=== PATIENT | male | born 1935 | race Caucasian/White ===

== ENCOUNTER 2017-04-09 11:57 | Inpatient (IN) | payer MEDICARE, OTHER, SELFPAY ==
[2017-04-09] VITALS (13 sets, daily range): BP systolic 101–140; BP diastolic 57–111; PULSE 76–90; RESP 18–36; TEMP 36.7–37.3; O2SAT 88–95; BMI 31.9; BMI 31.0; BMI 30.9
--- NOTE | 2017-04-09 12:27 | RAD_ITS ---
STUDY: X-RAY CHEST REASON FOR EXAM: Male, 81 years old. Cough. Chest congestion and shortness of breath. TECHNIQUE: Single AP portable view of the chest. COMPARISON: Comparison is made with prior study dated July 04, 2016. FINDINGS: EKG electrodes are seen. Mild degree of increased markings at the lung bases suggestive of mild bibasilar atelectasis. There is no demonstrated pleural abnormality. Normal size heart. Normal mediastinum and milla. Normal visualized pulmonary arteries. There is atherosclerotic tortuosity of the aortic arch and descending thoracic aorta. There are diffuse degenerative changes of the visualized thoracic spine. Normal visualized ribs, clavicles, and shoulders. There is no demonstrated abnormality of the visualized soft tissue structures of the upper abdomen. RAD/Chest 1 View (Portable) IMPRESSION: Mild increased markings at the lung bases suggest some mild bibasilar atelectasis. Electronically Signed: Jamar Howard MD at 13:26 EST Tel [phone], Service support ,
--- NOTE | 2017-04-09 12:27 | EKG12_ITS ---
Test Reason : SOB Blood Pressure : / mmHG Vent. Rate : 078 BPM Atrial Rate : 078 BPM P-R Int : 160 ms QRS Dur : 086 ms QT Int : 392 ms P-R-T Axes : 007 -02 020 degrees QTc Int : 446 ms Normal sinus rhythm Inferior infarct , age undetermined Abnormal ECG Confirmed by LISBETH AUGUSTE, LETY ([id number]), book or script editor JOHNNY GOOD ([id number] on 04/12/2017 1:38:18 PM Referred By: FORREST Confirmed By:LETY BOB MD
[2017-04-09] MEDS: Albuterol 2.5 MG/3 ML VIAL.NEB. INHALATION ×2 (12:51)
[2017-04-09] MEDS: Ipratropium/Albuterol Sulfate 3 ML AMPUL.NEB INHALATION ×3 (12:51→22:45)
[2017-04-09 12:53] LABS: Absolute Lymphocyte Count 0.69 X10^3/ul (0.83-4.51); Absolute Neutrophil Count 9.1 X10^3/uL (2.0-7.7); Basophil# 0.01 X10^3/uL; Basophil% 0.1 % (0-1); Hematocrit 41.5 % (40-54); Hemoglobin 13.8 g/dl (13.0-16.5); Lymphocyte # 0.69 X10^3/ul (4.0); Lymphocyte % 6.6 % (19-41); Mean Corp Hgb Conc 33.3 g/gl (32-36); Mean Corpuscular Volume 93.3 fL (80-94); Mean Platelet Vol. 10.5 fl (6.2-12.0); Monocyte% 6.7 % (0-10); Neutrophil # 9.09 X10^3/uL (2.7-7.7); Neutrophil % 86.3 % (47-70); Platelet Count 189 K/mm3 (150-450); RBC Distribution Width CV 13.9 % (11.6-14.6); RBC Distribution Width SD 47.1 fl (35.1-43.9); Red Blood Count 4.45 M/mm3 (4.6-6.2); White Blood Count 10.5 K/mm3 (4.4-11.0)
[2017-04-09 12:55] LABS: POSITIVE COUNT NO; POSITIVE DIFFERENTIAL NO; POSITIVE MORPHOLOGY NO
[2017-04-09 13:00] LABS: BUN 34 mg/dL (7-18); Creatinine, Serum 1.83 mg/dL (0.70-1.30); Estimated Creatinine Clearance 30.11 ml/min; Glucose 164 mg/dL (70-110)
[2017-04-09 13:01] LABS: Anion Gap 10 (5-15); BUN/Creat Ratio 18.6 RATIO (10-20); Chloride 103 mmol/L (98-107); EST Glomerular Filtration Rate 38 mL/min (>60); Est Glom Filt Rate - Afr Amer 46 mL/min (>60); Potassium 3.9 mmol/L (3.5-5.1); Sodium Level 138 mmol/L (136-145)
[2017-04-09 13:26] LABS: BNP,B-Type NATRIURETIC PEPTIDE 53.7 pg/mL (0-100)
[2017-04-09] MEDS: MethylPREDNISolone 125 MG/2 ML Vial 80 MG IV (13:34)
--- NOTE | 2017-04-09 14:22 | ED.DCSUM_ITS ---
- ER Visit Summary Date of Service: 04/09/17 Chief Complaint: Shortness of breath/COPD History of Present Illness: The patient is a 81 M with a history of COPD, not on home oxygen. Patient became ill with respiratory symptoms approximately 5 days ago. On the he started taking amoxicillin and prednisone. He was seen by his PCP on the and was switched to Levaquin. Chest x-ray was negative at that time. Patient has not had fever. He uses a nebulizer at home as needed. This morning his breathing seems significantly worse and he requested to come to the hospital. He denies chest pain. Physical Examination: Blood pressure is 135/78, temperature 98.4, heart rate 80 , respiratory rate 36, pulse ox 95% on room air. Head and neck examination is unremarkable. Heart is regular rate and rhythm. Lungs sounds are with rhonchi throughout and mild expiratory wheezes. Abdomen is soft nontender. Lower extremity examination does not reveal significant calf tenderness or edema. Test Results: EKG is sinus at 78 with no sign of acute ischemia. Portable chest x-ray shows mild increased markings of the lung bases suggesting bibasilar atelectasis. CBC is normal. Chemistry studies reveal glucose of 164 , BUN 34, creatinine 1.83. BNP is normal at 53. Blood cultures were obtained and sent. Emergency Department Course and Treatment: Patient was treated with Solu-Medrol and aerosols. Per nursing documentation, his oxygen saturation dropped to 88% on room air. He is placed on 2 L nasal cannula and was satting 92% on my repeat evaluation. Patient has failed outpatient therapy with appropriate antibiotics and steroids. He did take a dose of antibiotics this morning and is not due for his next dose, therefore is not given antibiotics in the emergency room. Hospitalist has been contacted for admission. Treatment Plan: [] Disposition: Admit Impression: 1. COPD exacerbation 2. Bronchitis This note was generated with [employer] dictation software. It may contain incorrect words, spelling, and punctuation that were not noted in review of the chart prior to signing ED Disposition - Plan for ED Patient: Disposition: Acute Care Hospital [facility] Chief Complaint: Shortness of Breath
--- NOTE | 2017-04-09 16:37 | PCM.HP.STD ---
Problem List (1) Asthma exacerbation with COPD (chronic obstructive pulmonary disease) Status: Acute (2) CAD (coronary artery disease) Status: Chronic Qualifiers: Coronary Disease-Associated Artery/Lesion type: [place] artery [place] vs. transplanted heart: [place] heart Associated angina: without angina Qualified Code(s): I25.10 - Atherosclerotic heart disease of [place] coronary artery without angina pectoris (3) HLD (hyperlipidemia) Status: Chronic Qualifiers: Hyperlipidemia type: mixed hyperlipidemia Qualified Code(s): E78.2 - Mixed hyperlipidemia (4) HTN (hypertension) Status: Chronic Qualifiers: Hypertension type: essential hypertension Qualified Code(s): I10 - Essential (primary) hypertension History of Present Illness Date of Admission: 04/09/17 Chief Complaint: Cough, shortness of breath Patient is an 81 years old male with history of COPD/asthma, presents with worsening of cough and dyspnea. He started to have symptoms of cough 5 days ago. He has standing order of oral antibiotics and prednisone, started on 04/05/17. The symptoms did not improve, sought care at his PCP, where he was given Levaquin on 04/07/17. He is doing much worse today, bought to ED. His Oxygen saturation was 88%, improved to 92% with aerosol treatment and oxygen. He has nebulizer at home, but did not require home oxygen yet. He is having difficulty of using MDI, using budesonide aerosol and DuoNeb, along with oral Singulair. Past Medical History Past Medical History (Chronic Problems): Chronic Problems CAD (coronary artery disease) (Chronic) HLD (hyperlipidemia) (Chronic) Obesity (BMI 30.0-34.9) (Chronic) COPD (chronic obstructive pulmonary disease) (Chronic) HTN (hypertension) (Chronic) Allergies No Known Allergies Allergy (Verified 02/14/17 10:19) Home Medications: Ambulatory Orders Medication Instructions Recorded Aspirin [Adult Low Dose Aspirin EC] 81 mg PO DAILY 09/25/15 Atorvastatin Calcium [Lipitor] 40 mg PO QHS 09/25/15 Bumetanide 1 mg PO DAILY 09/25/15 Clopidogrel Bisulfate [Plavix] 75 mg PO DAILY 09/25/15 Famotidine [Pepcid] 20 mg PO DAILY 09/25/15 Losartan Potassium [Cozaar] 12.5 mg PO DAILY 09/25/15 Metoprolol Tartrate [Lopressor 25 mg PO BID 09/25/15 (beta alycia)] Nitroglycerin [Nitrostat] 0.4 mg SUBLINGUAL Q5M PRN 09/25/15 Pantoprazole Sodium [Protonix] 40 mg PO DAILY PRN 09/25/15 Sertraline HCl [Zoloft] 50 mg PO DAILY 09/25/15 TraMADol [Ultram] 50 mg PO BID PRN PRN 09/25/15 Guaifenesin [Mucinex] 1,200 mg PO BID PRN 01/20/16 Albuterol Aerosols [Ventolin 2.5 mg INHALATION TID 02/14/17 Aerosols] Budesonide Aerosol [Pulmicort 0.5 mg INHALATION BID 02/14/17 Aerosol] Montelukast Sodium [Singulair] 10 mg PO QHS 02/14/17 Fluticasone Propionate [Flonase 1 spray NS DAILY 04/09/17 Allergy Relief] Ipratropium/Albuterol Sulfate 3 ml INHALATION Q4H.RT 04/09/17 [Duoneb] Levofloxacin [Levaquin] 500 mg PO BID 04/09/17 Surgical History: - - PCI x 1. Psychiatric History: No pertinent psych hx Smoking Status: Former smoker - *Family History Maternal History Items: No pertinent history Paternal History Items: No pertinent history Review of Systems Comment: ROS: In general: Patient has been in good health, denied of any constitutional symptoms, such as weight loss, or gain, fever, chills, or night sweats. Patient denied of any profound fatigue. HEENT: Unremarkable. Patient denied of any dizziness, chronic headache, blurred vision, double vision, dry mouth, or nasal congestion. CV/respiratory: He has minimal sputum with white color phlegm. +frequent edema. No chest pain. GI: Patient denied any abdominal pain, nausea, vomiting, diarrhea, constipation, melena, or hematochezia. : Patient denied any significant urinary symptoms. Neurology: Unremarkable. There is no history of seizure as an adult. Psychological: Unremarkable. ?. Endocrine: Unremarkable. Musculoskeletal: Unremarkable. VTE Information - Inpt Only VTE Present on Admission: No VTE Mechan Device Prophylaxis: Knee High PAYAL Hose VTE Pharm Prophylaxis ordered?: Yes Patient Problems: Active and Suspected Problems Asthma exacerbation with COPD (chronic obstructive pulmonary disease) (Acute) Objective: In general, patient is a well-nourished and developed adult. Mildly in respiratory distress. HEENT: Head is atraumatic, and normocephalic. Pupils are equal, round, and reactive to light and accommodations. Neck is supple. There is no lymphadenopathy, or thyromegaly. Oral mucosa is pink, and moist. There are no lesions. Heart: Auscultation is normal with regular rhythm and rate. There is no extra heart sounds, or murmurs. S1 and S2 are present. Point of maximal impulse is not displaced. Lungs: upper airway rhonchi, diminished breath sounds at bases. Diffuse wheezing mid to upper lung bailey. Abdomen: Abdominal wall is non-tender, and non-distended. There is no palpable mass or organomegaly. Normoactive bowel sounds are present. Extremities: There is no cyanosis or clubbing. Peripheral pulses are palpable. There is no edema. Skin: There are no any skin discoloration or lesions. Neurological: CN II - XII are intact. Sensory and motor functions are grossly normal with no obvious deficit. Cerebellar functions are within normal range. Gait was not tested. - Physical Exam Vital Signs Temp Pulse Resp BP Pulse Ox 98.4 F 87 19 H 125/111 H 91 04/09/17 11:59 04/09/17 15:20 04/09/17 15:20 04/09/17 15:20 04/09/17 15:20 Diagnostic Data Chest X-Ray 04/09/17 12:27 IMPRESSION: Mild increased markings at the lung bases suggest some mild bibasilar atelectasis. Electronically Signed: Jamar Howard MD at 13:26 EST Tel [phone], Service support , Assessment/Plan Active and Suspected Problems Asthma exacerbation with COPD (chronic obstructive pulmonary disease) (Acute) Patient is an 81 years old male with history of COPD/asthma, presents with worsening of cough and dyspnea. He started to have symptoms of cough 5 days ago. He has standing order of oral antibiotics and prednisone, started on 04/05/17. The symptoms did not improve, sought care at his PCP, where he was given Levaquin on 04/07/17. He is doing much worse today, bought to ED. His Oxygen saturation was 88%, improved to 92% with aerosol treatment and oxygen. He has nebulizer at home, but did not require home oxygen yet. He is having difficulty of using MDI, using budesonide aerosol and DuoNeb, along with oral Singulair. #1 asthma/COPD exacerbation. Solu-Medrol 40 mg IV Q8, DuoNeb Q4H + prn. Oxygen supplement. Azithromycin 500 mg IV daily. #2 Coronary artery disease. Continue current medications. #3 Essential hypertension. Blood pressure is adequate. #4 Hyperlipidemia. Continue atorvastatin. VTE prophylaxis: Heparin SQ. GI prophylaxis: PPI po. Patient is full code. Disposition: home in 2 to 3 days. Code Visit Inpatient E&M: 45870 Init Hosp L3
[2017-04-09] MEDS: 0.9% Normal Saline 1,000 ML 75 ML IV (16:46)
--- NOTE | 2017-04-09 16:47 | HP.PCM_ITS ---
Problem List (1) Asthma exacerbation with COPD (chronic obstructive pulmonary disease) Status: Acute (2) CAD (coronary artery disease) Status: Chronic Qualifiers: Coronary Disease-Associated Artery/Lesion type: [place] artery [place] vs. transplanted heart: [place] heart Associated angina: without angina Qualified Code(s): I25.10 - Atherosclerotic heart disease of [place] coronary artery without angina pectoris (3) HLD (hyperlipidemia) Status: Chronic Qualifiers: Hyperlipidemia type: mixed hyperlipidemia Qualified Code(s): E78.2 - Mixed hyperlipidemia (4) HTN (hypertension) Status: Chronic Qualifiers: Hypertension type: essential hypertension Qualified Code(s): I10 - Essential (primary) hypertension History of Present Illness Date of Admission: 04/09/17 Chief Complaint: Cough, shortness of breath Patient is an 81 years old male with history of COPD/asthma, presents with worsening of cough and dyspnea. He started to have symptoms of cough 5 days ago. He has standing order of oral antibiotics and prednisone, started on 04/05/17. The symptoms did not improve, sought care at his PCP, where he was given Levaquin on 04/07/17. He is doing much worse today, bought to ED. His Oxygen saturation was 88%, improved to 92% with aerosol treatment and oxygen. He has nebulizer at home, but did not require home oxygen yet. He is having difficulty of using MDI, using budesonide aerosol and DuoNeb, along with oral Singulair. Past Medical History Past Medical History (Chronic Problems): Chronic Problems CAD (coronary artery disease) (Chronic) HLD (hyperlipidemia) (Chronic) Obesity (BMI 30.0-34.9) (Chronic) COPD (chronic obstructive pulmonary disease) (Chronic) HTN (hypertension) (Chronic) Allergies No Known Allergies Allergy (Verified 02/14/17 10:19) Home Medications: Ambulatory Orders Medication Instructions Recorded Aspirin [Adult Low Dose Aspirin EC] 81 mg PO DAILY 09/25/15 Atorvastatin Calcium [Lipitor] 40 mg PO QHS 09/25/15 Bumetanide 1 mg PO DAILY 09/25/15 Clopidogrel Bisulfate [Plavix] 75 mg PO DAILY 09/25/15 Famotidine [Pepcid] 20 mg PO DAILY 09/25/15 Losartan Potassium [Cozaar] 12.5 mg PO DAILY 09/25/15 Metoprolol Tartrate [Lopressor 25 mg PO BID 09/25/15 (beta alycia)] Nitroglycerin [Nitrostat] 0.4 mg SUBLINGUAL Q5M PRN 09/25/15 Pantoprazole Sodium [Protonix] 40 mg PO DAILY PRN 09/25/15 Sertraline HCl [Zoloft] 50 mg PO DAILY 09/25/15 TraMADol [Ultram] 50 mg PO BID PRN PRN 09/25/15 Guaifenesin [Mucinex] 1,200 mg PO BID PRN 01/20/16 Albuterol Aerosols [Ventolin 2.5 mg INHALATION TID 02/14/17 Aerosols] Budesonide Aerosol [Pulmicort 0.5 mg INHALATION BID 02/14/17 Aerosol] Montelukast Sodium [Singulair] 10 mg PO QHS 02/14/17 Fluticasone Propionate [Flonase 1 spray NS DAILY 04/09/17 Allergy Relief] Ipratropium/Albuterol Sulfate 3 ml INHALATION Q4H.RT 04/09/17 [Duoneb] Levofloxacin [Levaquin] 500 mg PO BID 04/09/17 Surgical History: - - PCI x 1. Psychiatric History: No pertinent psych hx Smoking Status: Former smoker - *Family History Maternal History Items: No pertinent history Paternal History Items: No pertinent history Review of Systems Comment: ROS: In general: Patient has been in good health, denied of any constitutional symptoms, such as weight loss, or gain, fever, chills, or night sweats. Patient denied of any profound fatigue. HEENT: Unremarkable. Patient denied of any dizziness, chronic headache, blurred vision, double vision, dry mouth, or nasal congestion. CV/respiratory: He has minimal sputum with white color phlegm. +frequent edema. No chest pain. GI: Patient denied any abdominal pain, nausea, vomiting, diarrhea, constipation, melena, or hematochezia. : Patient denied any significant urinary symptoms. Neurology: Unremarkable. There is no history of seizure as an adult. Psychological: Unremarkable. ?. Endocrine: Unremarkable. Musculoskeletal: Unremarkable. VTE Information - Inpt Only VTE Present on Admission: No VTE Mechan Device Prophylaxis: Knee High PAYAL Hose VTE Pharm Prophylaxis ordered?: Yes Patient Problems: Active and Suspected Problems Asthma exacerbation with COPD (chronic obstructive pulmonary disease) (Acute) Objective: In general, patient is a well-nourished and developed adult. Mildly in respiratory distress. HEENT: Head is atraumatic, and normocephalic. Pupils are equal, round, and reactive to light and accommodations. Neck is supple. There is no lymphadenopathy, or thyromegaly. Oral mucosa is pink, and moist. There are no lesions. Heart: Auscultation is normal with regular rhythm and rate. There is no extra heart sounds, or murmurs. S1 and S2 are present. Point of maximal impulse is not displaced. Lungs: upper airway rhonchi, diminished breath sounds at bases. Diffuse wheezing mid to upper lung bailey. Abdomen: Abdominal wall is non-tender, and non-distended. There is no palpable mass or organomegaly. Normoactive bowel sounds are present. Extremities: There is no cyanosis or clubbing. Peripheral pulses are palpable. There is no edema. Skin: There are no any skin discoloration or lesions. Neurological: CN II - XII are intact. Sensory and motor functions are grossly normal with no obvious deficit. Cerebellar functions are within normal range. Gait was not tested. - Physical Exam Vital Signs Temp Pulse Resp BP Pulse Ox 98.4 F 87 19 H 125/111 H 91 04/09/17 11:59 04/09/17 15:20 04/09/17 15:20 04/09/17 15:20 04/09/17 15:20 Diagnostic Data Chest X-Ray 04/09/17 12:27 IMPRESSION: Mild increased markings at the lung bases suggest some mild bibasilar atelectasis. Electronically Signed: Jamar Howard MD at 13:26 EST Tel [phone], Service support , Assessment/Plan Active and Suspected Problems Asthma exacerbation with COPD (chronic obstructive pulmonary disease) (Acute) Patient is an 81 years old male with history of COPD/asthma, presents with worsening of cough and dyspnea. He started to have symptoms of cough 5 days ago. He has standing order of oral antibiotics and prednisone, started on 04/05/17. The symptoms did not improve, sought care at his PCP, where he was given Levaquin on 04/07/17. He is doing much worse today, bought to ED. His Oxygen saturation was 88%, improved to 92% with aerosol treatment and oxygen. He has nebulizer at home, but did not require home oxygen yet. He is having difficulty of using MDI, using budesonide aerosol and DuoNeb, along with oral Singulair. #1 asthma/COPD exacerbation. Solu-Medrol 40 mg IV Q8, DuoNeb Q4H + prn. Oxygen supplement. Azithromycin 500 mg IV daily. #2 Coronary artery disease. Continue current medications. #3 Essential hypertension. Blood pressure is adequate. #4 Hyperlipidemia. Continue atorvastatin. VTE prophylaxis: Heparin SQ. GI prophylaxis: PPI po. Patient is full code. Disposition: home in 2 to 3 days. Code Visit Inpatient E&M: 39211 Init Hosp L3
[2017-04-09] MEDS: 0.9% NaCl Peripheral Flush Adult/Peds IV (17:31)
[2017-04-09] MEDS: Heparin Injection 5,000 UNITS/ML Syringe 5000 UNITS SC (21:39)
[2017-04-09] MEDS: Metoprolol Tartrate 25 MG Tablet PO (21:39)
[2017-04-09] MEDS: Atorvastatin Calcium 40 MG Tablet PO (21:39)
[2017-04-09] MEDS: Montelukast 10 MG Tablet PO (21:39)
[2017-04-10] VITALS (25 sets, daily range): BP systolic 128–145; BP diastolic 66–83; PULSE 65–88; RESP 10–28; TEMP 36.3–37; O2SAT 92–97
[2017-04-10] MEDS: guaiFENesin 1,200 MG Tablet 1200 MG PO ×3 (01:39→22:20)
[2017-04-10] MEDS: Ipratropium/Albuterol Sulfate 3 ML AMPUL.NEB INHALATION ×6 (02:59→22:15)
[2017-04-10] MEDS: Heparin Injection 5,000 UNITS/ML Syringe 5000 UNITS SC ×3 (05:37→22:20)
--- NOTE | 2017-04-10 06:22 | PCM.PROGNOTE ---
Patient Problems: Active and Suspected Problems Asthma exacerbation with COPD (chronic obstructive pulmonary disease) (Acute) Subjective: Patient is an 81-year-old male with a past medical history of COPD, CAD, HLD and hypertension who presented to the emergency room at [facility] on 04/09/2017 complaining of cough and shortness of breath. The cough started 5 days prior to admission. He has antibiotics and prednisone at home and started them on 04/05/2017. He had no improvement and saw his PCP and was given Levaquin on 04/07/2017. On 119 he stated he was much worse and his pulse ox was 88% on room air. He uses no oxygen at home. Vital signs in the emergency room were temp 98.4, pulse rate 80, blood pressure 135/78, respiratory rate 36 and he was 88% on room air. White blood cell count was 10.5 with 86% neutrophils. Platelet count and hemoglobin were within normal limits. The electrolytes were normal but the BUN was elevated at 34 with a creatinine of 1.83. Creatinine in March 2016 was 1.36. Chest x-ray shows poor inspiratory effort with possible infiltrate in the right base and the lingula Blood cultures were sent from the emergency room and he was treated with supplemental oxygen, aerosolized bronchodilators and Solu-Medrol. He was admitted to the hospital and started on azithromycin, aerosolized bronchodilators and azithromycin. Respiratory panel is + for human Metapheumo virus and negative for influenza. Blood cultures are pending. Patient is chewing tobacco and spitting in a pop can. He has conversational dyspnea and accessory muscle use with tachypnea. Dtr is defensive and angry. I answered all her questions and every time I explain something she refutes it. He has sundowning and gets confused at night and she refuses Seroquel. He has had PFT's in the past but she does not know the results. He follows with Dr. Chacon at the [facility]. She denies that he has dementia even though she readily told me he gets confused in the hospital. He is unable to use a MDI effectively per the dtr....even with a spacer. She has an aerosol machine at home and uses Albuterol and Budesonide as needed. He has already had Amoxicillin and Levaquin and had no improvement. She wants to know when he will be discharged and I told her I am unable to predict that....it is a day by day thing. I brought up advance directives and she again got defensive. I told her that this is standard to discuss in an 81 YO pt with underlying chronic lung disease in the hospital with exacerbation COPD and viral pneumonia. She wants to know why I am asking her this. Nursing states his breathing now is worse than this AM and He would not tolerate BIPAP. She wants him to be a full code, but doesn't see why this would be necessary. - Physical Exam General: Well developed, Well nourished, Confused, - - He is awake and not really participating in the conversation other than to ask when he can go home. HEENT: Atraumatic, Normocephalic Oral: Dry Mucosa Neck: Supple, - - He has a lot of coarse wheezing over the neck and he is not coughing to bring up the sputum. Lungs: No wheeze, Diminished, Rales - coarse posteriorly on both sides. He is tachypneic, has conversational dyspnea and is using accessory muscles. Cardiovascular: Regular rate, Regular Rhythm, - - Heart sounds are very distant and difficult to hear over the coarse rales and the wheezing. Abdomen: Bowel Sounds Present, Soft, Non Tender, Non-Distended, Obese Extremities: No clubbing, No cyanosis, No edema Skin: No rashes Psych/Mental Status: - - more interested in chewing tobacco and spitting than discussing the diagnosis and the plan for treatment. Angry when I discussed code status and the possibility that he may get worse before he gets better and that with the virus and the chronic lung disease if he gets worse he may need intubated....dtr angry also. Vital Signs Temp Pulse Resp BP Pulse Ox 98.3 F 66 22 H 145/72 H 95 04/10/17 05:33 04/10/17 05:33 04/10/17 05:33 04/10/17 05:33 04/10/17 05:33 Oxygen Flow Rate 2 Oxygen Delivery Method Nasal Cannula Weight: 203 lb 4.8 oz Body Mass Index (BMI) 30.9 Intake and Output for Last 24 Hours 04/08/17 04/09/17 04/10/17 23:59 23:59 23:59 Intake Total 475 / 475 1471 / 1471 Balance 475 / 475 1471 / 1471 Assessment/Plan Active and Suspected Problems Asthma exacerbation with COPD (chronic obstructive pulmonary disease) (Acute) Impressions 1. acute exacerbation COPD secondary to Human Metaphpneumo Virus 2. Viral pneumonia secondary to Human Metaphpneumo Virus 3. 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 Chronic renal failure stage III 5. Hyperglycemia with no history of diabetes mellitus type 2 6. Tobacco abuse with chewing tobacco 7. CAD/hyperlipidemia/hypertension/suspected dementia with sundowning complicates management, care, prognosis and recovery Respiratory panel sputum culture IS and PEP ST eval Dtr not agreeable to taking away the chewing tobacco even though it is against hospital policy. She is confrontational and has attitude with all medical personnel who enter the room. Refuses Seroquel for sundowning. States someone will be here continuously while he is in the hospital. Will order PRN IM haldol PEP with percussion vest. 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 No ECHO on file at this hospital......he follows with the [facility] Continue the solu-medrol Check a HGBA1C DC the Azithromycin......antibiotics have not worked because he has a virus. Attitude of the pt and the dtr is going to make managing this pt difficult and certainly complicates care. I spent 30 minutes in the room just explaining findings and plan of care with the dtr and explaining code status......an additional 20 minutes was spent reviewing Xrays, labs and examining the pt Code Visit Inpatient E&M: 01182 Subs Hosp L3
--- NOTE | 2017-04-10 06:33 | RAD_ITS ---
STUDY: X-RAY CHEST REASON FOR EXAM: Male, 81 years old. Cough shortness of breath TECHNIQUE: PA and lateral views of the chest. There are duplicated. COMPARISON: April 09, 2017 chest x-ray, July 04, 2016 chest x-ray the lateral view is limited there is clothing artifact overlying the chest. FINDINGS: Similar to the prior study. There is elevation of the bilateral hemidiaphragms. There are increased lung markings in the medial aspect of the left lung There is no demonstrated pleural abnormality. Normal size heart. There are calcified mediastinal lymph nodes. Normal visualized pulmonary arteries. There is atherosclerotic tortuosity of the aortic arch and descending thoracic aorta. Normal visualized thoracic spine. Normal visualized ribs, clavicles, and shoulders. There is no demonstrated abnormality of the visualized soft tissue structures of the upper abdomen. RAD/Chest PA and Lateral IMPRESSION: Limited study lingular atelectasis. Could consider further evaluation with noncontrast chest CT to confirm. Degenerative change kyphosis Evidence of old granulomatous disease. Electronically Signed: Maranda Laboy MD at 10:45 EST Tel , Service support ,
[2017-04-10 08:27] LABS: Absolute Lymphocyte Count 0.87 X10^3/ul (0.83-4.51); Absolute Neutrophil Count 7.8 X10^3/uL (2.0-7.7); Basophil# 0.01 X10^3/uL; Basophil% 0.1 % (0-1); Hematocrit 39.5 % (40-54); Hemoglobin 13.2 g/dl (13.0-16.5); Lymphocyte # 0.87 X10^3/ul (4.0); Lymphocyte % 9.3 % (19-41); Mean Corp Hgb Conc 33.4 g/gl (32-36); Mean Corpuscular Hgb 30.8 pg (27.0-32.0); Mean Corpuscular Volume 92.3 fL (80-94); Mean Platelet Vol. 10.5 fl (6.2-12.0); Monocyte# 0.57 X10^3/uL; Monocyte% 6.1 % (0-10); Neutrophil # 7.84 X10^3/uL (2.7-7.7); Neutrophil % 84.3 % (47-70); POSITIVE COUNT NO; POSITIVE DIFFERENTIAL NO; POSITIVE MORPHOLOGY NO; Platelet Count 172 K/mm3 (150-450); RBC Distribution Width CV 13.7 % (11.6-14.6); RBC Distribution Width SD 46.1 fl (35.1-43.9); Red Blood Count 4.28 M/mm3 (4.6-6.2); White Blood Count 9.3 K/mm3 (4.4-11.0)
[2017-04-10] MEDS: 0.9% Normal Saline 1,000 ML 75 ML IV ×2 (08:31→22:20)
[2017-04-10] MEDS: Losartan Potassium 25 MG Tablet 12.5 MG PO (08:35)
[2017-04-10] MEDS: Fluticasone 0.05% 1 SPRAY NASAL.SRY NASAL (08:36)
[2017-04-10] MEDS: Aspirin E.C. 81 MG Tablet PO (08:36)
[2017-04-10] MEDS: Metoprolol Tartrate 25 MG Tablet PO ×2 (08:37→22:19)
[2017-04-10] MEDS: Sertraline 50 MG Tablet PO (08:38)
[2017-04-10] MEDS: Clopidogrel Bisulfate 75 MG Tablet PO (08:38)
[2017-04-10 09:00] LABS: ALB/GLOB Ratio 0.9 RATIO (0.9-2.4); AST(SGOT) 48 U/L (15-37); Alanine Aminotransfer ALT/SGPT 49 U/L (12-78); Albumin, Serum 3.1 g/dL (3.4-5.0); Alkaline Phosphatase 107 U/L (45-117); Anion Gap 10 (5-15); BUN 33 mg/dL (7-18); BUN/Creat Ratio 22.3 RATIO (10-20); Calcium,Total 8.6 mg/dL (8.5-10.1); Chloride 105 mmol/L (98-107); Creatinine, Serum 1.48 mg/dL (0.70-1.30); EST Glomerular Filtration Rate 48 mL/min (>60); Est Glom Filt Rate - Afr Amer 58 mL/min (>60); Estimated Creatinine Clearance 37.23 ml/min; Globulin 3.6 g/dL (2.2-4.2); Glucose 156 mg/dL (70-110); Magnesium 2.3 mg/dL (1.6-2.6); Phosphorus 3.2 mg/dL (2.5-4.9); Potassium 3.7 mmol/L (3.5-5.1); Protein, Total 6.7 g/dL (6.4-8.2); Sodium Level 140 mmol/L (136-145)
--- NOTE | 2017-04-10 11:30 | CASEMGMT ---
Face to Face with patient for initial transition planning/care coordination assessment. RN CM introduced self and role at [facility], pt voices understanding and consents to assessment at this time. Care providers, pharmacy, and demographics verified. See attached link. Advised pt to ask for CM if questions/concerns/needs arise, voices understanding. PLAN: Patient states he would like to return home, with family, upon discharge from hospital. Patient states he does not use home oxygen, but does have a nebulizer. Patient states he has used [facility] in the past but is not currently receiving any home health services. He states he no longer drives.
[2017-04-10 15:30] LABS: Hemoglobin A1c 6.3 % (4.2-6.3)
--- NOTE | 2017-04-10 15:56 | NURSING ---
pt placed on bi-pap, pt appears less sob and is resting with HOB UP 30 DEGREES, POX IS 93% RESPIRATIONS HAVE GONE FROM 32 T0 22\
[2017-04-10] MEDS: Lidocaine Jelly 2% 20 ML Syringe (URO-JET) 20 APPLIC TOPICAL (19:08)
[2017-04-10 19:14] LABS: Bacteria 0 SEEN /hpf (None Seen); Mucous, Urine 0 SEEN /hpf (<or=2+); Squamous Epithelial Cells - UA 0 SEEN /hpf (0-5); White Blood Cells 0 SEEN /hpf (0-5)
[2017-04-10 19:26] LABS: Color, Urine Yellow (Yellow); Glucose, Dipstick 250 mg/dl (Normal); Ketone-Dipstick Negative (Negative); Leukocyte Esterase-Dipstick Negative /ul (Negative); Nitrite-Dipstick Negative (Negative); Occult Blood-Urine 10 /ul (Negative); Protein-Dipstick Negative (Negative); Specific Gravity, Urine 1.015 (1.002-1.030); Urine Bilirubin Dipstick Negative (Negative); Urine Clarity Clear (Clear); Urine Urobilinogen Normal (Normal)
[2017-04-10 19:33] LABS: Red Blood Cells-Urine 0-5 SEEN /hpf (0-5)
[2017-04-10] MEDS: Atorvastatin Calcium 40 MG Tablet PO (22:19)
[2017-04-10] MEDS: Montelukast 10 MG Tablet PO (22:19)
--- NOTE | 2017-04-10 23:33 | NURSING ---
While this RN was in patients room at [facility] meds, patient son and daughter were in patients room. Daughter was asking alot of questions, this RN attempted to answer her questions to the best of her ability yet many times daughter started to become frustrated and continued asking questions. This RN tried to explain that patient was made NPO earlier in the shift and a cookie swallow was ordered. Daughter stated that patient has had cookie swallows in the past and they were fine. Patient is on BIPAP at this time. Will continue to monitor.
[2017-04-11] VITALS (22 sets, daily range): BP systolic 135–144; BP diastolic 72–86; PULSE 58–87; RESP 14–28; TEMP 36.4–37.1; O2SAT 94–98
[2017-04-11] MEDS: Ipratropium/Albuterol Sulfate 3 ML AMPUL.NEB INHALATION ×6 (02:30→22:39)
[2017-04-11] MEDS: Heparin Injection 5,000 UNITS/ML Syringe 5000 UNITS SC ×2 (05:28→14:21)
[2017-04-11 05:41] LABS: ALB/GLOB Ratio 0.8 RATIO (0.9-2.4); AST(SGOT) 141 U/L (15-37); Alanine Aminotransfer ALT/SGPT 115 U/L (12-78); Albumin, Serum 2.5 g/dL (3.4-5.0); Alkaline Phosphatase 107 U/L (45-117); Anion Gap 9 (5-15); BUN 29 mg/dL (7-18); Calcium,Total 7.9 mg/dL (8.5-10.1); Chloride 105 mmol/L (98-107); Creatinine, Serum 1.16 mg/dL (0.70-1.30); EST Glomerular Filtration Rate 64 mL/min (>60); Est Glom Filt Rate - Afr Amer 77 mL/min (>60); Globulin 3.1 g/dL (2.2-4.2); Glucose 177 mg/dL (70-110); Protein, Total 5.6 g/dL (6.4-8.2); Sodium Level 139 mmol/L (136-145)
[2017-04-11 05:42] LABS: Absolute Neutrophil Count 8.2 X10^3/uL (2.0-7.7); Basophil# 0.03 X10^3/uL; Basophil% 0.3 % (0-1); Hematocrit 37.6 % (40-54); Hemoglobin 12.4 g/dl (13.0-16.5); Mean Corpuscular Hgb 31.4 pg (27.0-32.0); Mean Corpuscular Volume 95.2 fL (80-94); Mean Platelet Vol. 10.3 fl (6.2-12.0); Monocyte# 0.58 X10^3/uL; Monocyte% 5.8 % (0-10); Neutrophil # 8.22 X10^3/uL (2.7-7.7); Neutrophil % 82.4 % (47-70); POSITIVE COUNT NO; POSITIVE DIFFERENTIAL NO; POSITIVE MORPHOLOGY NO; Platelet Count 163 K/mm3 (150-450); RBC Distribution Width CV 13.7 % (11.6-14.6); RBC Distribution Width SD 47.7 fl (35.1-43.9); Red Blood Count 3.95 M/mm3 (4.6-6.2)
--- NOTE | 2017-04-11 06:55 | PN_ITS ---
Patient Problems: Active and Suspected Problems Asthma exacerbation with COPD (chronic obstructive pulmonary disease) (Acute) Subjective: 81-year-old male with history of tobacco abuse/chewing, COPD, CRF III, CAD, HLD , HTN and suspected dementia admitted to the hospital with acute exacerbation of COPD and acute respiratory failure with hypoxemia secondary to Human Metaphpneumo Virus. Placed on BiPAP 04/10/2017. Blood cultures had no growth after 48 hours. All events of the past 24 hours of been reviewed. He is afebrile. Vital signs are stable. He is tolerating BiPAP without difficulty. He was able to tolerate 2 hours off BiPAP to eat a meal before needing to go back on. He is more interactive today and conversing pleasantly with me. Fluid balance is +[id number] since admission. White blood cell count today is 10. There are 82% neutrophils but he is on steroids. Creatinine is down to 1.16 from 1.83 to admission. LFTs are elevated with AST of 141 and ALT of 115. They Were unremarkable at admission. Denies CP, nausea, abdominal pain - Physical Exam General: Alert, Cooperative, No apparent distress - he is on BIPAP when I am talking with him HEENT: Atraumatic Oral: Moist Mucosa Lungs: Diminished, Rales, Rhonchi, - - No tachypnea or accessory muscle use when on BIPAP. He gets tachypneic off the BIPAP Cardiovascular: Regular rate, Regular Rhythm, Normal S1, Normal S2, - - distant heart sounds Abdomen: Bowel Sounds Present, Soft, Non Tender, Non-Distended Extremities: No clubbing, No cyanosis Skin: No rashes Psych/Mental Status: Appropriate Vital Signs Temp Pulse Resp BP Pulse Ox 97.7 F L 72 21 H 135/74 H 96 04/11/17 05:26 04/11/17 05:50 04/11/17 05:50 04/11/17 05:26 04/11/17 05:50 Oxygen Flow Rate 4 Oxygen Delivery Method Bi-pap Weight: 211 lb 3.245 oz Body Mass Index (BMI) 30.9 Intake and Output for Last 24 Hours 04/09/17 04/10/17 04/11/17 23:59 23:59 23:59 Intake Total 475 / 475 4701 / 4701 477 / 477 Output Total 1250 / 1250 400 / 400 Balance 475 / 475 3451 / 3451 77 / 77 Microbiology Past 72 Hours 04/10/17 07:30 Respiratory Panel (PCR) - Final Mucosa - Nasopharyngeal Human [place] Laboratory Tests Past 24 Hrs 04/10/17 04/10/17 04/10/17 08:12 08:12 08:12 WBC 9.3 RBC 4.28 L Hgb 13.2 Hct 39.5 L MCV 92.3 MCH 30.8 MCHC 33.4 RDW 13.7 RDW Differential 46.1 H Plt Count 172 MPV 10.5 Immature Gran % (Auto) 0.200 Neut % (Auto) 84.3 H Lymph % (Auto) 9.3 L [place] % (Auto) 6.1 Eos % (Auto) 0.0 Baso % (Auto) 0.1 Absolute Neuts (auto) 7.8 H Absolute Lymphs (auto) 0.87 Total Counted Not Reportable Sodium 140 Potassium 3.7 Chloride 105 Carbon Dioxide 25.0 Anion Gap 10 BUN 33 H Creatinine 1.48 H Estim Creat Clear Calc 37.23 Est GFR (MDRD) Af Amer 58 L Est GFR (MDRD) Non-Af 48 L BUN/Creatinine Ratio 22.3 H Glucose 156 H Hemoglobin A1c Calcium 8.6 Phosphorus 3.2 Cancelled Magnesium 2.3 Cancelled Total Bilirubin 0.80 AST 48 H ALT 49 Alkaline Phosphatase 107 Total Protein 6.7 Albumin 3.1 L Globulin 3.6 Albumin/Globulin Ratio 0.9 Urine Color Urine Clarity Urine pH Ur Specific [place] Urine Protein Urine Glucose (UA) Urine Ketones Urine Occult Blood Urine Nitrite Urine Bilirubin Urine Urobilinogen Ur Leukocyte Esterase Urine RBC Urine WBC Ur Squamous Epith Cells Urine Bacteria Urine Mucus 04/10/17 04/10/17 04/11/17 08:12 19:00 05:14 WBC 10.0 RBC 3.95 L Hgb 12.4 L Hct 37.6 L MCV 95.2 H MCH 31.4 MCHC 33.0 RDW 13.7 RDW Differential 47.7 H Plt Count 163 MPV 10.3 Immature Gran % (Auto) 0.500 Neut % (Auto) 82.4 H Lymph % (Auto) 11.0 L [place] % (Auto) 5.8 Eos % (Auto) 0.0 Baso % (Auto) 0.3 Absolute Neuts (auto) 8.2 H Absolute Lymphs (auto) 1.10 Total Counted Not Reportable Sodium Potassium Chloride Carbon Dioxide Anion Gap BUN Creatinine Estim Creat Clear Calc Est GFR (MDRD) Af Amer Est GFR (MDRD) Non-Af BUN/Creatinine Ratio Glucose Hemoglobin A1c 6.3 Calcium Phosphorus Magnesium Total Bilirubin AST ALT Alkaline Phosphatase Total Protein Albumin Globulin Albumin/Globulin Ratio Urine Color Yellow Urine Clarity Clear Urine pH 5.0 Ur Specific [place] 1.015 Urine Protein Negative Urine Glucose (UA) 250 H Urine Ketones Negative Urine Occult Blood 10 H Urine Nitrite Negative Urine Bilirubin Negative Urine Urobilinogen Normal Ur Leukocyte Esterase Negative Urine RBC 0-5 SEEN Urine WBC 0 SEEN Ur Squamous Epith Cells 0 SEEN Urine Bacteria 0 SEEN Urine Mucus 0 SEEN 04/11/17 05:14 WBC RBC Hgb Hct MCV MCH MCHC RDW RDW Differential Plt Count MPV Immature Gran % (Auto) Neut % (Auto) Lymph % (Auto) [place] % (Auto) Eos % (Auto) Baso % (Auto) Absolute Neuts (auto) Absolute Lymphs (auto) Total Counted Sodium 139 Potassium 4.0 Chloride 105 Carbon Dioxide 25.0 Anion Gap 9 BUN 29 H Creatinine 1.16 Estim Creat Clear Calc 47.50 Est GFR (MDRD) Af Amer 77 Est GFR (MDRD) Non-Af 64 BUN/Creatinine Ratio 25.0 H Glucose 177 H Hemoglobin A1c Calcium 7.9 L Phosphorus Magnesium Total Bilirubin 0.60 AST 141 H ALT 115 H Alkaline Phosphatase 107 Total Protein 5.6 L Albumin 2.5 L Globulin 3.1 Albumin/Globulin Ratio 0.8 L Urine Color Urine Clarity Urine pH Ur Specific [place] Urine Protein Urine Glucose (UA) Urine Ketones Urine Occult Blood Urine Nitrite Urine Bilirubin Urine Urobilinogen Ur Leukocyte Esterase Urine RBC Urine WBC Ur Squamous Epith Cells Urine Bacteria Urine Mucus Assessment/Plan Active and Suspected Problems Asthma exacerbation with COPD (chronic obstructive pulmonary disease) (Acute) Impressions 1. acute exacerbation COPD secondary to Human Metaphpneumo Virus 2. Viral pneumonia secondary to Human Metaphpneumo Virus 3. Suspected dementia with sundowning vs metabolic encephalopathy due to infection and resp failure 4. Chronic renal failure stage III 5. Hyperglycemia with no history of diabetes mellitus type 2 - HGBA is 6.3 consistent with glucose intolerance/pre-diabetes 6. Tobacco abuse with chewing tobacco 7. CAD/hyperlipidemia/hypertension/suspected dementia with sundowning complicates management, care, prognosis and recovery 8. abnormal LFT's - suspect due to the virus change the diet to 2000 calorie cardiac and get accuchecks since he is on high dose steroids Continue BIPAP and wean off as tolerated He follows with Dr. Chacon Tobacco cessation counselling given Recheck a PA and lateral CXR in the AM Taper the solumedrol as he improves Ambulatory pulse ox on RA prior to DC - suspect he may need O2 Code Visit Inpatient E&M: 19330 Subs Hosp L2
--- NOTE | 2017-04-11 08:06 | CPS ---
vent therapy not done @this time, pt sleeping w/BiPAP on.
--- NOTE | 2017-04-11 08:26 | NURSING ---
pt on bipap, appears to be sleeping-since pt awake until 4 am and is npo at this time, will allow pt to rest at this time
[2017-04-11] MEDS: Losartan Potassium 25 MG Tablet 12.5 MG PO (08:54)
[2017-04-11] MEDS: Aspirin E.C. 81 MG Tablet PO (08:55)
[2017-04-11] MEDS: Fluticasone 0.05% 1 SPRAY NASAL.SRY NASAL (08:55)
[2017-04-11] MEDS: Clopidogrel Bisulfate 75 MG Tablet PO (08:56)
[2017-04-11] MEDS: Metoprolol Tartrate 25 MG Tablet PO ×2 (08:56→21:10)
[2017-04-11] MEDS: guaiFENesin 1,200 MG Tablet 1200 MG PO ×2 (08:56→21:10)
[2017-04-11] MEDS: Sertraline 50 MG Tablet PO (08:57)
--- NOTE | 2017-04-11 11:10 | NURSING ---
lung sounds prior to eating were + scattered rhonchi and exp wheezing in all lobes lungs sounds after eating were same
[2017-04-11] MEDS: 0.9% Normal Saline 1,000 ML 75 ML IV (12:55)
[2017-04-11] MEDS: Albuterol 2.5 MG/3 ML VIAL.NEB. INHALATION (13:41)
--- NOTE | 2017-04-11 15:51 | CPS ---
vest therapy not done, pt on BiPaP most of the time which doesn't leave him a way to expectorate effectively and is too SOB for PEP therapy @this time.
[2017-04-11] MEDS: Atorvastatin Calcium 40 MG Tablet PO (21:10)
[2017-04-11] MEDS: Montelukast 10 MG Tablet PO (21:23)
[2017-04-11 21:31] LABS: Bedside Glucose 201 mg/dL (70-110)
[2017-04-12] VITALS (20 sets, daily range): BP systolic 131–153; BP diastolic 72–88; PULSE 55–101; RESP 14–23; TEMP 36.4–36.9; O2SAT 92–97
[2017-04-12] MEDS: Ipratropium/Albuterol Sulfate 3 ML AMPUL.NEB INHALATION ×6 (02:02→23:09)
[2017-04-12] MEDS: Enoxaparin 40 MG/0.4 ML Syringe SC (05:49)
[2017-04-12 05:52] LABS: Absolute Lymphocyte Count 1.23 X10^3/ul (0.83-4.51); Absolute Neutrophil Count 6.9 X10^3/uL (2.0-7.7); Basophil# 0.01 X10^3/uL; Basophil% 0.1 % (0-1); Hematocrit 34.4 % (40-54); Hemoglobin 11.5 g/dl (13.0-16.5); Lymphocyte # 1.23 X10^3/ul (4.0); Lymphocyte % 14.5 % (19-41); Mean Corp Hgb Conc 33.4 g/gl (32-36); Mean Corpuscular Hgb 30.7 pg (27.0-32.0); Mean Platelet Vol. 10.8 fl (6.2-12.0); Monocyte# 0.38 X10^3/uL; Monocyte% 4.5 % (0-10); Neutrophil # 6.86 X10^3/uL (2.7-7.7); Neutrophil % 80.5 % (47-70); POSITIVE COUNT NO; POSITIVE DIFFERENTIAL NO; POSITIVE MORPHOLOGY NO; Platelet Count 163 K/mm3 (150-450); RBC Distribution Width CV 13.6 % (11.6-14.6); RBC Distribution Width SD 45.5 fl (35.1-43.9); Red Blood Count 3.74 M/mm3 (4.6-6.2); White Blood Count 8.5 K/mm3 (4.4-11.0)
--- NOTE | 2017-04-12 05:55 | RAD_ITS ---
STUDY: X-RAY CHEST REASON FOR EXAM: Male, 81 years old. Status post swallow study TECHNIQUE: PA and lateral views of the chest. COMPARISON: April 12, 2017 FINDINGS: Lungs are underexpanded with perihilar and lower lobe reticular densities likely representing atelectasis. There is no demonstrated pleural abnormality. Normal size heart. Normal mediastinum and milla. Normal visualized pulmonary arteries. There is atherosclerotic calcification of the aortic arch with tortuosity. There are diffuse degenerative changes of the visualized thoracic spine. Normal visualized ribs, clavicles, and shoulders. Ingested barium identified in the upper abdomen. RAD/Chest PA and Lateral IMPRESSION: 1. No aspirated barium identified. 2. Bilateral lower lobe atelectasis. Electronically Signed: Kentrell Luther MD at 17:45 EST , Service support ,
[2017-04-12 06:15] LABS: ALB/GLOB Ratio 0.8 RATIO (0.9-2.4); AST(SGOT) 179 U/L (15-37); Alanine Aminotransfer ALT/SGPT 176 U/L (12-78); Albumin, Serum 2.4 g/dL (3.4-5.0); Alkaline Phosphatase 118 U/L (45-117); Anion Gap 8 (5-15); BUN 30 mg/dL (7-18); Calcium,Total 7.9 mg/dL (8.5-10.1); Chloride 107 mmol/L (98-107); EST Glomerular Filtration Rate 62 mL/min (>60); Est Glom Filt Rate - Afr Amer 74 mL/min (>60); Estimated Creatinine Clearance 45.92 ml/min; Glucose 191 mg/dL (70-110); Potassium 4.2 mmol/L (3.5-5.1); Protein, Total 5.4 g/dL (6.4-8.2); Sodium Level 138 mmol/L (136-145)
[2017-04-12 06:56] LABS: Bedside Glucose 178 mg/dL (70-110)
--- NOTE | 2017-04-12 08:28 | CPS ---
PT ON BIPAP. PEP THERAPY HELD AT THIS TIME. WILL WORK WITH PT WHEN OFF BIPAP
[2017-04-12] MEDS: Metoprolol Tartrate 25 MG Tablet PO ×2 (08:53→23:08)
[2017-04-12] MEDS: Losartan Potassium 25 MG Tablet 12.5 MG PO (08:53)
[2017-04-12] MEDS: guaiFENesin 1,200 MG Tablet 1200 MG PO ×2 (08:53→23:09)
[2017-04-12] MEDS: Clopidogrel Bisulfate 75 MG Tablet PO (08:53)
[2017-04-12] MEDS: Sertraline 50 MG Tablet PO (08:53)
[2017-04-12] MEDS: Aspirin E.C. 81 MG Tablet PO (08:53)
--- NOTE | 2017-04-12 11:22 | RAD_ITS ---
STUDY: X-RAY CHEST REASON FOR EXAM: Male, 81 years old. Shortness of breath. TECHNIQUE: Single AP portable erect view of the chest. COMPARISON: AP and lateral upright chest x-ray April 10, 2017. FINDINGS: The lungs again are under expanded and there is persistent bibasilar subsegmental atelectasis. There is no demonstrated pleural abnormality. The cardiac silhouette is moderately obscured, but grossly unchanged. Normal mediastinum and milla. Normal visualized pulmonary arteries. There is stable atherosclerotic calcification of the aortic arch. Poorly visualized thoracic spine. 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 There is no demonstrated abnormality of the visualized soft tissue structures of the upper abdomen. RAD/Chest 1 View (Portable) IMPRESSION: Poor inspiratory effort with persistent bibasilar subsegmental atelectasis. Electronically Signed: Jb Garrett MD at 12:32 EST , Service support ,
--- NOTE | 2017-04-12 11:53 | CPS ---
pt placed back on 3lpm per Dr Rachel request
[2017-04-12 12:25] LABS: Bedside Glucose 242 mg/dL (70-110)
--- NOTE | 2017-04-12 13:37 | PCM.CONS.GEN ---
Problem List (1) COPD (chronic obstructive pulmonary disease) Status: Acute Qualifiers: COPD type: COPD with acute exacerbation Qualified Code(s): J44.1 - Chronic obstructive pulmonary disease with (acute) exacerbation (2) Acute respiratory failure with hypoxia Status: Acute (3) CAD (coronary artery disease) Status: Chronic Qualifiers: Coronary Disease-Associated Artery/Lesion type: [place] artery [place] vs. transplanted heart: samish heart Associated angina: without angina Qualified Code(s): I25.10 - Atherosclerotic heart disease of samish coronary artery without angina pectoris (4) HLD (hyperlipidemia) Status: Chronic Qualifiers: Hyperlipidemia type: mixed hyperlipidemia Qualified Code(s): E78.2 - Mixed hyperlipidemia (5) Obesity (BMI 30.0-34.9) Status: Chronic (6) HTN (hypertension) Status: Chronic Qualifiers: Hypertension type: essential hypertension Qualified Code(s): I10 - Essential (primary) hypertension Reason for Consult Date of Consultation: 04/12/17 Reason for Consultation: COPD exacerbation History of Present Illness: The patient is a 81 year old M with past medical history as below who presented to the ER with complaints of a 5 day history of increased shortness of breath, wheezing, and dyspnea on exertion. Patient reports a history of COPD and asthma and follows routinely with Dr. Chacon at [facility] pulmonology. 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 He started this 5 days prior to presentation and was not improving, so saw his PCP 2 days later. His antibiotic was changed to Levaquin. The patient again failed outpatient patient therapy and presented to the ER. Initial lab work showed no leukocytosis but elevated neutrophil count. BUN was 34 and creatinine 1.83 which was an increase from his baseline. Is given IV fluids and this has resolved. Patient did have LFTs which were mildly elevated on the , this has slowly increased since admission. Initial vital signs showed he was 95% on room air and afebrile. He was tachypneic in the 30s. Initial chest x-ray showed mild increased markings at the lung bases suggestive of mild bibasilar atelectasis. He was given Solu-Medrol, aerosols, and placed on oxygen for a room air pulse ox of 88%. Shortness of breath to progress and the patient required BiPAP rescue with settings of 12/6 and FiO2 30%. He has been weaned to as needed use of noninvasive positive pressure therapy. He is requiring 3 L of oxygen supplementation. He does have significant shortness of breath with minimal exertion, including conversation and eating. He denies any prior home oxygen requirements. His daughter reports he has Pulmicort and albuterol nebulizers at home, but has not use them consistently. The patient does note an extensive history of exposure to various chemicals and pesticides. He lives at home with his daughter. He is a former smoker and quit in his 20s, is unable to estimate how long or how much he smoked. He did estimate he was a pipe smoker for approximately 15 years, at least one pouch/day. Chest x-ray was repeated today and demonstrated poor respiratory effort with persistent bibasilar sub-segmental atelectasis. The patient reports no significant improvement in his breathing since admission. He does note his coughing has improved. He is not having any sputum production. Respiratory panel was positive for human metapneumovirus. He is currently receiving IV Solu-Medrol, Mucinex, scheduled DuoNeb aerosols, and as needed albuterol. He denies any recent fever or chills. He denies any abdominal pain, nausea, vomiting, or diarrhea. He denies any hemoptysis. He did have a Bennett catheter placed secondary to inability to exert himself to urinate. There is hematuria noted. Past Medical History Past Medical History (Chronic Problems): Chronic Problems CAD (coronary artery disease) (Chronic) HLD (hyperlipidemia) (Chronic) Obesity (BMI 30.0-34.9) (Chronic) HTN (hypertension) (Chronic) Allergies No Known Allergies Allergy (Verified 02/14/17 10:19) Home Medications: Ambulatory Orders Medication Instructions Recorded Aspirin [Adult Low Dose Aspirin EC] 81 mg PO DAILY 09/25/15 Atorvastatin Calcium [Lipitor] 40 mg PO QHS 09/25/15 Bumetanide 1 mg PO DAILY 09/25/15 Clopidogrel Bisulfate [Plavix] 75 mg PO DAILY 09/25/15 Famotidine [Pepcid] 20 mg PO DAILY 09/25/15 Losartan Potassium [Cozaar] 12.5 mg PO DAILY 09/25/15 Metoprolol Tartrate [Lopressor 25 mg PO BID 09/25/15 (beta alycia)] Nitroglycerin [Nitrostat] 0.4 mg SUBLINGUAL Q5M PRN 09/25/15 Pantoprazole Sodium [Protonix] 40 mg PO DAILY PRN 09/25/15 Sertraline HCl [Zoloft] 50 mg PO DAILY 09/25/15 TraMADol [Ultram] 50 mg PO BID PRN PRN 09/25/15 Guaifenesin [Mucinex] 1,200 mg PO BID PRN 01/20/16 Albuterol Aerosols [Ventolin 2.5 mg INHALATION TID 02/14/17 Aerosols] Budesonide Aerosol [Pulmicort 0.5 mg INHALATION BID 02/14/17 Aerosol] Montelukast Sodium [Singulair] 10 mg PO QHS 02/14/17 Fluticasone Propionate [Flonase 1 spray NS DAILY 04/09/17 Allergy Relief] Ipratropium/Albuterol Sulfate 3 ml INHALATION Q4H.RT 04/09/17 [Duoneb] Levofloxacin [Levaquin] 500 mg PO BID 04/09/17 Surgical History: - - PCI x 1. Psychiatric History: No pertinent psych hx Smoking Status: Former smoker - *Family History Maternal History Items: No pertinent history Paternal History Items: No pertinent history Review of Systems Constitutional: Reports: Weakness, Fatigue. Denies: Anorexia, Chills, Fever, Night Sweats, Malaise Eyes: Denies: Vision Change HEENT: Reports: Difficulty Swallowing, Hard of Hearing. Denies: Dysphasia, Nasal Congestion, Post Nasal Drip, Sinus Congestion, Sore Throat Cardiovascular: Reports: Chest Tightness. Denies: Chest Pain, Light Headedness, Orthopnea, Palpitations, Paroxysmal Noc. Dyspnea, Syncope Respiratory: Reports: Cough - Nonproductive, Shortness of breath upon exertion, Wheezing. Denies: Hemoptysis, Pleuritic Pain, Sputum production Gastrointestinal: Denies: Abdominal Pain, Constipation, Diarrhea, Dyspepsia, Hematemesis, Hematochezia, Nausea, Melena, Vomiting Genitourinary: Denies: Dysuria, Hematuria, Retention Musculoskeletal: Denies: Back Pain, Muscle pain, Neck Pain Skin: Reports: Dryness. Denies: Pruritis, Wounds Neurological: Reports: Balance problems - Using a walker. Denies: Change in Speech, Focal weakness, Tremor, Seizures Psychiatric: Reports: Depression. Denies: Anxiety Endocrine: Denies: Change in Body Habitus, Polydipsia, Polyuria Hematologic/ Lymphatic: Reports: Easy Bruising. Denies: Adenopathy, Anemia, Easy Bleeding, Hx of blood clot Patient Problems: Active and Suspected Problems Asthma exacerbation with COPD (chronic obstructive pulmonary disease) (Acute) Acute respiratory failure with hypoxia (Acute) Subjective: Patient was seen and examined, daughter at bedside. Denies any current complaints except for shortness of breath with exertion. Makes minimal eye contact and does not wish to answer most of my questions, daughter is answering for him. Objective: Clinical Impression(s) from Imaging Studies Chest X-Ray 04/09/17 12:27 IMPRESSION: Mild increased markings at the lung bases suggest some mild bibasilar atelectasis. Electronically Signed: Jamar Howard MD at 13:26 EST Tel [phone], Service support , Chest X-Ray 04/10/17 06:33 IMPRESSION: Limited study lingular atelectasis. Could consider further evaluation with noncontrast chest CT to confirm. Degenerative change kyphosis Evidence of old granulomatous disease. Electronically Signed: Maranda Laboy MD at 10:45 EST Tel , Service support , Chest X-Ray 04/12/17 11:22 IMPRESSION: Poor inspiratory effort with persistent bibasilar subsegmental atelectasis. Electronically Signed: Jb Garrett MD at 12:32 EST , Service support , Videofluoroscopic Swallow 04/12/17 14:00 IMPRESSION: Normal tailored barium swallow study. No evidence of increased risk for aspiration. The swallow study findings were discussed with the patient by the speech pathologist at the conclusion of the examination. Please see speech pathology report for more information and recommendations. Electronically Signed: Jamar Howard MD at 14:05 EST Tel [phone], Service support , - Physical Exam General: Alert, Oriented x3, Cooperative, - - Mild dyspnea with conversation HEENT: Atraumatic, Normocephalic Oral: Moist Mucosa, No Gingival or Mucosal Lesions/ Ulcerations Neck: Supple, No Nodes, Trachea Midline Lungs: - - Diminished throughout with global wheezing and rhonchi, no rales Cardiovascular: Regular rate, Regular Rhythm, Normal S1, Normal S2, No murmurs, No rub noted, No Gallop, - - Distant heart sounds Abdomen: Bowel Sounds Present, Soft, Non Tender, Non-Distended, Obese Extremities: No clubbing, No cyanosis, No edema, Capillary Refill Less than 3 Seconds Skin: No rashes, No breakdown Musculoskeletal: No Tenderness to Palpation of Joints or Extremities Lymphatic: No Cervical, Supraclavicular, or Inguinal Adenopathy Neurological: Cranial nerves II-XII grossly intact, Neuro grossly intact, Motor Exam 5/5 strength throughout Psych/Mental Status: Flat Affect, - - Poor interaction/eye contact Vital Signs Temp Pulse Resp BP Pulse Ox 97.7 F L 70 20 H 138/88 H 94 04/12/17 08:40 04/12/17 10:57 04/12/17 10:57 04/12/17 08:40 04/12/17 10:59 Oxygen Flow Rate 3 Oxygen Delivery Method Nasal Cannula Weight: 208 lb 8.917 oz Body Mass Index (BMI) 30.9 Intake and Output for Last 24 Hours 04/10/17 04/11/17 04/12/17 23:59 23:59 23:59 Intake Total 4701 / 4701 2716 / 2716 619 / 619 Output Total 1250 / 1250 1700 / 1700 1050 / 1050 Balance 3451 / 3451 1016 / 1016 -431 / -431 Microbiology Past 72 Hours 04/10/17 19:00 Urine Culture - Preliminary Urine Catheter - Bennett Culture exhibits no growth. 04/10/17 07:30 Respiratory Panel (PCR) - Final Mucosa - Nasopharyngeal Human [place] Laboratory Tests Past 24 Hrs 04/12/17 04/12/17 05:04 05:04 WBC 8.5 RBC 3.74 L Hgb 11.5 L Hct 34.4 L MCV 92.0 MCH 30.7 MCHC 33.4 RDW 13.6 RDW Differential 45.5 H Plt Count 163 MPV 10.8 Immature Gran % (Auto) 0.400 Neut % (Auto) 80.5 H Lymph % (Auto) 14.5 L [place] % (Auto) 4.5 Eos % (Auto) 0.0 Baso % (Auto) 0.1 Absolute Neuts (auto) 6.9 Absolute Lymphs (auto) 1.23 Total Counted Not Reportable Sodium 138 Potassium 4.2 Chloride 107 Carbon Dioxide 23.0 Anion Gap 8 BUN 30 H Creatinine 1.20 Estim Creat Clear Calc 45.92 Est GFR (MDRD) Af Amer 74 Est GFR (MDRD) Non-Af 62 BUN/Creatinine Ratio 25.0 H Glucose 191 H Calcium 7.9 L Total Bilirubin 0.50 AST 179 H ALT 176 H Alkaline Phosphatase 118 H Total Protein 5.4 L Albumin 2.4 L Globulin 3.0 Albumin/Globulin Ratio 0.8 L POC Glucose 04/12/17 04/12/17 04/11/17 12:17 06:45 21:17 POC Glucose 242 H 178 H 201 H Assessment/Plan Active and Suspected Problems Asthma exacerbation with COPD (chronic obstructive pulmonary disease) (Acute) Acute respiratory failure with hypoxia (Acute) RECOMMENDATIONS 1. Wean oxygen supplementation to keep saturations 88-92%. 2. Encourage incentive spirometer 3. Increase activity as tolerated 4. Continue aerosols as ordered 5. Continue steroids, likely okay to transition to oral tomorrow 6. Walking oximetry prior to discharge 7. Close follow-up with primary mixing machine operator at [facility] when discharged IMPRESSIONS 1. Presumed COPD exacerbation secondary to human metapneumovirus Patient with failed antibiotic therapy as outpatient, respiratory panel on admit showed human metapneumovirus. Chest x-ray not impressive for infectious process, does have bibasilar atelectasis likely secondary to poor respiratory effort and immobility. Patient has remained afebrile and infectious workup has been negative. No need for antibiotic at this time. Continue aerosols as ordered. Encourage incentive spirometer. Wean oxygen supplementation to keep saturations 88-92%. Continue BiPAP rescue as needed. IV steroids can be continued through today, would transition to oral tomorrow as patient notes liver function studies are rising, which may be secondary to IV steroid use. The patient does take as needed albuterol nebulizers at home and Pulmicort, however daughter notes he is inconsistent with use. 2. Acute hypoxic respiratory failure secondary to viral infection See #1. Patient does not not have an oxygen requirement prior to admission. He is currently maintaining saturations on 3 L of oxygen and using BiPAP rescue. Continue to attempt to wean oxygen requirements. The patient will require a walking oximetry prior to discharge. He will also require close follow-up with his primary mixing machine operator at [facility]. 3. History of CAD status post stent ?1/HLD/obesity/hypertension/CHF Locates care, management, recovery, and prognosis. Continue home medications per hospitalist recommendations. Will hold off on his Pulmicort since he is on systemic steroids. This note was generated with [employer] dictation software. It may contain incorrect words, spelling, and punctuation that were not noted in checking the note before signing.
--- NOTE | 2017-04-12 13:48 | CON.PCM_ITS ---
Problem List (1) COPD (chronic obstructive pulmonary disease) Status: Acute Qualifiers: COPD type: COPD with acute exacerbation Qualified Code(s): J44.1 - Chronic obstructive pulmonary disease with (acute) exacerbation (2) Acute respiratory failure with hypoxia Status: Acute (3) CAD (coronary artery disease) Status: Chronic Qualifiers: Coronary Disease-Associated Artery/Lesion type: [place] artery [place] vs. transplanted heart: [place] heart Associated angina: without angina Qualified Code(s): I25.10 - Atherosclerotic heart disease of [place] coronary artery without angina pectoris (4) HLD (hyperlipidemia) Status: Chronic Qualifiers: Hyperlipidemia type: mixed hyperlipidemia Qualified Code(s): E78.2 - Mixed hyperlipidemia (5) Obesity (BMI 30.0-34.9) Status: Chronic (6) HTN (hypertension) Status: Chronic Qualifiers: Hypertension type: essential hypertension Qualified Code(s): I10 - Essential (primary) hypertension Reason for Consult Date of Consultation: 04/12/17 Reason for Consultation: COPD exacerbation History of Present Illness: The patient is a 81 year old M with past medical history as below who presented to the ER with complaints of a 5 day history of increased shortness of breath, wheezing, and dyspnea on exertion. Patient reports a history of COPD and asthma and follows routinely with Dr. Chacon at [facility] pulmonology. 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 He started this 5 days prior to presentation and was not improving, so saw his PCP 2 days later. His antibiotic was changed to Levaquin. The patient again failed outpatient patient therapy and presented to the ER. Initial lab work showed no leukocytosis but elevated neutrophil count. BUN was 34 and creatinine 1.83 which was an increase from his baseline. Is given IV fluids and this has resolved. Patient did have LFTs which were mildly elevated on the , this has slowly increased since admission. Initial vital signs showed he was 95% on room air and afebrile. He was tachypneic in the 30s. Initial chest x-ray showed mild increased markings at the lung bases suggestive of mild bibasilar atelectasis. He was given Solu-Medrol, aerosols, and placed on oxygen for a room air pulse ox of 88%. Shortness of breath to progress and the patient required BiPAP rescue with settings of 12/6 and FiO2 30%. He has been weaned to as needed use of noninvasive positive pressure therapy. He is requiring 3 L of oxygen supplementation. He does have significant shortness of breath with minimal exertion, including conversation and eating. He denies any prior home oxygen requirements. His daughter reports he has Pulmicort and albuterol nebulizers at home, but has not use them consistently. The patient does note an extensive history of exposure to various chemicals and pesticides. He lives at home with his daughter. He is a former smoker and quit in his 20s, is unable to estimate how long or how much he smoked. He did estimate he was a pipe smoker for approximately 15 years, at least one pouch/day. Chest x-ray was repeated today and demonstrated poor respiratory effort with persistent bibasilar sub-segmental atelectasis. The patient reports no significant improvement in his breathing since admission. He does note his coughing has improved. He is not having any sputum production. Respiratory panel was positive for human metapneumovirus. He is currently receiving IV Solu -Medrol, Mucinex, scheduled DuoNeb aerosols, and as needed albuterol. He denies any recent fever or chills. He denies any abdominal pain, nausea, vomiting, or diarrhea. He denies any hemoptysis. He did have a Bennett catheter placed secondary to inability to exert himself to urinate. There is hematuria noted. Past Medical History Past Medical History (Chronic Problems): Chronic Problems CAD (coronary artery disease) (Chronic) HLD (hyperlipidemia) (Chronic) Obesity (BMI 30.0-34.9) (Chronic) HTN (hypertension) (Chronic) Allergies No Known Allergies Allergy (Verified 02/14/17 10:19) Home Medications: Ambulatory Orders Medication Instructions Recorded Aspirin [Adult Low Dose Aspirin EC] 81 mg PO DAILY 09/25/15 Atorvastatin Calcium [Lipitor] 40 mg PO QHS 09/25/15 Bumetanide 1 mg PO DAILY 09/25/15 Clopidogrel Bisulfate [Plavix] 75 mg PO DAILY 09/25/15 Famotidine [Pepcid] 20 mg PO DAILY 09/25/15 Losartan Potassium [Cozaar] 12.5 mg PO DAILY 09/25/15 Metoprolol Tartrate [Lopressor 25 mg PO BID 09/25/15 (beta alycia)] Nitroglycerin [Nitrostat] 0.4 mg SUBLINGUAL Q5M PRN 09/25/15 Pantoprazole Sodium [Protonix] 40 mg PO DAILY PRN 09/25/15 Sertraline HCl [Zoloft] 50 mg PO DAILY 09/25/15 TraMADol [Ultram] 50 mg PO BID PRN PRN 09/25/15 Guaifenesin [Mucinex] 1,200 mg PO BID PRN 01/20/16 Albuterol Aerosols [Ventolin 2.5 mg INHALATION TID 02/14/17 Aerosols] Budesonide Aerosol [Pulmicort 0.5 mg INHALATION BID 02/14/17 Aerosol] Montelukast Sodium [Singulair] 10 mg PO QHS 02/14/17 Fluticasone Propionate [Flonase 1 spray NS DAILY 04/09/17 Allergy Relief] Ipratropium/Albuterol Sulfate 3 ml INHALATION Q4H.RT 04/09/17 [Duoneb] Levofloxacin [Levaquin] 500 mg PO BID 04/09/17 Surgical History: - - PCI x 1. Psychiatric History: No pertinent psych hx Smoking Status: Former smoker - *Family History Maternal History Items: No pertinent history Paternal History Items: No pertinent history Review of Systems Constitutional: Reports: Weakness, Fatigue. Denies: Anorexia, Chills, Fever, Night Sweats, Malaise Eyes: Denies: Vision Change HEENT: Reports: Difficulty Swallowing, Hard of Hearing. Denies: Dysphasia, Nasal Congestion, Post Nasal Drip, Sinus Congestion, Sore Throat Cardiovascular: Reports: Chest Tightness. Denies: Chest Pain, Light Headedness , Orthopnea, Palpitations, Paroxysmal Noc. Dyspnea, Syncope Respiratory: Reports: Cough - Nonproductive, Shortness of breath upon exertion, Wheezing. Denies: Hemoptysis, Pleuritic Pain, Sputum production Gastrointestinal: Denies: Abdominal Pain, Constipation, Diarrhea, Dyspepsia, Hematemesis, Hematochezia, Nausea, Melena, Vomiting Genitourinary: Denies: Dysuria, Hematuria, Retention Musculoskeletal: Denies: Back Pain, Muscle pain, Neck Pain Skin: Reports: Dryness. Denies: Pruritis, Wounds Neurological: Reports: Balance problems - Using a walker. Denies: Change in Speech, Focal weakness, Tremor, Seizures Psychiatric: Reports: Depression. Denies: Anxiety Endocrine: Denies: Change in Body Habitus, Polydipsia, Polyuria Hematologic/ Lymphatic: Reports: Easy Bruising. Denies: Adenopathy, Anemia, Easy Bleeding, Hx of blood clot Patient Problems: Active and Suspected Problems Asthma exacerbation with COPD (chronic obstructive pulmonary disease) (Acute) Acute respiratory failure with hypoxia (Acute) Subjective: Patient was seen and examined, daughter at bedside. Denies any current complaints except for shortness of breath with exertion. Makes minimal eye contact and does not wish to answer most of my questions, daughter is answering for him. Objective: Clinical Impression(s) from Imaging Studies Chest X-Ray 04/09/17 12:27 IMPRESSION: Mild increased markings at the lung bases suggest some mild bibasilar atelectasis. Electronically Signed: Jamar Howard MD at 13:26 EST Tel [phone], Service support , Chest X-Ray 04/10/17 06:33 IMPRESSION: Limited study lingular atelectasis. Could consider further evaluation with noncontrast chest CT to confirm. Degenerative change kyphosis Evidence of old granulomatous disease. Electronically Signed: Maranda Laboy MD at 10:45 EST Tel , Service support , Chest X-Ray 04/12/17 11:22 IMPRESSION: Poor inspiratory effort with persistent bibasilar subsegmental atelectasis. Electronically Signed: Jb Garrett MD at 12:32 EST , Service support , Videofluoroscopic Swallow 04/12/17 14:00 IMPRESSION: Normal tailored barium swallow study. No evidence of increased risk for aspiration. The swallow study findings were discussed with the patient by the speech pathologist at the conclusion of the examination. Please see speech pathology report for more information and recommendations. Electronically Signed: Jamar Howard MD at 14:05 EST Tel [phone], Service support , - Physical Exam General: Alert, Oriented x3, Cooperative, - - Mild dyspnea with conversation HEENT: Atraumatic, Normocephalic Oral: Moist Mucosa, No Gingival or Mucosal Lesions/ Ulcerations Neck: Supple, No Nodes, Trachea Midline Lungs: - - Diminished throughout with global wheezing and rhonchi, no rales Cardiovascular: Regular rate, Regular Rhythm, Normal S1, Normal S2, No murmurs, No rub noted, No Gallop, - - Distant heart sounds Abdomen: Bowel Sounds Present, Soft, Non Tender, Non-Distended, Obese Extremities: No clubbing, No cyanosis, No edema, Capillary Refill Less than 3 Seconds Skin: No rashes, No breakdown Musculoskeletal: No Tenderness to Palpation of Joints or Extremities Lymphatic: No Cervical, Supraclavicular, or Inguinal Adenopathy Neurological: Cranial nerves II-XII grossly intact, Neuro grossly intact, Motor Exam 5/5 strength throughout Psych/Mental Status: Flat Affect, - - Poor interaction/eye contact Vital Signs Temp Pulse Resp BP Pulse Ox 97.7 F L 70 20 H 138/88 H 94 04/12/17 08:40 04/12/17 10:57 04/12/17 10:57 04/12/17 08:40 04/12/17 10:59 Oxygen Flow Rate 3 Oxygen Delivery Method Nasal Cannula Weight: 208 lb 8.917 oz Body Mass Index (BMI) 30.9 Intake and Output for Last 24 Hours 04/10/17 04/11/17 04/12/17 23:59 23:59 23:59 Intake Total 4701 / 4701 2716 / 2716 619 / 619 Output Total 1250 / 1250 1700 / 1700 1050 / 1050 Balance 3451 / 3451 1016 / 1016 -431 / -431 Microbiology Past 72 Hours 04/10/17 19:00 Urine Culture - Preliminary Urine Catheter - Bennett Culture exhibits no growth. 04/10/17 07:30 Respiratory Panel (PCR) - Final Mucosa - Nasopharyngeal Human [place] [facility] Tests Past 24 Hrs 04/12/17 04/12/17 05:04 05:04 WBC 8.5 RBC 3.74 L Hgb 11.5 L Hct 34.4 L MCV 92.0 MCH 30.7 MCHC 33.4 RDW 13.6 RDW Differential 45.5 H Plt Count 163 MPV 10.8 Immature Gran % (Auto) 0.400 Neut % (Auto) 80.5 H Lymph % (Auto) 14.5 L [place] % (Auto) 4.5 Eos % (Auto) 0.0 Baso % (Auto) 0.1 Absolute Neuts (auto) 6.9 Absolute Lymphs (auto) 1.23 Total Counted Not Reportable Sodium 138 Potassium 4.2 Chloride 107 Carbon Dioxide 23.0 Anion Gap 8 BUN 30 H Creatinine 1.20 Estim Creat Clear Calc 45.92 Est GFR (MDRD) Af Amer 74 Est GFR (MDRD) Non-Af 62 BUN/Creatinine Ratio 25.0 H Glucose 191 H Calcium 7.9 L Total Bilirubin 0.50 AST 179 H ALT 176 H Alkaline Phosphatase 118 H Total Protein 5.4 L Albumin 2.4 L Globulin 3.0 Albumin/Globulin Ratio 0.8 L POC Glucose 04/12/17 04/12/17 04/11/17 12:17 06:45 21:17 POC Glucose 242 H 178 H 201 H Assessment/Plan Active and Suspected Problems Asthma exacerbation with COPD (chronic obstructive pulmonary disease) (Acute) Acute respiratory failure with hypoxia (Acute) RECOMMENDATIONS 1. Wean oxygen supplementation to keep saturations 88-92%. 2. Encourage incentive spirometer 3. Increase activity as tolerated 4. Continue aerosols as ordered 5. Continue steroids, likely okay to transition to oral tomorrow 6. Walking oximetry prior to discharge 7. Close follow-up with primary cytotechnologist supervisor at [facility] when discharged IMPRESSIONS 1. Presumed COPD exacerbation secondary to human metapneumovirus Patient with failed antibiotic therapy as outpatient, respiratory panel on admit showed human metapneumovirus. Chest x-ray not impressive for infectious process, does have bibasilar atelectasis likely secondary to poor respiratory effort and immobility. Patient has remained afebrile and infectious workup has been negative. No need for antibiotic at this time. Continue aerosols as ordered. Encourage incentive spirometer. Wean oxygen supplementation to keep saturations 88-92%. Continue BiPAP rescue as needed. IV steroids can be continued through today, would transition to oral tomorrow as patient notes liver function studies are rising, which may be secondary to IV steroid use. The patient does take as needed albuterol nebulizers at home and Pulmicort, however daughter notes he is inconsistent with use. 2. Acute hypoxic respiratory failure secondary to viral infection See #1. Patient does not not have an oxygen requirement prior to admission. He is currently maintaining saturations on 3 L of oxygen and using BiPAP rescue. Continue to attempt to wean oxygen requirements. The patient will require a walking oximetry prior to discharge. He will also require close follow-up with his primary cytotechnologist supervisor at [facility]. 3. History of CAD status post stent ?1/HLD/obesity/hypertension/CHF Locates care, management, recovery, and prognosis. Continue home medications per hospitalist recommendations. Will hold off on his Pulmicort since he is on systemic steroids. This note was generated with [employer] dictation software. It may contain incorrect words, spelling, and punctuation that were not noted in checking the note before signing.
--- NOTE | 2017-04-12 13:55 | PCM.PN.HOSP ---
Patient Problems: Active and Suspected Problems Asthma exacerbation with COPD (chronic obstructive pulmonary disease) (Acute) Acute respiratory failure with hypoxia (Acute) Subjective: Patient was seen and examined. Daughter was in the room. Denies any chest pain or worsening shortness of breath. Patient remained off BiPAP for the good part of the morning, started back on BiPAP on the insistence of her daughter on insistence patient was having increased work of breathing. Denies fever or chills Vitals/I&O's: Vital Signs Temp Pulse Resp BP Pulse Ox 97.7 F L 70 20 H 138/88 H 94 04/12/17 08:40 04/12/17 10:57 04/12/17 10:57 04/12/17 08:40 04/12/17 10:59 Oxygen Flow Rate 3 Oxygen Delivery Method Nasal Cannula Weight: 94.6 kg Body Mass Index (BMI) 30.9 Intake and Output for Last 24 Hours 04/10/17 04/11/17 04/12/17 23:59 23:59 23:59 Intake Total 4701 / 4701 2716 / 2716 619 / 619 Output Total 1250 / 1250 1700 / 1700 1050 / 1050 Balance 3451 / 3451 1016 / 1016 -431 / -431 General: Alert, Oriented x3, Cooperative, - - on BIpap HEENT: Atraumatic, PERRLA, EOMI, Normocephalic, - - hard of hearing Neck: Supple Lungs: Normal air movement, Diminished, Wheezes - few scattered Cardiovascular: Regular rate, Regular Rhythm, Normal S1, Normal S2, No murmurs Abdomen: Bowel Sounds Present, Soft, Non Tender, Non-Distended, No Hepato-splenomegaly Extremities: No edema Skin: No rashes, No breakdown Musculoskeletal: No Tenderness to Palpation of Joints or Extremities Lymphatic: No Cervical, Supraclavicular, or Inguinal Adenopathy Neurological: Cranial nerves II-XII grossly intact, Neuro grossly intact Psych/Mental Status: Normal Affect, Appropriate Microbiology Past 72 Hours 04/10/17 19:00 Urine Catheter - Bennett Urine Culture - Preliminary Culture exhibits no growth. 04/10/17 07:30 Mucosa - Nasopharyngeal Respiratory Panel (PCR) - Final Human [place] [facility] Results 04/11/17 21:17: POC Glucose 201 H 04/12/17 05:04: WBC 8.5, RBC 3.74 L, Hgb 11.5 L, Hct 34.4 L, MCV 92.0, MCH 30.7, MCHC 33.4, RDW 13.6, RDW Differential 45.5 H, Plt Count 163, MPV 10.8, Immature Gran % (Auto) 0.400, Neut % (Auto) 80.5 H, Lymph % (Auto) 14.5 L, [place] % (Auto) 4.5, Eos % (Auto) 0.0, Baso % (Auto) 0.1, Absolute Neuts (auto) 6.9, Absolute Lymphs (auto) 1.23, Total Counted Not Reportable 04/12/17 05:04: Sodium 138, Potassium 4.2, Chloride 107, Carbon Dioxide 23.0, Anion Gap 8, BUN 30 H, Creatinine 1.20, Estim Creat Clear Calc 45.92, Est GFR (MDRD) Af Amer 74, Est GFR (MDRD) Non-Af 62, BUN/Creatinine Ratio 25.0 H, Glucose 191 H, Calcium 7.9 L, Total Bilirubin 0.50, AST 179 H, ALT 176 H, Alkaline Phosphatase 118 H, Total Protein 5.4 L, Albumin 2.4 L, Globulin 3.0, Albumin/Globulin Ratio 0.8 L 04/12/17 06:45: POC Glucose 178 H 04/12/17 12:17: POC Glucose 242 H Current Medications Acetaminophen (Tylenol) 650 mg PO Q6H PRN PRN PRN Reason: Mild Pain (scale 0-3)/T>100.7 Al Hydroxide/Mg Hydroxide (Mylanta Ii) 30 ml PO Q6H PRN PRN PRN Reason: Gastric Burning Albuterol Sulfate (Ventolin Aerosols) 2.5 mg INHALATION Q2H PRN PRN PRN Reason: SHORTNESS OF BREATH Last Admin: 04/11/17 13:41 Dose: 2.5 mg Albuterol/Ipratropium (Duoneb) 3 ml INHALATION Q4H.RT [facility] Last Admin: 04/12/17 10:57 Dose: 3 ml Aspirin (Ecotrin) 81 mg PO DAILY [facility] Last Admin: 04/12/17 08:53 Dose: 81 mg Atorvastatin Calcium (Lipitor) 40 mg PO QHS [facility] Last Admin: 04/11/17 21:10 Dose: 40 mg Clopidogrel Bisulfate (Plavix) 75 mg PO DAILY [facility] Last Admin: 04/12/17 08:53 Dose: 75 mg Docusate Sodium (Colace) 200 mg PO BID PRN PRN PRN Reason: Constipation Enoxaparin Sodium (Lovenox) 40 mg SC DAILY@0600 [facility] Last Admin: 04/12/17 05:49 Dose: 40 mg Fluticasone Propionate (Flonase Nasal [place]) 1 spray NASAL DAILY [facility] Last Admin: 04/12/17 08:54 Dose: Not Given Guaifenesin (Mucinex) 1,200 mg PO BID [facility] Last Admin: 04/12/17 08:53 Dose: 1,200 mg Haloperidol Lactate (Haldol) 4 mg IM Q6H PRN PRN PRN Reason: SEVERE AGITATION Insulin Aspart (Novolog Flexpen (Bkc)) 0 units SC ACHS [facility] PRN Reason: Protocol Last Admin: 04/12/17 12:39 Dose: 2 u Losartan Potassium (Cozaar) 12.5 mg PO DAILY [facility] Last Admin: 04/12/17 08:53 Dose: 12.5 mg Magnesium Hydroxide (Milk Of Magnesia) 30 ml PO DAILY PRN PRN PRN Reason: Constipation Methylprednisolone (Solu-Medrol) 40 mg IV Q8 [facility] Last Admin: 04/12/17 05:49 Dose: 40 mg Metoprolol Tartrate (Lopressor (Beta Jamal)) 25 mg PO BID [facility] Last Admin: 04/12/17 08:53 Dose: 25 mg Montelukast Sodium (Singulair) 10 mg PO HS [facility] Last Admin: 04/11/17 21:23 Dose: 10 mg Nicotine (Nicoderm Cq (Pbkc)) 14 mg TRANSDERM. 2200 [facility] Last Admin: 04/11/17 21:14 Dose: 14 mg Nitroglycerin (Nitrostat) 0.4 mg SUBLINGUAL Q5M PRN PRN Reason: Chest Pain Pantoprazole Sodium (Protonix) 40 mg PO DAILY PRN [facility] Sertraline HCl (Zoloft) 50 mg PO DAILY [facility] Last Admin: 04/12/17 08:53 Dose: 50 mg Sodium Chloride () 5 - 30 ml IV UD PRN PRN Reason: SALINE FLUSH Last Admin: 04/09/17 17:31 Dose: 10 ml Tramadol HCl (Ultram (G)) 50 mg PO BID PRN PRN PRN Reason: PAIN Assessment/Plan Active and Suspected Problems Asthma exacerbation with COPD (chronic obstructive pulmonary disease) (Acute) Acute respiratory failure with hypoxia (Acute) 1. Acute exacerbation COPD secondary to Human Metaphpneumo Virus, patient has been maintained mainly on BiPAP, medically appears improved, will switch of BiPAP for nasal cannula oxygen and titrate to maintain SPO2 more than 94%, will consult pulmonary for input 2. Viral pneumonia secondary to Human Metaphpneumo Virus, improving, will repeat chest x-ray on account of patient's periodic increased work of breathing. Chest x-ray done this morning shows persistent bibasilar atelectasis, will add incentive spirometer 3. Abnormal LFT's, suspect due to the virus, slight elevation in LFTs, will continue to monitor 4. Suspected cognitive impairment, will need to be followed up in the outpatient 5. Chronic renal failure stage III 6. Hyperglycemia due to glucose intolerance/prediabetes, HbA1c 6.3, will continue to monitor, no history of diabetes mellitus type 2. 7. Tobacco abuse with chewing tobacco 8. CAD/hyperlipidemia/hypertension, stable 9. DVT PPx - Lovenox SC Code Visit Inpatient E&M: 35914 Subs Hosp L2
--- NOTE | 2017-04-12 14:00 | RAD_ITS ---
STUDY: SWALLOWING STUDY REASON FOR EXAM: Male, 81 years old. Dysphagia. TECHNIQUE: The examination was performed with Speech Pathology in attendance. Under fluoroscopic observation, the patient ingested thin barium, thick barium, barium pudding, and barium coated cracker. FLUOROSCOPY TIME: 2:00 minutes/seconds. 1874 spot images were obtained. RADIOLOGIST INVOLVEMENT: Radiologist was present and providing direct supervision. COMPARISON: None. FINDINGS: The following was observed during swallowing of the various mixtures of barium: Thin Barium: There was no evidence of aspiration or laryngeal penetration. Barium Pudding: There was no evidence of aspiration or laryngeal penetration. Barium Coated Cracker: There was no evidence of aspiration or laryngeal penetration. RAD/Swallowing Function w/Video IMPRESSION: Normal tailored barium swallow study. No evidence of increased risk for aspiration. The swallow study findings were discussed with the patient by the speech pathologist at the conclusion of the examination. Please see speech pathology report for more information and recommendations. Electronically Signed: Jamar Howard MD at 14:05 EST Tel [phone], Service support ,
--- NOTE | 2017-04-12 14:02 | PN_ITS ---
Patient Problems: Active and Suspected Problems Asthma exacerbation with COPD (chronic obstructive pulmonary disease) (Acute) Acute respiratory failure with hypoxia (Acute) Subjective: Patient was seen and examined. Daughter was in the room. Denies any chest pain or worsening shortness of breath. Patient remained off BiPAP for the good part of the morning, started back on BiPAP on the insistence of her daughter on insistence patient was having increased work of breathing. Denies fever or chills Vitals/I&O's: Vital Signs Temp Pulse Resp BP Pulse Ox 97.7 F L 70 20 H 138/88 H 94 04/12/17 08:40 04/12/17 10:57 04/12/17 10:57 04/12/17 08:40 04/12/17 10:59 Oxygen Flow Rate 3 Oxygen Delivery Method Nasal Cannula Weight: 94.6 kg Body Mass Index (BMI) 30.9 Intake and Output for Last 24 Hours 04/10/17 04/11/17 04/12/17 23:59 23:59 23:59 Intake Total 4701 / 4701 2716 / 2716 619 / 619 Output Total 1250 / 1250 1700 / 1700 1050 / 1050 Balance 3451 / 3451 1016 / 1016 -431 / -431 General: Alert, Oriented x3, Cooperative, - - on BIpap HEENT: Atraumatic, PERRLA, EOMI, Normocephalic, - - hard of hearing Neck: Supple Lungs: Normal air movement, Diminished, Wheezes - few scattered Cardiovascular: Regular rate, Regular Rhythm, Normal S1, Normal S2, No murmurs Abdomen: Bowel Sounds Present, Soft, Non Tender, Non-Distended, No Hepato- splenomegaly Extremities: No edema Skin: No rashes, No breakdown Musculoskeletal: No Tenderness to Palpation of Joints or Extremities Lymphatic: No Cervical, Supraclavicular, or Inguinal Adenopathy Neurological: Cranial nerves II-XII grossly intact, Neuro grossly intact Psych/Mental Status: Normal Affect, Appropriate Microbiology Past 72 Hours 04/10/17 19:00 Urine Catheter - Bennett Urine Culture - Preliminary Culture exhibits no growth. 04/10/17 07:30 Mucosa - Nasopharyngeal Respiratory Panel (PCR) - Final Human [place] Laboratory Results 04/11/17 21:17: POC Glucose 201 H 04/12/17 05:04: WBC 8.5, RBC 3.74 L, Hgb 11.5 L, Hct 34.4 L, MCV 92.0, MCH 30.7 , MCHC 33.4, RDW 13.6, RDW Differential 45.5 H, Plt Count 163, MPV 10.8, Immature Gran % (Auto) 0.400, Neut % (Auto) 80.5 H, Lymph % (Auto) 14.5 L, [place] % (Auto) 4.5, Eos % (Auto) 0.0, Baso % (Auto) 0.1, Absolute Neuts (auto) 6.9, Absolute Lymphs (auto) 1.23, Total Counted Not Reportable 04/12/17 05:04: Sodium 138, Potassium 4.2, Chloride 107, Carbon Dioxide 23.0, Anion Gap 8, BUN 30 H, Creatinine 1.20, Estim Creat Clear Calc 45.92, Est GFR ( MDRD) Af Amer 74, Est GFR (MDRD) Non-Af 62, BUN/Creatinine Ratio 25.0 H, Glucose 191 H, Calcium 7.9 L, Total Bilirubin 0.50, AST 179 H, ALT 176 H, Alkaline Phosphatase 118 H, Total Protein 5.4 L, Albumin 2.4 L, Globulin 3.0, Albumin/Globulin Ratio 0.8 L 04/12/17 06:45: POC Glucose 178 H 04/12/17 12:17: POC Glucose 242 H Current Medications Acetaminophen (Tylenol) 650 mg PO Q6H PRN PRN PRN Reason: Mild Pain (scale 0-3)/T>100.7 Al Hydroxide/Mg Hydroxide (Mylanta Ii) 30 ml PO Q6H PRN PRN PRN Reason: Gastric Burning Albuterol Sulfate (Ventolin Aerosols) 2.5 mg INHALATION Q2H PRN PRN PRN Reason: SHORTNESS OF BREATH Last Admin: 04/11/17 13:41 Dose: 2.5 mg Albuterol/Ipratropium (Duoneb) 3 ml INHALATION Q4H.RT [facility] Last Admin: 04/12/17 10:57 Dose: 3 ml Aspirin (Ecotrin) 81 mg PO DAILY [facility] Last Admin: 04/12/17 08:53 Dose: 81 mg Atorvastatin Calcium (Lipitor) 40 mg PO QHS [facility] Last Admin: 04/11/17 21:10 Dose: 40 mg Clopidogrel Bisulfate (Plavix) 75 mg PO DAILY [facility] Last Admin: 04/12/17 08:53 Dose: 75 mg Docusate Sodium (Colace) 200 mg PO BID PRN PRN PRN Reason: Constipation Enoxaparin Sodium (Lovenox) 40 mg SC DAILY@0600 [facility] Last Admin: 04/12/17 05:49 Dose: 40 mg Fluticasone Propionate (Flonase Nasal [place]) 1 spray NASAL DAILY [facility] Last Admin: 04/12/17 08:54 Dose: Not Given Guaifenesin (Mucinex) 1,200 mg PO BID [facility] Last Admin: 04/12/17 08:53 Dose: 1,200 mg Haloperidol Lactate (Haldol) 4 mg IM Q6H PRN PRN PRN Reason: SEVERE AGITATION Insulin Aspart (Novolog Flexpen (Bkc)) 0 units SC ACHS [facility] PRN Reason: Protocol Last Admin: 04/12/17 12:39 Dose: 2 u Losartan Potassium (Cozaar) 12.5 mg PO DAILY [facility] Last Admin: 04/12/17 08:53 Dose: 12.5 mg Magnesium Hydroxide (Milk Of Magnesia) 30 ml PO DAILY PRN PRN PRN Reason: Constipation Methylprednisolone (Solu-Medrol) 40 mg IV Q8 [facility] Last Admin: 04/12/17 05:49 Dose: 40 mg Metoprolol Tartrate (Lopressor (Beta Jamal)) 25 mg PO BID [facility] Last Admin: 04/12/17 08:53 Dose: 25 mg Montelukast Sodium (Singulair) 10 mg PO HS [facility] Last Admin: 04/11/17 21:23 Dose: 10 mg Nicotine (Nicoderm Cq (Pbkc)) 14 mg TRANSDERM. 2200 [facility] Last Admin: 04/11/17 21:14 Dose: 14 mg Nitroglycerin (Nitrostat) 0.4 mg SUBLINGUAL Q5M PRN PRN Reason: Chest Pain Pantoprazole Sodium (Protonix) 40 mg PO DAILY PRN [facility] Sertraline HCl (Zoloft) 50 mg PO DAILY [facility] Last Admin: 04/12/17 08:53 Dose: 50 mg Sodium Chloride () 5 - 30 ml IV UD PRN PRN Reason: SALINE FLUSH Last Admin: 04/09/17 17:31 Dose: 10 ml Tramadol HCl (Ultram (G)) 50 mg PO BID PRN PRN PRN Reason: PAIN Assessment/Plan Active and Suspected Problems Asthma exacerbation with COPD (chronic obstructive pulmonary disease) (Acute) Acute respiratory failure with hypoxia (Acute) 1. Acute exacerbation COPD secondary to Human Metaphpneumo Virus, patient has been maintained mainly on BiPAP, medically appears improved, will switch of BiPAP for nasal cannula oxygen and titrate to maintain SPO2 more than 94%, will consult pulmonary for input 2. Viral pneumonia secondary to Human Metaphpneumo Virus, improving, will repeat chest x-ray on account of patient's periodic increased work of breathing. Chest x-ray done this morning shows persistent bibasilar atelectasis, will add incentive spirometer 3. Abnormal LFT's, suspect due to the virus, slight elevation in LFTs, will continue to monitor 4. Suspected cognitive impairment, will need to be followed up in the outpatient 5. Chronic renal failure stage III 6. Hyperglycemia due to glucose intolerance/prediabetes, HbA1c 6.3, will continue to monitor, no history of diabetes mellitus type 2. 7. Tobacco abuse with chewing tobacco 8. CAD/hyperlipidemia/hypertension, stable 9. DVT PPx - Lovenox SC Code Visit Inpatient E&M: [id number] Subs Hosp L2
--- NOTE | 2017-04-12 14:08 | SP.MBSS_ITS ---
PRIMARY / SECONDARY DIAGNOSIS: dysphagia (R13.10) REFERRING PHYSICIAN: Dr. Abbey Bergman MD CURRENT DIET: regular textures, thin liquids DENTITION: WFL MENTAL STATUS: confused RESPIRATORY STATUS: O2 at 4L/min via nasal cannula PREVIOUS MODIFIED BARIUM SWALLOW STUDY: 12/26/2014 MBS revealed mild oropharyngeal and pharyngoesophageal dysphagia with transient penetration of thin liquids. REASON FOR REFERRAL: Patient is an 81 year old male referred for a modified barium swallow (MBS) study to objectively assess the Patients oropharyngeal swallow function under fluoroscopy to determine the least restrictive means of safe PO intake and to objectively identify the presence / extent of aspiration. Patient admitted to [facility] on 04/09/2017 due to persistent and worsening cough, workup suggesting asthma / COPD exacerbation. 04/09/2017 CXR revealed mild increased markings at the lung bases suggest some mild bibasilar atelectasis. MEDICAL HISTORY: Chronic obstructive pulmonary disease, coronary artery disease, hyperlipidemia , obesity (BMI 30.0-34.9, hypertension. STUDY FINDINGS: Patient participated in a Modified Barium Swallow (MBS) study on 04/12/2017. Dr. Howard was the radiologist present for this evaluation. This study was recorded in the lateral view and images were sent to PACs for storage. The following consistencies were presented to this patient for analysis of oropharyngeal swallow function: thin liquids, pudding, and a regular textured, Brielle Doone cookie. Results of the MBS are as follows: PENETRATION / ASPIRATION SCALE (LUGO): 1 = does not enter airway 2 = enters airway/above vocal folds/ejected 3 = enters airway/above vocal folds/not ejected 4 = enters airway/contacts vocal folds/ejected 5 = enters airway/contacts vocal folds/not ejected 6 = enters airway/below vocal folds/ejected 7 = enters airway/below vocal folds/not ejected despite effort 8 = enters airway/below vocal folds/no effort PENETRATION / ASPIRATION SCALE (SCORE): Thin liquid - 5 mL tsp.: 1 Thin liquids via cup (large sequential swallows): 1 Thin liquids via cup (large sequential swallows): 2* Pudding via spoon: 1 Regular textured cookie: 1 Thin liquids via straw (single sip): 1 Thin liquids via straw (large sequential swallows): 1 * denotes transient shallow penetration on one occasion across multiple swallows IMPRESSION: DIAGNOSIS: mild oropharyngeal dysphagia (R13.12) ORAL PHASE CHARACTERIZED BY: LABIAL SEAL: no labial escape TONGUE CONTROL DURING BOLUS MANIPULATION: posterior escape of less than half of bolus BOLUS PREPARATION / MASTICATION: slow prolonged chewing/mashing with complete recollection BOLUS TRANSPORT / LINGUAL MOTION: brisk tongue motion ORAL RESIDUE: trace residue lining oral structures PHARYNGEAL PHASE CHARACTERIZED BY: INITIATION OF PHARYNGEAL SWALLOW: bolus head in valleculae at first hyoid excursion SOFT PALATE ELEVATION: no bolus between soft palate and pharyngeal wall LARYNGEAL ELEVATION: complete superior movement of thyroid cartilage with complete approximation of arytenoids cartilage to epiglottic petiole ANTERIOR HYOID EXCURSION: partial anterior movement EPIGLOTTIC MOVEMENT: complete epiglottic inversion LARYNGEAL VESTIBULE CLOSURE AT HEIGHT OF SWALLOW: complete laryngeal vestibule closure with no air/contrast in laryngeal vestibule PHARYNGEAL STRIPPING WAVE: pharyngeal stripping wave present / complete PHARYNGOESOPHAGEAL SEGMENT OPENING: complete distension and complete duration with no obstruction of flow TONGUE BASE RETRACTION: no contrast between tongue base and posterior pharyngeal wall PHARYNGEAL RESIDUE: trace residue within or on pharyngeal structures ESOPHAGEAL PHASE CHARACTERIZED BY: ESOPHAGEAL BOLUS CLEARANCE IN THE UPRIGHT POSITION: complete clearance; esophageal coating EFFECTS OF TREATMENT STRATEGIES ATTEMPTED: Reduced bolus size = moderately effective DIET TEXTURE RECOMMENDATIONS: Will recommend a regular textured, thin liquid diet. COMPENSATORY STRATEGIES RECOMMENDED: Reduced bolus volume, seated upright at 90 degrees during PO intake. 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 Oral phase primarily marked by mastication inefficiency (mild) with noted slow, effortful mastication albeit effective to facilitate bolus breakdown; with suboptimal lingual control (mild) resulting in consistent premature bolus loss of thin liquids. Pharyngeal phase primarily marked by delayed pharyngeal swallow onset timing (mild) resulting in suboptimal bolus location upon swallow onset. All deficits ameliorated with bolus volume adjustments. RECOMMENDATIONS: Patient able to comprehend and express recommended intake precautions detailed above with sufficient detail to suggest high likelihood of compliance. Provided brief overview of signs and symptoms of aspiration, with recommendations for the Patient to further discuss symptoms with PCP. No further skilled speech- language services warranted at this time targeting dysphagia. ADDITIONAL COMMENTS/RECOMMENDATIONS: Results and recommendations were discussed with the Patient immediately following MBS completion, with the Patient verbalizing understanding and agreement with all recommendations and education provided. IMAGE COUNT: [id number]
[2017-04-12 17:51] LABS: Bedside Glucose 221 mg/dL (70-110)
[2017-04-12] MEDS: Atorvastatin Calcium 40 MG Tablet PO (23:08)
[2017-04-12] MEDS: 0.9% NaCl Peripheral Flush Adult/Peds IV (23:09)
[2017-04-12] MEDS: Montelukast 10 MG Tablet PO (23:09)
[2017-04-12 23:26] LABS: Bedside Glucose 318 mg/dL (70-110)
[2017-04-13] VITALS (11 sets, daily range): BP systolic 134–136; BP diastolic 80–89; PULSE 61–82; RESP 14–24; TEMP 36.7–37.1; O2SAT 92–95
[2017-04-13] MEDS: Ipratropium/Albuterol Sulfate 3 ML AMPUL.NEB INHALATION ×3 (02:43→11:02)
[2017-04-13] MEDS: Enoxaparin 40 MG/0.4 ML Syringe SC (06:31)
[2017-04-13] MEDS: 0.9% NaCl Peripheral Flush Adult/Peds IV (06:32)
[2017-04-13 06:50] LABS: Bedside Glucose 196 mg/dL (70-110)
--- NOTE | 2017-04-13 08:30 | PN_ITS ---
Patient Problems: Active and Suspected Problems Asthma exacerbation with COPD (chronic obstructive pulmonary disease) (Acute) Acute respiratory failure with hypoxia (Acute) Subjective: Patient was seen and examined, his son is at the bedside. Reports his breathing is overall better, intermittently has shortness of breath and cough. Cough is nonproductive. He is forgetful, does have a history of dementia. Stressing the fact he would like to go home today. He remains on 2-3 L per nasal cannula and is saturating at 95%. Remains afebrile and hemodynamically stable. - Physical Exam General: Alert, Oriented x3, Cooperative, - - mild conversational dyspnea HEENT: Atraumatic, Normocephalic Oral: Moist Mucosa, No Gingival or Mucosal Lesions/ Ulcerations Neck: Supple, No Nodes, Trachea Midline Lungs: - - Diminished throughout, improved expiratory wheeze Cardiovascular: Regular rate, Regular Rhythm, Normal S1, Normal S2 Abdomen: Bowel Sounds Present, Soft, Non Tender, Non-Distended, Obese Extremities: No clubbing, No cyanosis, Capillary Refill Less than 3 Seconds, - - Trace upper and lower extremity edema Skin: No rashes, - - Scattered ecchymosis bilateral upper extremities, redness to LAC proximal to IV site, soft. tender. Musculoskeletal: No Tenderness to Palpation of Joints or Extremities Lymphatic: No Cervical, Supraclavicular, or Inguinal Adenopathy Neurological: Cranial nerves II-XII grossly intact, Neuro grossly intact, Motor Exam 5/5 strength throughout Psych/Mental Status: - - Alert and oriented to self and place. More interactive today and smiling. Vital Signs Temp Pulse Resp BP Pulse Ox 98.1 F 70 20 H 134/80 H 95 04/13/17 06:40 04/13/17 07:39 04/13/17 07:39 04/13/17 06:40 04/13/17 07:39 Oxygen Flow Rate 3 Oxygen Delivery Method Nasal Cannula Weight: 217 lb 13.067 oz Body Mass Index (BMI) 30.9 Intake and Output for Last 24 Hours 04/11/17 04/12/17 04/13/17 23:59 23:59 23:59 Intake Total 2716 / 2716 919 / 919 Output Total 1700 / 1700 1450 / 1450 Balance 1016 / 1016 -531 / -531 Microbiology Past 72 Hours 04/10/17 19:00 Urine Culture - Final Urine Catheter - Bennett Culture exhibits no growth. 04/10/17 07:30 Respiratory Panel (PCR) - Final Mucosa - Nasopharyngeal Human [place] POC Glucose 04/13/17 04/12/17 04/12/17 06:28 23:06 17:43 POC Glucose 196 H 318 H 221 H 04/12/17 12:17 POC Glucose 242 H Assessment/Plan Active and Suspected Problems Asthma exacerbation with COPD (chronic obstructive pulmonary disease) (Acute) Acute respiratory failure with hypoxia (Acute) RECOMMENDATIONS 1. Wean oxygen supplementation to keep saturations 88-92%. 2. Encourage incentive spirometer 3. Increase activity as tolerated 4. Continue aerosols as ordered 5. Transition to oral steroids today, taper on discharge 6. BiPAP rescue as needed 7. Walking oximetry prior to discharge 8. Close follow-up with primary dog handler or trainer at [facility] when discharged 9. Likely okay to discharge from pulmonary standpoint IMPRESSIONS 1. Presumed COPD exacerbation secondary to human metapneumovirus Patient with failed antibiotic therapy as outpatient, respiratory panel on admit showed human metapneumovirus. Chest x-ray not impressive for infectious process, does have bibasilar atelectasis likely secondary to poor respiratory effort and immobility. Patient has remained afebrile and infectious workup has been negative. No need for antibiotic at this time. Continue aerosols as ordered. Encourage incentive spirometer. Wean oxygen supplementation to keep saturations 88-92%. Continue BiPAP rescue as needed. IV steroids can be continued through today, would transition to oral tomorrow as patient notes liver function studies are rising, which may be secondary to IV steroid use. Steroid taper at discharge. The patient does take as needed albuterol nebulizers at home and Pulmicort, however daughter notes he is inconsistent with use. Would advise patient to continue home medications as prescribed and have close follow-up with his primary dog handler or trainer within 1-2 weeks from discharge. 2. Acute hypoxic respiratory failure secondary to viral infection See #1. Patient does not not have an oxygen requirement prior to admission. He is currently maintaining saturations on 3 L of oxygen and using BiPAP rescue. Continue to attempt to wean oxygen requirements. The patient will require a walking oximetry prior to discharge. He will also require close follow-up with his primary dog handler or trainer at [facility]. 3. History of CAD status post stent ?1/HLD/obesity/hypertension/CHF Locates care, management, recovery, and prognosis. Continue home medications per hospitalist recommendations. Will hold off on his Pulmicort since he is on systemic steroids. This note was generated with [employer] dictation software. It may contain incorrect words, spelling, and punctuation that were not noted in checking the note before signing.
[2017-04-13] MEDS: Metoprolol Tartrate 25 MG Tablet PO (09:13)
[2017-04-13] MEDS: Clopidogrel Bisulfate 75 MG Tablet PO (09:13)
[2017-04-13] MEDS: Fluticasone 0.05% 1 SPRAY NASAL.SRY NASAL (09:14)
[2017-04-13] MEDS: Sertraline 50 MG Tablet PO (09:14)
[2017-04-13] MEDS: Aspirin E.C. 81 MG Tablet PO (09:14)
[2017-04-13] MEDS: Losartan Potassium 25 MG Tablet 12.5 MG PO (09:14)
[2017-04-13] MEDS: guaiFENesin 1,200 MG Tablet 1200 MG PO (09:14)
--- NOTE | 2017-04-13 10:29 | PCM.DC ---
- Discharge Diagnoses Current Active Problems: Current Active and Chronic Problems Asthma exacerbation with COPD (chronic obstructive pulmonary disease) (Acute) Acute respiratory failure with hypoxia (Acute) Reason(s) for Visit for Discharge Instructions: Shortness of breath You will use the following diet at home:: Calorie/Carbohydrate Controlled (specify 1200, 1400, etc), Cardiac Your food should be the consistency of: Regular, Soft (bite-sized & easy to chew/swallow) Your liquids should be the consistency of: Regular/Thin Discharge Activity: Return to Normal Activity Additional Instructions: Continue to use your oxygen all the time. Stay away from fire, no smoking whilst using oxygen. Folow-up with the faculty head. Allergies/Adverse Reactions: Allergies No Known Allergies Allergy (Verified 02/14/17 10:19) Medications to take at Discharge Aspirin [Adult Low Dose Aspirin EC] 81 mg PO DAILY 09/25/15 Atorvastatin Calcium [Lipitor] 40 mg PO QHS 09/25/15 Clopidogrel Bisulfate [Plavix] 75 mg PO DAILY 09/25/15 Famotidine [Pepcid] 20 mg PO DAILY 09/25/15 Losartan Potassium [Cozaar] 12.5 mg PO DAILY 09/25/15 Metoprolol Tartrate [Lopressor (beta alycia)] 25 mg PO BID 09/25/15 Nitroglycerin [Nitrostat] 0.4 mg SUBLINGUAL Q5M PRN 09/25/15 Pantoprazole Sodium [Protonix] 40 mg PO DAILY PRN 09/25/15 Sertraline HCl [Zoloft] 50 mg PO DAILY 09/25/15 TraMADol [Ultram] 50 mg PO BID PRN PRN 09/25/15 Guaifenesin [Mucinex] 1,200 mg PO BID PRN 01/20/16 Albuterol Aerosols [Ventolin Aerosols] 2.5 mg INHALATION TID 02/14/17 Budesonide Aerosol [Pulmicort Respules] 0.5 mg INHALATION BID 02/14/17 Montelukast Sodium [Singulair] 10 mg PO QHS 02/14/17 Fluticasone Propionate [Flonase Allergy Relief] 1 spray NS DAILY 04/09/17 Ipratropium/Albuterol Sulfate [Duoneb] 3 ml INHALATION Q4H.RT 04/09/17 Prednisone 10 mg PO DAILY #30 tab 04/13/17 The following prescriptions were given: Prednisone 10 mg PO DAILY #30 tab Primary Care Physician: Tony Lees MD [Primary Care Provider] - Please follow up with your Primary Care Physician in: within 2 weeks of discharge Please Follow Up With: Bteo Chacon MD When: within 2 weeks of discharge Proposed Discharge Date: 04/13/17
--- NOTE | 2017-04-13 10:32 | DCINST_ITS ---
- Discharge Diagnoses Current Active Problems: Current Active and Chronic Problems Asthma exacerbation with COPD (chronic obstructive pulmonary disease) (Acute) Acute respiratory failure with hypoxia (Acute) Reason(s) for Visit for Discharge Instructions: Shortness of breath You will use the following diet at home:: Calorie/Carbohydrate Controlled ( specify 1200, 1400, etc), Cardiac Your food should be the consistency of: Regular, Soft (bite-sized & easy to chew /swallow) Your liquids should be the consistency of: Regular/Thin Discharge Activity: Return to Normal Activity Additional Instructions: Continue to use your oxygen all the time. Stay away from fire, no smoking whilst using oxygen. Folow-up with the it operations analyst. Allergies/Adverse Reactions: Allergies No Known Allergies Allergy (Verified 02/14/17 10:19) Medications to take at Discharge Aspirin [Adult Low Dose Aspirin EC] 81 mg PO DAILY 09/25/15 Atorvastatin Calcium [Lipitor] 40 mg PO QHS 09/25/15 Clopidogrel Bisulfate [Plavix] 75 mg PO DAILY 09/25/15 Famotidine [Pepcid] 20 mg PO DAILY 09/25/15 Losartan Potassium [Cozaar] 12.5 mg PO DAILY 09/25/15 Metoprolol Tartrate [Lopressor (beta alycia)] 25 mg PO BID 09/25/15 Nitroglycerin [Nitrostat] 0.4 mg SUBLINGUAL Q5M PRN 09/25/15 Pantoprazole Sodium [Protonix] 40 mg PO DAILY PRN 09/25/15 Sertraline HCl [Zoloft] 50 mg PO DAILY 09/25/15 TraMADol [Ultram] 50 mg PO BID PRN PRN 09/25/15 Guaifenesin [Mucinex] 1,200 mg PO BID PRN 01/20/16 Albuterol Aerosols [Ventolin Aerosols] 2.5 mg INHALATION TID 02/14/17 Budesonide Aerosol [Pulmicort Respules] 0.5 mg INHALATION BID 02/14/17 Montelukast Sodium [Singulair] 10 mg PO QHS 02/14/17 Fluticasone Propionate [Flonase Allergy Relief] 1 spray NS DAILY 04/09/17 Ipratropium/Albuterol Sulfate [Duoneb] 3 ml INHALATION Q4H.RT 04/09/17 Prednisone 10 mg PO DAILY #30 tab 04/13/17 The following prescriptions were given: Prednisone 10 mg PO DAILY #30 tab Primary Care Physician: Tony Lees MD [Primary Care Provider] - Please follow up with your Primary Care Physician in: within 2 weeks of discharge Please Follow Up With: Beto Chacon MD When: within 2 weeks of discharge Proposed Discharge Date: 04/13/17
--- NOTE | 2017-04-13 11:05 | PCM.DC.SUM ---
Discharge Date and Diagnosis Date of Admission: 04/09/17 Date of Discharge: 04/13/17 - Primary Discharge Diagnosis Active and Suspected Problems Asthma exacerbation with COPD (chronic obstructive pulmonary disease) (Acute) Acute respiratory failure with hypoxia (Acute) - Secondary Discharge Diagnosis Chronic Problems CAD (coronary artery disease) (Chronic) HLD (hyperlipidemia) (Chronic) Obesity (BMI 30.0-34.9) (Chronic) HTN (hypertension) (Chronic) Hospital Course and Treatment Imaging Results: Clinical Impression(s) from Imaging Studies Chest X-Ray 04/09/17 12:27 IMPRESSION: Mild increased markings at the lung bases suggest some mild bibasilar atelectasis. Electronically Signed: Jamar Howard MD at 13:26 EST Tel [phone], Service support , Chest X-Ray 04/10/17 06:33 IMPRESSION: Limited study lingular atelectasis. Could consider further evaluation with noncontrast chest CT to confirm. Degenerative change kyphosis Evidence of old granulomatous disease. Electronically Signed: Maranda Laboy MD at 10:45 EST Tel , Service support , Chest X-Ray 04/12/17 05:55 IMPRESSION: 1. No aspirated barium identified. 2. Bilateral lower lobe atelectasis. Electronically Signed: Kentrell Luther MD at 17:45 EST , Service support , Chest X-Ray 04/12/17 11:22 IMPRESSION: Poor inspiratory effort with persistent bibasilar subsegmental atelectasis. Electronically Signed: Jb Garrett MD at 12:32 EST , Service support , Videofluoroscopic Swallow 04/12/17 14:00 IMPRESSION: Normal tailored barium swallow study. No evidence of increased risk for aspiration. The swallow study findings were discussed with the patient by the speech pathologist at the conclusion of the examination. Please see speech pathology report for more information and recommendations. Electronically Signed: Jamar Howard MD at 14:05 EST Tel [phone], Service support , Pulmonology Operations: None Procedures: None Summary of Care Provided: 81-year-old male with past medical history of COPD/asthma comes in with complaints of cough and shortness of breath ongoing for 5 days. Patient had been on oral antibiotics and prednisone which did not improve his symptoms and he rather worsened and he was brought to the ED. His oxygen saturation was 88% on presentation to the ED which improved to 92% on room air. Patient was managed mainly on BiPAP during the hospital stay. 1. Acute exacerbation COPD secondary to Human Metaphpneumo Virus, over the last 24 hours prior to discharge patient had been on BiPAP and was saturating well on 2-3 L of oxygen. He was assessed for ambulatory oxygen and found to be saturating well on room air and did not qualify for home oxygen. 2. Viral pneumonia secondary to Human Metaphpneumo Virus, improving, patient is encouraged to continuously use incentive spirometer, repeat x-ray on 04/12/2017 shows poor inspiratory effort with bibasilar atelectasis 3. Abnormal LFT's, suspect due to the virus, slight elevation in LFTs, this would need to be monitored in the outpatient 4. Suspected cognitive impairment, will need to be followed up in the outpatient 5. Chronic renal failure stage III 6. Hyperglycemia due to glucose intolerance/prediabetes, HbA1c 6.3, will need a repeat HbA1c in the outpatient 7. Tobacco abuse with chewing tobacco 8. CAD/hyperlipidemia/hypertension, stable Discharge Diet: Low fat/ Low Cholesterol, 2000 mg Sodium Diet Discharge Activity: Return to Normal Activity Home Medications: Medications to take at Discharge Aspirin [Adult Low Dose Aspirin EC] 81 mg PO DAILY 09/25/15 Atorvastatin Calcium [Lipitor] 40 mg PO QHS 09/25/15 Clopidogrel Bisulfate [Plavix] 75 mg PO DAILY 09/25/15 Famotidine [Pepcid] 20 mg PO DAILY 09/25/15 Losartan Potassium [Cozaar] 12.5 mg PO DAILY 09/25/15 Metoprolol Tartrate [Lopressor (beta alycia)] 25 mg PO BID 09/25/15 Nitroglycerin [Nitrostat] 0.4 mg SUBLINGUAL Q5M PRN 09/25/15 Pantoprazole Sodium [Protonix] 40 mg PO DAILY PRN 09/25/15 Sertraline HCl [Zoloft] 50 mg PO DAILY 09/25/15 TraMADol [Ultram] 50 mg PO BID PRN PRN 09/25/15 Guaifenesin [Mucinex] 1,200 mg PO BID PRN 01/20/16 Albuterol Aerosols [Ventolin Aerosols] 2.5 mg INHALATION TID 02/14/17 Budesonide Aerosol [Pulmicort Respules] 0.5 mg INHALATION BID 02/14/17 Montelukast Sodium [Singulair] 10 mg PO QHS 02/14/17 Fluticasone Propionate [Flonase Allergy Relief] 1 spray NS DAILY 04/09/17 Ipratropium/Albuterol Sulfate [Duoneb] 3 ml INHALATION Q4H.RT 04/09/17 Prednisone 10 mg PO DAILY #30 tab 04/13/17 Following Prescrptions Were Given to Patient: Prednisone 10 mg PO DAILY #30 tab Primary Care Physician: Tony Lees MD [Primary Care Provider] - Please follow up with your Primary Care Physician in: within 2 weeks of discharge Please Follow Up With: Beto Chacon MD When: within 2 weeks of discharge Disposition: Home with Home Health Minutes spent on discharge:: 25 Patient Condition:: Stable Meaningful Use Info Meaningful Use Diagnoses (Choose all that apply): None applicable Code Visit Inpatient E&M: 28146 Disch Hosp
[2017-04-13 11:31] LABS: Bedside Glucose 295 mg/dL (70-110)
== END 2017-04-13 13:21 | disposition home or self-care (01) | DRG 193 ==
LOC: ED 15:30 → MS3 15:33
PROVIDERS: Internal Medicine; Admitting Provider Hospitalist; Emergency Provider Emergency Medicine; Family Provider Family Medicine; PCP Family Medicine; Visit Provider Internal Medicine
DX: J12.3 Human metapneumovirus pneumonia (principal); J96.01 Acute respiratory failure with hypoxia; J44.0 Chronic obstructive pulmonary disease with (acute) lower respiratory infection; J44.1 Chronic obstructive pulmonary disease with (acute) exacerbation; I13.0 Hypertensive heart and chronic kidney disease with heart failure and stage 1 through stage 4 chronic kidney disease, or unspecified chronic kidney disease; I50.9 Heart failure, unspecified; E66.9 Obesity, unspecified; I25.10 Atherosclerotic heart disease of native coronary artery without angina pectoris; Z79.899 Other long term (current) drug therapy; Z87.891 Personal history of nicotine dependence; N18.3 Chronic kidney disease, stage 3 (moderate); R73.03 Prediabetes; Z95.5 Presence of coronary angioplasty implant and graft; Z68.30 Body mass index [BMI] 30.0-30.9, adult
CPT/HCPCS: 36415; 71045; 71046; 74230; 80048; 80053; 81001; 82962; 83036; 83735; 83880; 84100; 85025; 87040; 87086; 87633; 92526; 92611; 93005; 94002; 94003; 94640; 94667; 94668; 97162; 99284; J7030; J7040; A4216

== ENCOUNTER 2018-12-31 12:35 | Inpatient (IN) | payer MEDICARE, OTHER, SELFPAY ==
[2018-12-31] VITALS (10 sets, daily range): BP systolic 109–168; BP diastolic 66–97; PULSE 80–102; RESP 16–22; TEMP 36.6–37.6; O2SAT 90–93; BMI 33.4; BMI 32.2
--- NOTE | 2018-12-31 12:51 | CT_ITS ---
STUDY: CT BRAIN WITHOUT CONTRAST REASON FOR EXAM: Male, 83 years old. Fell yesterday, on blood thinners RADIATION DOSAGE (If Supplied By Facility): CTDIvol = ( 44.99 ) mGy, DLP = ( 880.47 ) mGycm TECHNIQUE: Transaxial CT imaging of the brain was performed without administration of intravenous contrast material. Individualized dose optimization techniques were used for this CT. COMPARISON: 03/13/2016 FINDINGS: Normal soft tissue structures. Normal calvarium. There is mild cerebral atrophy with widening of the extra-axial spaces and ventricular dilatation. There are areas of decreased attenuation within the white matter tracts of the supratentorial brain, consistent with microvascular disease changes. There are small punctate calcifications of the basal ganglia which are seen in the aging brain as a normal variant. Normal brainstem. Normal cerebellum. There is no intracranial hemorrhage. There are no findings of an acute ischemic infarction. Encephalomalacia and gliosis of the left frontal lobe is stable since the prior study compatible with an old infarction. Normal visualized paranasal sinuses. There is atherosclerosis of the vertebral arteries and carotid siphons. CT/Brain/Head without Contrast IMPRESSION: 1. No acute intracranial hemorrhage or mass effect. 2. 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 3. Central parenchymal volume loss. White matter changes that are nonspecific but most commonly associated with chronic small vessel ischemic disease. Electronically Signed: Kentrell Luther MD (Brooks) at 13:42 EDT , Service support ,
--- NOTE | 2018-12-31 12:52 | CT_ITS ---
STUDY: CT CERVICAL SPINE WITHOUT CONTRAST REASON FOR EXAM: Male, 83 years old. Neck pain after a fall RADIATION DOSAGE (If Supplied By Facility): CTDIvol = ( 25.04 ) mGy, DLP = ( 615.30 ) mGycm TECHNIQUE: High resolution transaxial imaging was performed without contrast material. Sagittal and coronal images were reconstructed. Individualized dose optimization techniques were used for this CT. COMPARISON: 03/13/2016 FINDINGS: Normal craniovertebral junction. There are degenerative changes of the anterior atlantoaxial articulation. Normal odontoid process. Normal cervical lordosis. Normal vertebral bodies and posterior osseous elements. C2-3: Normal endplates. Normal disc height and morphology. Normal central canal and intervertebral neuroforamina. Bilateral facet arthropathy. C3-4: Normal endplates. Normal disc height and morphology. Normal central canal and intervertebral neuroforamina. Bilateral facet arthropathy C4-5: Degenerative anterolisthesis due to facet arthropathy similar since the prior study. C5-6: Severe disc space narrowing with posterior disc osteophyte complex, uncovertebral hypertrophy and facet arthropathy causing left more than right foraminal narrowing. C6-7: Disc space narrowing with anterior spondylosis, discogenic endplate sclerosis and bilateral uncovertebral hypertrophy. Mild bilateral foraminal narrowing. C7-T1: Normal endplates. Normal disc height and morphology. Normal central canal and intervertebral neuroforamina. Mild atherosclerosis of the bilateral carotid arteries. CT/Spine Cervical without Contras IMPRESSION: 1. No cervical spine fracture or traumatic subluxation. 2. Multilevel degenerative changes, stable. Electronically Signed: Kentrell Luther MD (Brooks) at 13:46 EDT , Service support ,
--- NOTE | 2018-12-31 12:52 | EKG12_ITS ---
Test Reason : Blood Pressure : / mmHG Vent. Rate : 095 BPM Atrial Rate : 095 BPM P-R Int : 240 ms QRS Dur : 082 ms QT Int : 356 ms P-R-T Axes : 016 -07 013 degrees QTc Int : 447 ms Sinus rhythm with 1st degree A-V block with occasional Premature ventricular complexes Inferior infarct , age undetermined Abnormal ECG Confirmed by DANE AUGUSTE, SCOTT ([id number]), metropolitan editor JOHNNY GOOD ([id number]) on 01/04/2019 9:44:26 AM Referred By: Adams Contreras Confirmed By:DARELL VELA MD
--- NOTE | 2018-12-31 12:55 | CT_ITS ---
STUDY: CT CHEST WITHOUT CONTRAST REASON FOR EXAM: Male, 83 years old. Fall RADIATION DOSAGE (If Supplied By Facility): CTDIvol = ( 19.83 ) mGy, DLP = ( 1006.40 ) mGycm TECHNIQUE: Transaxial imaging was performed without the administration of intravenous contrast material. Multiplanar coronal and sagittal images were reformatted. Individualized dose optimization techniques were used for this CT. COMPARISON: None. FINDINGS: Scattered granulomatous calcifications of the right lung. Evaluation of the lungs limited by motion artifact. Mild atelectasis in the lung bases. No pleural effusion or pneumothorax. Heart size is normal. Coronary artery atherosclerosis/stent is identified. There are calcified mediastinal and right hilar lymph nodes. No soft tissue adenopathy. Normal unenhanced pulmonary arteries. There is atherosclerotic calcification of the aortic arch with tortuosity and elongation of the aortic arch and descending thoracic aorta. There are degenerative changes of the visualized cervical and thoracic spine. There are gallstones within the gallbladder. Adrenal glands are not focally enlarged. CT/Chest without Contrast IMPRESSION: 1. No pleural effusion or pneumothorax. No rib fracture seen. 2. Atherosclerosis including coronary arteries 3. limited evaluation of the lungs due to motion artifact. Electronically Signed: Kentrell Luther MD (Brooks) at 13:43 EDT , Service support ,
--- NOTE | 2018-12-31 13:20 | RAD_ITS ---
STUDY: X-RAY - PELVIS AND LEFT HIP REASON FOR EXAM: Male, 83 years old. Left hip pain after falling yesterday TECHNIQUE: 3 views of the pelvis and hip. COMPARISON: None. FINDINGS: There is a non-specific bowel gas pattern. Normal visualized soft tissue structures. Normal bilateral iliac wings, sacroiliac joints and visualized sacrum. Normal bilateral superior and inferior pubic rami. Normal pubic symphysis. Normal bilateral ischial tuberosities. Normal visualized femoral head. There is trabecular indistinctness and increased density of the left femoral neck with cortical step-off along the medial border. Normal acetabulum. Normal hip joint. RAD/HIP, UNI W/ Pelvis 2-3 Views IMPRESSION: Left femoral neck fracture without significant displacement. Electronically Signed: Kentrell Luther MD (Brooks) at 13:48 EDT , Service support ,
[2018-12-31 13:29] LABS: Absolute Lymphocyte Count 1.12 X10^3/uL (0.83-4.51); Absolute Neutrophil Count 10.2 X10^3/uL (2.0-7.7); Basophil# 0.04 X10^3/uL; Basophil% 0.3 % (0-1); Eosinophil# 0.01 X10^3/uL; Eosinophils% 0.1 % (0-5); Hematocrit 43.3 % (40-54); Hemoglobin 14.7 g/dL (13.0-16.5); Lymphocyte # 1.12 X10^3/ul (4.0); Lymphocyte % 9.4 % (19-41); Mean Corp Hgb Conc 33.9 g/dL (32-36); Mean Corpuscular Hgb 30.9 pg (27.0-32.0); Mean Corpuscular Volume 91.2 fL (80-94); Mean Platelet Vol. 11.3 fl (6.2-12.0); Monocyte# 0.47 X10^3/uL; Monocyte% 3.9 % (0-10); NRBC Flagged by Analyzer 0 % (0-5); Neutrophil # 10.23 X10^3/uL (2.7-7.7); Neutrophil % 85.8 % (47-70); Platelet Count 163 K/mm3 (150-450); RBC Distribution Width CV 13.4 % (11.6-14.6); RBC Distribution Width SD 45.1 fl (35.1-43.9); Red Blood Count 4.75 M/mm3 (4.6-6.2); White Blood Count 11.9 K/mm3 (4.4-11.0)
[2018-12-31] MEDS: 0.9% Normal Saline 1,000 ML 150 ML IV ×3 (13:30→21:38)
[2018-12-31 13:42] LABS: Anion Gap 7 (5-15); BUN 26 mg/dL (7-18); BUN/Creat Ratio 14.6 RATIO (10-20); Calcium,Total 9.1 mg/dL (8.5-10.1); Chloride 101 mmol/L (98-107); Creatinine, Serum 1.78 mg/dL (0.70-1.30); EST Glomerular Filtration Rate 39 mL/min (>60); Est Glom Filt Rate - Afr Amer 47 mL/min (>60); Estimated Creatinine Clearance 29.89 ml/min; Glucose 167 mg/dL (74-106); Potassium 4.4 mmol/L (3.5-5.1); Sodium Level 136 mmol/L (136-145)
--- NOTE | 2018-12-31 13:57 | ED.DCSUM_ITS ---
- ER Visit Summary Date of Service: 12/31/18 Chief Complaint: [Fall and injury to left hip] History of Present Illness: The patient is a 83 M [presents to the emergency department with a fall that occurred last evening. Patient slipped while getting up to use the restroom. The daughter states that he called for her right away. No loss of consciousness. Patient did sustain some abrasions to his left arm and also bruising and contusion to his left ribs. Patient complaining of left hip pain although he did ambulate after the initial fall and even climbed steps. Today he is refusing to bear weight.] Patient has history of hypertension, coronary artery disease, high cholesterol, asthma, COPD, conf usion Physical Examination: [HEENT-PERRLA, EOMI. Cranial nerves II through XII grossly intact. TMs clear. Mucous membranes moist. No adenopathy. Patient has mild diffuse C-spine tenderness on palpation. No bony step-offs noted. Cardiovascular-regular rate and rhythm without murmur or ectopy Lungs-clear to auscultation, chest wall stable without crepitus or subcu emphy sema Abdomen-normoactive bowel sounds, soft, nontender, no rebound or rigidity, no peritoneal signs. Back exam-patient does have ecchymosis and bruising as well as soft tissue swelling over the left posterior ribs with tenderness to palpation over the area. Extremities-intact ?4, normal range of motion, normal pulses. Left hip-patient does have some diffuse tenderness palpation. Patient has some pain with logrolling and straight leg raising. There is no shortening or rotational deformity noted. Neurovascular intact distally. Test Results: [EKG obtained arrival shows sinus rhythm with a ventricular rate of 95 bpm with a first-degree AV block. CBC with additional count of 11.9, hemoglobin 14.7, hematocrit 43, platelets 163. Chemistries unremarkable. BUN 26 and creatinine 1.78. Troponin was 0.024. CT scan of the brain showed old left MCA stroke. CT chest showed no fractures or pneumothorax. CT of the C- spine showed degenerative changes. X-rays of the left hip showed femoral neck fracture nondisplaced.] Emergency Department Course and Treatment: [Patient was ordered morphine and Zofran.] Treatment Plan: [Discussed case with orthopedic surgeon on-call as well as hospitalist will admit patient for admission. I was asked to obtain a CT scan of the hip.] Disposition: [Admit] Impression: [Mechanical fall Left hip fracture Rib contusions] This note was generated with [employer] dictation software. It may contain incorrect words, spelling, and punctuation that were not noted in review of the chart prior to signing ED Disposition - Plan for ED Patient: Referrals: Tony Lees MD [Primary Care Provider] -
--- NOTE | 2018-12-31 13:57 | PCM.HP.STD ---
Problem List (1) Femoral neck fracture Status: Acute Qualifiers: Encounter type: initial encounter Fracture type: closed Laterality: left Qualified Code(s): S72.002A - Fracture of unspecified part of neck of left femur, initial encounter for closed fracture (2) COPD (chronic obstructive pulmonary disease) Status: Chronic Qualifiers: (3) CAD (coronary artery disease) Status: Chronic Qualifiers: (4) HLD (hyperlipidemia) Status: Chronic Qualifiers: (5) HTN (hypertension) Status: Chronic Qualifiers: (6) Obesity (BMI 30.0-34.9) Status: Chronic History of Present Illness Date of Admission: 12/31/18 Chief Complaint: FALL The patient is a 83 year old M with past medical history sent for coronary artery disease with previous PCI with subsequent stent placement, COPD/asthma who was brought to the emergency department by family on account of patient who did experience a fall a day prior to coming in. Patient fall happened around 9 PM the day prior to his visit to the ED. Per patient he felt lightheaded and fell. Daughter however disputes this account and thinks patient slipped prior to the fall. In the emergency department imaging studies obtained demonstrated Left femoral neck fracture without significant displacement.. orthopedic surgeon on-call Dr. Burgos was notified patient admitted to medical service for subsequent management. Past Medical History Past Medical History (Chronic Problems): Chronic Problems HTN (hypertension) (Chronic) COPD (chronic obstructive pulmonary disease) (Chronic) Obesity (BMI 30.0-34.9) (Chronic) HLD (hyperlipidemia) (Chronic) CAD (coronary artery disease) (Chronic) Allergies No Known Allergies Allergy (Verified 12/31/18 12:38) Home Medications: Ambulatory Orders Medication Instructions Recorded Aspirin [Adult Low Dose Aspirin EC] 81 mg PO DAILY 09/25/15 Atorvastatin Calcium [Lipitor] 40 mg PO QHS 09/25/15 Clopidogrel Bisulfate [Plavix] 75 mg PO DAILY 09/25/15 Famotidine [Pepcid] 20 mg PO DAILY 09/25/15 Losartan Potassium [Cozaar] 12.5 mg PO DAILY 09/25/15 Metoprolol Tartrate [Lopressor 25 mg PO BID 09/25/15 (beta alycia)] Nitroglycerin (INPATIENT USE) 0.4 mg SUBLINGUAL Q5M PRN 09/25/15 [Nitrostat] Pantoprazole Sodium [Protonix] 40 mg PO DAILY PRN 09/25/15 Sertraline HCl [Zoloft] 50 mg PO DAILY 09/25/15 Guaifenesin [Mucinex] 1,200 mg PO BID PRN 01/20/16 Albuterol Aerosols [Ventolin 2.5 mg INHALATION TID 02/14/17 Aerosols] Budesonide Aerosol [Pulmicort 0.5 mg INHALATION BID 02/14/17 Respules] Montelukast Sodium [Singulair] 10 mg PO QHS 02/14/17 Fluticasone Propionate [Flonase 1 spray NS DAILY 04/09/17 Allergy Relief] Ipratropium/Albuterol Sulfate 3 ml INHALATION Q4H.RT 04/09/17 [Duoneb] Bumetanide 1 mg PO DAILY 12/31/18 Finasteride 5 mg PO DAILY 12/31/18 Loratadine 10 mg PO DAILY 12/31/18 Prednisone 10 mg PO DAILY PRN 12/31/18 Surgical History: - - PCI x 1. Psychiatric History: No pertinent psych hx Smoking Status: Former smoker - *Family History Maternal History Items: Unknown - has no recollection Paternal History Items: Unknown - has no recollection Review of Systems Constitutional: Denies: Anorexia, Chills, Fever, Night Sweats, Weight Change HEENT: Denies: Head Aches, Sinus Congestion, Sinus Drainage Cardiovascular: Denies: Chest Pain, Orthopnea, Palpitations, Paroxysmal Noc. Dyspnea Respiratory: Denies: Cough, Shortness of breath at rest Gastrointestinal: Denies: Abdominal Pain, Hematemesis, Hematochezia, Nausea, Melena, Vomiting Genitourinary: Denies: Dysuria, Frequency, Hematuria, Urgency Musculoskeletal: Reports: Joint Pain Skin: Denies: Rash Neurological: Denies: Focal weakness, Numbness, Tingling Psychiatric: Denies: Homicidal Ideations, Suicidal Ideations Hematologic/ Lymphatic: Reports: Easy Bruising, Easy Bleeding VTE Information - Inpt Only VTE Present on Admission: No VTE Mechan Device Prophylaxis: SCD's VTE Pharm Prophylaxis ordered?: Yes Patient Problems: Active and Suspected Problems Femoral neck fracture (Acute) Objective: GENERAL: Not in respiratory distress HEENT: Atraumatic; EYES; Anicteric, Normal Conjunctiva NECK; supple, normal thyroid, RESPIRATORY: Diminished to auscultation bilaterally, CARDIOVASCULAR: Regular S1 S2, GI: soft, non-tender, normoactive bowel sounds, : No Renal angle tenderness; EXTREMITIES: No edema, no clubbing, no cyanosis. NEURO: Awake; no lateralizing signs. SKIN: Bruises on both upper extremities PSYCH; flat affect - Physical Exam Vital Signs Temp Pulse Resp BP Pulse Ox 97.9 F 102 H 18 137/82 H 93 12/31/18 12:38 12/31/18 12:38 12/31/18 12:38 12/31/18 12:38 12/31/18 12:38 Oxygen Delivery Method Room Air Weight: 99.79 kg Body Mass Index (BMI) 33.4 Laboratory Tests Past 24 Hrs 12/31/18 12/31/18 13:05 13:05 WBC 11.9 H RBC 4.75 Hgb 14.7 Hct 43.3 MCV 91.2 MCH 30.9 MCHC 33.9 RDW Std Deviation 45.1 H RDW Coeff of Lou 13.4 Plt Count 163 MPV 11.3 Immature Gran % (Auto) 0.500 Neut % (Auto) 85.8 H Lymph % (Auto) 9.4 L [place] % (Auto) 3.9 Eos % (Auto) 0.1 Baso % (Auto) 0.3 Absolute Neuts (auto) 10.2 H Absolute Lymphs (auto) 1.12 Nucleated RBC % 0 Sodium 136 Potassium 4.4 Chloride 101 Carbon Dioxide 28.0 Anion Gap 7 BUN 26 H Creatinine 1.78 H Estim Creat Clear Calc 29.89 Est GFR (MDRD) Af Amer 47 L Est GFR (MDRD) Non-Af 39 L BUN/Creatinine Ratio 14.6 Glucose 167 H Calcium 9.1 Troponin I 0.024 Assessment/Plan All Active Problems Femoral neck fracture (Acute) Acute respiratory failure with hypoxia (Resolved) Asthma exacerbation with COPD (chronic obstructive pulmonary disease) (Resolved) Patient is an 83-year-old gentleman brought to the emergency department following a fall imaging studies demonstrated left femoral neck fracture 1. Left femoral neck fracture without significant placement ?. Patient has been admitted to the regular nursing floor where he is currently being managed with immobilization, pain medication. Consult was placed to orthopedic surgery Dr. Burgos. Patient risk factors regarding perioperative mortality/morbidity was estimated to be moderate. He has prior history of CAD with previous PCI currently not having any chest pain. Did order EKG. Patient diagnostic data also reviewed. 2. Asthma/COPD ?currently not in exacerbation did continue with patient home aerosol regimen 3. CAD with previous PCI with subsequent stent placement. As stated above patient did not have any chest pain, enzymes obtained on admission negative. --?Patient is however on dual antiplatelet therapy held his Plavix to decrease his bleeding risk 4. Dyslipidemia -patient is on statin therapy, continued at home dose 5. Hypertension -blood pressure controlled, home medications continued with dose adjustment as needed 5. CKD stage III, -Kidney function at baseline 6. DVT prophylaxis SCDs for now with plans to initiate chemical prophylaxis after patient surgery Advance planning; did discuss with the patient and family regarding advanced directives as well as CODE STATUS. Did explain the various scenarios involved ( FULL CODE, DNR CCA, DNR CCA with no intubation, and DNR CC and what each meant) family elected to keep patient full code with CPR and intubation if needed.. Order was placed. Time spent on discussion 20 minutes. Code Visit Inpatient E&M: 56105 Init Hosp L3 Procedures: 20332 Advncd Care Plan 30 Min
--- NOTE | 2018-12-31 14:02 | CT_ITS ---
STUDY: CT PELVIS WITHOUT CONTRAST REASON FOR EXAM: Male, 83 years old. Left hip pain after falling RADIATION DOSAGE (If Supplied By Facility): CTDIvol = ( 35.59 ) mGy, DLP = ( 1226.41 ) mGycm TECHNIQUE: Transaxial imaging of the pelvis was performed without oral contrast, and without intravenous administration of contrast material. Individualized dose optimization techniques were used for this CT. COMPARISON: None. FINDINGS: Normal urinary bladder. Normal visualized small intestine. There are multiple colonic diverticula of the sigmoid colon consistent with chronic diverticulosis. There is no pelvic fluid. There is no pelvic mass lesion or lymphadenopathy. There is diffuse atherosclerotic calcification of the pelvic arteries. Normal abdominal wall. There are degenerative changes of the lumbar spine with acquired canal narrowing at L3-L4 and L4-L5. The bilateral hips are normally aligned with mild to moderate degenerative changes. The pelvic ring is intact. Transverse mildly impacted fracture of the left subcapital femoral neck confirmed as seen on x-ray from earlier today. CT/Pelvis without IV Contrast IMPRESSION: Mildly impacted left femoral neck fracture. Electronically Signed: Kentrell Luther MD (Brooks) at 14:30 EDT , Service support ,
[2018-12-31] MEDS: Morphine 4 MG/ML Syringe IV (14:22)
[2018-12-31] MEDS: Ondansetron 4 MG/2 ML Vial IV (14:22)
[2018-12-31] MEDS: Ipratropium/Albuterol Sulfate 3 ML AMPUL.NEB INHALATION ×3 (15:36→22:09)
[2018-12-31] MEDS: Budesonide Respules 0.5 MG/2 ML AMPUL.NEB. INHALATION (19:10)
[2018-12-31] MEDS: Atorvastatin Calcium 40 MG Tablet PO (21:30)
[2018-12-31] MEDS: Montelukast 10 MG Tablet PO (21:30)
[2018-12-31] MEDS: Metoprolol Tartrate 25 MG Tablet PO (21:32)
[2018-12-31] MEDS: Acetaminophen 325 MG Tablet 650 MG PO (22:27)
--- NOTE | 2018-12-31 23:37 | NURSING ---
Family asked to speak with me...Would like to have pt transferred to [facility] they had called hospital to check if they had a bed and they have 24[address] Dr[address] that is why they would like the pt transferred. Let Dr. Arcos know their wishes and gave the family the number on how the [facility] can talk with Dr. Arcos. [facility] would have to arrange the transfer.
[2019-01-01] VITALS (7 sets, daily range): BP systolic 116–154; BP diastolic 68–75; PULSE 87–105; RESP 18–20; TEMP 36.4–37.2; O2SAT 90–93
--- NOTE | 2019-01-01 01:11 | NURSING ---
Family does not have a Orthopedic Dr.at [facility]..I spoke with Dr. Arcos since we have an Orthopedic Dr on staff and their is no medical reason to transfer the pt. Family is voicing concerns with pt's medical Hx would like him transferred. Explained the procedure that they need to find the Dr that will accept pt then the Dr's can talk about the transfer since we have orthopedic on staff @ [facility]. Family is concerned after his stent was placed he laid around and ended up with pneumonia and took months dealing with it to get him better. Explained to family in the room that they can talk with Hospitalist and Dr. Burgos in the AM and voice their concerns since pt is stable their is no need to transfer tonight. Spoke with Dr. Arcos about the family concerns. Order IS and to keep HOB elevated.
--- NOTE | 2019-01-01 01:47 | NURSING ---
Spoke with Tank Cleaning Supervisor of the family wishing to have pt transferred. We saw the order to sign the consent so making the pt NPO. Told me pt was on the schedule for 9am. I told the family after talking with tank builder supervisor the pt was on the OR schedule for 9 AM. Daughter still planning on talking with Hospitalist and Dr. Burgos in AM still going to request have him transferred. Family does not want to sign the consent at this time since they have not spoken to Dr. Burgos yet.
[2019-01-01] MEDS: Ipratropium/Albuterol Sulfate 3 ML AMPUL.NEB INHALATION ×3 (02:43→10:11)
[2019-01-01] MEDS: 0.9% Normal Saline 1,000 ML 150 ML IV (03:57)
[2019-01-01 06:26] LABS: Absolute Lymphocyte Count 2.44 X10^3/uL (0.83-4.51); Absolute Neutrophil Count 6.1 X10^3/uL (2.0-7.7); Basophil# 0.04 X10^3/uL; Basophil% 0.4 % (0-1); Eosinophil# 0.15 X10^3/uL; Eosinophils% 1.6 % (0-5); Hematocrit 35.3 % (40-54); Hemoglobin 11.7 g/dL (13.0-16.5); Lymphocyte # 2.44 X10^3/ul (4.0); Lymphocyte % 26.2 % (19-41); Mean Corp Hgb Conc 33.1 g/dL (32-36); Mean Corpuscular Hgb 30.8 pg (27.0-32.0); Mean Corpuscular Volume 92.9 fL (80-94); Mean Platelet Vol. 11.2 fl (6.2-12.0); Monocyte# 0.62 X10^3/uL; Monocyte% 6.7 % (0-10); NRBC Flagged by Analyzer 0 % (0-5); Neutrophil # 6.05 X10^3/uL (2.7-7.7); Neutrophil % 64.9 % (47-70); Platelet Count 116 K/mm3 (150-450); RBC Distribution Width CV 14.3 % (11.6-14.6); RBC Distribution Width SD 48.6 fl (35.1-43.9); White Blood Count 9.3 K/mm3 (4.4-11.0)
[2019-01-01] MEDS: Morphine 2 MG/ML Syringe IV ×2 (06:26→10:15)
[2019-01-01 06:33] LABS: Anion Gap 7 (5-15); BUN 29 mg/dL (7-18); BUN/Creat Ratio 17.4 RATIO (10-20); Calcium,Total 7.8 mg/dL (8.5-10.1); Chloride 110 mmol/L (98-107); Creatinine, Serum 1.67 mg/dL (0.70-1.30); EST Glomerular Filtration Rate 42 mL/min (>60); Est Glom Filt Rate - Afr Amer 51 mL/min (>60); Estimated Creatinine Clearance 31.86 ml/min; Glucose 117 mg/dL (74-106); Potassium 3.9 mmol/L (3.5-5.1); Sodium Level 141 mmol/L (136-145)
[2019-01-01] MEDS: Budesonide Respules 0.5 MG/2 ML AMPUL.NEB. INHALATION (06:43)
--- NOTE | 2019-01-01 09:00 | PCA ---
made call for [facility] care for transport to [facility] for 930am
--- NOTE | 2019-01-01 09:15 | DCINST_ITS ---
- Discharge Diagnoses Current Active Problems: Current Active and Chronic Problems Femoral neck fracture (Acute) You will use the following diet at home:: No restrictions Discharge Activity: No Restrictions Allergies/Adverse Reactions: Allergies No Known Allergies Allergy (Verified 12/31/18 12:38) Medications to take at Discharge Aspirin [Adult Low Dose Aspirin EC] 81 mg PO DAILY 09/25/15 Atorvastatin Calcium [Lipitor] 40 mg PO QHS 09/25/15 Clopidogrel Bisulfate [Plavix] 75 mg PO DAILY 09/25/15 Famotidine [Pepcid] 20 mg PO DAILY 09/25/15 Losartan Potassium [Cozaar] 12.5 mg PO DAILY 09/25/15 Metoprolol Tartrate [Lopressor (beta alycia)] 25 mg PO BID 09/25/15 Nitroglycerin (INPATIENT USE) [Nitrostat] 0.4 mg SUBLINGUAL Q5M PRN 09/25/15 Sertraline HCl [Zoloft] 50 mg PO DAILY 09/25/15 Guaifenesin [Mucinex] 1,200 mg PO BID PRN 01/20/16 Albuterol Aerosols [Ventolin Aerosols] 2.5 mg INHALATION TID 02/14/17 Budesonide Aerosol [Pulmicort Respules] 0.5 mg INHALATION BID 02/14/17 Montelukast Sodium [Singulair] 10 mg PO QHS 02/14/17 Fluticasone Propionate [Flonase Allergy Relief] 1 spray NS DAILY 04/09/17 Ipratropium/Albuterol Sulfate [Duoneb] 3 ml INHALATION Q4H.RT PRN 04/09/17 Bumetanide 1 mg PO DAILY 12/31/18 Finasteride 5 mg PO QHS 12/31/18 Loratadine 10 mg PO DAILY 12/31/18 Pantoprazole Sodium [Protonix] 40 mg PO DAILY 12/31/18 Prednisone 10 mg PO DAILY PRN 12/31/18 Primary Care Physician: Tony Lees MD [Primary Care Provider] - Test Results: Test results from this visit will be discussed in further detail at your follow- up appointment, if applicable. Proposed Discharge Date: 01/01/19
[2019-01-01] MEDS: Metoprolol Tartrate 25 MG Tablet PO (09:17)
--- NOTE | 2019-01-01 10:09 | PCM.DC.SUM ---
Discharge Date and Diagnosis - Problem List Patient Problems: Active and Suspected Problems Femoral neck fracture (Acute) Date of Admission: 12/31/18 Date of Discharge: 01/01/19 - Primary Discharge Diagnosis Active and Suspected Problems Femoral neck fracture (Acute) - Secondary Discharge Diagnosis Chronic Problems HTN (hypertension) (Chronic) COPD (chronic obstructive pulmonary disease) (Chronic) Obesity (BMI 30.0-34.9) (Chronic) HLD (hyperlipidemia) (Chronic) CAD (coronary artery disease) (Chronic) Hospital Course and Treatment Operations: None Summary of Care Provided: The patient is a 83 year old M with past medical history sent for coronary artery disease with previous PCI with subsequent stent placement, COPD/asthma who was brought to the emergency department by family on account of patient who did experience a fall a day prior to coming in. In the emergency department imaging studies obtained demonstrated Left femoral neck fracture without significant displacement.. orthopedic surgeon on-call Dr. Burgos was notified patient admitted to medical service for subsequent management. Patient was admitted to regular nursing floor family however requested a day after his admission for patient to be transferred to [facility]. Call was placed arrangement were made to transfer the patient. The senior analytic consultant surgeon was notified prior to patient being transferred Patient Problems: Active and Suspected Problems Femoral neck fracture (Acute) - Physical Exam General: Alert HEENT: Atraumatic Neck: Supple Lungs: Diminished Psych/Mental Status: Flat Affect Vital Signs Temp Pulse Resp BP Pulse Ox 97.5 F L 93 20 H 154/68 H 93 01/01/19 09:25 01/01/19 09:25 01/01/19 09:25 01/01/19 09:25 01/01/19 09:25 Oxygen Flow Rate (L/min) 4 Oxygen Delivery Method Nasal Cannula Weight: 96.2 kg Body Mass Index (BMI) 32.2 Intake and Output for Last 24 Hours 12/30/18 12/31/18 01/01/19 23:59 23:59 23:59 Intake Total 1520.0 / 1640.0 1940.0 / 1940.0 Balance 1520.0 / 1640.0 1940.0 / 1940.0 Laboratory Tests Past 24 Hrs 12/31/18 12/31/18 01/01/19 13:05 13:05 05:05 WBC 11.9 H 9.3 RBC 4.75 3.80 L Hgb 14.7 11.7 L Hct 43.3 35.3 L MCV 91.2 92.9 MCH 30.9 30.8 MCHC 33.9 33.1 RDW Std Deviation 45.1 H 48.6 H RDW Coeff of Lou 13.4 14.3 Plt Count 163 116 L MPV 11.3 11.2 Immature Gran % (Auto) 0.500 0.200 Neut % (Auto) 85.8 H 64.9 Lymph % (Auto) 9.4 L 26.2 [place] % (Auto) 3.9 6.7 Eos % (Auto) 0.1 1.6 Baso % (Auto) 0.3 0.4 Absolute Neuts (auto) 10.2 H 6.1 Absolute Lymphs (auto) 1.12 2.44 Nucleated RBC % 0 0 Sodium 136 Potassium 4.4 Chloride 101 Carbon Dioxide 28.0 Anion Gap 7 BUN 26 H Creatinine 1.78 H Estim Creat Clear Calc 29.89 Est GFR (MDRD) Af Amer 47 L Est GFR (MDRD) Non-Af 39 L BUN/Creatinine Ratio 14.6 Glucose 167 H Calcium 9.1 Troponin I 0.024 Blood Type Antibody Screen 01/01/19 01/01/19 05:05 05:05 WBC RBC Hgb Hct MCV MCH MCHC RDW Std Deviation RDW Coeff of Lou Plt Count MPV Immature Gran % (Auto) Neut % (Auto) Lymph % (Auto) [place] % (Auto) Eos % (Auto) Baso % (Auto) Absolute Neuts (auto) Absolute Lymphs (auto) Nucleated RBC % Sodium 141 Potassium 3.9 Chloride 110 H Carbon Dioxide 24.0 Anion Gap 7 BUN 29 H Creatinine 1.67 H Estim Creat Clear Calc 31.86 Est GFR (MDRD) Af Amer 51 L Est GFR (MDRD) Non-Af 42 L BUN/Creatinine Ratio 17.4 Glucose 117 H Calcium 7.8 L Troponin I Blood Type A POSITIVE Antibody Screen NEGATIVE Discharge Diet: No Restrictions Discharge Activity: No Restrictions Home Medications: Medications to take at Discharge Aspirin [Adult Low Dose Aspirin EC] 81 mg PO DAILY 09/25/15 Atorvastatin Calcium [Lipitor] 40 mg PO QHS 09/25/15 Clopidogrel Bisulfate [Plavix] 75 mg PO DAILY 09/25/15 Famotidine [Pepcid] 20 mg PO DAILY 09/25/15 Losartan Potassium [Cozaar] 12.5 mg PO DAILY 09/25/15 Metoprolol Tartrate [Lopressor (beta alycia)] 25 mg PO BID 09/25/15 Nitroglycerin (INPATIENT USE) [Nitrostat] 0.4 mg SUBLINGUAL Q5M PRN 09/25/15 Sertraline HCl [Zoloft] 50 mg PO DAILY 09/25/15 Guaifenesin [Mucinex] 1,200 mg PO BID PRN 01/20/16 Albuterol Aerosols [Ventolin Aerosols] 2.5 mg INHALATION TID 02/14/17 Budesonide Aerosol [Pulmicort Respules] 0.5 mg INHALATION BID 02/14/17 Montelukast Sodium [Singulair] 10 mg PO QHS 02/14/17 Fluticasone Propionate [Flonase Allergy Relief] 1 spray NS DAILY 04/09/17 Ipratropium/Albuterol Sulfate [Duoneb] 3 ml INHALATION Q4H.RT PRN 04/09/17 Bumetanide 1 mg PO DAILY 12/31/18 Finasteride 5 mg PO QHS 12/31/18 Loratadine 10 mg PO DAILY 12/31/18 Pantoprazole Sodium [Protonix] 40 mg PO DAILY 12/31/18 Prednisone 10 mg PO DAILY PRN 12/31/18 Primary Care Physician: Tony Lees MD [Primary Care Provider] - Disposition: [facility] Minutes spent on discharge:: 45 Patient Condition:: Stable Medical Necessity - Tobacco Use Smoking Status: Former smoker Tobacco Use: Chew Meaningful Use Info Meaningful Use Diagnoses (Choose all that apply): None applicable Code Visit Inpatient E&M: 41484 Disch Hosp
[2019-01-01] MEDS: 0.9% NaCl Peripheral Flush Adult/Peds IV (10:15)
== END 2019-01-01 10:19 | disposition short-term general hospital (02) | DRG 536 ==
LOC: ED 13:48 → MS3 14:22
PROVIDERS: Admitting Provider Internal Medicine; Emergency Provider Emergency Medicine; Family Provider Family Medicine; PCP Family Medicine; Referring Provider Internal Medicine; Visit Provider Internal Medicine
DX: S72.002A Fracture of unspecified part of neck of left femur, initial encounter for closed fracture (principal); W01.0XXA Fall on same level from slipping, tripping and stumbling without subsequent striking against object, initial encounter; Y93.01 Activity, walking, marching and hiking; Y92.008 Other place in unspecified non-institutional (private) residence as the place of occurrence of the external cause; Y99.8 Other external cause status; J44.9 Chronic obstructive pulmonary disease, unspecified; I25.10 Atherosclerotic heart disease of native coronary artery without angina pectoris; N18.3 Chronic kidney disease, stage 3 (moderate); I12.9 Hypertensive chronic kidney disease with stage 1 through stage 4 chronic kidney disease, or unspecified chronic kidney disease; E78.00 Pure hypercholesterolemia, unspecified; S20.219A Contusion of unspecified front wall of thorax, initial encounter; E66.9 Obesity, unspecified; E78.5 Hyperlipidemia, unspecified; Z79.82 Long term (current) use of aspirin; Z79.02 Long term (current) use of antithrombotics/antiplatelets; Z79.899 Other long term (current) drug therapy; Z79.51 Long term (current) use of inhaled steroids; Z87.891 Personal history of nicotine dependence; Z68.33 Body mass index [BMI] 33.0-33.9, adult
CPT/HCPCS: 36415; 70450; 71250; 72125; 72192; 73502; 80048; 84484; 85025; 86850; 86900; 86901; 93005; 94640; 99285; J7030; A4216; J2405

== ENCOUNTER 2020-04-25 11:52 | Inpatient (IN) | payer MEDICARE, OTHER, SELFPAY ==
[2018-12-31 15:17] VITALS: BMI 32.2
[2020-04-25] VITALS (22 sets, daily range): BP systolic 102–128; BP diastolic 50–98; PULSE 70–96; RESP 17–36; TEMP 36.2–37.1; O2SAT 77–96; BMI 28.2; BMI 28.3; BMI 27.0
--- NOTE | 2020-04-25 12:04 | EKG12_ITS ---
Test Reason : SOB Blood Pressure : / mmHG Vent. Rate : 098 BPM Atrial Rate : 098 BPM P-R Int : 172 ms QRS Dur : 066 ms QT Int : 350 ms P-R-T Axes : 011 -14 002 degrees QTc Int : 446 ms Sinus rhythm with occasional Premature ventricular complexes and Premature atrial complexes Inferior infarct , age undetermined Abnormal ECG Confirmed by LISBETH AUGUSTE, LETY ([id number]), school photograph editor WILMA AGUIRRE ([id number]) on 04/26/2020 11:17:59 AM Referred By: ANTHONY Confirmed By:LETY BOB MD
--- NOTE | 2020-04-25 12:05 | ED.DCSUM_ITS ---
History of Present Illness Chief Complaint: Shortness of Breath Narrative: Patient presents with hypoxia. He lives in a senior living, he tested positive for Covid last week. He has progressively worsened. He arrives hypoxic. He also has a history of COPD. He cannot give me a history or review of systems when I asked him if he is confused he tells me that he is, he does admit to being short of breath but cannot tell me anything else. Past medical history: HTN (hypertension) (Chronic) COPD (chronic obstructive pulmonary disease) (Chronic) Obesity (BMI 30.0-34.9) (Chronic) HLD (hyperlipidemia) (Chronic) CAD (coronary artery disease) (Chronic) Medications: Reviewed Social history: Lives in a senior living Review of systems: Unable secondary to patient mental status Physical exam General: Patient appears in some distress, he is mostly alert although there are times where he is slightly somnolent but quite easily arousable when it happens. Answers questions by nodding his head but does not want to speak too much presumably because of the respiratory distress Head: Normocephalic, Atraumatic Eyes: Conjunctiva not pale ENT: Dry mucous membranes Neck: Supple, Nontender, No lymphadenopathy Cardiovascular: Cardiac no obvious murmur however quite difficult exam Respiratory: Diminished breath sounds bilaterally with scant end expiratory wheezing, he appears in distress. He speaks in 1-2 word sentences. Abdomen: Soft, Nontender, Nondistended Back: Nontender, Normal Inspection. Negative for: CVA tenderness Extremities: Nontender, No edema Skin: Normal color, No rash Neurological: No focal deficit Past Medical History - Allergies and Home Meds Allergies/Adverse Reactions: Allergies No Known Allergies Allergy (Verified 04/25/20 12:42) Primary Care Physician: Tony Lees MD [Primary Care Provider] - Surgical History: - - PCI x 1. Smoking Status: Former smoker - Family History Maternal Family History: Reports: Unknown - has no recollection Paternal Family History: Reports: Unknown - has no recollection Diagnostic/Tx/Re-eval Chest X-Ray - ED: 1 View, Read by ED Physician, - - Bilateral infiltrates as read by the emergency doctor - Rhythm Strip Rhythm Strip: Sinus Rhythm Rate: 98 Ectopy: None - EKG Initial EKG Interpretation: - - This rhythm with a rate of 98. Normal VT and QTc intervals. No ischemic changes. Interpreted by emergency doctor - Medical Decision Making Patient is hypoxic, he has Covid, x-ray is consistent with this. His blood gas shows an unremarkable PCO2 in fact it is somewhat low. His oxygen was increased. He is now on a high flow nasal cannula. He will be admitted to the hospital. ED Disposition - Plan for ED Patient: Disposition: Acute [facility] Diagnosis: COVID-19, Hypoxia Referrals: Tony Lees MD [Primary Care Provider] -
[2020-04-25] MEDS: Albuterol 2.5 MG/3 ML VIAL.NEB. INHALATION ×2 (12:15→12:30)
[2020-04-25] MEDS: Ipratropium/Albuterol Sulfate 3 ML AMPUL.NEB INHALATION (12:20)
[2020-04-25] MEDS: MethylPREDNISolone 125 MG/2 ML Vial IV (12:25)
[2020-04-25 12:35] LABS: Base Excess -3 mmol/L (-2 to +2); Bicarbonate 20.5 mmol/L (22-26); Blood Gas Specimen Type ART; FI02 50; O2 Delivery Device Venti Mask; PO2 54 mmHG (75-100); SITE L Brach; SO2 90 % (95-99); Total Carbon Dioxide 21 mmol/L; pCO2 29.4 mmHg (35-45); pH 7.45 (7.35-7.45)
[2020-04-25 12:36] LABS: Absolute Lymphocyte Count 1.86 X10^3/uL (0.83-4.51); Absolute Neutrophil Count 9.3 X10^3/uL (2.0-7.7); Basophil# 0.01 X10^3/uL; Basophil% 0.1 % (0-1); Hematocrit 34.2 % (40-54); Hemoglobin 11.4 g/dL (13.0-16.5); Lymphocyte # 1.86 X10^3/ul (4.0); Lymphocyte % 15.6 % (19-41); Mean Corp Hgb Conc 33.3 g/dL (32-36); Mean Corpuscular Hgb 29.3 pg (27.0-32.0); Mean Corpuscular Volume 87.9 fL (80-94); Mean Platelet Vol. 10.6 fl (6.2-12.0); Monocyte# 0.69 X10^3/uL; Monocyte% 5.8 % (0-10); NRBC Flagged by Analyzer 0 % (0-5); Neutrophil # 9.26 X10^3/uL (2.7-7.7); Neutrophil % 77.7 % (47-70); Platelet Count 230 K/mm3 (150-450); Red Blood Count 3.89 M/mm3 (4.6-6.2); White Blood Count 11.9 K/mm3 (4.4-11.0)
[2020-04-25 12:52] LABS: Anion Gap 9 (5-15); BUN 47 mg/dL (7-18); BUN/Creat Ratio 26.3 RATIO (10-20); Calcium,Total 8.8 mg/dL (8.5-10.1); Chloride 109 mmol/L (98-107); Creatinine, Serum 1.79 mg/dL (0.70-1.30); EST Glomerular Filtration Rate 39 mL/min (>60); Est Glom Filt Rate - Afr Amer 47 mL/min (>60); Estimated Creatinine Clearance 32.13 ml/min; Glucose 138 mg/dL (74-106); Sodium Level 141 mmol/L (136-145)
--- NOTE | 2020-04-25 13:10 | RAD_ITS ---
STUDY: X-RAY CHEST REASON FOR EXAM: Male, 84 years old. SOB. DIAGNOSED WITH COVID LAST WEDNESDAY. TECHNIQUE: Single AP portable view of the chest. COMPARISON: Comparison is made with prior study dated 04/12/2017. FINDINGS: Infiltrate in the medial aspect of the right upper lobe as well as in the left lower. There is no demonstrated pleural abnormality. Normal size heart. Normal mediastinum and milla. Normal visualized pulmonary arteries. There is atherosclerotic calcification of the aortic arch with tortuosity. There are diffuse degenerative changes of the visualized thoracic spine. There is degenerative osteoarthritis of the bilateral shoulders. There is no demonstrated abnormality of the visualized soft tissue structures of the upper abdomen. RAD/Chest 1 View (Portable) IMPRESSION: Patchy infiltrate in the medial aspect of the right upper lobe as well as in the left lower lobe. Electronically Signed: Jamar Howard MD at 13:46 EST , Service support ,
--- NOTE | 2020-04-25 13:44 | NURSING ---
DR NIKUNJ CRUZ
--- NOTE | 2020-04-25 13:53 | HP.PCM_ITS ---
Problem List (1) COVID-19 Status: Acute (2) CAD (coronary artery disease) Status: Chronic Qualifiers: Coronary Disease-Associated Artery/Lesion type: unspecified vessel or lesion type [place] vs. transplanted heart: [place] heart Associated angina: angina presence unspecified Qualified Code(s): I25.10 - Atherosclerotic heart disease of [place] coronary artery without angina pectoris (3) COPD (chronic obstructive pulmonary disease) Status: Chronic Qualifiers: COPD type: unspecified COPD Qualified Code(s): J44.9 - Chronic obstructive pulmonary disease, unspecified (4) HLD (hyperlipidemia) Status: Chronic Qualifiers: Hyperlipidemia type: unspecified Qualified Code(s): E78.5 - Hyperlipidemia, unspecified (5) HTN (hypertension) Status: Chronic Qualifiers: Hypertension type: essential hypertension Qualified Code(s): I10 - Essential (primary) hypertension (6) Obesity (BMI 30.0-34.9) Status: Chronic (7) Acute respiratory failure with hypoxia Status: Resolved History of Present Illness Date of Admission: 04/25/20 Chief Complaint: Shortness of breath The patient is a 84 year old M with past medical history of COPD/asthma, CAD status post PCI, resident in a skilled nursing who was brought in with complaints of hypoxia. Is a poor historian. Unable to get anything out of him. Patient reportedly tested positive for COVID-19 infection a week ago Vitals in the ED showed temperature of 97.8F, heart rate 79, blood pressure 102/63, respiratory rate was 32, SPO2 was 77% on room air, improved to 95% on 15 L Venturi mask. WBC count 11.9, hemoglobin 11.4, platelet count 230, D-dimer is pending, ABG showed pH of 7.45, CO2 was 21, PCO2 629.4, patient was saturating 90% on Ventimask. Denies 141, potassium 4.0, chloride 109, bicarbonate 23, BUN 47, creatinine 1.79, glucose 138, troponin 0.022 Admitting chest x-ray shows patchy infiltrates in the medial aspect of the right upper lobe as well as left lower lobe. Past Medical History Past Medical History (Chronic Problems): Chronic Problems HTN (hypertension) (Chronic) COPD (chronic obstructive pulmonary disease) (Chronic) Obesity (BMI 30.0-34.9) (Chronic) HLD (hyperlipidemia) (Chronic) CAD (coronary artery disease) (Chronic) Allergies No Known Allergies Allergy (Verified 04/25/20 12:42) Home Medications: Ambulatory Orders Medication Instructions Recorded Aspirin [Adult Low Dose Aspirin EC] 81 mg PO DAILY 09/25/15 Atorvastatin Calcium [Lipitor] 40 mg PO QHS 09/25/15 Clopidogrel Bisulfate [Plavix] 75 mg PO DAILY 09/25/15 Famotidine [Pepcid] 20 mg PO DAILY 09/25/15 Losartan Potassium [Cozaar] 12.5 mg PO DAILY 09/25/15 Metoprolol Tartrate [Lopressor 25 mg PO BID 09/25/15 (beta alycia)] Nitroglycerin (INPATIENT USE) 0.4 mg SUBLINGUAL Q5M PRN 09/25/15 [Nitrostat] Sertraline HCl [Zoloft] 50 mg PO DAILY 09/25/15 Guaifenesin [Mucinex] 1,200 mg PO BID PRN 01/20/16 Budesonide Aerosol [Pulmicort 0.5 mg INHALATION BID 02/14/17 Respules] Montelukast Sodium [Singulair] 10 mg PO QHS 02/14/17 Fluticasone Propionate [Flonase 1 spray NS DAILY 04/09/17 Allergy Relief] Ipratropium/Albuterol Sulfate 3 ml INHALATION Q4H.RT PRN 04/09/17 [Duoneb] Bumetanide 1 mg PO DAILY 12/31/18 Finasteride 5 mg PO QHS 12/31/18 Pantoprazole Sodium [Protonix] 40 mg PO DAILY 12/31/18 Prednisone See Taper PO DAILY PRN 12/31/18 Amoxicillin/Potassium Clav 1 tab PO BID 04/25/20 [Amox-Clav 875-125 mg Tablet] Loratadine 10 mg PO DAILY 04/25/20 Surgical History: - - PCI x 1. Psychiatric History: No pertinent psych hx Lives: - - Lives in a skilled nursing Smoking Status: Unknown if ever smoked Tobacco Use: Non-smoker Alcohol: None Drugs: None - *Family History Maternal History Items: Unknown - has no recollection Paternal History Items: Unknown - has no recollection Review of Systems Skin: Denies: Wounds Psychiatric: Denies: Homicidal Ideations, Suicidal Ideations Unable to obtain accurate/complete ROS d/t: Unable to tell on account of confusion VTE Information - Inpt Only VTE Present on Admission: No VTE Pharm Prophylaxis ordered?: Yes Patient Problems: Active and Suspected Problems COVID-19 (Acute) Hypoxia (Acute) - Physical Exam Vitals/I&O's: Vital Signs Temp Pulse Resp BP Pulse Ox 98.4 F 96 32 H 115/51 L 93 04/25/20 13:06 04/25/20 13:06 04/25/20 13:06 04/25/20 13:06 04/25/20 13:06 Oxygen Flow Rate (L/min) 15 Oxygen Delivery Method Non-Rebreather Weight: 91.9 kg Body Mass Index (BMI) 28.2 General: No apparent distress, Confused HEENT: Atraumatic, PERRLA, EOMI, Normocephalic Oral: Moist Mucosa Neck: Supple Lungs: Diminished Cardiovascular: Regular rate, Regular Rhythm, Normal S1, Normal S2, No murmurs Abdomen: Bowel Sounds Present, Soft, Non Tender, Non-Distended, No Hepato- splenomegaly Extremities: No edema Skin: No rashes Musculoskeletal: No Tenderness to Palpation of Joints or Extremities Lymphatic: No Cervical, Supraclavicular, or Inguinal Adenopathy Neurological: Cranial nerves II-XII grossly intact, Neuro grossly intact Psych/Mental Status: Normal Affect, Appropriate Laboratory Results 04/25/20 12:15: WBC 11.9 H, RBC 3.89 L, Hgb 11.4 L, Hct 34.2 L, MCV 87.9, MCH 29.3, MCHC 33.3, RDW Std Deviation 45.0 H, RDW Coeff of Lou 14.0, Plt Count 230, MPV 10.6, Immature Gran % (Auto) 0.800, Neut % (Auto) 77.7 H, Lymph % (Auto) 15.6 L, [place] % (Auto) 5.8, Eos % (Auto) 0.0, Baso % (Auto) 0.1, Absolute Neuts (auto) 9.3 H, Absolute Lymphs (auto) 1.86, Nucleated RBC % 0 04/25/20 12:15: Sodium 141, Potassium 4.0, Chloride 109 H, Carbon Dioxide 23.0, Anion Gap 9, BUN 47 H, Creatinine 1.79 H, Estim Creat Clear Calc 32.13, Est GFR (MDRD) Af Amer 47 L, Est GFR (MDRD) Non-Af 39 L, BUN/Creatinine Ratio 26.3 H, Glucose 138 H, Calcium 8.8, Troponin I 0.022 04/25/20 12:28: Specimen Type ART, Sample Site L Brach, pH 7.45, Bicarbonate Actual 20.5 L, Total CO2 21, Base Excess -3 L, O2 Saturation 90 L, O2 % 50, ABG pCO2 29.4 L, ABG pO2 54 L, O2 Delivery Device Venti Mask Assessment/Plan All Active Problems Femoral neck fracture (Acute) COVID-19 (Acute) Hypoxia (Acute) Acute respiratory failure with hypoxia (Resolved) Asthma exacerbation with COPD (chronic obstructive pulmonary disease) (Resolved) 1. Acute respiratory failure secondary to Acute COVID-19 infection/probable PE ABG showed slight hypoxia; no hypercapnia Continue with breathing treatments, IV steroids, encourage use of incentive spirometer. Wean off oxygen for SPO2 more than 94% 2. Acute COVID-19 pneumonia with hypoxia Continue on IV dexamethasone ID consult; will leave decision for remdesivir to ID 3.Elevated D-dimer, suggestive of possible acute PE, patient has CKD, currently hemodynamically unstable D-dimer is 1.71. Would start on therapeutic Lovenox, will get CTA of the chest later when patient is more stable 4. COPD/asthma, not in acute exacerbation continue budesonide, montelukast 5. CKD stage III, creatinine is about at baseline Baseline creatinine is between 1.3-1.7 Hold Bumex, losartan We will repeat blood work in a.m. 6. CAD s/p PCI, continue on aspirin, Plavix, atorvastatin, metoprolol Admitting troponin is 0.022, will trend troponin 7. Hypertension, continue metoprolol, hold losartan 8. Depression, continue Zoloft 9. Code status - Full code Inpatient E&M: 82315 Init Hosp L3
--- NOTE | 2020-04-25 13:54 | ED.RN ---
Registration states this nurse needs to get his insurance card. Patient does not have his wallet with him. Not in his pockets, etc and patient states he does not think it came with him. Will let reg know.
--- NOTE | 2020-04-25 13:55 | NURSING ---
ICU COPD, HYPOXIA, COVID PAINTSIL
--- NOTE | 2020-04-25 13:58 | ED.RN ---
This nurse called for RT to come down as third albuterol neb not given. He will check with ED doctor and is aware. He popped in the room while typing this note so is on this floor and in process of etermining whether or not to do the third dose.
--- NOTE | 2020-04-25 14:14 | NURSING ---
CV ICU 202
[2020-04-25 14:18] LABS: D-Dimer Quantitative (DVT/PE) 1.71 FEU/ug/m (0.27-0.49)
--- NOTE | 2020-04-25 14:42 | ED.RN ---
SBARQ report called to ICU nurse and no further questions
--- NOTE | 2020-04-25 15:34 | CON.PCM_ITS ---
Problem List (1) COVID-19 Status: Acute (2) Acute respiratory failure with hypoxia Status: Resolved (3) Asthma exacerbation with COPD (chronic obstructive pulmonary disease) Status: Resolved (4) HTN (hypertension) Status: Chronic Qualifiers: Hypertension type: essential hypertension Qualified Code(s): I10 - Essential (primary) hypertension (5) Obesity (BMI 30.0-34.9) Status: Chronic (6) HLD (hyperlipidemia) Status: Chronic Qualifiers: Hyperlipidemia type: unspecified Qualified Code(s): E78.5 - Hyperlipidemia, unspecified (7) CAD (coronary artery disease) Status: Chronic Qualifiers: Coronary Disease-Associated Artery/Lesion type: unspecified vessel or lesion type [place] vs. transplanted heart: [place] heart Associated angina: angina presence unspecified Qualified Code(s): I25.10 - Atherosclerotic heart disease of [place] coronary artery without angina pectoris Reason for Consult Date of Consultation: 04/25/20 Reason for Consultation: Hypoxic respiratory failure History of Present Illness: The patient is an 84 year old M, with past medical history listed below, who presented to [facility] on 04/25/2020 secondary to progressive shortness of breath and hypoxia. Patient reportedly had tested positive for Covid last week and has progressively worsened. Patient is unable to provide any history at this time. Patient does admit to being short of breath and having periumbilical pain, but does not elaborate. Patient reportedly does live in a [facility]. Patient randomly flips off staff. Patient does not respond to if he uses supplemental oxygen at baseline. Patient gives a positive review of systems in addition to all social history such as alcohol, tobacco, heroin, marijuana and methamphetamine. In the ER, patient was noted to be hypoxic and was placed on high flow nasal cannula oxygen. This reportedly did help patient's conversational dyspnea. Laboratory work-up showed a leukocytosis of 11.9, elevated D-dimer at 1.7 and chronic kidney disease with a BUN of 47 and creatinine of 1.79. ABG showed an increased AA gradient with metabolic acidosis and respiratory compensation. Chest x-ray showed patchy infiltrate in the right middle and upper lobes. Patient is unable to provide any additional history at this time. Social work has been contacted to determine next of kin and decision maker. Unable to address CODE STATUS at this time. Patient has been able to be redirected, but does attempt to pull off oxygen frequently. No review of systems secondary to mental status. Past Medical History Past Medical History (Chronic Problems): Chronic Problems HTN (hypertension) (Chronic) COPD (chronic obstructive pulmonary disease) (Chronic) Obesity (BMI 30.0-34.9) (Chronic) HLD (hyperlipidemia) (Chronic) CAD (coronary artery disease) (Chronic) Allergies No Known Allergies Allergy (Verified 04/25/20 12:42) Home Medications: Ambulatory Orders Medication Instructions Recorded Aspirin [Adult Low Dose Aspirin EC] 81 mg PO DAILY 09/25/15 Atorvastatin Calcium [Lipitor] 40 mg PO QHS 09/25/15 Clopidogrel Bisulfate [Plavix] 75 mg PO DAILY 09/25/15 Famotidine [Pepcid] 20 mg PO DAILY 09/25/15 Losartan Potassium [Cozaar] 12.5 mg PO DAILY 09/25/15 Metoprolol Tartrate [Lopressor 25 mg PO BID 09/25/15 (beta alycia)] Nitroglycerin (INPATIENT USE) 0.4 mg SUBLINGUAL Q5M PRN 09/25/15 [Nitrostat] Sertraline HCl [Zoloft] 50 mg PO DAILY 09/25/15 Guaifenesin [Mucinex] 1,200 mg PO BID PRN 01/20/16 Budesonide Aerosol [Pulmicort 0.5 mg INHALATION BID 02/14/17 Respules] Montelukast Sodium [Singulair] 10 mg PO QHS 02/14/17 Fluticasone Propionate [Flonase 1 spray NS DAILY 04/09/17 Allergy Relief] Ipratropium/Albuterol Sulfate 3 ml INHALATION Q4H.RT PRN 04/09/17 [Duoneb] Bumetanide 1 mg PO DAILY 12/31/18 Finasteride 5 mg PO QHS 12/31/18 Pantoprazole Sodium [Protonix] 40 mg PO DAILY 12/31/18 Prednisone See Taper PO DAILY PRN 12/31/18 Amoxicillin/Potassium Clav 1 tab PO BID 04/25/20 [Amox-Clav 875-125 mg Tablet] Loratadine 10 mg PO DAILY 04/25/20 Surgical History: - - PCI x 1. Psychiatric History: No pertinent psych hx Smoking Status: Never smoker - *Family History Maternal History Items: Unknown - has no recollection Paternal History Items: Unknown - has no recollection Review of Systems Unable to obtain accurate/complete ROS d/t: Mental status Patient Problems: Active and Suspected Problems COVID-19 (Acute) Hypoxia (Acute) Subjective: Spoke with social work. Patient reportedly does have a guardian that was an packaging designer. A message has been left, but unable to clarify CODE STATUS. Objective: Chest x-ray was described in the HPI. Patient did have a CT of the chest in December 2018 showing scattered granulomatous changes and mild atelectasis. There are calcified mediastinal and right hilar lymph nodes at that time. Patient does not have a pulmonary function test or echocardiogram to review. - Physical Exam Vitals/I&O's: Vital Signs Temp Pulse Resp BP Pulse Ox 36.8 C 94 24 H 126/81 H 89 04/25/20 14:00 04/25/20 14:00 04/25/20 14:00 04/25/20 14:00 04/25/20 14:00 Oxygen Flow Rate (L/min) 89 Oxygen Delivery Method Airvo Weight: 91.9 kg Body Mass Index (BMI) 28.2 General: Alert, Disoriented, Non-Cooperative, - - Patient not vocalizing. Appears to be voluntary. HEENT: Atraumatic, PERRLA, EOMI, Normocephalic, - - No scleral icterus or injection noted Oral: Moist Mucosa, No Gingival or Mucosal Lesions/ Ulcerations, - - Crowded posterior pharynx Neck: Supple, No JVD, No Nodes, Trachea Midline Lungs: No rhonchi, No wheeze, No rales, Diminished, - - Symmetric expansion. No dullness to percussion. Cardiovascular: Regular rate, Regular Rhythm, Normal S1, Normal S2, No murmurs, No rub noted, No Gallop Abdomen: Bowel Sounds Present, Soft, Non-Distended, Tender - Periumbilical without rebound or guarding Extremities: No clubbing, No cyanosis, Edema - Trace lower extremity Skin: Skin Tear - Posterior aspect of left upper extremity, - - Dermal atrophy. Musculoskeletal: No Tenderness to Palpation of Joints or Extremities Lymphatic: No Cervical, Supraclavicular, or Inguinal Adenopathy Neurological: Cranial nerves II-XII grossly intact, Neuro grossly intact, Motor Exam 5/5 strength throughout, - - Spontaneous movement of all extremities. Sensation appears to be intact. Not following commands. Not voluntarily answering questions. Psych/Mental Status: Impulsive, Restless Laboratory Results 04/25/20 12:15: WBC 11.9 H, RBC 3.89 L, Hgb 11.4 L, Hct 34.2 L, MCV 87.9, MCH 29.3, MCHC 33.3, RDW Std Deviation 45.0 H, RDW Coeff of Lou 14.0, Plt Count 230, MPV 10.6, Immature Gran % (Auto) 0.800, Neut % (Auto) 77.7 H, Lymph % (Auto) 15.6 L, [place] % (Auto) 5.8, Eos % (Auto) 0.0, Baso % (Auto) 0.1, Absolute Neuts (auto) 9.3 H, Absolute Lymphs (auto) 1.86, Nucleated RBC % 0 04/25/20 12:15: Sodium 141, Potassium 4.0, Chloride 109 H, Carbon Dioxide 23.0, Anion Gap 9, BUN 47 H, Creatinine 1.79 H, Estim Creat Clear Calc 32.13, Est GFR (MDRD) Af Amer 47 L, Est GFR (MDRD) Non-Af 39 L, BUN/Creatinine Ratio 26.3 H, Glucose 138 H, Calcium 8.8, Troponin I 0.022 04/25/20 12:15: D-Dimer Quant (PE/DVT) 1.71 H* 04/25/20 12:15: B-Natriuretic Peptide Pending 04/25/20 12:15: Procalcitonin Pending 04/25/20 12:28: Specimen Type ART, Sample Site L Brach, pH 7.45, Bicarbonate Actual 20.5 L, Total CO2 21, Base Excess -3 L, O2 Saturation 90 L, O2 % 50, ABG pCO2 29.4 L, ABG pO2 54 L, O2 Delivery Device Venti Mask Current Medications Acetaminophen (Acetaminophen 325 Mg Tablet) 650 mg PO Q6H PRN PRN PRN Reason: Pain Score 1-10/Temp > 100.7 F Al Hydroxide/Mg Hydroxide (Mag Hydrox/Al Hydrox/Simeth 30 Ml Udc) 30 ml PO Q6H PRN PRN PRN Reason: Gastric Burning Albuterol Sulfate (Albuterol Ih 8.5 Gm (Proair) Inhaler (200 Puffs)) 2 puff INHALATION Q4H PRN PRN PRN Reason: SOB &/OR WHEEZING Aspirin (Aspirin 81 Mg Tab.Chew) 81 mg PO DAILY [facility] Atorvastatin Calcium (Atorvastatin Calcium 40 Mg Tablet) 40 mg PO QHS [facility] Clopidogrel Bisulfate (Clopidogrel Bisulfate 75 Mg Tablet) 75 mg PO DAILY [facility] Dexamethasone Sodium Phosphate (Dexamethasone 10 Mg/Ml Vial) 6 mg IV DAILY [facility] Enoxaparin Sodium (Enoxaparin 30 Mg/0.3 Ml Syringe) 30 mg SC DAILY [facility] Famotidine (Famotidine 20 Mg Tablet) 20 mg PO DAILY [facility] Finasteride (Finasteride 5 Mg Tablet) 5 mg PO QHS [facility] Loratadine (Loratadine 10 Mg Tablet) 10 mg PO DAILY [facility] Metoprolol Tartrate (Metoprolol Tartrate 25 Mg Tablet) 25 mg PO BID [facility] Ondansetron HCl (Ondansetron 4 Mg/2 Ml Vial) 4 mg IV Q8H PRN PRN PRN Reason: NAUSEA/VOMITING Sertraline HCl (Sertraline 50 Mg Tablet) 50 mg PO DAILY [facility] Sodium Chloride (0.9% Saline Lock 10 Ml Syringe) 10 - 40 ml IV UD PRN PRN Reason: SALINE FLUSH Clinical Impression(s) from Imaging Studies Chest X-Ray 04/25/20 13:10 IMPRESSION: Patchy infiltrate in the medial aspect of the right upper lobe as well as in the left lower lobe. Electronically Signed: Jamar Howard MD at 13:46 EST , Service support , Assessment/Plan Active and Suspected Problems COVID-19 (Acute) Hypoxia (Acute) RECOMMENDATIONS: 1. Okay to initiate Decadron from my perspective. Defer to ID on remdesivir 2. Monitor liver function 3. Wean oxygen as tolerated to maintain sats greater than 90% 4. Haldol as needed for agitation 5. Clarify CODE STATUS with guardian when available IMPRESSIONS: 1. Acute hypoxic respiratory failure secondary to acute COVID-19 infection in the setting of reported COPD/asthma Patient with significant bilateral infiltrates on chest x-ray. Unclear if this is chronic versus acute. Patient does have reported asthma/COPD, which will complicate overall condition. Patient can be started on Decadron. Patient is a marginal candidate for remdesivir given protracted presentation and renal function. Will consult ID for their recommendations. Delay overnight will likely not change outcome. Will monitor liver functions. Patient does have a BNP and procalcitonin pending if this is elevated, Lasix or antibiotics may be initiated. Patient does have an elevated D-dimer. Reasonable to use therapeutic Lovenox in the interim. Patient does have compensated metabolic acidosis, likely secondary to protracted hypoxia. No need to get a lactate from my perspective. 2. CKD stage III Patient's creatinine appears to be at baseline. There is no indication for renal replacement therapy at this time. Do agree with holding losartan as patient is at risk for complications including acute kidney injury. Blood pressure is acceptable at this time. 3. CAD status post PCI/hypertension/depression/altered mental status Complicates care, management, recovery and prognosis. Unclear if patient is suffering from metabolic encephalopathy or has an underlying dementia as patient does have a guardian. Will attempt to use Haldol to limit risk for delirium exacerbation. Would hold losartan as patient is at risk for worsening renal failure. Okay to continue with metoprolol for now. CODE STATUS will need to be determined once guardian can be contacted. Addendum 1600: Spoke with patient's guardian on the phone. He was updated on patient's condition. Guardian is reporting that he wants the patient to be a full code until he has a chance to talk with the family about goals of therapy. Guardian agrees with holding Remdesivir pending infectious disease evaluation. Okay to continue with Decadron for now. Appropriate orders have been placed. Inpatient E&M: 85081 Init Hosp L3
--- NOTE | 2020-04-25 15:44 | CASEMGMT ---
Addendum entered by Odette Dc 04/25/20 15:58: Social Work Return call from Adams Daniel who confirms he is Guardian for pt. SW connected Mr. Sanchez with Dr. Borja to discuss pt medical care. Nursing staff updated on pt Guardian and that per son, pt lives with dgt Amber. SAIDA Field Original Note: Social Work SW attempting to locate pt decision maker. Phone call placed to pt daughter Amber Shah [phone] and left requesting return call. Phone call to patient son Martell Shah. Martell states that pt does have a Guardian over person and estate which is Adams Sanchez, estate planning attorney. Office number [phone] . Call placed to Mr. Sanchez and left requesting return call. Baldomero Moura also states pt lives with daughter Amber but he is unable to discuss care needs and refers to speak with Amber. Dr. Borja updated on Guardian status. SAIDA Field
[2020-04-25 16:02] LABS: BNP,B-Type NATRIURETIC PEPTIDE 153.3 pg/mL (0-100)
[2020-04-25 17:06] LABS: Procalcitonin 0.17 ng/mL (0.00-0.09)
[2020-04-25] MEDS: dexAMETHasone 10 MG/ML Vial 6 MG IV (18:33)
[2020-04-25] MEDS: 0.9% Saline Lock 10 ML Syringe IV ×2 (18:33→20:29)
[2020-04-25 18:44] LABS: AST(SGOT) 33 U/L (15-37); Alanine Aminotransfer ALT/SGPT 27 U/L (16-61); Albumin, Serum 2.2 g/dL (3.2-5.0); Alkaline Phosphatase 83 U/L (45-117); Bilirubin, Direct 0.18 mg/dL (0.00-0.30); Globulin 3.1 g/dL (2.2-4.2); Protein, Total 5.3 g/dL (6.4-8.2)
[2020-04-25] MEDS: Atorvastatin Calcium 40 MG Tablet PO (20:27)
[2020-04-25] MEDS: Enoxaparin 80 MG/0.8 ML Syringe SC (20:27)
[2020-04-25] MEDS: Finasteride 5 MG Tablet PO (20:28)
[2020-04-25] MEDS: Metoprolol Tartrate 25 MG Tablet PO (20:28)
[2020-04-25] MEDS: Acetaminophen 325 MG Tablet 650 MG PO (23:26)
[2020-04-25] MEDS: Haloperidol Lactate 5 MG/ML Vial IV (23:27)
[2020-04-26] VITALS (37 sets, daily range): BP systolic 83–165; BP diastolic 37–82; PULSE 25–160; RESP 12–35; TEMP 36–38.2; O2SAT 86–100
--- NOTE | 2020-04-26 00:19 | CPS ---
Pt.'s AirVo settings increased to 60L with 93% FiO2; pt.'s oxygenation needs have increased during this time
[2020-04-26 04:43] LABS: Absolute Lymphocyte Count 1.51 X10^3/uL (0.83-4.51); Absolute Neutrophil Count 6.3 X10^3/uL (2.0-7.7); Hematocrit 31.7 % (40-54); Hemoglobin 10.6 g/dL (13.0-16.5); Lymphocyte # 1.51 X10^3/ul (4.0); Lymphocyte % 18.5 % (19-41); Mean Corp Hgb Conc 33.4 g/dL (32-36); Mean Corpuscular Hgb 29.1 pg (27.0-32.0); Mean Corpuscular Volume 87.1 fL (80-94); Mean Platelet Vol. 10.4 fl (6.2-12.0); Monocyte# 0.33 X10^3/uL; NRBC Flagged by Analyzer 0 % (0-5); Neutrophil # 6.27 X10^3/uL (2.7-7.7); Neutrophil % 76.9 % (47-70); Platelet Count 176 K/mm3 (150-450); RBC Distribution Width CV 13.8 % (11.6-14.6); Red Blood Count 3.64 M/mm3 (4.6-6.2); White Blood Count 8.2 K/mm3 (4.4-11.0)
[2020-04-26 05:01] LABS: ALB/GLOB Ratio 0.7 RATIO (0.9-2.4); AST(SGOT) 36 U/L (15-37); Alanine Aminotransfer ALT/SGPT 32 U/L (16-61); Albumin, Serum 2.7 g/dL (3.2-5.0); Alkaline Phosphatase 94 U/L (45-117); Anion Gap 7 (5-15); BUN 54 mg/dL (7-18); BUN/Creat Ratio 30.5 RATIO (10-20); Calcium,Total 8.5 mg/dL (8.5-10.1); Chloride 106 mmol/L (98-107); Creatinine, Serum 1.77 mg/dL (0.70-1.30); EST Glomerular Filtration Rate 39 mL/min (>60); Est Glom Filt Rate - Afr Amer 47 mL/min (>60); Estimated Creatinine Clearance 31.51 ml/min; Globulin 3.7 g/dL (2.2-4.2); Glucose 175 mg/dL (74-106); Potassium 3.6 mmol/L (3.5-5.1); Protein, Total 6.4 g/dL (6.4-8.2); Sodium Level 140 mmol/L (136-145)
[2020-04-26] MEDS: Haloperidol Lactate 5 MG/ML Vial IV (06:55)
--- NOTE | 2020-04-26 06:58 | PN_ITS ---
Subjective: Patient did okay overnight. Patient did receive Haldol secondary to agitation with good response. However, patient continues to remove Airvo intermittently throughout the evening. This morning, patient was noted to be tachypneic into the 40s and hypoxic into the 80s despite an FiO2 of 84%. Patient has since been placed on BiPAP and states he feels subjectively better. Patient is not reporting any abdominal pain at this time. General: Alert, Cooperative - Intermittently, - - Improved distress following initiation of BiPAP. HEENT: Atraumatic, PERRLA, EOMI, Normocephalic, - - Slight scleral injection without icterus Oral: No Gingival or Mucosal Lesions/ Ulcerations, Dry Mucosa Neck: Supple, No JVD, No Nodes, Trachea Midline Lungs: No rhonchi, No wheeze, No rales, Diminished Cardiovascular: Regular rate, Regular Rhythm, Normal S1, Normal S2, No murmurs, No rub noted, No Gallop Abdomen: Bowel Sounds Present, Soft, Non Tender, Non-Distended Extremities: No clubbing, No cyanosis, No edema, Capillary Refill Less than 3 Seconds Skin: - - No change from previous Musculoskeletal: No Tenderness to Palpation of Joints or Extremities Lymphatic: No Cervical, Supraclavicular, or Inguinal Adenopathy Neurological: Cranial nerves II-XII grossly intact, Neuro grossly intact, Motor Exam 5/5 strength throughout, - - Not following commands, but spontaneous movement of all extremities. Sensation appears to be intact Psych/Mental Status: Flat Affect, Impulsive, Restless Vital Signs Temp Pulse Resp BP Pulse Ox 36.0 C L 60 30 H 133/79 H 99 04/26/20 04:00 04/26/20 06:42 04/26/20 06:42 04/26/20 05:00 04/26/20 06:42 Oxygen Flow Rate (L/min) 50 Oxygen Delivery Method Airvo Weight: 86.2 kg Body Mass Index (BMI) 27.0 Intake and Output for Last 24 Hours 04/24/20 04/25/20 04/26/20 23:59 23:59 23:59 Intake Total 180 / 180 Balance 180 / 180 Labs (Last 48 Hours) 04/25/20 04/25/20 04/25/20 12:15 12:15 12:15 WBC 11.9 H RBC 3.89 L Hgb 11.4 L Hct 34.2 L MCV 87.9 MCH 29.3 MCHC 33.3 RDW Std Deviation 45.0 H RDW Coeff of Lou 14.0 Plt Count 230 MPV 10.6 Immature Gran % (Auto) 0.800 Neut % (Auto) 77.7 H Lymph % (Auto) 15.[address] [place] % (Auto) 5.8 Eos % (Auto) 0.0 Baso % (Auto) 0.1 Absolute Neuts (auto) 9.3 H Absolute Lymphs (auto) 1.86 Nucleated RBC % 0 D-Dimer Quant (PE/DVT) 1.71 H* Specimen Type Sample Site pH Bicarbonate Actual Total CO2 Base Excess O2 Saturation O2 % ABG pCO2 ABG pO2 O2 Delivery Device Sodium 141 Potassium 4.0 Chloride 109 H Carbon Dioxide 23.0 Anion Gap 9 BUN 47 H Creatinine 1.79 H Estim Creat Clear Calc 32.13 Est GFR (MDRD) Af Amer 47 L Est GFR (MDRD) Non-Af 39 L BUN/Creatinine Ratio 26.3 H Glucose 138 H Calcium 8.8 Total Bilirubin Direct Bilirubin AST ALT Alkaline Phosphatase Troponin I 0.022 B-Natriuretic Peptide Total Protein Albumin Globulin Albumin/Globulin Ratio Procalcitonin 04/25/20 04/25/20 04/25/20 12:15 12:15 12:28 WBC RBC Hgb Hct MCV MCH MCHC RDW Std Deviation RDW Coeff of Lou Plt Count MPV Immature Gran % (Auto) Neut % (Auto) Lymph % (Auto) [place] % (Auto) Eos % (Auto) Baso % (Auto) Absolute Neuts (auto) Absolute Lymphs (auto) Nucleated RBC % D-Dimer Quant (PE/DVT) Specimen Type ART Sample Site L Brach pH 7.45 Bicarbonate Actual 20.5 L Total CO2 21 Base Excess -3 L O2 Saturation 90 L O2 % 50 ABG pCO2 29.4 L ABG pO2 54 L O2 Delivery Device Venti Mask Sodium Potassium Chloride Carbon Dioxide Anion Gap BUN Creatinine Estim Creat Clear Calc Est GFR (MDRD) Af Amer Est GFR (MDRD) Non-Af BUN/Creatinine Ratio Glucose Calcium Total Bilirubin Direct Bilirubin AST ALT Alkaline Phosphatase Troponin I B-Natriuretic Peptide 153.3 H Total Protein Albumin Globulin Albumin/Globulin Ratio Procalcitonin 0.17 H 04/25/20 04/25/20 04/25/20 17:30 21:10 23:35 WBC RBC Hgb Hct MCV MCH MCHC RDW Std Deviation RDW Coeff of Lou Plt Count MPV Immature Gran % (Auto) Neut % (Auto) Lymph % (Auto) [place] % (Auto) Eos % (Auto) Baso % (Auto) Absolute Neuts (auto) Absolute Lymphs (auto) Nucleated RBC % D-Dimer Quant (PE/DVT) Specimen Type Sample Site pH Bicarbonate Actual Total CO2 Base Excess O2 Saturation O2 % ABG pCO2 ABG pO2 O2 Delivery Device Sodium Potassium Chloride Carbon Dioxide Anion Gap BUN Creatinine Estim Creat Clear Calc Est GFR (MDRD) Af Amer Est GFR (MDRD) Non-Af BUN/Creatinine Ratio Glucose Calcium Total Bilirubin 0.40 Direct Bilirubin 0.18 AST 33 ALT 27 Alkaline Phosphatase 83 Troponin I 0.026 0.029 0.030 B-Natriuretic Peptide Total Protein 5.3 L Albumin 2.2 L Globulin 3.1 Albumin/Globulin Ratio Procalcitonin 04/26/20 04/26/20 04:30 04:30 WBC 8.2 RBC 3.64 L Hgb 10.6 L Hct 31.7 L MCV 87.1 MCH 29.1 MCHC 33.4 RDW Std Deviation 44.0 H RDW Coeff of Lou 13.8 Plt Count 176 MPV 10.4 Immature Gran % (Auto) 0.600 Neut % (Auto) 76.9 H Lymph % (Auto) 18.[address] [place] % (Auto) 4.0 Eos % (Auto) 0.0 Baso % (Auto) 0.0 Absolute Neuts (auto) 6.3 Absolute Lymphs (auto) 1.51 Nucleated RBC % 0 D-Dimer Quant (PE/DVT) Specimen Type Sample Site pH Bicarbonate Actual Total CO2 Base Excess O2 Saturation O2 % ABG pCO2 ABG pO2 O2 Delivery Device Sodium 140 Potassium 3.6 Chloride 106 Carbon Dioxide 27.0 Anion Gap 7 BUN 54 H Creatinine 1.77 H Estim Creat Clear Calc 31.51 Est GFR (MDRD) Af Amer 47 L Est GFR (MDRD) Non-Af 39 L BUN/Creatinine Ratio 30.5 H Glucose 175 H Calcium 8.5 Total Bilirubin 0.60 Direct Bilirubin AST 36 ALT 32 Alkaline Phosphatase 94 Troponin I B-Natriuretic Peptide Total Protein 6.4 Albumin 2.7 L Globulin 3.7 Albumin/Globulin Ratio 0.7 L Procalcitonin Clinical Impression(s) from Imaging Studies Chest X-Ray 04/25/20 13:10 IMPRESSION: Patchy infiltrate in the medial aspect of the right upper lobe as well as in the left lower lobe. Electronically Signed: Jamar Howard MD at 13:46 EST , Service support , Medical Necessity - Tobacco Use Smoking Status: Never smoker Tobacco Use: Non-smoker Assessment/Plan All Active Problems Femoral neck fracture (Acute) COVID-19 (Acute) Hypoxia (Acute) Acute respiratory failure with hypoxia (Resolved) Asthma exacerbation with COPD (chronic obstructive pulmonary disease) (Resolved) RECOMMENDATIONS: 1. Continue Decadron from my perspective. Defer to ID on remdesivir 2. Monitor liver function 3. Wean oxygen as tolerated to maintain sats greater than 90% 4. Haldol as needed for agitation 5. Possible intubation later today pending response to BiPAP IMPRESSIONS: 1. Acute hypoxic respiratory failure secondary to acute COVID-19 infection in the setting of reported COPD/asthma Patient with significant bilateral infiltrates on chest x-ray. Unclear if this is chronic versus acute. Patient does have reported asthma/COPD, which will complicate overall condition. Patient can be started on Decadron. Patient is a marginal candidate for remdesivir given protracted presentation and renal function. Patient with worsening hypoxia overnight. Will attempt BiPAP for recruitment. Haldol can be used to help with compliance. Cannot exclude patient will require intubation with increased sedation. Will attempt to discuss with POA as he had stated he needed to discuss with family before using a less aggressive CODE STATUS. 2. CKD stage III Patient's creatinine appears to be at baseline. There is no indication for renal replacement therapy at this time. Do agree with holding losartan as patient is at risk for complications including acute kidney injury. Blood pressure is acceptable at this time. 3. CAD status post PCI/hypertension/depression/altered mental status Complicates care, management, recovery and prognosis. Unclear if patient is suffering from metabolic encephalopathy or has an underlying dementia as patient does have a guardian. Will attempt to use Haldol to limit risk for delirium exacerbation. Would hold losartan as patient is at risk for worsening renal failure. Okay to continue with metoprolol for now. CODE STATUS will need to be determined once guardian can be contacted. Addendum 10:30 AM: After being placed on BiPAP, patient became more agitated despite Haldol therapy. Patient was pulling his mask away to the point that he was starting to break the straps. Guardian was called and updated on the situation. Instructed to move forward with intubation. At approximately 1015, patient was intubated using a glide scope with 20 of etomidate and 150 mg of succinylcholine on the first attempt. To visualize going through the vocal cords. Bilateral breath sounds and to condensation were also noted. OG was placed using direct visualization with the glide scope. There was some mild bleeding in the posterior pharynx noted on insertion of the OG. Chest x-ray has been ordered, but not reviewed at this time. Patient will be initiated on propofol and fentanyl. Patient will likely require a central line secondary to need for sedatives and to facilitate further medications. TIME: 65 minutes of critical care time spent addressing patient's acute hypoxic respiratory failure, CKD stage III, hypertension, encephalopathy, review of all data and collaboration with care team (5:30 AM to 6:30 AM, 9:30 AM to 10:30 AM) [id number]: [id number] Critical care first hour
--- NOTE | 2020-04-26 07:24 | PN_ITS ---
Patient Problems: Active and Suspected Problems COVID-19 (Acute) Hypoxia (Acute) Reason for Visit: Follow-up on acute hypoxic respiratory failure/COVID-19 pneumonia Subjective: Patient was seen and examined. He was intubated this morning. He had been on Airvo since yesterday; transition to BiPAP this morning with impending respiratory arrest. Discussed with legal guardian who agreed to intubation. Objective: Physical exam: General: No apparent distress, Confused HEENT: Atraumatic, PERRLA, EOMI, Normocephalic Oral: Moist Mucosa Neck: Supple Lungs: Diminished Cardiovascular: Regular rate, Regular Rhythm, Normal S1, Normal S2, No murmurs Abdomen: Bowel Sounds Present, Soft, Non Tender, Non-Distended, No Hepato-splenomegaly Extremities: No edema Skin: No rashes Musculoskeletal: No Tenderness to Palpation of Joints or Extremities Lymphatic: No Cervical, Supraclavicular, or Inguinal Adenopathy Neurological: Cranial nerves II-XII grossly intact, Neuro grossly intact Psych/Mental Status: Normal Affect, Appropriate Vitals/I&O's: Vital Signs Temp Pulse Resp BP Pulse Ox 96.8 F L 76 24 H 127/48 H 94 04/26/20 04:00 04/26/20 07:00 04/26/20 07:00 04/26/20 06:00 04/26/20 07:00 Oxygen Flow Rate (L/min) 50 Oxygen Delivery Method Bi-pap Weight: 86.2 kg Body Mass Index (BMI) 27.0 Intake and Output for Last 24 Hours 04/24/20 04/25/20 04/26/20 23:59 23:59 23:59 Intake Total 180 / 180 Balance 180 / 180 Laboratory Results 04/25/20 12:15: WBC 11.9 H, RBC 3.89 L, Hgb 11.4 L, Hct 34.2 L, MCV 87.9, MCH 29.3, MCHC 33.3, RDW Std Deviation 45.0 H, RDW Coeff of Lou 14.0, Plt Count 230, MPV 10.6, Immature Gran % (Auto) 0.800, Neut % (Auto) 77.7 H, Lymph % (Auto) 15.6 L, Maverick % (Auto) 5.8, Eos % (Auto) 0.0, Baso % (Auto) 0.1, Absolute Neuts (auto) 9.3 H, Absolute Lymphs (auto) 1.86, Nucleated RBC % 0 04/25/20 12:15: Sodium 141, Potassium 4.0, Chloride 109 H, Carbon Dioxide 23.0, Anion Gap 9, BUN 47 H, Creatinine 1.79 H, Estim Creat Clear Calc 32.13, Est GFR (MDRD) Af Amer 47 L, Est GFR (MDRD) Non-Af 39 L, BUN/Creatinine Ratio 26.3 H, Glucose 138 H, Calcium 8.8, Troponin I 0.022 04/25/20 12:15: D-Dimer Quant (PE/DVT) 1.71 H* 04/25/20 12:15: B-Natriuretic Peptide 153.3 H 04/25/20 12:15: Procalcitonin 0.17 H 04/25/20 12:28: Specimen Type ART, Sample Site L Brach, pH 7.45, Bicarbonate Actual 20.5 L, Total CO2 21, Base Excess -3 L, O2 Saturation 90 L, O2 % 50, ABG pCO2 29.4 L, ABG pO2 54 L, O2 Delivery Device Venti Mask 04/25/20 17:30: Total Bilirubin 0.40, Direct Bilirubin 0.18, AST 33, ALT 27, Alkaline Phosphatase 83, Troponin I 0.026, Total Protein 5.3 L, Albumin 2.2 L, Globulin 3.1 04/25/20 21:10: Troponin I 0.029 04/25/20 23:35: Troponin I 0.030 04/26/20 04:30: WBC 8.2, RBC 3.64 L, Hgb 10.6 L, Hct 31.7 L, MCV 87.1, MCH 29.1, MCHC 33.4, RDW Std Deviation 44.0 H, RDW Coeff of Lou 13.8, Plt Count 176, MPV 10.4, Immature Gran % (Auto) 0.600, Neut % (Auto) 76.9 H, Lymph % (Auto) 18.5 L, Maverick % (Auto) 4.0, Eos % (Auto) 0.0, Baso % (Auto) 0.0, Absolute Neuts (auto) 6.3, Absolute Lymphs (auto) 1.51, Nucleated RBC % 0 04/26/20 04:30: Sodium 140, Potassium 3.6, Chloride 106, Carbon Dioxide 27.0, Anion Gap 7, BUN 54 H, Creatinine 1.77 H, Estim Creat Clear Calc 31.51, Est GFR (MDRD) Af Amer 47 L, Est GFR (MDRD) Non-Af 39 L, BUN/Creatinine Ratio 30.5 H, Glucose 175 H, Calcium 8.5, Total Bilirubin 0.60, AST 36, ALT 32, Alkaline Phosphatase 94, Total Protein 6.4, Albumin 2.7 L, Globulin 3.7, Albumin/Globulin Ratio 0.7 L Current Medications Acetaminophen (Acetaminophen 325 Mg Tablet) 650 mg PO Q6H PRN PRN PRN Reason: Pain Score 1-10/Temp > 100.7 F Last Admin: 04/25/20 23:26 Dose: 650 mg Documented by: Al Hydroxide/Mg Hydroxide (Mag Hydrox/Al Hydrox/Simeth 30 Ml Udc) 30 ml PO Q6H PRN PRN PRN Reason: Gastric Burning Albuterol Sulfate (Albuterol Ih 8.5 Gm (Proair) Inhaler (200 Puffs)) 2 puff INHALATION Q4H PRN PRN PRN Reason: SOB &/OR WHEEZING Aspirin (Aspirin 81 Mg Tab.Chew) 81 mg PO DAILY COUNTS INCLUDE 234 BEDS AT THE [facility] Atorvastatin Calcium (Atorvastatin Calcium 40 Mg Tablet) 40 mg PO QHS COUNTS INCLUDE 234 BEDS AT THE [facility] Last Admin: 04/25/20 20:27 Dose: 40 mg Documented by: Clopidogrel Bisulfate (Clopidogrel Bisulfate 75 Mg Tablet) 75 mg PO DAILY COUNTS INCLUDE 234 BEDS AT THE [facility] Dexamethasone Sodium Phosphate (Dexamethasone 10 Mg/Ml Vial) 6 mg IV DAILY COUNTS INCLUDE 234 BEDS AT THE [facility] Last Admin: 04/25/20 18:33 Dose: 6 mg Documented by: Enoxaparin Sodium (Enoxaparin 80 Mg/0.8 Ml Syringe) 80 mg SC BID COUNTS INCLUDE 234 BEDS AT THE [facility] Last Admin: 04/25/20 20:27 Dose: 80 mg Documented by: Famotidine (Famotidine 20 Mg Tablet) 20 mg PO DAILY COUNTS INCLUDE 234 BEDS AT THE [facility] Finasteride (Finasteride 5 Mg Tablet) 5 mg PO QHS COUNTS INCLUDE 234 BEDS AT THE [facility] Last Admin: 04/25/20 20:28 Dose: 5 mg Documented by: Haloperidol Lactate (Haloperidol Lactate 5 Mg/Ml Vial) 5 mg IV Q4H PRN PRN PRN Reason: AGITATION Last Admin: 04/26/20 06:55 Dose: 5 mg Documented by: Loratadine (Loratadine 10 Mg Tablet) 10 mg PO DAILY COUNTS INCLUDE 234 BEDS AT THE [facility] Metoprolol Tartrate (Metoprolol Tartrate 25 Mg Tablet) 25 mg PO BID CINTIA Last Admin: 04/25/20 20:28 Dose: 25 mg Documented by: Ondansetron HCl (Ondansetron 4 Mg/2 Ml Vial) 4 mg IV Q8H PRN PRN PRN Reason: NAUSEA/VOMITING Sertraline HCl (Sertraline 50 Mg Tablet) 50 mg PO DAILY COUNTS INCLUDE 234 BEDS AT THE [facility] Sodium Chloride (0.9% Saline Lock 10 Ml Syringe) 10 - 40 ml IV UD PRN PRN Reason: SALINE FLUSH Last Admin: 04/25/20 20:29 Dose: 10 ml Documented by: STROKE Vital Signs/Narrative: Vital Signs Temp Pulse Resp BP Pulse Ox 04/26/20 07:00 76 24 H 94 04/26/20 06:42 60 30 H 99 04/26/20 06:00 61 23 H 127/48 H 96 04/26/20 05:45 66 30 H 94 04/26/20 05:00 66 33 H 133/79 H 96 04/26/20 04:32 64 32 H 93 04/26/20 04:00 96.8 F L 61 29 H 120/54 L 94 Medical Necessity - Tobacco Use Smoking Status: Never smoker Tobacco Use: Non-smoker Assessment/Plan All Active Problems Femoral neck fracture (Acute) COVID-19 (Acute) Hypoxia (Acute) Acute respiratory failure with hypoxia (Resolved) Asthma exacerbation with COPD (chronic obstructive pulmonary disease) (Resolved) 1. Acute respiratory failure secondary to Acute COVID-19 infection/probable PE, worsening Status intubation, design assembler consulted Continue with breathing treatments, IV steroids, encourage use of incentive spirometer. Wean off oxygen for SPO2 more than 94% 2. Acute COVID-19 pneumonia with hypoxia Continue on IV dexamethasone ID consult; will leave decision for remdesivir to ID 3.Elevated D-dimer, suggestive of possible acute PE, patient has CKD, currently hemodynamically unstable D-dimer is 1.71. Continue on therapeutic Lovenox, will get CTA of the chest later when patient is more stable 4. COPD/asthma, not in acute exacerbation continue budesonide, montelukast 5. CKD stage III, creatinine remains about the same as yesterday; 1.77 Baseline creatinine is between 1.3-1.7 Hold Bumex, losartan Repeat blood work in a.m. 6. CAD s/p PCI, continue on aspirin, Plavix, atorvastatin, metoprolol 7. Hypertension, continue metoprolol, hold losartan 8. Depression, continue Zoloft 9. Code status - Full code Inpatient E&M: 96018 Subs Hosp L3
--- NOTE | 2020-04-26 10:03 | CASEMGMT ---
Social Work SW participated in ICU Rounds. Pt medicated and placed on bipap this morning. Pt tolerated Bipap initially, but at this time is not leaving the bipap on. Dr. Borja requesting place call to Guardian for decision on comfort care or intubation. Phone call to Adams Sanchez Guardian and pt situation explained. Mr. Sanchez is requesting that pt be intubated at this time. Mr. Sanchez states understanding that pt may not do well with intubation, but would like to try it at this time and will withdrawal treatment if it appears pt is not improving with intubation. Dr. Borja, nursing and respiratory notified of Guardians decision. Mr. Sanchez indicates he will be in touch with the family to inform of change of pt status. Mr. Sanchez states that pt has 5 adult children who do not get along and therefore he has become the Guardian. He does speak with the children and takes their wishes into consideration when making decisions. SW informed Mr. Sanchez that Amber Shah and Martell Shah were listed as contacts when pt arrived in ED. Mr. Sanchez states hospital staff can give any pt information to these two children or ask any questions of them. He also states there is a daughter Venus that can be spoken to but no number provided. If too many family members are calling in frequently, Mr. Sanchez states hospital staff can notify him and he will restrict the children's ability to contact hospital. Nursing updated about this situation. SW will continue to follow for support and discharge planning. SAIDA Field
--- NOTE | 2020-04-26 10:11 | CASEMGMT ---
RN CM NOTE: Pt being intubated this AM, per Dr Borja. Initial RN CM assessment deferred at this time. CM/SW to complete assessment at a later time. Matthew BSN RN CM
[2020-04-26] MEDS: Etomidate 20 MG/10 ML Vial IV (10:18)
[2020-04-26] MEDS: Succinylcholine Chloride 200 MG/10 ML Vial 150 MG IV (10:18)
--- NOTE | 2020-04-26 10:18 | NURSING ---
20 etomadate iv, [id number], intubated with 8 1 st attempt, ng inserted per Dr Borja , # 16 salomon cath inserted without difficulty
--- NOTE | 2020-04-26 10:26 | RAD_ITS ---
STUDY: X-RAY CHEST REASON FOR EXAM: Male, 84 years old. ET tube, OG tube placement TECHNIQUE: Single AP portable view of the chest. COMPARISON: Comparison is made with prior study dated 04/25/2020. FINDINGS: An endotracheal tube is in situ. The tip is at 3.9 cm proximal to the shyla. An oral gastric tube has been placed with the tip in the body of the stomach. EKG electrodes are seen. Progressive infiltration in the left hemithorax. Increased infiltration in the right upper lobe. There is no demonstrated pleural abnormality. Normal size heart. Normal mediastinum and milla. Normal visualized pulmonary arteries. There is atherosclerotic calcification of the aortic arch with tortuosity. There are diffuse degenerative changes of the visualized thoracic spine. Normal visualized ribs, clavicles, and shoulders. There is no demonstrated abnormality of the visualized soft tissue structures of the upper abdomen. RAD/Chest 1 View (Portable) IMPRESSION: Progressive infiltration in both lungs worse in the left hemithorax. The tip of the endotracheal tube is at 3.9 cm proximal to the shyla. The tip of the orogastric tube is in the body of the stomach. Electronically Signed: Jamar Howard MD at 11:21 EST , Service support ,
[2020-04-26] MEDS: Propofol 10MG/Ml 1,000 MG/100 ML Bottle 10.3 MG CONT INF (10:43)
[2020-04-26] MEDS: 0.9% Saline Lock 10 ML Syringe IV (10:50)
[2020-04-26 11:03] LABS: CPK Total, Creatine Kinase 152 U/L (39-308); Triglycerides 124 mg/dL
--- NOTE | 2020-04-26 11:25 | CASEMGMT ---
Social Work JER received a phone call from pt daughter Amber Shah. Amber states that pt lives with her and requires 24/7 supervision. Amber assists pt with all ADLS. JER inquired if pt lives in a long-term and Amber became upset that hospital staff is asking about her income and livelihood. JER explained that this SW or other staff were not inquiring about her personal information but trying to determine pt living situation. Amber states she runs a long-term out of her house, pt has lived with her since 2014 but not as a client of the long-term. Amber verbalizing frustration with Guardian as she does not feel he is doing a good job and expressed many concerns with him surrounding finances and assistance with pt. Amber also upset that staff did not speak with her and get her input about intubation. JER explained to Amber that Adams Sanchez is court appointed Guardian and by law he is the decision maker for this patient weather pt family agrees with Guardian or not. Amber inquiring about how to get rid of the Guardian. JER informed her that this was a legal matter that would need to be looked into through an [place] attorney and JER could not offer any advice on this matter. Amber upset with JER lack of assistance and ended conversation. Pt son Martell Shah, Dgt Amber Shah and Public Area Supervisor Adams Sanchez all confirm that Mr. Sanchez is legal guardian. Phone message left with Mr. Sanchez requesting Guardianship papers be faxed to [facility]. SAIDA Field
[2020-04-26] MEDS: Propofol 10MG/Ml 1,000 MG/100 ML Bottle 7.8 MG CONT INF (12:15)
--- NOTE | 2020-04-26 13:04 | CASEMGMT ---
Social Work SW received copy of Guardianship papers naming Adams Sanchez via fax. Document placed on pt chart. SAIDA Field
[2020-04-26 13:41] LABS: Allen Test Positive; Base Excess 0 mmol/L (-2 to +2); Bicarbonate 24.2 mmol/L (22-26); Blood Gas Specimen Type ART; FI02 80; Mode AC; O2 Delivery Device Adult Vent; PEEP 10; PO2 77 mmHG (75-100); RR 14; SITE R Radial; SO2 96 % (95-99); Total Carbon Dioxide 25 mmol/L; Vt 450; pCO2 36.3 mmHg (35-45); pH 7.43 (7.35-7.45)
[2020-04-26] MEDS: dexAMETHasone 10 MG/ML Vial 6 MG IV (14:02)
[2020-04-26] MEDS: Enoxaparin 80 MG/0.8 ML Syringe SC ×2 (14:02→20:47)
--- NOTE | 2020-04-26 14:26 | PCM.HP.ID ---
Problem List (1) COVID-19 Status: Acute Reason for Consult: covjessica Consulted by: Dr. Rachel History of Present Illness: The patient is a 84 year old M F resident, otilio vickers one week ago, sent to ED with altered mental status, hypoxia. Now on vent, started on dex. Unable to provide history or ROS. - Medical History Past Medical History (Chronic Problems): Chronic Problems HTN (hypertension) (Chronic) COPD (chronic obstructive pulmonary disease) (Chronic) Obesity (BMI 30.0-34.9) (Chronic) HLD (hyperlipidemia) (Chronic) CAD (coronary artery disease) (Chronic) Allergies/Adverse Reactions: Allergies No Known Allergies Allergy (Verified 04/25/20 12:42) Home Medications: Ambulatory Orders Medication Instructions Recorded Aspirin [Adult Low Dose Aspirin EC] 81 mg PO DAILY 09/25/15 Atorvastatin Calcium [Lipitor] 40 mg PO QHS 09/25/15 Clopidogrel Bisulfate [Plavix] 75 mg PO DAILY 09/25/15 Famotidine [Pepcid] 20 mg PO DAILY 09/25/15 Losartan Potassium [Cozaar] 12.5 mg PO DAILY 09/25/15 Metoprolol Tartrate [Lopressor 25 mg PO BID 09/25/15 (beta alycia)] Nitroglycerin (INPATIENT USE) 0.4 mg SUBLINGUAL Q5M PRN 09/25/15 [Nitrostat] Sertraline HCl [Zoloft] 50 mg PO DAILY 09/25/15 Guaifenesin [Mucinex] 1,200 mg PO BID PRN 01/20/16 Budesonide Aerosol [Pulmicort 0.5 mg INHALATION BID 02/14/17 Respules] Montelukast Sodium [Singulair] 10 mg PO QHS 02/14/17 Fluticasone Propionate [Flonase 1 spray NS DAILY 04/09/17 Allergy Relief] Ipratropium/Albuterol Sulfate 3 ml INHALATION Q4H.RT PRN 04/09/17 [Duoneb] Bumetanide 1 mg PO DAILY 12/31/18 Finasteride 5 mg PO QHS 12/31/18 Pantoprazole Sodium [Protonix] 40 mg PO DAILY 12/31/18 Prednisone See Taper PO DAILY PRN 12/31/18 Amoxicillin/Potassium Clav 1 tab PO BID 04/25/20 [Amox-Clav 875-125 mg Tablet] Loratadine 10 mg PO DAILY 04/25/20 - Social History Tobacco Use: non-smoker Vital Signs Temp Pulse Resp BP Pulse Ox 100.8 F H 25 L 25 H 156/70 H 87 04/26/20 12:00 04/26/20 13:45 04/26/20 13:45 04/26/20 12:00 04/26/20 13:45 Oxygen Flow Rate (L/min) 92 Oxygen Delivery Method Mechanical Ventilator Weight: 86.2 kg Body Mass Index (BMI) 27.0 Laboratory Tests Past 24 Hrs 04/25/20 04/25/20 04/25/20 12:15 12:15 17:30 WBC RBC Hgb Hct MCV MCH MCHC RDW Std Deviation RDW Coeff of Lou Plt Count MPV Immature Gran % (Auto) Neut % (Auto) Lymph % (Auto) [place] % (Auto) Eos % (Auto) Baso % (Auto) Absolute Neuts (auto) Absolute Lymphs (auto) Nucleated RBC % Specimen Type Sample Site pH Bicarbonate Actual Total CO2 Base Excess O2 Saturation O2 % ABG pCO2 ABG pO2 Bakari Test Respiration Rate O2 Delivery Device Vent Mode Tidal Volume POC PEEP Sodium Potassium Chloride Carbon Dioxide Anion Gap BUN Creatinine Estim Creat Clear Calc Est GFR (MDRD) Af Amer Est GFR (MDRD) Non-Af BUN/Creatinine Ratio Glucose Calcium Total Bilirubin 0.40 Direct Bilirubin 0.18 AST 33 ALT 27 Alkaline Phosphatase 83 Total Creatine Kinase Troponin I 0.026 B-Natriuretic Peptide 153.3 H Total Protein 5.3 L Albumin 2.2 L Globulin 3.1 Albumin/Globulin Ratio Triglycerides Procalcitonin 0.17 H 04/25/20 04/25/20 04/26/20 21:10 23:35 04:30 WBC 8.2 RBC 3.64 L Hgb 10.6 L Hct 31.7 L MCV 87.1 MCH 29.1 MCHC 33.4 RDW Std Deviation 44.0 H RDW Coeff of Lou 13.8 Plt Count 176 MPV 10.4 Immature Gran % (Auto) 0.600 Neut % (Auto) 76.9 H Lymph % (Auto) 18.5 L [place] % (Auto) 4.0 Eos % (Auto) 0.0 Baso % (Auto) 0.0 Absolute Neuts (auto) 6.3 Absolute Lymphs (auto) 1.51 Nucleated RBC % 0 Specimen Type Sample Site pH Bicarbonate Actual Total CO2 Base Excess O2 Saturation O2 % ABG pCO2 ABG pO2 Bakari Test Respiration Rate O2 Delivery Device Vent Mode Tidal Volume POC PEEP Sodium Potassium Chloride Carbon Dioxide Anion Gap BUN Creatinine Estim Creat Clear Calc Est GFR (MDRD) Af Amer Est GFR (MDRD) Non-Af BUN/Creatinine Ratio Glucose Calcium Total Bilirubin Direct Bilirubin AST ALT Alkaline Phosphatase Total Creatine Kinase Troponin I 0.029 0.030 B-Natriuretic Peptide Total Protein Albumin Globulin Albumin/Globulin Ratio Triglycerides Procalcitonin 04/26/20 04/26/20 04/26/20 04:30 04:30 11:34 WBC RBC Hgb Hct MCV MCH MCHC RDW Std Deviation RDW Coeff of Lou Plt Count MPV Immature Gran % (Auto) Neut % (Auto) Lymph % (Auto) [place] % (Auto) Eos % (Auto) Baso % (Auto) Absolute Neuts (auto) Absolute Lymphs (auto) Nucleated RBC % Specimen Type ART Sample Site R Radial pH 7.43 Bicarbonate Actual 24.2 Total CO2 25 Base Excess 0 O2 Saturation 96 O2 % 80 ABG pCO2 36.3 ABG pO2 77 Bakari Test Positive Respiration Rate 14 O2 Delivery Device Adult Vent Vent Mode AC Tidal Volume 450 POC PEEP 10 Sodium 140 Potassium 3.6 Chloride 106 Carbon Dioxide 27.0 Anion Gap 7 BUN 54 H Creatinine 1.77 H Estim Creat Clear Calc 31.51 Est GFR (MDRD) Af Amer 47 L Est GFR (MDRD) Non-Af 39 L BUN/Creatinine Ratio 30.5 H Glucose 175 H Calcium 8.5 Total Bilirubin 0.60 Direct Bilirubin AST 36 ALT 32 Alkaline Phosphatase 94 Total Creatine Kinase 152 Troponin I B-Natriuretic Peptide Total Protein 6.4 Albumin 2.7 L Globulin 3.7 Albumin/Globulin Ratio 0.7 L Triglycerides 124 Procalcitonin - Other Studies Radiology: [] reviewed Other Studies: [] Route of nutrition/ use of supplements: [] Nutritional Intake: [] IV Site: [] Bennett Catheter: [] - Physical Exam General: No apparent distress, Non-Cooperative HEENT: Atraumatic, PERRLA Neck: Supple, No Nodes Lungs: Diminished Cardiovascular: Regular rate, Regular Rhythm Abdomen: Soft, Non Tender, Non-Distended Extremities: No edema Skin: No rashes IV Site: Peripheral Musculoskeletal: No Tenderness to Palpation of Joints or Extremities Neurological: Cranial nerves II-XII grossly intact - Assessment/Plan Antibiotics: [] Assessment/Plan: [] Active and Suspected Problems COVID-19 (Acute) Hypoxia (Acute) covid with hypoxia - on vent. On dex. On therapeutic lovenox. D-dimer 1.7. Will start remdesivir. Will follow, thank you
--- NOTE | 2020-04-26 15:50 | RAD_ITS ---
STUDY: X-RAY CHEST REASON FOR EXAM: Male, 84 years old. central line placement TECHNIQUE: Single AP portable view of the chest. COMPARISON: Same day 10:53 AM. FINDINGS: There is a new right central line that terminates in the lower SVC. No evidence for pneumothorax. Stable endotracheal and nasogastric tubes, since earlier today. Improved expansion of the lungs and improved aeration of both lungs especially the left since earlier today. RAD/CXR for Line Placement IMPRESSION: Grossly satisfactory positioning of right IJ line with no pneumothorax. Improved expansion and aeration of both lungs since exam of earlier today. Electronically Signed: Drew Cazares MD at 17:05 EST , Service support ,
--- NOTE | 2020-04-26 16:38 | PCM.OPRPT ---
Report of Operation Date of Procedure: 04/26/20 Surgery/Procedure Performed:: Triple-lumen catheter insertion Description of Surgical Findings:: Central line placement procedure note Indication: IV access/hemodynamic instability/vasoactive medications Procedure: A time-out was completed to verify correct patient, indication, medication allergies, procedure, coagulation studies, informed consent signed, and equipment needed. The patient was placed in the supine position for a central line placement to the rt IJ vein. The patients rt neck was prepped using chlorhexidine and a full body sterile drape was applied. 1% lidocaine was used to anesthetize the surrounding skin. A 7fr 16 cm blue guard triple lumen catheter introduced into the internal jugular vein using the modified Seldinger technique with the assistance of ultrasound. The catheter was threaded smoothly over the guidewire, the guidewire was removed easily, nonpulsatile blood returned. All ports were aspirated of air and flushed with sterile saline. The catheter was sutured in place and covered with an occlusive dressing impregnated with chlorhexidine. Post-procedure: The patient tolerated the procedure well. Vital signs remained stable. EBL 0cc. No complications. Chest X Ray ordered to confirm tip placement and the absence of pneumothorax. Procedures: [id number] Insert Non-tunnel CV Cath
--- NOTE | 2020-04-26 19:39 | EKG12_ITS ---
Test Reason : Blood Pressure : / mmHG Vent. Rate : 112 BPM Atrial Rate : 122 BPM P-R Int : 194 ms QRS Dur : 082 ms QT Int : 336 ms P-R-T Axes : 035 000 041 degrees QTc Int : 458 ms Sinus tachycardia with Premature atrial complexes Otherwise normal ECG When compared with ECG of 25-APR-2020 12:55, Premature ventricular complexes are no longer Present Confirmed by SCOTT AUGUSTE, CRISTINA ([id number]), newspaper editor managing JUAN C NATHAN ([id number]) on 04/30/2020 8:34:55 AM Referred By: Confirmed By:CRISTINA CHAVEZ MD
--- NOTE | 2020-04-26 20:01 | EKGRS_ITS ---
Test Reason : Blood Pressure : / mmHG Vent. Rate : 153 BPM Atrial Rate : 197 BPM P-R Int : 000 ms QRS Dur : 078 ms QT Int : 306 ms P-R-T Axes : 000 009 073 degrees QTc Int : 488 ms Atrial Flutter Abnormal ECG When compared with ECG of 26-APR-2020 19:39, MANUAL COMPARISON REQUIRED, DATA IS UNCONFIRMED Confirmed by SCOTT AUGUSTE, CRISTINA ([id number]), department editor JUAN C NATHAN ([id number]) on 04/30/2020 8:32:12 AM Referred By: Confirmed By:CRISTINA CHAVEZ MD
[2020-04-26] MEDS: Propofol 10MG/Ml 1,000 MG/100 ML Bottle 12.9 MG CONT INF (20:30)
[2020-04-26] MEDS: Chlorhexidine 15 ML PO (20:47)
[2020-04-26] MEDS: Atorvastatin Calcium 40 MG Tablet GT (20:48)
[2020-04-26] MEDS: Finasteride 5 MG Tablet PO (20:48)
[2020-04-27] VITALS (41 sets, daily range): BP systolic 94–164; BP diastolic 50–86; PULSE 64–130; RESP 12–26; TEMP 37.2–38.1; O2SAT 90–96; BMI 27.1
--- NOTE | 2020-04-27 00:43 | NURSING ---
Pandemic Emergency Documentation initiated on 04/25/2020 at 1522
[2020-04-27 04:56] LABS: Hematocrit 34.1 % (40-54); Hemoglobin 11.1 g/dL (13.0-16.5); Mean Corp Hgb Conc 32.6 g/dL (32-36); Mean Platelet Vol. 10.4 fl (6.2-12.0); Platelet Count 235 K/mm3 (150-450); RBC Distribution Width CV 14.2 % (11.6-14.6); Red Blood Count 3.83 M/mm3 (4.6-6.2); White Blood Count 10.7 K/mm3 (4.4-11.0)
[2020-04-27 05:18] LABS: ALB/GLOB Ratio 0.7 RATIO (0.9-2.4); AST(SGOT) 41 U/L (15-37); Alanine Aminotransfer ALT/SGPT 31 U/L (16-61); Albumin, Serum 2.6 g/dL (3.2-5.0); Alkaline Phosphatase 94 U/L (45-117); Anion Gap 8 (5-15); BUN 61 mg/dL (7-18); BUN/Creat Ratio 33.3 RATIO (10-20); Calcium,Total 8.5 mg/dL (8.5-10.1); Chloride 111 mmol/L (98-107); Creatinine, Serum 1.83 mg/dL (0.70-1.30); EST Glomerular Filtration Rate 38 mL/min (>60); Est Glom Filt Rate - Afr Amer 45 mL/min (>60); Estimated Creatinine Clearance 30.47 ml/min; Globulin 3.8 g/dL (2.2-4.2); Glucose 148 mg/dL (74-106); Magnesium 2.9 mg/dL (1.6-2.6); Potassium 4.3 mmol/L (3.5-5.1); Protein, Total 6.4 g/dL (6.4-8.2); Sodium Level 144 mmol/L (136-145)
[2020-04-27] MEDS: Propofol 10MG/Ml 1,000 MG/100 ML Bottle 5.2 MG CONT INF ×2 (06:54→20:50)
--- NOTE | 2020-04-27 07:07 | PCM.PN.INT ---
Subjective: Patient did okay overnight. Patient did have some A. fib with RVR. Patient was given additional potassium with spontaneous resolution. Amiodarone did not have to be initiated. Oxygenation has remained relatively stable. Patient did have some brief fever noted yesterday. General: - - Intubated and sedated. RASS -1. Good vent synchrony. HEENT: Atraumatic, PERRLA, EOMI, Normocephalic, - - No scleral icterus or injection noted Oral: Moist Mucosa, No Gingival or Mucosal Lesions/ Ulcerations Neck: Supple, No JVD, No Nodes, Trachea Midline, - - IJ is clean, dry and intact Lungs: No rhonchi, No wheeze, No rales, Diminished, - - Symmetric expansion. No dullness to percussion. Cardiovascular: Regular rate, Regular Rhythm, Normal S1, Normal S2, No murmurs, No rub noted, No Gallop Abdomen: Non Tender, Non-Distended, Hypoactive Bowel Sounds Extremities: No clubbing, No cyanosis, Edema - Trace Skin: - - No change compared to previous Musculoskeletal: No Tenderness to Palpation of Joints or Extremities Lymphatic: No Cervical, Supraclavicular, or Inguinal Adenopathy Neurological: Cranial nerves II-XII grossly intact, Neuro grossly intact, Motor Exam 5/5 strength throughout Psych/Mental Status: Flat Affect Vital Signs Temp Pulse Resp BP Pulse Ox 37.6 C H 93 18 141/66 H 94 04/27/20 06:00 04/27/20 06:00 04/27/20 06:00 04/27/20 06:00 04/27/20 06:00 Oxygen Flow Rate (L/min) 92 Oxygen Delivery Method Mechanical Ventilator Weight: 85.6 kg Body Mass Index (BMI) 27.0 Intake and Output for Last 24 Hours 04/25/20 04/26/20 04/27/20 23:59 23:59 23:59 Intake Total 180 / 180 747.35 / 762.55 68.58 / 68.58 Output Total 850 / 850 275 / 275 Balance 180 / 180 -102.65 / -87.45 -206.42 / -206.42 Labs (Last 48 Hours) 04/25/20 04/25/20 04/25/20 12:15 12:15 12:15 WBC 11.9 H RBC 3.89 L Hgb 11.4 L Hct 34.2 L MCV 87.9 MCH 29.3 MCHC 33.3 RDW Std Deviation 45.0 H RDW Coeff of Lou 14.0 Plt Count 230 MPV 10.6 Immature Gran % (Auto) 0.800 Neut % (Auto) 77.7 H Lymph % (Auto) 15.6 L [place] % (Auto) 5.8 Eos % (Auto) 0.0 Baso % (Auto) 0.1 Absolute Neuts (auto) 9.3 H Absolute Lymphs (auto) 1.86 Nucleated RBC % 0 D-Dimer Quant (PE/DVT) 1.71 H* Specimen Type Sample Site pH Bicarbonate Actual Total CO2 Base Excess O2 Saturation O2 % ABG pCO2 ABG pO2 Bakari Test Respiration Rate O2 Delivery Device Vent Mode Tidal Volume POC PEEP Sodium 141 Potassium 4.0 Chloride 109 H Carbon Dioxide 23.0 Anion Gap 9 BUN 47 H Creatinine 1.79 H Estim Creat Clear Calc 32.13 Est GFR (MDRD) Af Amer 47 L Est GFR (MDRD) Non-Af 39 L BUN/Creatinine Ratio 26.3 H Glucose 138 H Calcium 8.8 Phosphorus Magnesium Total Bilirubin Direct Bilirubin AST ALT Alkaline Phosphatase Total Creatine Kinase Troponin I 0.022 B-Natriuretic Peptide Total Protein Albumin Globulin Albumin/Globulin Ratio Triglycerides Procalcitonin 04/25/20 04/25/20 04/25/20 12:15 12:15 12:28 WBC RBC Hgb Hct MCV MCH MCHC RDW Std Deviation RDW Coeff of Lou Plt Count MPV Immature Gran % (Auto) Neut % (Auto) Lymph % (Auto) [place] % (Auto) Eos % (Auto) Baso % (Auto) Absolute Neuts (auto) Absolute Lymphs (auto) Nucleated RBC % D-Dimer Quant (PE/DVT) Specimen Type ART Sample Site L Brach pH 7.45 Bicarbonate Actual 20.5 L Total CO2 21 Base Excess -3 L O2 Saturation 90 L O2 % 50 ABG pCO2 29.4 L ABG pO2 54 L Bakari Test Respiration Rate O2 Delivery Device Venti Mask Vent Mode Tidal Volume POC PEEP Sodium Potassium Chloride Carbon Dioxide Anion Gap BUN Creatinine Estim Creat Clear Calc Est GFR (MDRD) Af Amer Est GFR (MDRD) Non-Af BUN/Creatinine Ratio Glucose Calcium Phosphorus Magnesium Total Bilirubin Direct Bilirubin AST ALT Alkaline Phosphatase Total Creatine Kinase Troponin I B-Natriuretic Peptide 153.3 H Total Protein Albumin Globulin Albumin/Globulin Ratio Triglycerides Procalcitonin 0.17 H 04/25/20 04/25/20 04/25/20 17:30 21:10 23:35 WBC RBC Hgb Hct MCV MCH MCHC RDW Std Deviation RDW Coeff of Lou Plt Count MPV Immature Gran % (Auto) Neut % (Auto) Lymph % (Auto) [place] % (Auto) Eos % (Auto) Baso % (Auto) Absolute Neuts (auto) Absolute Lymphs (auto) Nucleated RBC % D-Dimer Quant (PE/DVT) Specimen Type Sample Site pH Bicarbonate Actual Total CO2 Base Excess O2 Saturation O2 % ABG pCO2 ABG pO2 Bakari Test Respiration Rate O2 Delivery Device Vent Mode Tidal Volume POC PEEP Sodium Potassium Chloride Carbon Dioxide Anion Gap BUN Creatinine Estim Creat Clear Calc Est GFR (MDRD) Af Amer Est GFR (MDRD) Non-Af BUN/Creatinine Ratio Glucose Calcium Phosphorus Magnesium Total Bilirubin 0.40 Direct Bilirubin 0.18 AST 33 ALT 27 Alkaline Phosphatase 83 Total Creatine Kinase Troponin I 0.026 0.029 0.030 B-Natriuretic Peptide Total Protein 5.3 L Albumin 2.2 L Globulin 3.1 Albumin/Globulin Ratio Triglycerides Procalcitonin 04/26/20 04/26/20 04/26/20 04:30 04:30 04:30 WBC 8.2 RBC 3.64 L Hgb 10.6 L Hct 31.7 L MCV 87.1 MCH 29.1 MCHC 33.4 RDW Std Deviation 44.0 H RDW Coeff of Lou 13.8 Plt Count 176 MPV 10.4 Immature Gran % (Auto) 0.600 Neut % (Auto) 76.9 H Lymph % (Auto) 18.5 L [place] % (Auto) 4.0 Eos % (Auto) 0.0 Baso % (Auto) 0.0 Absolute Neuts (auto) 6.3 Absolute Lymphs (auto) 1.51 Nucleated RBC % 0 D-Dimer Quant (PE/DVT) Specimen Type Sample Site pH Bicarbonate Actual Total CO2 Base Excess O2 Saturation O2 % ABG pCO2 ABG pO2 Bakari Test Respiration Rate O2 Delivery Device Vent Mode Tidal Volume POC PEEP Sodium 140 Potassium 3.6 Chloride 106 Carbon Dioxide 27.0 Anion Gap 7 BUN 54 H Creatinine 1.77 H Estim Creat Clear Calc 31.51 Est GFR (MDRD) Af Amer 47 L Est GFR (MDRD) Non-Af 39 L BUN/Creatinine Ratio 30.5 H Glucose 175 H Calcium 8.5 Phosphorus Magnesium Total Bilirubin 0.60 Direct Bilirubin AST 36 ALT 32 Alkaline Phosphatase 94 Total Creatine Kinase 152 Troponin I B-Natriuretic Peptide Total Protein 6.4 Albumin 2.7 L Globulin 3.7 Albumin/Globulin Ratio 0.7 L Triglycerides 124 Procalcitonin 04/26/20 04/27/20 04/27/20 11:34 04:45 04:45 WBC 10.7 RBC 3.83 L Hgb 11.1 L Hct 34.1 L MCV 89.0 MCH 29.0 MCHC 32.6 RDW Std Deviation 46.0 H RDW Coeff of Lou 14.2 Plt Count 235 MPV 10.4 Immature Gran % (Auto) Neut % (Auto) Lymph % (Auto) [place] % (Auto) Eos % (Auto) Baso % (Auto) Absolute Neuts (auto) Absolute Lymphs (auto) Nucleated RBC % D-Dimer Quant (PE/DVT) Specimen Type ART Sample Site R Radial pH 7.43 Bicarbonate Actual 24.2 Total CO2 25 Base Excess 0 O2 Saturation 96 O2 % 80 ABG pCO2 36.3 ABG pO2 77 Bakari Test Positive Respiration Rate 14 O2 Delivery Device Adult Vent Vent Mode AC Tidal Volume 450 POC PEEP 10 Sodium 144 Potassium 4.3 Chloride 111 H Carbon Dioxide 25.0 Anion Gap 8 BUN 61 H Creatinine 1.83 H Estim Creat Clear Calc 30.47 Est GFR (MDRD) Af Amer 45 L Est GFR (MDRD) Non-Af 38 L BUN/Creatinine Ratio 33.3 H Glucose 148 H Calcium 8.5 Phosphorus Magnesium 2.9 H Total Bilirubin 0.60 Direct Bilirubin AST 41 H ALT 31 Alkaline Phosphatase 94 Total Creatine Kinase Troponin I B-Natriuretic Peptide Total Protein 6.4 Albumin 2.6 L Globulin 3.8 Albumin/Globulin Ratio 0.7 L Triglycerides Procalcitonin 04/27/20 04:45 WBC RBC Hgb Hct MCV MCH MCHC RDW Std Deviation RDW Coeff of Lou Plt Count MPV Immature Gran % (Auto) Neut % (Auto) Lymph % (Auto) [place] % (Auto) Eos % (Auto) Baso % (Auto) Absolute Neuts (auto) Absolute Lymphs (auto) Nucleated RBC % D-Dimer Quant (PE/DVT) Specimen Type Sample Site pH Bicarbonate Actual Total CO2 Base Excess O2 Saturation O2 % ABG pCO2 ABG pO2 Bakari Test Respiration Rate O2 Delivery Device Vent Mode Tidal Volume POC PEEP Sodium Potassium Chloride Carbon Dioxide Anion Gap BUN Creatinine Estim Creat Clear Calc Est GFR (MDRD) Af Amer Est GFR (MDRD) Non-Af BUN/Creatinine Ratio Glucose Calcium Phosphorus 4.0 Magnesium Total Bilirubin Direct Bilirubin AST ALT Alkaline Phosphatase Total Creatine Kinase Troponin I B-Natriuretic Peptide Total Protein Albumin Globulin Albumin/Globulin Ratio Triglycerides Procalcitonin Microbiology 04/26/20 13:26 Sputum, Induced/Lukens Gram Stain - Final Clinical Impression(s) from Imaging Studies Chest X-Ray 04/26/20 10:26 IMPRESSION: Progressive infiltration in both lungs worse in the left hemithorax. The tip of the endotracheal tube is at 3.9 cm proximal to the shyla. The tip of the orogastric tube is in the body of the stomach. Electronically Signed: Jamar Howard MD at 11:21 EST , Service support , Chest X-Ray 04/26/20 15:50 IMPRESSION: Grossly satisfactory positioning of right IJ line with no pneumothorax. Improved expansion and aeration of both lungs since exam of earlier today. Electronically Signed: Drew Cazares MD at 17:05 EST , Service support , Medical Necessity - Tobacco Use Smoking Status: Never smoker Tobacco Use: Non-smoker Assessment/Plan All Active Problems Femoral neck fracture (Acute) COVID-19 (Acute) Hypoxia (Acute) Acute respiratory failure with hypoxia (Resolved) Asthma exacerbation with COPD (chronic obstructive pulmonary disease) (Resolved) RECOMMENDATIONS: 1. Continue Decadron from my perspective. On remdesivir per infectious disease 2. Monitor liver function 3. Wean oxygen as tolerated to maintain sats greater than 90% 4. Discontinue amiodarone drip this was not initiated. Attempt to keep K at 4 or greater 5. Spontaneous breathing and awakening trials per protocol IMPRESSIONS: 1. Acute hypoxic respiratory failure secondary to acute COVID-19 infection in the setting of reported COPD/asthma Patient with significant bilateral infiltrates on chest x-ray. Unclear if this is chronic versus acute. Patient does have reported asthma/COPD, which will complicate overall condition. Patient currently on Decadron and Remdesivir. Continue to wean oxygen as tolerated. Spontaneous breathing and awakening trials per protocol. Will obtain a sputum culture given fever yesterday. This may be secondary to sedation. 2. CKD stage III Patient's creatinine appears to be at baseline. There is no indication for renal replacement therapy at this time. Do agree with holding losartan as patient is at risk for complications including acute kidney injury. Blood pressure is acceptable at this time. Renal function appears to be relatively stable. We will continue to monitor closely. 3. CAD status post PCI/hypertension/depression/altered mental status Complicates care, management, recovery and prognosis. Unclear if patient is suffering from metabolic encephalopathy or has an underlying dementia as patient does have a guardian. Clarified the patient is a full code. Patient with a guardian secondary to inability for family to come to decisions. TIME: 38 minutes of critical care time spent addressing patient's acute hypoxic respiratory failure, CKD stage III, hypertension, encephalopathy, review of all data and collaboration with care team (5:30 AM to 6:30 AM) [id number]: [id number] Critical care first hour
--- NOTE | 2020-04-27 07:53 | PCM.PN.HOSP ---
Patient Problems: Active and Suspected Problems COVID-19 (Acute) Hypoxia (Acute) Reason for Visit: Follow-up on acute hypoxic respiratory failure/COVID-19 pneumonia Subjective: Patient was seen and examined. He developed A. fib with RVR, that resolved spontaneously. He also received IV potassium. No other events overnight. He remains intubated, on mechanical ventilation. Objective: Physical exam: General: No apparent distress, intubated, on mechanical ventilation HEENT: Atraumatic, PERRLA, EOMI, Normocephalic Oral: Moist Mucosa Neck: Supple Lungs: Diminished Cardiovascular: Regular rate, Regular Rhythm, Normal S1, Normal S2, No murmurs Abdomen: Bowel Sounds Present, Soft, Non Tender, Non-Distended, No Hepato-splenomegaly Extremities: No edema Skin: No rashes Musculoskeletal: No Tenderness to Palpation of Joints or Extremities Lymphatic: No Cervical, Supraclavicular, or Inguinal Adenopathy Neurological: Cranial nerves II-XII grossly intact, Neuro grossly intact Psych/Mental Status: Normal Affect, Appropriate Vitals/I&O's: Vital Signs Temp Pulse Resp BP Pulse Ox 99.7 F H 93 18 141/66 H 94 04/27/20 06:00 04/27/20 06:00 04/27/20 06:00 04/27/20 06:00 04/27/20 06:00 Oxygen Flow Rate (L/min) 92 Oxygen Delivery Method Mechanical Ventilator Weight: 85.6 kg Body Mass Index (BMI) 27.0 Intake and Output for Last 24 Hours 04/25/20 04/26/20 04/27/20 23:59 23:59 23:59 Intake Total 180 / 180 747.35 / 762.55 68.58 / 68.58 Output Total 850 / 850 275 / 275 Balance 180 / 180 -102.65 / -87.45 -206.42 / -206.42 Microbiology Past 72 Hours 04/26/20 13:26 Sputum, Induced/Lukens Gram Stain - Final Laboratory Results 04/26/20 04:30: Total Creatine Kinase 152, Triglycerides 124 04/26/20 11:34: Specimen Type ART, Sample Site R Radial, pH 7.43, Bicarbonate Actual 24.2, Total CO2 25, Base Excess 0, O2 Saturation 96, O2 % 80, ABG pCO2 36.3, ABG pO2 77, Bakari Test Positive, Respiration Rate 14, O2 Delivery Device Adult Vent, Vent Mode AC, Tidal Volume 450, POC PEEP 10 04/27/20 04:45: WBC 10.7, RBC 3.83 L, Hgb 11.1 L, Hct 34.1 L, MCV 89.0, MCH 29.0, MCHC 32.6, RDW Std Deviation 46.0 H, RDW Coeff of Lou 14.2, Plt Count 235, MPV 10.4 04/27/20 04:45: Sodium 144, Potassium 4.3, Chloride 111 H, Carbon Dioxide 25.0, Anion Gap 8, BUN 61 H, Creatinine 1.83 H, Estim Creat Clear Calc 30.47, Est GFR (MDRD) Af Amer 45 L, Est GFR (MDRD) Non-Af 38 L, BUN/Creatinine Ratio 33.3 H, Glucose 148 H, Calcium 8.5, Magnesium 2.9 H, Total Bilirubin 0.60, AST 41 H, ALT 31, Alkaline Phosphatase 94, Total Protein 6.4, Albumin 2.6 L, Globulin 3.8, Albumin/Globulin Ratio 0.7 L 04/27/20 04:45: Phosphorus 4.0 Current Medications Acetaminophen (Acetaminophen 650 Mg/20 Ml Udc) 650 mg GT Q6H PRN PRN PRN Reason: Pain Score 1-10/Temp > 100.7 F Al Hydroxide/Mg Hydroxide (Mag Hydrox/Al Hydrox/Simeth 30 Ml Udc) 30 ml GT Q6H PRN PRN PRN Reason: Gastric Burning Albuterol Sulfate (Albuterol Ih 8.5 Gm (Proair) Inhaler (200 Puffs)) 2 puff INHALATION Q4H PRN PRN PRN Reason: SOB &/OR WHEEZING Aspirin (Aspirin 81 Mg Tab.Chew) 81 mg GT DAILY [facility] Atorvastatin Calcium (Atorvastatin Calcium 40 Mg Tablet) 40 mg GT QHS [facility] Last Admin: 04/26/20 20:48 Dose: 40 mg Documented by: Chlorhexidine Gluconate (Chlorhexidine Gluc 2% Cloth 1 Each Towelette) 1 each TOPICAL DAILY [facility] Chlorhexidine Gluconate (Chlorhexidine 15 Ml) 15 ml PO BID [facility] Last Admin: 04/26/20 20:47 Dose: 15 ml Documented by: Clopidogrel Bisulfate (Clopidogrel Bisulfate 75 Mg Tablet) 75 mg GT DAILY [facility] Dexamethasone Sodium Phosphate (Dexamethasone 10 Mg/Ml Vial) 6 mg IV DAILY [facility] Last Admin: 04/26/20 14:02 Dose: 6 mg Documented by: Enoxaparin Sodium (Enoxaparin 80 Mg/0.8 Ml Syringe) 80 mg SC BID [facility] Last Admin: 04/26/20 20:47 Dose: 80 mg Documented by: Famotidine (Famotidine 20 Mg Tablet) 20 mg GT DAILY [facility] Finasteride (Finasteride 5 Mg Tablet) 5 mg PO QHS [facility] Last Admin: 04/26/20 20:48 Dose: 5 mg Documented by: Haloperidol Lactate (Haloperidol Lactate 5 Mg/Ml Vial) 5 mg IV Q4H PRN PRN PRN Reason: AGITATION Last Admin: 04/26/20 06:55 Dose: 5 mg Documented by: Propofol (Diprivan) 1,000 mg in 100 mls @ 5.172 mls/hr CONT INF .Q12H [facility]; Protocol Last Admin: 04/27/20 06:54 Dose: 10 mcg/kg/min, 5.2 mls/hr Documented by: Fentanyl Citrate 1,000 mcg/ (Sodium Chloride) 100 mls @ 5 mls/hr CONT INF .Q20H [facility]; Protocol Last Admin: 04/27/20 06:00 Dose: 75 mcg/hr, 7.5 mls/hr Documented by: Remdesivir 100 mg/ Sodium (Chloride) 250 mls @ 125 mls/hr IV DAILY [facility]; Protocol Stop: 04/30/20 11:59 Loratadine (Loratadine 10 Mg Tablet) 10 mg GT DAILY [facility] Metoprolol Tartrate (Metoprolol Tartrate 25 Mg Tablet) 25 mg GT BID [facility] Last Admin: 04/26/20 20:48 Dose: Not Given Documented by: Ondansetron HCl (Ondansetron 4 Mg/2 Ml Vial) 4 mg IV Q8H PRN PRN PRN Reason: NAUSEA/VOMITING Senna/Docusate Sodium (Senna/Docusate Sodium 1 Tablet) 2 tablet PO BID [facility] Sertraline HCl (Sertraline 50 Mg Tablet) 50 mg GT DAILY [facility] Sodium Chloride (0.9% Saline Lock 10 Ml Syringe) 10 - 40 ml IV UD PRN PRN Reason: SALINE FLUSH Last Admin: 04/26/20 10:50 Dose: 30 ml Documented by: STROKE Vital Signs/Narrative: Vital Signs Temp Pulse Resp BP Pulse Ox 04/27/20 06:00 99.7 F H 93 18 141/66 H 94 04/27/20 05:05 93 04/27/20 05:00 99.7 F H 92 19 H 138/62 H 93 04/27/20 04:45 92 23 H 91 04/27/20 04:00 99.5 F H 92 17 138/69 H 90 Medical Necessity - Tobacco Use Smoking Status: Never smoker Tobacco Use: Non-smoker Assessment/Plan All Active Problems Femoral neck fracture (Acute) COVID-19 (Acute) Hypoxia (Acute) Acute respiratory failure with hypoxia (Resolved) Asthma exacerbation with COPD (chronic obstructive pulmonary disease) (Resolved) 1. Acute respiratory failure secondary to Acute COVID-19 infection/probable PE Status intubation, continue with breathing treatments, IV steroids, encourage use of incentive spirometer. Wean off oxygen for SPO2 more than 94% 2. Acute COVID-19 pneumonia with hypoxia Continue on IV dexamethasone ID consult; will leave decision for remdesivir to ID 3.Elevated D-dimer, D-dimer is 1.71, suggestive of possible acute PE, Continue on therapeutic Lovenox, will get CTA of the chest later when patient is more stable 4. COPD/asthma, not in acute exacerbation Continue budesonide, montelukast 5. CKD stage III, creatinine remains about the same as yesterday; 1.83 Baseline creatinine is between 1.3-1.7 Hold Bumex, losartan Repeat blood work in a.m. 6. CAD s/p PCI, continue on aspirin, Plavix, atorvastatin, metoprolol 7. Hypertension, continue metoprolol, hold losartan 8. Depression, continue Zoloft 9. Code status - Full code Inpatient E&M: 93084 Subs Hosp L3
--- NOTE | 2020-04-27 07:56 | PCM.NTREPORT ---
Nutrition Therapy Report - History Nutrition Services has been consulted to:: Manage enteral nutrition Current diet / nutrition support order:: NPO - Anthropometric Measurements Height:: 5 ft 10 in Weight:: 85.6 kg Body Mass Index (BMI):: 27.1 - Relevant Labs Relevant Labs:: WBC 11.9 K/mm3 (4.4-11.0) H 04/25/20 12:15 RBC 3.83 M/mm3 (4.6-6.2) L 04/27/20 04:45 Hgb 11.1 g/dL (13.0-16.5) L 04/27/20 04:45 Hct 34.1 % (40-54) L 04/27/20 04:45 RDW Std Deviation 46.0 fl (35.1-43.9) H 04/27/20 04:45 Neut % (Auto) 76.9 % (47-70) H 04/26/20 04:30 Lymph % (Auto) 18.5 % (19-41) L 04/26/20 04:30 Absolute Neuts (auto) 9.3 X10^3/uL (2.0-7.7) H 04/25/20 12:15 D-Dimer Quant (PE/DVT) 1.71 FEU/ug/m (0.27-0.49) H* 04/25/20 12:15 Chloride 111 mmol/L (98-107) H 04/27/20 04:45 BUN 61 mg/dL (7-18) H 04/27/20 04:45 Creatinine 1.83 mg/dL (0.70-1.30) H 04/27/20 04:45 Est GFR (MDRD) Af Amer 45 mL/min (>60) L 04/27/20 04:45 Est GFR (MDRD) Non-Af 38 mL/min (>60) L 04/27/20 04:45 BUN/Creatinine Ratio 33.3 RATIO (10-20) H 04/27/20 04:45 Glucose 148 mg/dL (74-106) H 04/27/20 04:45 Magnesium 2.9 mg/dL (1.6-2.6) H 04/27/20 04:45 AST 41 U/L (15-37) H 04/27/20 04:45 B-Natriuretic Peptide 153.3 pg/mL (0-100) H 04/25/20 12:15 Total Protein 5.3 g/dL (6.4-8.2) L 04/25/20 17:30 Albumin 2.6 g/dL (3.2-5.0) L 04/27/20 04:45 Albumin/Globulin Ratio 0.7 RATIO (0.9-2.4) L 04/27/20 04:45 Procalcitonin 0.17 ng/mL (0.00-0.09) H 04/25/20 12:15 - Assessment Food / Nutrition-Related History:: Pt intubated and on vent. Wt decrease of .6 kg since last review. [ End ] - Nutrition Diagnosis Problem / Etiology / Signs & Symptoms (PES):: Pt w/ inadequate po intake d/t increased energy needs w/acute illness, resp. failure aeb predicted suboptimal intake of protein/calories [employer] and pt NPO d/t sedated and on vent. [ End ]. [ End ] Evidence of Malnutrition Exists:: No - Nutrition Intervention Nutrition Prescription:: 5212-7606 calories (1.3xRMR). 77-87 g protein (1g/kg). 2000mL fluid/day (1mL/calorie). [ End ] - Food / Nutrient Delivery Interventions Summary of nutrition intervention:: If need for TF, rec Vital AF 1.2 w/ 100 ml free water every 6 hours at goal 60 ml/hr to provide ~ 1726 wolfgang / 108 gm pro / 1767 ml free water / day - would start tf at 20 ml/hr and increase by 20 ml/hr every 8-10 hrs as pt tolerates until goal rate achieved. [ End ] Nutrition education provided?: No - MNT Monitoring Further MNT monitoring and evaluation required?: Yes MNT Follow-up in:: 1-2 days - if questions, please call RD/LD at [phone]
[2020-04-27] MEDS: Chlorhexidine 15 ML PO (09:21)
[2020-04-27] MEDS: Enoxaparin 80 MG/0.8 ML Syringe SC ×2 (09:23→20:47)
[2020-04-27] MEDS: dexAMETHasone 10 MG/ML Vial 6 MG IV (09:24)
[2020-04-27] MEDS: Famotidine 20 MG Tablet GT (09:26)
[2020-04-27] MEDS: Metoprolol Tartrate 25 MG Tablet GT (09:26)
[2020-04-27] MEDS: Loratadine 10 MG Tablet GT (09:26)
[2020-04-27] MEDS: Aspirin 81 MG TAB.CHEW GT (09:26)
[2020-04-27] MEDS: Clopidogrel Bisulfate 75 MG Tablet GT (09:26)
[2020-04-27] MEDS: Senna/Docusate Sodium 1 Tablet 2 TABLET GT ×2 (09:27→20:47)
[2020-04-27] MEDS: Sertraline 50 MG Tablet GT (09:27)
[2020-04-27] MEDS: CHLORHEXIDINE GLUC 2% CLOTH 1 EACH TOWELETTE TOPICAL (09:27)
--- NOTE | 2020-04-27 09:57 | CM.UR ---
Participated in interdisciplinary rounds this am. Intubated yesterday. Starting tube feeding today. Has guardian for any decisions. Case management will continue to follow for discharge needs. Sudheer Bo RN, [facility].
[2020-04-27] MEDS: Vital AF 1.2 Cal Liquid 1,000 ML 60 ML GT (14:33)
[2020-04-27] MEDS: Amiodarone 360 MG in Dextrose 5% Viaflo Bag 192.8 ML 33.3 MG CONT INF (15:05)
[2020-04-27] MEDS: Atorvastatin Calcium 40 MG Tablet GT (20:47)
[2020-04-27] MEDS: Finasteride 5 MG Tablet PO (20:48)
[2020-04-27] MEDS: Amiodarone 360 MG in Dextrose 5% Viaflo Bag 192.8 ML 16.7 MG CONT INF (20:48)
[2020-04-28] VITALS (40 sets, daily range): BP systolic 91–115; BP diastolic 34–87; PULSE 53–125; RESP 14–22; TEMP 37.2–37.7; O2SAT 89–96
[2020-04-28] MEDS: Chlorhexidine 15 ML PO ×3 (00:07→21:35)
[2020-04-28 01:11] LABS: Bedside Glucose 141 mg/dL (70-110)
[2020-04-28 04:38] LABS: Hematocrit 32.8 % (40-54); Hemoglobin 10.5 g/dL (13.0-16.5); Mean Corpuscular Hgb 29.1 pg (27.0-32.0); Mean Corpuscular Volume 90.9 fL (80-94); Mean Platelet Vol. 10.3 fl (6.2-12.0); Platelet Count 230 K/mm3 (150-450); RBC Distribution Width CV 14.5 % (11.6-14.6); RBC Distribution Width SD 48.3 fl (35.1-43.9); Red Blood Count 3.61 M/mm3 (4.6-6.2); White Blood Count 12.6 K/mm3 (4.4-11.0)
[2020-04-28 04:51] LABS: ALB/GLOB Ratio 0.6 RATIO (0.9-2.4); AST(SGOT) 29 U/L (15-37); Alanine Aminotransfer ALT/SGPT 26 U/L (16-61); Albumin, Serum 2.3 g/dL (3.2-5.0); Alkaline Phosphatase 90 U/L (45-117); Anion Gap 7 (5-15); BUN 74 mg/dL (7-18); Calcium,Total 8.1 mg/dL (8.5-10.1); Chloride 112 mmol/L (98-107); Creatinine, Serum 1.85 mg/dL (0.70-1.30); EST Glomerular Filtration Rate 37 mL/min (>60); Est Glom Filt Rate - Afr Amer 45 mL/min (>60); Estimated Creatinine Clearance 30.14 ml/min; Globulin 3.7 g/dL (2.2-4.2); Glucose 153 mg/dL (74-106); Sodium Level 144 mmol/L (136-145)
[2020-04-28] MEDS: Propofol 10MG/Ml 1,000 MG/100 ML Bottle 5.2 MG CONT INF ×2 (05:10→21:20)
[2020-04-28] MEDS: TITRATION PARAMETER CHANGE 1 EACH IV (05:33)
--- NOTE | 2020-04-28 07:39 | PN_ITS ---
Patient Problems: Active and Suspected Problems COVID-19 (Acute) Hypoxia (Acute) Reason for Visit: Follow-up on acute hypoxic respiratory failure/COVID-19 pneumonia Subjective: Patient was seen and examined. He has been in A. fib intermittently. Started on IV amiodarone. Blood pressures have been relatively low. Objective: Physical exam: General: No apparent distress, intubated, on mechanical ventilation HEENT: Atraumatic, PERRLA, EOMI, Normocephalic Oral: Moist Mucosa Neck: Supple Lungs: Diminished Cardiovascular: Regular rate, Regular Rhythm, Normal S1, Normal S2, No murmurs Abdomen: Bowel Sounds Present, Soft, Non Tender, Non-Distended, No Hepato- splenomegaly Extremities: No edema Skin: No rashes Musculoskeletal: No Tenderness to Palpation of Joints or Extremities Lymphatic: No Cervical, Supraclavicular, or Inguinal Adenopathy Neurological: Cranial nerves II-XII grossly intact, Neuro grossly intact Psych/Mental Status: Normal Affect, Appropriate Vitals/I&O's: Vital Signs Temp Pulse Resp BP Pulse Ox 99.7 F H 72 20 H 107/55 L 92 04/28/20 04:00 04/28/20 07:00 04/28/20 07:00 04/28/20 07:00 04/28/20 07:00 Oxygen Flow Rate (L/min) 92 Oxygen Delivery Method Mechanical Ventilator Weight: 86 kg Body Mass Index (BMI) 27.1 Intake and Output for Last 24 Hours 04/26/20 04/27/20 04/28/20 23:59 23:59 23:59 Intake Total 747.35 / 762.55 1250.37 / 1334.07 469.60 / 469.60 Output Total 850 / 850 1725 / 1825 300 / 300 Balance -102.65 / -87.45 -474.63 / -490.93 169.60 / 169.60 Microbiology Past 72 Hours 04/25/20 12:35 Blood Culture (Wb) #2 - Anticubital Left Blood Culture - Preliminary No growth in 48 hours. 04/25/20 12:15 Blood Culture (Wb) - Anticubital Right Blood Culture - Preliminary No growth in 48 hours. 04/26/20 13:26 Sputum, Induced/Lukens Gram Stain - Final 04/26/20 13:26 Sputum, Induced/Lukens Respiratory Culture - Preliminary Culture exhibits no growth. Laboratory Results 04/28/20 00:09: POC Glucose 141 H 04/28/20 04:15: WBC 12.6 H, RBC 3.61 L, Hgb 10.5 L, Hct 32.8 L, MCV 90.9, MCH 29.1, MCHC 32.0, RDW Std Deviation 48.3 H, RDW Coeff of Lou 14.5, Plt Count 230, MPV 10.3 04/28/20 04:15: Sodium 144, Potassium 4.0, Chloride 112 H, Carbon Dioxide 25.0, Anion Gap 7, BUN 74 H, Creatinine 1.85 H, Estim Creat Clear Calc 30.14, Est GFR (MDRD) Af Amer 45 L, Est GFR (MDRD) Non-Af 37 L, BUN/Creatinine Ratio 40.0 H, Glucose 153 H, Calcium 8.1 L, Total Bilirubin 0.50, AST 29, ALT 26, Alkaline Phosphatase 90, Total Protein 6.0 L, Albumin 2.3 L, Globulin 3.7, Albumin/Globulin Ratio 0.6 L Current Medications Acetaminophen (Acetaminophen 650 Mg/20 Ml Udc) 650 mg GT Q6H PRN PRN PRN Reason: Pain Score 1-10/Temp > 100.7 F Al Hydroxide/Mg Hydroxide (Mag Hydrox/Al Hydrox/Simeth 30 Ml Udc) 30 ml GT Q6H PRN PRN PRN Reason: Gastric Burning Albuterol Sulfate (Albuterol Ih 8.5 Gm (Proair) Inhaler (200 Puffs)) 2 puff INHALATION Q4H PRN PRN PRN Reason: SOB &/OR WHEEZING Aspirin (Aspirin 81 Mg Tab.Chew) 81 mg GT DAILY [facility] Last Admin: 04/27/20 09:26 Dose: 81 mg Documented by: Atorvastatin Calcium (Atorvastatin Calcium 40 Mg Tablet) 40 mg GT QHS [facility] Last Admin: 04/27/20 20:47 Dose: 40 mg Documented by: Chlorhexidine Gluconate (Chlorhexidine Gluc 2% Cloth 1 Each Towelette) 1 each TOPICAL DAILY [facility] Last Admin: 04/27/20 09:27 Dose: 1 each Documented by: Chlorhexidine Gluconate (Chlorhexidine 15 Ml) 15 ml PO BID [facility] Last Admin: 04/28/20 00:07 Dose: 15 ml Documented by: Clopidogrel Bisulfate (Clopidogrel Bisulfate 75 Mg Tablet) 75 mg GT DAILY [facility] Last Admin: 04/27/20 09:26 Dose: 75 mg Documented by: Dexamethasone Sodium Phosphate (Dexamethasone 10 Mg/Ml Vial) 6 mg IV DAILY [facility] Last Admin: 04/27/20 09:24 Dose: 6 mg Documented by: Enoxaparin Sodium (Enoxaparin 80 Mg/0.8 Ml Syringe) 80 mg SC BID [facility] Last Admin: 04/27/20 20:47 Dose: 80 mg Documented by: Famotidine (Famotidine 20 Mg Tablet) 20 mg GT DAILY [facility] Finasteride (Finasteride 5 Mg Tablet) 5 mg PO QHS [facility] Last Admin: 04/27/20 20:48 Dose: 5 mg Documented by: Haloperidol Lactate (Haloperidol Lactate 5 Mg/Ml Vial) 5 mg IV Q4H PRN PRN PRN Reason: AGITATION Last Admin: 04/26/20 06:55 Dose: 5 mg Documented by: Propofol (Diprivan) 1,000 mg in 100 mls @ 5.16 mls/hr CONT INF .Q12H [facility]; Protocol Last Titration: 04/28/20 07:00 Dose: 10 mcg/kg/min, 5.2 mls/hr Documented by: Fentanyl Citrate 1,000 mcg/ (Sodium Chloride) 100 mls @ 5 mls/hr CONT INF .Q20H [facility]; Protocol Last Titration: 04/28/20 07:00 Dose: 50 mcg/hr, 5 mls/hr Documented by: Remdesivir 100 mg/ Sodium (Chloride) 250 mls @ 125 mls/hr IV DAILY [facility]; Protocol Stop: 04/30/20 11:59 Last Infusion: 04/27/20 13:54 Dose: Infused Documented by: Enteral Nutritional Formula (Vital Af 1.2 Wil Liquid) 1,000 mls @ 60 mls/hr GT .[id number] [facility] Last Admin: 04/28/20 01:10 Dose: Not Given Documented by: Amiodarone HCl 360 mg/ (Dextrose) 200 mls @ 16.667 mls/hr CONT INF .Q12H [facility] Stop: 04/28/20 15:04 Last Admin: 04/27/20 20:48 Dose: 0.5 mg/min, 16.7 mls/hr Documented by: Loratadine (Loratadine 10 Mg Tablet) 10 mg GT DAILY [facility] Last Admin: 04/27/20 09:26 Dose: 10 mg Documented by: Metoprolol Tartrate (Metoprolol Tartrate 25 Mg Tablet) 25 mg GT BID [facility] Last Admin: 04/27/20 20:57 Dose: Not Given Documented by: Senna/Docusate Sodium (Senna/Docusate Sodium 1 Tablet) 2 tablet GT BID [facility] Last Admin: 04/27/20 20:47 Dose: 2 tablet Documented by: Sertraline HCl (Sertraline 50 Mg Tablet) 50 mg GT DAILY [facility] Last Admin: 04/27/20 09:27 Dose: 50 mg Documented by: Sodium Chloride (0.9% Saline Lock 10 Ml Syringe) 10 - 40 ml IV UD PRN PRN Reason: SALINE FLUSH Last Admin: 04/26/20 10:50 Dose: 30 ml Documented by: STROKE Vital Signs/Narrative: Vital Signs Temp Pulse Resp BP Pulse Ox 04/28/20 07:00 72 20 H 107/55 L 92 04/28/20 06:00 73 17 108/57 L 90 04/28/20 05:00 71 15 104/48 L 93 04/28/20 04:00 99.7 F H 72 15 103/56 L 91 Medical Necessity - Tobacco Use Smoking Status: Never smoker Tobacco Use: Non-smoker Assessment/Plan All Active Problems Femoral neck fracture (Acute) COVID-19 (Acute) Hypoxia (Acute) Acute respiratory failure with hypoxia (Resolved) Asthma exacerbation with COPD (chronic obstructive pulmonary disease) (Resolved) 84-year-old with dementia who was admitted from a halfway, comes in with shortness of breath, diagnosed with COVID-19, initially on Airvo, progressed to BiPAP and subsequently intubated on 04/26/20. Patient has a legal guardian who wants him to be full code. 1. A. fib with RVR alternating with normal sinus rhythm, patient already on metoprolol 25 twice daily Started on IV amiodarone, blood pressure relatively low We will continue same 2. Acute respiratory failure secondary to Acute COVID-19 infection/probable PE Status intubation on 04/26/20, continue with breathing treatments, IV steroids Wean off oxygen for SPO2 more than 94% 3. Acute COVID-19 pneumonia with hypoxia Continue on IV dexamethasone and remdesivir ID and pulmonology following 4.Elevated D-dimer, D-dimer is 1.71, suggestive of possible acute PE, Continue on therapeutic Lovenox, consider CTA of the chest before discharge 5. COPD/asthma, not in acute exacerbation Continue budesonide, montelukast 6. CKD stage III, creatinine remains about the same as yesterday; 1.83 Baseline creatinine is between 1.3-1.7 Hold Bumex, losartan Repeat blood work in a.m. 7. CAD s/p PCI, continue on aspirin, Plavix, atorvastatin, metoprolol 8. Hypertension, BP is relatively low, continue metoprolol, hold losartan 9. Depression, continue Zoloft 10. DVT prophylaxis?on therapeutic Lovenox Inpatient E&M: 56483 Subs Hosp L3
--- NOTE | 2020-04-28 07:45 | PCM.PN.INT ---
Subjective: Patient did okay overnight. Patient has had periods of A. fib with RVR associated with agitation. Patient was initiated on amiodarone overnight. Tube feeds are at goal and patient is tolerating well. Oxygenation continues to be marginal and oxygen and PEEP had to be increased overnight to maintain appropriate saturations. No pressors have been required. Blood sugars have been relatively controlled. General: - - Intubated and sedated. RASS -2. Good vent synchrony. HEENT: Atraumatic, PERRLA, EOMI, Normocephalic, - - No scleral icterus or injection noted Oral: Moist Mucosa, No Gingival or Mucosal Lesions/ Ulcerations Neck: Supple, No JVD, No Nodes, Trachea Midline, - - Some blood noted on bandage for IJ Lungs: No rhonchi, No wheeze, No rales, Diminished, - - Symmetric expansion Cardiovascular: Regular rate, Regular Rhythm, Normal S1, Normal S2, Murmur, No rub noted, No Gallop Abdomen: Bowel Sounds Present, Soft, Non Tender, Non-Distended Extremities: No clubbing, No cyanosis, Edema - Trace to 1+ Skin: - - No change compared to previous Musculoskeletal: No Tenderness to Palpation of Joints or Extremities Lymphatic: No Cervical, Supraclavicular, or Inguinal Adenopathy Neurological: Cranial nerves II-XII grossly intact, Neuro grossly intact Psych/Mental Status: Flat Affect Vital Signs Temp Pulse Resp BP Pulse Ox 37.6 C H 72 20 H 107/55 L 92 04/28/20 04:00 04/28/20 07:00 04/28/20 07:00 04/28/20 07:00 04/28/20 07:00 Oxygen Flow Rate (L/min) 92 Oxygen Delivery Method Mechanical Ventilator Weight: 86 kg Body Mass Index (BMI) 27.1 Intake and Output for Last 24 Hours 04/26/20 04/27/20 04/28/20 23:59 23:59 23:59 Intake Total 747.35 / 762.55 1250.37 / 1334.07 469.60 / 469.60 Output Total 850 / 850 1725 / 1825 300 / 300 Balance -102.65 / -87.45 -474.63 / -490.93 169.60 / 169.60 Labs (Last 48 Hours) 04/26/20 04/26/20 04/27/20 04:30 11:34 04:45 WBC 10.7 RBC 3.83 L Hgb 11.1 L Hct 34.1 L MCV 89.0 MCH 29.0 MCHC 32.6 RDW Std Deviation 46.0 H RDW Coeff of Lou 14.2 Plt Count 235 MPV 10.4 Specimen Type ART Sample Site R Radial pH 7.43 Bicarbonate Actual 24.2 Total CO2 25 Base Excess 0 O2 Saturation 96 O2 % 80 ABG pCO2 36.3 ABG pO2 77 Bakari Test Positive Respiration Rate 14 O2 Delivery Device Adult Vent Vent Mode AC Tidal Volume 450 POC PEEP 10 Sodium Potassium Chloride Carbon Dioxide Anion Gap BUN Creatinine Estim Creat Clear Calc Est GFR (MDRD) Af Amer Est GFR (MDRD) Non-Af BUN/Creatinine Ratio Glucose Calcium Phosphorus Magnesium Total Bilirubin AST ALT Alkaline Phosphatase Total Creatine Kinase 152 Total Protein Albumin Globulin Albumin/Globulin Ratio Triglycerides 124 POC Glucose 04/27/20 04/27/20 04/28/20 04:45 04:45 00:09 WBC RBC Hgb Hct MCV MCH MCHC RDW Std Deviation RDW Coeff of Lou Plt Count MPV Specimen Type Sample Site pH Bicarbonate Actual Total CO2 Base Excess O2 Saturation O2 % ABG pCO2 ABG pO2 Bakari Test Respiration Rate O2 Delivery Device Vent Mode Tidal Volume POC PEEP Sodium 144 Potassium 4.3 Chloride 111 H Carbon Dioxide 25.0 Anion Gap 8 BUN 61 H Creatinine 1.83 H Estim Creat Clear Calc 30.47 Est GFR (MDRD) Af Amer 45 L Est GFR (MDRD) Non-Af 38 L BUN/Creatinine Ratio 33.3 H Glucose 148 H Calcium 8.5 Phosphorus 4.0 Magnesium 2.9 H Total Bilirubin 0.60 AST 41 H ALT 31 Alkaline Phosphatase 94 Total Creatine Kinase Total Protein 6.4 Albumin 2.6 L Globulin 3.8 Albumin/Globulin Ratio 0.7 L Triglycerides POC Glucose 141 H 04/28/20 04/28/20 04:15 04:15 WBC 12.6 H RBC 3.61 L Hgb 10.5 L Hct 32.8 L MCV 90.9 MCH 29.1 MCHC 32.0 RDW Std Deviation 48.3 H RDW Coeff of Lou 14.5 Plt Count 230 MPV 10.3 Specimen Type Sample Site pH Bicarbonate Actual Total CO2 Base Excess O2 Saturation O2 % ABG pCO2 ABG pO2 Bakari Test Respiration Rate O2 Delivery Device Vent Mode Tidal Volume POC PEEP Sodium 144 Potassium 4.0 Chloride 112 H Carbon Dioxide 25.0 Anion Gap 7 BUN 74 H Creatinine 1.85 H Estim Creat Clear Calc 30.14 Est GFR (MDRD) Af Amer 45 L Est GFR (MDRD) Non-Af 37 L BUN/Creatinine Ratio 40.0 H Glucose 153 H Calcium 8.1 L Phosphorus Magnesium Total Bilirubin 0.50 AST 29 ALT 26 Alkaline Phosphatase 90 Total Creatine Kinase Total Protein 6.0 L Albumin 2.3 L Globulin 3.7 Albumin/Globulin Ratio 0.6 L Triglycerides POC Glucose Microbiology 04/25/20 12:35 Blood Culture (Wb) #2 - Anticubital Left Blood Culture - Preliminary No growth in 48 hours. 04/25/20 12:15 Blood Culture (Wb) - Anticubital Right Blood Culture - Preliminary No growth in 48 hours. 04/26/20 13:26 Sputum, Induced/Lukens Gram Stain - Final 04/26/20 13:26 Sputum, Induced/Lukens Respiratory Culture - Preliminary Culture exhibits no growth. Medical Necessity - Tobacco Use Smoking Status: Never smoker Tobacco Use: Non-smoker Assessment/Plan All Active Problems Femoral neck fracture (Acute) COVID-19 (Acute) Hypoxia (Acute) Acute respiratory failure with hypoxia (Resolved) Asthma exacerbation with COPD (chronic obstructive pulmonary disease) (Resolved) RECOMMENDATIONS: 1. Continue Decadron from my perspective. On remdesivir per infectious disease 2. Monitor liver function closely given marginal renal function 3. Wean oxygen as tolerated to maintain sats greater than 90% 4. Likely transition to p.o. amiodarone tomorrow. Attempt to keep K at 4 or greater 5. Spontaneous breathing and awakening trials per protocol IMPRESSIONS: 1. Acute hypoxic respiratory failure secondary to acute COVID-19 infection in the setting of reported COPD/asthma Patient with significant bilateral infiltrates on chest x-ray. Unclear if this is chronic versus acute. Patient does have reported asthma/COPD, which will complicate overall condition. Patient currently on Decadron and Remdesivir. Continue to wean oxygen as tolerated. Spontaneous breathing and awakening trials per protocol. Continue to monitor endotracheal secretions. Patient currently on therapeutic Lovenox. 2. CKD stage III Patient's creatinine appears to be at baseline. There is no indication for renal replacement therapy at this time. Do agree with holding losartan as patient is at risk for complications including acute kidney injury. Blood pressure is acceptable at this time. Renal function appears to be relatively stable. We will continue to monitor closely. 3. CAD status post PCI/hypertension/depression/altered mental status Complicates care, management, recovery and prognosis. Unclear if patient is suffering from metabolic encephalopathy or has an underlying dementia as patient does have a guardian. Clarified the patient is a full code. Patient with a guardian secondary to inability for family to come to decisions. TIME: 34 minutes of critical care time spent addressing patient's acute hypoxic respiratory failure, CKD stage III, hypertension, encephalopathy, review of all data and collaboration with care team (6 AM to 7:30 AM) [phone]: [id number] Critical care first hour
[2020-04-28] MEDS: CHLORHEXIDINE GLUC 2% CLOTH 1 EACH TOWELETTE TOPICAL (08:22)
[2020-04-28] MEDS: Amiodarone 360 MG in Dextrose 5% Viaflo Bag 192.8 ML 16.7 MG CONT INF ×2 (09:28→22:00)
[2020-04-28] MEDS: Famotidine 20 MG Tablet GT ×2 (09:36→09:38)
[2020-04-28] MEDS: Metoprolol Tartrate 25 MG Tablet GT (09:36)
[2020-04-28] MEDS: Aspirin 81 MG TAB.CHEW GT (09:37)
[2020-04-28] MEDS: Sertraline 50 MG Tablet GT (09:37)
[2020-04-28] MEDS: Clopidogrel Bisulfate 75 MG Tablet GT (09:37)
[2020-04-28] MEDS: Senna/Docusate Sodium 1 Tablet 2 TABLET GT ×2 (09:38→21:36)
[2020-04-28] MEDS: Loratadine 10 MG Tablet GT (09:38)
[2020-04-28] MEDS: Enoxaparin 80 MG/0.8 ML Syringe SC ×2 (09:39→21:36)
[2020-04-28] MEDS: dexAMETHasone 10 MG/ML Vial 6 MG IV (09:40)
[2020-04-28] MEDS: Vital AF 1.2 Cal Liquid 1,000 ML 60 ML GT (16:31)
[2020-04-28] MEDS: Atorvastatin Calcium 40 MG Tablet GT (21:35)
[2020-04-28] MEDS: Finasteride 5 MG Tablet PO (21:36)
[2020-04-29] VITALS (39 sets, daily range): BP systolic 104–144; BP diastolic 40–71; PULSE 66–111; RESP 14–29; TEMP 37.3–37.8; O2SAT 87–97
[2020-04-29 03:54] LABS: Hematocrit 32.2 % (40-54); Hemoglobin 10.6 g/dL (13.0-16.5); Mean Corp Hgb Conc 32.9 g/dL (32-36); Mean Corpuscular Hgb 29.5 pg (27.0-32.0); Mean Corpuscular Volume 89.7 fL (80-94); Mean Platelet Vol. 10.2 fl (6.2-12.0); Platelet Count 249 K/mm3 (150-450); RBC Distribution Width CV 14.5 % (11.6-14.6); RBC Distribution Width SD 47.8 fl (35.1-43.9); Red Blood Count 3.59 M/mm3 (4.6-6.2); White Blood Count 12.9 K/mm3 (4.4-11.0)
[2020-04-29 04:12] LABS: ALB/GLOB Ratio 0.6 RATIO (0.9-2.4); AST(SGOT) 25 U/L (15-37); Alanine Aminotransfer ALT/SGPT 23 U/L (16-61); Albumin, Serum 2.2 g/dL (3.2-5.0); Alkaline Phosphatase 95 U/L (45-117); Anion Gap 7 (5-15); BUN 76 mg/dL (7-18); BUN/Creat Ratio 45.5 RATIO (10-20); Calcium,Total 8.1 mg/dL (8.5-10.1); Chloride 112 mmol/L (98-107); Creatinine, Serum 1.67 mg/dL (0.70-1.30); EST Glomerular Filtration Rate 42 mL/min (>60); Est Glom Filt Rate - Afr Amer 50 mL/min (>60); Estimated Creatinine Clearance 33.39 ml/min; Globulin 3.6 g/dL (2.2-4.2); Glucose 157 mg/dL (74-106); Protein, Total 5.8 g/dL (6.4-8.2); Sodium Level 144 mmol/L (136-145)
[2020-04-29] MEDS: TITRATION PARAMETER CHANGE 1 EACH IV (05:45)
[2020-04-29] MEDS: Propofol 10MG/Ml 1,000 MG/100 ML Bottle 5.2 MG CONT INF ×2 (05:59→17:01)
--- NOTE | 2020-04-29 06:28 | PN_ITS ---
Subjective: The patient was seen and examined at the bedside this morning. Events from the last 24 hours have been reviewed. The patient is currently afebrile, hemodynamically stable and maintaining appropriate oxygen saturations on assist control mode mechanical ventilation with an FiO2 requirement of 60% and PEEP of 12. The patient remains sedated on both propofol and fentanyl. He is currently tolerating tube feeds. Creatinine is improved from yesterday to 1.67 this morning. The patient remains on remdesivir, Decadron and therapeutic Lovenox. Objective: The patient's most recent lab work, culture data and imaging studies have all been personally reviewed. Blood cultures have shown no growth to date. General: - - Intubated, sedated and mechanically ventilated. No ventilator dyssynchrony noted. HEENT: Atraumatic, PERRLA, Normocephalic Oral: No Gingival or Mucosal Lesions/ Ulcerations Neck: Supple, No Nodes, Trachea Midline Lungs: No rhonchi, No wheeze, No rales, Diminished Cardiovascular: Regular rate, Regular Rhythm, Murmur Abdomen: Bowel Sounds Present, Soft, Non Tender Extremities: No clubbing, No cyanosis, No edema Skin: No breakdown Musculoskeletal: No Tenderness to Palpation of Joints or Extremities Lymphatic: No Cervical, Supraclavicular, or Inguinal Adenopathy Neurological: - - No focal neurological deficits. Currently sedated on the ventilator. Vital Signs Temp Pulse Resp BP Pulse Ox 99.7 F H 70 18 129/61 H 92 04/29/20 04:00 04/29/20 06:00 04/29/20 06:00 04/29/20 06:00 04/29/20 06:00 Oxygen Flow Rate (L/min) 92 Oxygen Delivery Method Mechanical Ventilator Weight: 191 lb 9.307 oz Body Mass Index (BMI) 27.1 Intake and Output for Last 24 Hours 04/27/20 04/28/20 04/29/20 23:59 23:59 23:59 Intake Total 1250.37 / 1334.07 2000.80 / 2111.00 938.33 / 938.33 Output Total 1725 / 1825 2024 / 2024 350 / 350 Balance -474.63 / -490.93 -24.20 / 86.00 588.33 / 588.33 Labs (Last 48 Hours) 04/28/20 04/28/20 04/28/20 00:09 04:15 04:15 WBC 12.6 H RBC 3.61 L Hgb 10.5 L Hct 32.8 L MCV 90.9 MCH 29.1 MCHC 32.0 RDW Std Deviation 48.3 H RDW Coeff of Lou 14.5 Plt Count 230 MPV 10.3 Sodium 144 Potassium 4.0 Chloride 112 H Carbon Dioxide 25.0 Anion Gap 7 BUN 74 H Creatinine 1.85 H Estim Creat Clear Calc 30.14 Est GFR (MDRD) Af Amer 45 L Est GFR (MDRD) Non-Af 37 L BUN/Creatinine Ratio 40.0 H Glucose 153 H Calcium 8.1 L Total Bilirubin 0.50 AST 29 ALT 26 Alkaline Phosphatase 90 Total Protein 6.0 L Albumin 2.3 L Globulin 3.7 Albumin/Globulin Ratio 0.6 L POC Glucose 141 H 04/29/20 04/29/20 03:45 03:45 WBC 12.9 H RBC 3.59 L Hgb 10.6 L Hct 32.2 L MCV 89.7 MCH 29.5 MCHC 32.9 RDW Std Deviation 47.8 H RDW Coeff of Lou 14.5 Plt Count 249 MPV 10.2 Sodium 144 Potassium 4.0 Chloride 112 H Carbon Dioxide 25.0 Anion Gap 7 BUN 76 H Creatinine 1.67 H Estim Creat Clear Calc 33.39 Est GFR (MDRD) Af Amer 50 L Est GFR (MDRD) Non-Af 42 L BUN/Creatinine Ratio 45.5 H Glucose 157 H Calcium 8.1 L Total Bilirubin 0.50 AST 25 ALT 23 Alkaline Phosphatase 95 Total Protein 5.8 L Albumin 2.2 L Globulin 3.6 Albumin/Globulin Ratio 0.6 L POC Glucose Microbiology 04/26/20 13:26 Sputum, Induced/Lukens Gram Stain - Final 04/26/20 13:26 Sputum, Induced/Lukens Respiratory Culture - Preliminary Yeast Like Organism 04/25/20 12:35 Blood Culture (Wb) #2 - Anticubital Left Blood Culture - Preliminary No growth in 48 hours. 04/25/20 12:15 Blood Culture (Wb) - Anticubital Right Blood Culture - Preliminary No growth in 48 hours. Clinical Impression(s) from Imaging Studies Chest X-Ray 04/25/20 13:10 IMPRESSION: Patchy infiltrate in the medial aspect of the right upper lobe as well as in the left lower lobe. Electronically Signed: Jamar Howard MD at 13:46 EST , Service support , Chest X-Ray 04/26/20 10:26 IMPRESSION: Progressive infiltration in both lungs worse in the left hemithorax. The tip of the endotracheal tube is at 3.9 cm proximal to the shyla. The tip of the orogastric tube is in the body of the stomach. Electronically Signed: Jamar Howard MD at 11:21 EST , Service support , Chest X-Ray 04/26/20 15:50 IMPRESSION: Grossly satisfactory positioning of right IJ line with no pneumothorax. Improved expansion and aeration of both lungs since exam of earlier today. Electronically Signed: Drew Cazares MD at 17:05 EST , Service support , Medical Necessity - Tobacco Use Smoking Status: Never smoker Tobacco Use: Non-smoker Assessment/Plan All Active Problems Femoral neck fracture (Acute) COVID-19 (Acute) Hypoxia (Acute) Acute respiratory failure with hypoxia (Resolved) Asthma exacerbation with COPD (chronic obstructive pulmonary disease) (Resolved) RECOMMENDATIONS: 1. Continue patient on assist control mode of mechanical ventilation and wean FiO2 and PEEP to maintain saturations at or above 90%. 2. Okay to transition from IV amiodarone to p.o. route. 3. Continue remdesivir to complete treatment course. Continue to monitor liver and renal function accordingly. 4. Continue Decadron to complete 10-day treatment course. 5. Continue therapeutic Lovenox. 6. Continue tube feeds as tolerated. 7. Continue appropriate GI prophylaxis. IMPRESSIONS: 1. Acute hypoxemic respiratory failure secondary to COVID-19 pneumonia in the setting of suspected COPD/asthma Plan to continue current supportive measures including invasive mechanical ventilatory support with a goal to wean FiO2 and PEEP to maintain oxygen saturations at or above 90%. The patient will be continued on remdesivir to complete his treatment course. Liver and renal function will be monitored accordingly. The patient will also be continued on Decadron to complete a 10- day treatment course. Continue bronchodilator therapy. Continue tube feeds as tolerated. 2. Acute on chronic kidney disease Likely prerenal in etiology. Creatinine appears back close to baseline. Continue to monitor urine output. No current indication for renal replacement therapy. 3. Metabolic encephalopathy Continue current sedation regimen with a goal to maintain a RASS of -1 to 1. 4. Advanced age/coronary artery disease/hypertension/depression Complicates care, management, recovery and prognosis. Continue home medications as indicated. TIME: 40 minutes of critical care time, independent of procedures, was spent addressing the patient's acute hypoxemic respiratory failure secondary to COVID- 19 pneumonia, acute on chronic kidney disease, metabolic encephalopathy, review of all data and collaboration with the care team. ([id number]) [id number]: [id number] Critical care first hour
--- NOTE | 2020-04-29 07:20 | PN_ITS ---
Patient Problems: Active and Suspected Problems COVID-19 (Acute) Hypoxia (Acute) Vitals/I&O's: Vital Signs Temp Pulse Resp BP Pulse Ox 99.7 F H 75 21 H 129/61 H 91 04/29/20 04:00 04/29/20 07:16 04/29/20 07:16 04/29/20 07:00 04/29/20 07:16 Oxygen Flow Rate (L/min) 92 Oxygen Delivery Method Mechanical Ventilator Weight: 86.9 kg Body Mass Index (BMI) 27.1 Intake and Output for Last 24 Hours 04/27/20 04/28/20 04/29/20 23:59 23:59 23:59 Intake Total 1250.37 / 1334.07 2000.80 / 2111.00 938.33 / 938.33 Output Total 1725 / 1825 2024 / 2024 350 / 350 Balance -474.63 / -490.93 -24.20 / 86.00 588.33 / 588.33 Microbiology Past 72 Hours 04/26/20 13:26 Sputum, Induced/Lukens Gram Stain - Final 04/26/20 13:26 Sputum, Induced/Lukens Respiratory Culture - Preliminary Yeast Like Organism 04/25/20 12:35 Blood Culture (Wb) #2 - Anticubital Left Blood Culture - Preliminary No growth in 48 hours. 04/25/20 12:15 Blood Culture (Wb) - Anticubital Right Blood Culture - Preliminary No growth in 48 hours. Laboratory Results 04/29/20 03:45: WBC 12.9 H, RBC 3.59 L, Hgb 10.6 L, Hct 32.2 L, MCV 89.7, MCH 29.5, MCHC 32.9, RDW Std Deviation 47.8 H, RDW Coeff of Lou 14.5, Plt Count 249, MPV 10.2 04/29/20 03:45: Sodium 144, Potassium 4.0, Chloride 112 H, Carbon Dioxide 25.0, Anion Gap 7, BUN 76 H, Creatinine 1.67 H, Estim Creat Clear Calc 33.39, Est GFR (MDRD) Af Amer 50 L, Est GFR (MDRD) Non-Af 42 L, BUN/Creatinine Ratio 45.5 H, Glucose 157 H, Calcium 8.1 L, Total Bilirubin 0.50, AST 25, ALT 23, Alkaline Phosphatase 95, Total Protein 5.8 L, Albumin 2.2 L, Globulin 3.6, Albumin/Globulin Ratio 0.6 L Current Medications Acetaminophen (Acetaminophen 650 Mg/20 Ml Udc) 650 mg GT Q6H PRN PRN PRN Reason: Pain Score 1-10/Temp > 100.7 F Al Hydroxide/Mg Hydroxide (Mag Hydrox/Al Hydrox/Simeth 30 Ml Udc) 30 ml GT Q6H PRN PRN PRN Reason: Gastric Burning Albuterol Sulfate (Albuterol Ih 8.5 Gm (Proair) Inhaler (200 Puffs)) 2 puff INHALATION Q4H PRN PRN PRN Reason: SOB &/OR WHEEZING Aspirin (Aspirin 81 Mg Tab.Chew) 81 mg GT DAILY [facility] Last Admin: 04/28/20 09:37 Dose: 81 mg Documented by: Atorvastatin Calcium (Atorvastatin Calcium 40 Mg Tablet) 40 mg GT QHS [facility] Last Admin: 04/28/20 21:35 Dose: 40 mg Documented by: Chlorhexidine Gluconate (Chlorhexidine Gluc 2% Cloth 1 Each Towelette) 1 each TOPICAL DAILY [facility] Last Admin: 04/28/20 08:22 Dose: 1 each Documented by: Chlorhexidine Gluconate (Chlorhexidine 15 Ml) 15 ml PO BID [facility] Last Admin: 04/28/20 21:35 Dose: 15 ml Documented by: Clopidogrel Bisulfate (Clopidogrel Bisulfate 75 Mg Tablet) 75 mg GT DAILY [facility] Last Admin: 04/28/20 09:37 Dose: 75 mg Documented by: Dexamethasone Sodium Phosphate (Dexamethasone 10 Mg/Ml Vial) 6 mg IV DAILY [facility] Last Admin: 04/28/20 09:40 Dose: 6 mg Documented by: Enoxaparin Sodium (Enoxaparin 80 Mg/0.8 Ml Syringe) 80 mg SC BID [facility] Last Admin: 04/28/20 21:36 Dose: 80 mg Documented by: Famotidine (Famotidine 20 Mg Tablet) 20 mg GT DAILY [facility] Last Admin: 04/28/20 09:38 Dose: 20 mg Documented by: Finasteride (Finasteride 5 Mg Tablet) 5 mg PO QHS [facility] Last Admin: 04/28/20 21:36 Dose: 5 mg Documented by: Haloperidol Lactate (Haloperidol Lactate 5 Mg/Ml Vial) 5 mg IV Q4H PRN PRN PRN Reason: AGITATION Last Admin: 04/26/20 06:55 Dose: 5 mg Documented by: Propofol (Diprivan) 1,000 mg in 100 mls @ 5.214 mls/hr CONT INF .Q12H [facility]; Protocol Last Admin: 04/29/20 05:59 Dose: 10 mcg/kg/min, 5.2 mls/hr Documented by: Fentanyl Citrate 1,000 mcg/ (Sodium Chloride) 100 mls @ 5 mls/hr CONT INF .Q20H [facility]; Protocol Last Titration: 04/29/20 06:00 Dose: 50 mcg/hr, 5 mls/hr Documented by: Remdesivir 100 mg/ Sodium (Chloride) 250 mls @ 125 mls/hr IV DAILY [facility]; Protoco l Stop: 04/30/20 11:59 Last Infusion: 04/28/20 18:55 Dose: Infused Documented by: Enteral Nutritional Formula (Vital Af 1.2 Wil Liquid) 1,000 mls @ 60 mls/hr GT .[id number] [facility] Last Admin: 04/28/20 16:31 Dose: 60 mls/hr Documented by: Amiodarone HCl 360 mg/ (Dextrose) 200 mls @ 16.667 mls/hr CONT INF .Q12H [facility] Last Admin: 04/28/20 22:00 Dose: 0.5 mg/min, 16.7 mls/hr Documented by: Loratadine (Loratadine 10 Mg Tablet) 10 mg GT DAILY [facility] Last Admin: 04/28/20 09:38 Dose: 10 mg Documented by: Metoprolol Tartrate (Metoprolol Tartrate 25 Mg Tablet) 25 mg GT BID [facility] Last Admin: 04/28/20 21:36 Dose: Not Given Documented by: Senna/Docusate Sodium (Senna/Docusate Sodium 1 Tablet) 2 tablet GT BID [facility] Last Admin: 04/28/20 21:36 Dose: 2 tablet Documented by: Sertraline HCl (Sertraline 50 Mg Tablet) 50 mg GT DAILY [facility] Last Admin: 04/28/20 09:37 Dose: 50 mg Documented by: Sodium Chloride (0.9% Saline Lock 10 Ml Syringe) 10 - 40 ml IV UD PRN PRN Reason: SALINE FLUSH Last Admin: 04/26/20 10:50 Dose: 30 ml Documented by: STROKE Vital Signs/Narrative: Vital Signs Temp Pulse Resp BP Pulse Ox 04/29/20 07:16 75 21 H 91 04/29/20 07:00 70 17 129/61 H 93 04/29/20 06:00 70 18 129/61 H 92 04/29/20 05:00 76 21 H 144/68 H 93 04/29/20 04:00 99.7 F H 70 23 H 125/56 H 93 04/29/20 03:30 66 24 H 87 Medical Necessity - Tobacco Use Smoking Status: Never smoker Tobacco Use: Non-smoker Assessment/Plan All Active Problems Femoral neck fracture (Acute) COVID-19 (Acute) Hypoxia (Acute) Acute respiratory failure with hypoxia (Resolved) Asthma exacerbation with COPD (chronic obstructive pulmonary disease) (Resolved)
--- NOTE | 2020-04-29 07:23 | PCM.PN.HOSP ---
Patient Problems: Active and Suspected Problems COVID-19 (Acute) Hypoxia (Acute) Reason for Visit: Acute respiratory failure COVID-19 pneumonia Subjective: 84-year-old gentleman from a [place] admitted with progressive shortness of breath. An assessment of acute hypoxic respiratory failure secondary to acute COVID-19 pneumonia made admitted to the intensive care unit. Patient condition deteriorated resulting in patient being intubated on 04/26/2020 Objective: GENERAL: Sedated on the vent HEENT: Atraumatic; EYES; Anicteric, Normal Conjunctiva NECK; supple, normal thyroid, RESPIRATORY: Diminished to auscultation CARDIOVASCULAR: Regular S1 S2, GI: soft, normoactive bowel sounds, : No Renal angle tenderness; EXTREMITIES: No edema, no clubbing, MUSCULOSKELETAL: no muscle waisting NEURO: Awake; no lateralizing signs. SKIN: No Rash PSYCH; Sedated on the vent Vitals/I&O's: Vital Signs Temp Pulse Resp BP Pulse Ox 99.7 F H 75 21 H 129/61 H 91 04/29/20 04:00 04/29/20 07:16 04/29/20 07:16 04/29/20 07:00 04/29/20 07:16 Oxygen Flow Rate (L/min) 92 Oxygen Delivery Method Mechanical Ventilator Weight: 86.9 kg Body Mass Index (BMI) 27.1 Intake and Output for Last 24 Hours 04/27/20 04/28/20 04/29/20 23:59 23:59 23:59 Intake Total 1250.37 / 1334.07 2000.80 / 2111.00 938.33 / 938.33 Output Total 1725 / 1825 2024 350 / 350 Balance -474.63 / -490.93 -24.20 / 86.00 588.33 / 588.33 Microbiology Past 72 Hours 04/26/20 13:26 Sputum, Induced/Lukens Gram Stain - Final 04/26/20 13:26 Sputum, Induced/Lukens Respiratory Culture - Preliminary Yeast Like Organism 04/25/20 12:35 Blood Culture (Wb) #2 - Anticubital Left Blood Culture - Preliminary No growth in 48 hours. 04/25/20 12:15 Blood Culture (Wb) - Anticubital Right Blood Culture - Preliminary No growth in 48 hours. Laboratory Results 04/29/20 03:45: WBC 12.9 H, RBC 3.59 L, Hgb 10.6 L, Hct 32.2 L, MCV 89.7, MCH 29.5, MCHC 32.9, RDW Std Deviation 47.8 H, RDW Coeff of Lou 14.5, Plt Count 249, MPV 10.2 04/29/20 03:45: Sodium 144, Potassium 4.0, Chloride 112 H, Carbon Dioxide 25.0, Anion Gap 7, BUN 76 H, Creatinine 1.67 H, Estim Creat Clear Calc 33.39, Est GFR (MDRD) Af Amer 50 L, Est GFR (MDRD) Non-Af 42 L, BUN/Creatinine Ratio 45.5 H, Glucose 157 H, Calcium 8.1 L, Total Bilirubin 0.50, AST 25, ALT 23, Alkaline Phosphatase 95, Total Protein 5.8 L, Albumin 2.2 L, Globulin 3.6, Albumin/Globulin Ratio 0.6 L Current Medications Acetaminophen (Acetaminophen 650 Mg/20 Ml Udc) 650 mg GT Q6H PRN PRN PRN Reason: Pain Score 1-10/Temp > 100.7 F Al Hydroxide/Mg Hydroxide (Mag Hydrox/Al Hydrox/Simeth 30 Ml Udc) 30 ml GT Q6H PRN PRN PRN Reason: Gastric Burning Albuterol Sulfate (Albuterol Ih 8.5 Gm (Proair) Inhaler (200 Puffs)) 2 puff INHALATION Q4H PRN PRN PRN Reason: SOB &/OR WHEEZING Aspirin (Aspirin 81 Mg Tab.Chew) 81 mg GT DAILY [facility] Last Admin: 04/28/20 09:37 Dose: 81 mg Documented by: Atorvastatin Calcium (Atorvastatin Calcium 40 Mg Tablet) 40 mg GT QHS [facility] Last Admin: 04/28/20 21:35 Dose: 40 mg Documented by: Chlorhexidine Gluconate (Chlorhexidine Gluc 2% Cloth 1 Each Towelette) 1 each TOPICAL DAILY [facility] Last Admin: 04/28/20 08:22 Dose: 1 each Documented by: Chlorhexidine Gluconate (Chlorhexidine 15 Ml) 15 ml PO BID [facility] Last Admin: 04/28/20 21:35 Dose: 15 ml Documented by: Clopidogrel Bisulfate (Clopidogrel Bisulfate 75 Mg Tablet) 75 mg GT DAILY [facility] Last Admin: 04/28/20 09:37 Dose: 75 mg Documented by: Dexamethasone Sodium Phosphate (Dexamethasone 10 Mg/Ml Vial) 6 mg IV DAILY [facility] Last Admin: 04/28/20 09:40 Dose: 6 mg Documented by: Enoxaparin Sodium (Enoxaparin 80 Mg/0.8 Ml Syringe) 80 mg SC BID [facility] Last Admin: 04/28/20 21:36 Dose: 80 mg Documented by: Famotidine (Famotidine 20 Mg Tablet) 20 mg GT DAILY [facility] Last Admin: 04/28/20 09:38 Dose: 20 mg Documented by: Finasteride (Finasteride 5 Mg Tablet) 5 mg PO QHS [facility] Last Admin: 04/28/20 21:36 Dose: 5 mg Documented by: Haloperidol Lactate (Haloperidol Lactate 5 Mg/Ml Vial) 5 mg IV Q4H PRN PRN PRN Reason: AGITATION Last Admin: 04/26/20 06:55 Dose: 5 mg Documented by: Propofol (Diprivan) 1,000 mg in 100 mls @ 5.214 mls/hr CONT INF .Q12H [facility]; Protocol Last Admin: 04/29/20 05:59 Dose: 10 mcg/kg/min, 5.2 mls/hr Documented by: Fentanyl Citrate 1,000 mcg/ (Sodium Chloride) 100 mls @ 5 mls/hr CONT INF .Q20H [facility]; Protocol Last Titration: 04/29/20 06:00 Dose: 50 mcg/hr, 5 mls/hr Documented by: Remdesivir 100 mg/ Sodium (Chloride) 250 mls @ 125 mls/hr IV DAILY [facility]; Protocol Stop: 04/30/20 11:59 Last Infusion: 04/28/20 18:55 Dose: Infused Documented by: Enteral Nutritional Formula (Vital Af 1.2 Wil Liquid) 1,000 mls @ 60 mls/hr GT .[id number] [facility] Last Admin: 04/28/20 16:31 Dose: 60 mls/hr Documented by: Amiodarone HCl 360 mg/ (Dextrose) 200 mls @ 16.667 mls/hr CONT INF .Q12H [facility] Last Admin: 04/28/20 22:00 Dose: 0.5 mg/min, 16.7 mls/hr Documented by: Loratadine (Loratadine 10 Mg Tablet) 10 mg GT DAILY [facility] Last Admin: 04/28/20 09:38 Dose: 10 mg Documented by: Metoprolol Tartrate (Metoprolol Tartrate 25 Mg Tablet) 25 mg GT BID [facility] Last Admin: 04/28/20 21:36 Dose: Not Given Documented by: Senna/Docusate Sodium (Senna/Docusate Sodium 1 Tablet) 2 tablet GT BID [facility] Last Admin: 04/28/20 21:36 Dose: 2 tablet Documented by: Sertraline HCl (Sertraline 50 Mg Tablet) 50 mg GT DAILY [facility] Last Admin: 04/28/20 09:37 Dose: 50 mg Documented by: Sodium Chloride (0.9% Saline Lock 10 Ml Syringe) 10 - 40 ml IV UD PRN PRN Reason: SALINE FLUSH Last Admin: 04/26/20 10:50 Dose: 30 ml Documented by: STROKE Vital Signs/Narrative: Vital Signs Temp Pulse Resp BP Pulse Ox 04/29/20 07:16 75 21 H 91 04/29/20 07:00 70 17 129/61 H 93 04/29/20 06:00 70 18 129/61 H 92 04/29/20 05:00 76 21 H 144/68 H 93 04/29/20 04:00 99.7 F H 70 23 H 125/56 H 93 04/29/20 03:30 66 24 H 87 Medical Necessity - Tobacco Use Smoking Status: Never smoker Tobacco Use: Non-smoker Assessment/Plan All Active Problems Femoral neck fracture (Acute) COVID-19 (Acute) Hypoxia (Acute) Acute respiratory failure with hypoxia (Resolved) Asthma exacerbation with COPD (chronic obstructive pulmonary disease) (Resolved) 84-year-old gentleman from a [place] admitted with progressive shortness of breath. An assessment of acute hypoxic respiratory failure secondary to acute COVID-19 pneumonia made admitted to the intensive care unit. Patient condition deteriorated resulting in patient being intubated on 04/26/2020 1. Acute hypoxic respiratory failure ?Secondary to acute COVID-19 pneumonia. Patient was intubated as a result of worsening respiratory symptoms. Patient condition deteriorated resulting in patient being intubated on 04/26/2020 2. Acute COVID-19 pneumonia ?Patient presented with hypoxia has been treated with dexamethasone and remdesivir with consultation placed to infectious disease and ID 3. Covid induced coagulopathy ?Patient had elevated D-dimer currently on therapeutic Lovenox plan is for CTA of the chest prior to patient being discharged 4. Chronic kidney disease stage III ?Baseline creatinine 1.3-1.7 creatinine on admission was 1.8 5. Asthma/COPD ?Aerosol treatment as needed 6. Hypertension - Blood pressure stable 7. Anemia - Secondary to chronic disorder monitoring H&H and transfuse if patient becomes symptomatic or hemoglobin falls below 7 8. DVT prophylaxis ?On therapeutic Lovenox Inpatient E&M: [id number] [facility] L3
[2020-04-29] MEDS: Polyethylene Glycol 3350 17 GM PACKET GT (11:17)
[2020-04-29] MEDS: Sertraline 50 MG Tablet GT (11:17)
[2020-04-29] MEDS: Famotidine 20 MG Tablet GT (11:18)
[2020-04-29] MEDS: Loratadine 10 MG Tablet GT (11:18)
[2020-04-29] MEDS: Clopidogrel Bisulfate 75 MG Tablet GT (11:18)
[2020-04-29] MEDS: Aspirin 81 MG TAB.CHEW GT (11:18)
[2020-04-29] MEDS: Metoprolol Tartrate 25 MG Tablet GT ×2 (11:18→21:58)
[2020-04-29] MEDS: Senna/Docusate Sodium 1 Tablet 2 TABLET GT ×2 (11:19→21:58)
[2020-04-29] MEDS: CHLORHEXIDINE GLUC 2% CLOTH 1 EACH TOWELETTE TOPICAL (11:19)
[2020-04-29] MEDS: Enoxaparin 80 MG/0.8 ML Syringe SC ×2 (11:20→21:57)
[2020-04-29] MEDS: dexAMETHasone 10 MG/ML Vial 6 MG IV (11:20)
[2020-04-29] MEDS: Amiodarone 200 MG Tablet GT ×2 (11:20→21:59)
[2020-04-29] MEDS: Chlorhexidine 15 ML PO ×2 (11:21→21:59)
--- NOTE | 2020-04-29 14:08 | PCM.PN.ID ---
Patient Problems: Active and Suspected Problems COVID-19 (Acute) Hypoxia (Acute) Subjective: On vent, no fever - Physical Exam Vitals/I&O's: Vital Signs Temp Pulse Resp BP Pulse Ox 99.9 F H 70 22 H 119/63 93 04/29/20 12:00 04/29/20 13:23 04/29/20 13:23 04/29/20 12:00 04/29/20 13:23 Oxygen Flow Rate (L/min) 92 Oxygen Delivery Method Mechanical Ventilator Weight: 86.9 kg Body Mass Index (BMI) 27.1 Intake and Output for Last 24 Hours 04/27/20 04/28/20 04/29/20 23:59 23:59 23:59 Intake Total 1250.37 / 1334.07 2000.80 / 2111.00 1281.77 / 1281.77 Output Total 1725 / 1825 2024 / 2024 750 / 750 Balance -474.63 / -490.93 -24.20 / 86.00 531.77 / 531.77 General: No apparent distress Lungs: Diminished Cardiovascular: Regular rate, Regular Rhythm Abdomen: Soft, Non Tender, Non-Distended Skin: No rashes Microbiology Past 72 Hours 04/26/20 13:26 Sputum, Induced/Lukens Gram Stain - Final 04/26/20 13:26 Sputum, Induced/Lukens Respiratory Culture - Preliminary Yeast Like Organism 04/25/20 12:35 Blood Culture (Wb) #2 - Anticubital Left Blood Culture - Preliminary No growth in 48 hours. 04/25/20 12:15 Blood Culture (Wb) - Anticubital Right Blood Culture - Preliminary No growth in 48 hours. Laboratory Results 04/29/20 03:45: WBC 12.9 H, RBC 3.59 L, Hgb 10.6 L, Hct 32.2 L, MCV 89.7, MCH 29.5, MCHC 32.9, RDW Std Deviation 47.8 H, RDW Coeff of Lou 14.5, Plt Count 249, MPV 10.2 04/29/20 03:45: Sodium 144, Potassium 4.0, Chloride 112 H, Carbon Dioxide 25.0, Anion Gap 7, BUN 76 H, Creatinine 1.67 H, Estim Creat Clear Calc 33.39, Est GFR (MDRD) Af Amer 50 L, Est GFR (MDRD) Non-Af 42 L, BUN/Creatinine Ratio 45.5 H, Glucose 157 H, Calcium 8.1 L, Total Bilirubin 0.50, AST 25, ALT 23, Alkaline Phosphatase 95, Total Protein 5.8 L, Albumin 2.2 L, Globulin 3.6, Albumin/Globulin Ratio 0.6 L Current Medications Acetaminophen (Acetaminophen 650 Mg/20 Ml Udc) 650 mg GT Q6H PRN PRN PRN Reason: Pain Score 1-10/Temp > 100.7 F Al Hydroxide/Mg Hydroxide (Mag Hydrox/Al Hydrox/Simeth 30 Ml Udc) 30 ml GT Q6H PRN PRN PRN Reason: Gastric Burning Albuterol Sulfate (Albuterol Ih 8.5 Gm (Proair) Inhaler (200 Puffs)) 2 puff INHALATION Q4H PRN PRN PRN Reason: SOB &/OR WHEEZING Amiodarone HCl (Amiodarone 200 Mg Tablet) 200 mg GT BID [facility] Last Admin: 04/29/20 11:20 Dose: 200 mg Documented by: Aspirin (Aspirin 81 Mg Tab.Chew) 81 mg GT DAILY [facility] Last Admin: 04/29/20 11:18 Dose: 81 mg Documented by: Atorvastatin Calcium (Atorvastatin Calcium 40 Mg Tablet) 40 mg GT QHS [facility] Last Admin: 04/28/20 21:35 Dose: 40 mg Documented by: Chlorhexidine Gluconate (Chlorhexidine Gluc 2% Cloth 1 Each Towelette) 1 each TOPICAL DAILY [facility] Last Admin: 04/29/20 11:19 Dose: 1 each Documented by: Chlorhexidine Gluconate (Chlorhexidine 15 Ml) 15 ml PO BID [facility] Last Admin: 04/29/20 11:21 Dose: 15 ml Documented by: Clopidogrel Bisulfate (Clopidogrel Bisulfate 75 Mg Tablet) 75 mg GT DAILY [facility] Last Admin: 04/29/20 11:18 Dose: 75 mg Documented by: Dexamethasone Sodium Phosphate (Dexamethasone 10 Mg/Ml Vial) 6 mg IV DAILY [facility] Stop: 05/04/20 23:55 Last Admin: 04/29/20 11:20 Dose: 6 mg Documented by: Enoxaparin Sodium (Enoxaparin 80 Mg/0.8 Ml Syringe) 80 mg SC BID [facility] Last Admin: 04/29/20 11:20 Dose: 80 mg Documented by: Famotidine (Famotidine 20 Mg Tablet) 20 mg GT DAILY [facility] Last Admin: 04/29/20 11:18 Dose: 20 mg Documented by: Finasteride (Finasteride 5 Mg Tablet) 5 mg PO QHS [facility] Last Admin: 04/28/20 21:36 Dose: 5 mg Documented by: Haloperidol Lactate (Haloperidol Lactate 5 Mg/Ml Vial) 5 mg IV Q4H PRN PRN PRN Reason: AGITATION Last Admin: 04/26/20 06:55 Dose: 5 mg Documented by: Propofol (Diprivan) 1,000 mg in 100 mls @ 5.214 mls/hr CONT INF .Q12H [facility]; Protocol Last Admin: 04/29/20 11:43 Dose: Not Given Documented by: Fentanyl Citrate 1,000 mcg/ (Sodium Chloride) 100 mls @ 5 mls/hr CONT INF .Q20H [facility]; Protocol Last Admin: 04/29/20 11:45 Dose: 50 mcg/hr, 5 mls/hr Documented by: Remdesivir 100 mg/ Sodium (Chloride) 250 mls @ 125 mls/hr IV DAILY [facility]; Protocol Stop: 04/30/20 11:59 Last Admin: 04/29/20 11:55 Dose: 125 mls/hr Documented by: Enteral Nutritional Formula (Vital Af 1.2 Wil Liquid) 1,000 mls @ 60 mls/hr GT .[id number] [facility] Last Admin: 04/28/20 16:31 Dose: 60 mls/hr Documented by: Loratadine (Loratadine 10 Mg Tablet) 10 mg GT DAILY [facility] Last Admin: 04/29/20 11:18 Dose: 10 mg Documented by: Metoprolol Tartrate (Metoprolol Tartrate 25 Mg Tablet) 25 mg GT BID [facility] Last Admin: 04/29/20 11:18 Dose: 25 mg Documented by: Polyethylene Glycol (Polyethylene Glycol 3350 17 Gm Packet) 17 gm GT DAILY [facility] Last Admin: 04/29/20 11:17 Dose: 17 gm Documented by: Senna/Docusate Sodium (Senna/Docusate Sodium 1 Tablet) 2 tablet GT BID [facility] Last Admin: 04/29/20 11:19 Dose: 2 tablet Documented by: Sertraline HCl (Sertraline 50 Mg Tablet) 50 mg GT DAILY [facility] Last Admin: 04/29/20 11:17 Dose: 50 mg Documented by: Sodium Chloride (0.9% Saline Lock 10 Ml Syringe) 10 - 40 ml IV UD PRN PRN Reason: SALINE FLUSH Last Admin: 04/26/20 10:50 Dose: 30 ml Documented by: Medical Necessity - Tobacco Use Smoking Status: Never smoker Tobacco Use: Non-smoker Route of nutrition/ use of supplements: [] Nutritional Intake: [] IV Site: [] Bennett Catheter: [] - Assessment/Plan Antibiotics: [] Assessment/Plan: [] Active and Suspected Problems COVID-19 (Acute) Hypoxia (Acute) covid with hypoxia - on vent. On dex. On therapeutic lovenox. D-dimer 1.7. Cont remdesivir. Will follow
[2020-04-29] MEDS: Vital AF 1.2 Cal Liquid 1,000 ML 60 ML GT (14:44)
[2020-04-29] MEDS: Finasteride 5 MG Tablet PO (21:58)
[2020-04-29] MEDS: Atorvastatin Calcium 40 MG Tablet GT (21:59)
[2020-04-30] VITALS (38 sets, daily range): BP systolic 95–137; BP diastolic 33–74; PULSE 66–139; RESP 11–34; TEMP 37.2–38.1; O2SAT 79–98
[2020-04-30] MEDS: Propofol 10MG/Ml 1,000 MG/100 ML Bottle 5.2 MG CONT INF (02:30)
[2020-04-30 03:49] LABS: Hematocrit 34.7 % (40-54); Hemoglobin 11.3 g/dL (13.0-16.5); Mean Corp Hgb Conc 32.6 g/dL (32-36); Mean Corpuscular Hgb 29.4 pg (27.0-32.0); Mean Corpuscular Volume 90.1 fL (80-94); Mean Platelet Vol. 10.6 fl (6.2-12.0); Platelet Count 296 K/mm3 (150-450); RBC Distribution Width CV 14.7 % (11.6-14.6); RBC Distribution Width SD 48.8 fl (35.1-43.9); Red Blood Count 3.85 M/mm3 (4.6-6.2); White Blood Count 17.2 K/mm3 (4.4-11.0)
[2020-04-30 04:06] LABS: ALB/GLOB Ratio 0.5 RATIO (0.9-2.4); AST(SGOT) 34 U/L (15-37); Alanine Aminotransfer ALT/SGPT 22 U/L (16-61); Albumin, Serum 2.1 g/dL (3.2-5.0); Alkaline Phosphatase 102 U/L (45-117); Anion Gap 6 (5-15); BUN 76 mg/dL (7-18); BUN/Creat Ratio 50.7 RATIO (10-20); Calcium,Total 8.2 mg/dL (8.5-10.1); Chloride 113 mmol/L (98-107); EST Glomerular Filtration Rate 47 mL/min (>60); Est Glom Filt Rate - Afr Amer 57 mL/min (>60); Estimated Creatinine Clearance 37.18 ml/min; Globulin 4.1 g/dL (2.2-4.2); Glucose 161 mg/dL (74-106); Potassium 4.2 mmol/L (3.5-5.1); Protein, Total 6.2 g/dL (6.4-8.2); Sodium Level 144 mmol/L (136-145)
--- NOTE | 2020-04-30 05:57 | PN_ITS ---
Subjective: The patient was seen and examined at the bedside this morning. Events from the last 24 hours have been reviewed. The patient currently has some low-grade fevers. The patient's hemodynamics are quite labile this morning. In addition, the patient's FiO2 and PEEP requirements increased overnight to 100% and 14, respectively. The patient did have a small bowel movement overnight. Creatinine is stable at 1.50. The patient is currently documented to be overall net +1.3 L for the hospital admission. The patient remains on remdesivir, Decadron and therapeutic Lovenox. He is currently tolerating tube feeds. Objective: The patient's most recent lab work, culture data and imaging studies have all been personally reviewed. Blood cultures have shown no growth to date. General: - - Remains intubated, sedated and mechanically ventilated. HEENT: Atraumatic, PERRLA, Normocephalic Oral: No Gingival or Mucosal Lesions/ Ulcerations, - - Endotracheal and OG tubes in place Neck: Supple, No Nodes, Trachea Midline Lungs: No rhonchi, No wheeze, No rales, Diminished, Tachypneic Cardiovascular: Regular rate, Regular Rhythm, Normal S1, Normal S2, Murmur Abdomen: Bowel Sounds Present, Soft, Non Tender Extremities: No clubbing, No cyanosis, No edema Skin: No breakdown Musculoskeletal: No Tenderness to Palpation of Joints or Extremities Lymphatic: No Cervical, Supraclavicular, or Inguinal Adenopathy Neurological: - - No focal neurological deficits. Remains sedated with a RASS of -1. Vital Signs Temp Pulse Resp BP Pulse Ox 100.3 F H 81 26 H 101/47 L 95 04/30/20 05:00 04/30/20 05:00 04/30/20 05:00 04/30/20 05:00 04/30/20 05:00 Oxygen Flow Rate (L/min) 92 Oxygen Delivery Method Mechanical Ventilator Weight: 191 lb 9.307 oz Body Mass Index (BMI) 27.1 Intake and Output for Last 24 Hours 04/28/20 04/29/20 04/30/20 23:59 23:59 23:59 Intake Total 1999.80 / 2111.00 3157.73 / 3170.43 523.7 / 523.7 Output Total 2024 / 2024 1615 / 1615 355 / 355 Balance -24.20 / 86.00 1542.73 / 1555.43 168.7 / 168.7 Labs (Last 48 Hours) 04/29/20 04/29/20 04/30/20 03:45 03:45 03:40 WBC 12.9 H 17.2 H RBC 3.59 L 3.85 L Hgb 10.6 L 11.3 L Hct 32.2 L 34.7 L MCV 89.7 90.1 MCH 29.5 29.4 MCHC 32.9 32.6 RDW Std Deviation 47.8 H 48.8 H RDW Coeff of Lou 14.5 14.7 H Plt Count 249 296 MPV 10.2 10.6 Sodium 144 Potassium 4.0 Chloride 112 H Carbon Dioxide 25.0 Anion Gap 7 BUN 76 H Creatinine 1.67 H Estim Creat Clear Calc 33.39 Est GFR (MDRD) Af Amer 50 L Est GFR (MDRD) Non-Af 42 L BUN/Creatinine Ratio 45.5 H Glucose 157 H Calcium 8.1 L Total Bilirubin 0.50 AST 25 ALT 23 Alkaline Phosphatase 95 Total Protein 5.8 L Albumin 2.2 L Globulin 3.6 Albumin/Globulin Ratio 0.6 L 04/30/20 03:40 WBC RBC Hgb Hct MCV MCH MCHC RDW Std Deviation RDW Coeff of Lou Plt Count MPV Sodium 144 Potassium 4.2 Chloride 113 H Carbon Dioxide 25.0 Anion Gap 6 BUN 76 H Creatinine 1.50 H Estim Creat Clear Calc 37.18 Est GFR (MDRD) Af Amer 57 L Est GFR (MDRD) Non-Af 47 L BUN/Creatinine Ratio 50.7 H Glucose 161 H Calcium 8.2 L Total Bilirubin 0.50 AST 34 ALT 22 Alkaline Phosphatase 102 Total Protein 6.2 L Albumin 2.1 L Globulin 4.1 Albumin/Globulin Ratio 0.5 L Microbiology 04/26/20 13:26 Sputum, Induced/Lukens Gram Stain - Final 04/26/20 13:26 Sputum, Induced/Lukens Respiratory Culture - Final Yeast, not Ritu albicans Clinical Impression(s) from Imaging Studies Chest X-Ray 04/25/20 13:10 IMPRESSION: Patchy infiltrate in the medial aspect of the right upper lobe as well as in the left lower lobe. Electronically Signed: Jamar Howard MD at 13:46 EST , Service support , Chest X-Ray 04/26/20 10:26 IMPRESSION: Progressive infiltration in both lungs worse in the left hemithorax. The tip of the endotracheal tube is at 3.9 cm proximal to the shyla. The tip of the orogastric tube is in the body of the stomach. Electronically Signed: Jamar Howard MD at 11:21 EST , Service support , Chest X-Ray 04/26/20 15:50 IMPRESSION: Grossly satisfactory positioning of right IJ line with no pneumothorax. Improved expansion and aeration of both lungs since exam of earlier today. Electronically Signed: Drew Cazares MD at 17:05 EST , Service support , Medical Necessity - Tobacco Use Smoking Status: Never smoker Tobacco Use: Non-smoker Assessment/Plan All Active Problems Femoral neck fracture (Acute) COVID-19 (Acute) Hypoxia (Acute) Acute respiratory failure with hypoxia (Resolved) Asthma exacerbation with COPD (chronic obstructive pulmonary disease) (Resolved) RECOMMENDATIONS: 1. Continue patient on assist control mode of mechanical ventilation and wean FiO2 and PEEP to maintain saturations at or above 90%. 2. Continue amiodarone as ordered. 3. Obtain repeat chest x-ray this morning and arterial blood gas. 4. Continue remdesivir to complete treatment course. Continue to monitor liver and renal function accordingly. 5. Continue Decadron to complete 10-day treatment course. 6. Continue therapeutic Lovenox. 7. Continue tube feeds as tolerated. 8. Continue appropriate GI prophylaxis. IMPRESSIONS: 1. Acute hypoxemic respiratory failure secondary to COVID-19 pneumonia in the setting of suspected COPD/asthma Plan to continue current supportive measures including invasive mechanical ventilatory support with a goal to wean FiO2 and PEEP to maintain oxygen saturations at or above 90%. The patient will be continued on remdesivir to complete his treatment course. Liver and renal function will be monitored accordingly. The patient will also be continued on Decadron to complete a 10- day treatment course. Continue bronchodilator therapy. Continue tube feeds as tolerated. Continue systemic anticoagulation with Lovenox. Restart home Bumex. 2. Acute on chronic kidney disease Likely prerenal in etiology. Creatinine appears back close to baseline. Continue to monitor urine output. No current indication for renal replacement therapy. 3. Metabolic encephalopathy Continue current sedation regimen with a goal to maintain a RASS of -1 to 1. 4. Advanced age/coronary artery disease/hypertension/depression Complicates care, management, recovery and prognosis. Continue home medications as indicated. TIME: 34 minutes of critical care time, independent of procedures, was spent addressing the patient's acute hypoxemic respiratory failure secondary to COVID- 19 pneumonia, acute on chronic kidney disease, metabolic encephalopathy, review of all data and collaboration with the care team. [id number]) [phone]: [id number] Critical care first hour
--- NOTE | 2020-04-30 05:59 | RAD_ITS ---
STUDY: X-RAY CHEST REASON FOR EXAM: Male, 84 years old. RESPIRATORY FAILURE -- COVID TECHNIQUE: Single AP portable view of the chest. COMPARISON: April 26, 2020 chest x-ray FINDINGS: There is a right-sided central line the tip in the superior vena cava. An endotracheal tube is present 3.8 cm above the shyla. An NG tube is present the tip is in the stomach. There is persistent focal density in the right midlung zone hazy opacities in the left lower lobe. There is no demonstrated pleural abnormality. There is borderline cardiomegaly. There are calcified mediastinal lymph nodes. Normal visualized pulmonary arteries. There is atherosclerotic calcification of the aortic arch with tortuosity. There are diffuse degenerative changes of the visualized thoracic spine. Normal visualized ribs, clavicles, and shoulders. There is no demonstrated abnormality of the visualized soft tissue structures of the upper abdomen. RAD/Chest 1 View (Portable) IMPRESSION: Findings suspicious for multifocal infiltrates. Lines as detailed above. Unchanged since prior study. Electronically Signed: Maranda Laboy MD at 7:07 EST Tel , Service support ,
[2020-04-30] MEDS: Vital AF 1.2 Cal Liquid 1,000 ML 60 ML GT ×2 (06:20→22:24)
--- NOTE | 2020-04-30 07:17 | PN_ITS ---
Patient Problems: Active and Suspected Problems COVID-19 (Acute) Hypoxia (Acute) Reason for Visit: Acute respiratory failure COVID-19 pneumonia Subjective: 84-year-old gentleman from a alf admitted with progressive shortness of breath. An assessment of acute hypoxic respiratory failure secondary to acute COVID-19 pneumonia made admitted to the intensive care unit. Patient condition deteriorated resulting in patient being intubated on 04/26/2020 03/30/2020; patient oxygen requirement increasing currently 100% FiO2 and PEEP of 14 Objective: GENERAL: Sedated on the vent HEENT: Atraumatic; EYES; Anicteric, Normal Conjunctiva NECK; supple, normal thyroid, RESPIRATORY: Diminished to auscultation CARDIOVASCULAR: Regular S1 S2, GI: soft, normoactive bowel sounds, : No Renal angle tenderness; EXTREMITIES: No edema, no clubbing, MUSCULOSKELETAL: no muscle waisting NEURO: Awake; no lateralizing signs. SKIN: No Rash PSYCH; Sedated on the vent Vitals/I&O's: Vital Signs Temp Pulse Resp BP Pulse Ox 100.3 F H 82 28 H 127/44 H 92 04/30/20 07:00 04/30/20 07:09 04/30/20 07:09 04/30/20 07:00 04/30/20 07:09 Oxygen Flow Rate (L/min) 92 Oxygen Delivery Method Mechanical Ventilator Weight: 89.1 kg Body Mass Index (BMI) 27.1 Intake and Output for Last 24 Hours 04/28/20 04/29/20 04/30/20 23:59 23:59 23:59 Intake Total 2000.80 / 2111.00 3157.73 / 3170.43 554.1 / 554.1 Output Total 2024 1615 / 1615 355 / 355 Balance -24.20 / 86.00 1542.73 / 1555.43 199.1 / 199.1 Microbiology Past 72 Hours 04/26/20 13:26 Sputum, Induced/Lukens Gram Stain - Final 04/26/20 13:26 Sputum, Induced/Lukens Respiratory Culture - Final Yeast, not Ritu albicans 04/25/20 12:35 Blood Culture (Wb) #2 - Anticubital Left Blood Culture - Preliminary No growth in 48 hours. 04/25/20 12:15 Blood Culture (Wb) - Anticubital Right Blood Culture - Preliminary No growth in 48 hours. Laboratory Results 04/30/20 03:40: WBC 17.2 H, RBC 3.85 L, Hgb 11.3 L, Hct 34.7 L, MCV 90.1, MCH 29.4, MCHC 32.6, RDW Std Deviation 48.8 H, RDW Coeff of Lou 14.7 H, Plt Count 296, MPV 10.6 04/30/20 03:40: Sodium 144, Potassium 4.2, Chloride 113 H, Carbon Dioxide 25.0, Anion Gap 6, BUN 76 H, Creatinine 1.50 H, Estim Creat Clear Calc 37.18, Est GFR (MDRD) Af Amer 57 L, Est GFR (MDRD) Non-Af 47 L, BUN/Creatinine Ratio 50.7 H, Glucose 161 H, Calcium 8.2 L, Total Bilirubin 0.50, AST 34, ALT 22, Alkaline Phosphatase 102, Total Protein 6.2 L, Albumin 2.1 L, Globulin 4.1, Albumin/Globulin Ratio 0.5 L Current Medications Acetaminophen (Acetaminophen 650 Mg/20 Ml Udc) 650 mg GT Q6H PRN PRN PRN Reason: Pain Score 1-10/Temp > 100.7 F Al Hydroxide/Mg Hydroxide (Mag Hydrox/Al Hydrox/Simeth 30 Ml Udc) 30 ml GT Q6H PRN PRN PRN Reason: Gastric Burning Albuterol Sulfate (Albuterol Ih 8.5 Gm (Proair) Inhaler (200 Puffs)) 2 puff INHALATION Q4H PRN PRN PRN Reason: SOB &/OR WHEEZING Amiodarone HCl (Amiodarone 200 Mg Tablet) 200 mg GT BID [facility] Last Admin: 04/29/20 21:59 Dose: 200 mg Documented by: Aspirin (Aspirin 81 Mg Tab.Chew) 81 mg GT DAILY [facility] Last Admin: 04/29/20 11:18 Dose: 81 mg Documented by: Atorvastatin Calcium (Atorvastatin Calcium 40 Mg Tablet) 40 mg GT QHS [facility] Last Admin: 04/29/20 21:59 Dose: 40 mg Documented by: Chlorhexidine Gluconate (Chlorhexidine Gluc 2% Cloth 1 Each Towelette) 1 each TOPICAL DAILY [facility] Last Admin: 04/29/20 11:19 Dose: 1 each Documented by: Chlorhexidine Gluconate (Chlorhexidine 15 Ml) 15 ml PO BID [facility] Last Admin: 04/29/20 21:59 Dose: 15 ml Documented by: Clopidogrel Bisulfate (Clopidogrel Bisulfate 75 Mg Tablet) 75 mg GT DAILY [facility] Last Admin: 04/29/20 11:18 Dose: 75 mg Documented by: Dexamethasone Sodium Phosphate (Dexamethasone 10 Mg/Ml Vial) 6 mg IV DAILY [facility] Stop: 05/04/20 23:55 Last Admin: 04/29/20 11:20 Dose: 6 mg Documented by: Enoxaparin Sodium (Enoxaparin 80 Mg/0.8 Ml Syringe) 80 mg SC BID [facility] Last Admin: 04/29/20 21:57 Dose: 80 mg Documented by: Famotidine (Famotidine 20 Mg Tablet) 20 mg GT DAILY [facility] Last Admin: 04/29/20 11:18 Dose: 20 mg Documented by: Finasteride (Finasteride 5 Mg Tablet) 5 mg PO QHS [facility] Last Admin: 04/29/20 21:58 Dose: 5 mg Documented by: Haloperidol Lactate (Haloperidol Lactate 5 Mg/Ml Vial) 5 mg IV Q4H PRN PRN PRN Reason: AGITATION Last Admin: 04/26/20 06:55 Dose: 5 mg Documented by: Propofol (Diprivan) 1,000 mg in 100 mls @ 5.214 mls/hr CONT INF .Q12H [facility]; Protocol Last Titration: 04/30/20 07:00 Dose: 10 mcg/kg/min, 5.2 mls/hr Documented by: Fentanyl Citrate 1,000 mcg/ (Sodium Chloride) 100 mls @ 5 mls/hr CONT INF .Q20H [facility]; Protocol Last Titration: 04/30/20 07:00 Dose: 100 mcg/hr, 10 mls/hr Documented by: Remdesivir 100 mg/ Sodium (Chloride) 250 mls @ 125 mls/hr IV DAILY [facility]; Protocol Stop: 04/30/20 11:59 Last Infusion: 04/29/20 14:44 Dose: Infused Documented by: Enteral Nutritional Formula (Vital Af 1.2 Wil Liquid) 1,000 mls @ 60 mls/hr GT .[id number] [facility] Last Admin: 04/30/20 06:20 Dose: 60 mls/hr Documented by: Loratadine (Loratadine 10 Mg Tablet) 10 mg GT DAILY [facility] Last Admin: 04/29/20 11:18 Dose: 10 mg Documented by: Metoprolol Tartrate (Metoprolol Tartrate 25 Mg Tablet) 25 mg GT BID [facility] Last Admin: 04/29/20 21:58 Dose: 25 mg Documented by: Polyethylene Glycol (Polyethylene Glycol 3350 17 Gm Packet) 17 gm GT DAILY [facility] Last Admin: 04/29/20 11:17 Dose: 17 gm Documented by: Senna/Docusate Sodium (Senna/Docusate Sodium 1 Tablet) 2 tablet GT BID [facility] Last Admin: 04/29/20 21:58 Dose: 2 tablet Documented by: Sertraline HCl (Sertraline 50 Mg Tablet) 50 mg GT DAILY [facility] Last Admin: 04/29/20 11:17 Dose: 50 mg Documented by: Sodium Chloride (0.9% Saline Lock 10 Ml Syringe) 10 - 40 ml IV UD PRN PRN Reason: SALINE FLUSH Last Admin: 04/26/20 10:50 Dose: 30 ml Documented by: STROKE Vital Signs/Narrative: Vital Signs Temp Pulse Resp BP Pulse Ox 04/30/20 07:09 82 28 H 92 04/30/20 07:00 100.3 F H 84 28 H 127/44 H 87 04/30/20 06:00 100.5 F H 86 31 H 119/55 L 83 04/30/20 05:00 100.3 F H 81 26 H 101/47 L 95 04/30/20 04:37 109 H 24 H 92 04/30/20 04:00 99.9 F H 139 H 21 H 121/74 H 98 Medical Necessity - Tobacco Use Smoking Status: Never smoker Tobacco Use: Non-smoker Assessment/Plan All Active Problems Femoral neck fracture (Acute) COVID-19 (Acute) Hypoxia (Acute) Acute respiratory failure with hypoxia (Resolved) Asthma exacerbation with COPD (chronic obstructive pulmonary disease) (Resolved) 84-year-old gentleman from a alf admitted with progressive shortness of breath. An assessment of acute hypoxic respiratory failure secondary to acute COVID-19 pneumonia made admitted to the intensive care unit. Patient condition deteriorated resulting in patient being intubated on 04/26/2020 1. Acute hypoxic respiratory failure ?Secondary to acute COVID-19 pneumonia. Patient was intubated as a result of worsening respiratory symptoms. Patient condition deteriorated resulting in patient being intubated on 04/26/2020 - 03/30/2020; patient oxygen requirement increasing currently 100% FiO2 and PEEP of 14 2. Acute COVID-19 pneumonia ?Patient presented with hypoxia has been treated with dexamethasone and remdesivir with consultation placed to infectious disease and ID 3. Covid induced coagulopathy ?Patient had elevated D-dimer currently on therapeutic Lovenox plan is for CTA of the chest prior to patient being discharged 4. Chronic kidney disease stage III ?Baseline creatinine 1.3-1.7 creatinine on admission was 1.8 5. Asthma/COPD ?Aerosol treatment as needed 6. Hypertension - Blood pressure stable 7. Anemia - Secondary to chronic disorder monitoring H&H and transfuse if patient becomes symptomatic or hemoglobin falls below 7 8. DVT prophylaxis ?On therapeutic Lovenox Inpatient E&M: [id number] [facility] Hosp L3
[2020-04-30 07:35] LABS: Allen Test Positive; Base Excess -4 mmol/L (-2 to +2); Bicarbonate 21.1 mmol/L (22-26); Blood Gas Specimen Type ART; FI02 100; Mode AC; O2 Delivery Device Adult Vent; PEEP 14; PO2 61 mmHG (75-100); RR 14; SITE R Radial; SO2 91 % (95-99); Total Carbon Dioxide 22 mmol/L; Vt 450; pCO2 35.4 mmHg (35-45); pH 7.38 (7.35-7.45)
[2020-04-30] MEDS: Chlorhexidine 15 ML PO ×2 (08:55→22:24)
[2020-04-30] MEDS: Enoxaparin 80 MG/0.8 ML Syringe SC (08:56)
[2020-04-30] MEDS: Polyethylene Glycol 3350 17 GM PACKET GT (08:56)
[2020-04-30] MEDS: Senna/Docusate Sodium 1 Tablet 2 TABLET GT ×2 (08:57→22:25)
[2020-04-30] MEDS: Aspirin 81 MG TAB.CHEW GT (08:57)
[2020-04-30] MEDS: Loratadine 10 MG Tablet GT (08:58)
[2020-04-30] MEDS: Metoprolol Tartrate 25 MG Tablet GT ×2 (08:59→22:26)
[2020-04-30] MEDS: Sertraline 50 MG Tablet GT (08:59)
[2020-04-30] MEDS: Famotidine 20 MG Tablet GT (09:00)
[2020-04-30] MEDS: Amiodarone 200 MG Tablet GT ×2 (09:00→22:27)
[2020-04-30] MEDS: Bumetanide 0.5 MG Tablet 1 MG PO (09:00)
[2020-04-30] MEDS: Clopidogrel Bisulfate 75 MG Tablet GT (09:00)
[2020-04-30] MEDS: dexAMETHasone 10 MG/ML Vial 6 MG IV (09:00)
--- NOTE | 2020-04-30 09:55 | PN.ID_ITS ---
Patient Problems: Active and Suspected Problems COVID-19 (Acute) Hypoxia (Acute) Subjective: O2 now at 100%, low grade fever - Physical Exam Vitals/I&O's: Vital Signs Temp Pulse Resp BP Pulse Ox 100.5 F H 84 20 H 120/50 L 90 04/30/20 07:44 04/30/20 08:59 04/30/20 07:44 04/30/20 08:59 04/30/20 07:44 Oxygen Flow Rate (L/min) 92 Oxygen Delivery Method Mechanical Ventilator Weight: 89.1 kg Body Mass Index (BMI) 27.1 Intake and Output for Last 24 Hours 04/28/20 04/29/20 04/30/20 23:59 23:59 23:59 Intake Total 2000.80 / 2111.00 3157.73 / 3170.43 554.1 / 554.1 Output Total 2024 1615 / 1615 355 / 355 Balance -24.20 / 86.00 1542.73 / 1555.43 199.1 / 199.1 General: No apparent distress Lungs: Diminished Cardiovascular: Regular rate, Regular Rhythm Abdomen: Soft, Non Tender, Non-Distended Skin: No rashes Microbiology Past 72 Hours 04/26/20 13:26 Sputum, Induced/Lukens Gram Stain - Final 04/26/20 13:26 Sputum, Induced/Lukens Respiratory Culture - Final Yeast, not Ritu albicans 04/25/20 12:35 Blood Culture (Wb) #2 - Anticubital Left Blood Culture - Preliminary No growth in 48 hours. 04/25/20 12:15 Blood Culture (Wb) - Anticubital Right Blood Culture - Preliminary No growth in 48 hours. Laboratory Results 04/30/20 03:40: WBC 17.2 H, RBC 3.85 L, Hgb 11.3 L, Hct 34.7 L, MCV 90.1, MCH 29.4, MCHC 32.6, RDW Std Deviation 48.8 H, RDW Coeff of Lou 14.7 H, Plt Count 296, MPV 10.6 04/30/20 03:40: Sodium 144, Potassium 4.2, Chloride 113 H, Carbon Dioxide 25.0, Anion Gap 6, BUN 76 H, Creatinine 1.50 H, Estim Creat Clear Calc 37.18, Est GFR (MDRD) Af Amer 57 L, Est GFR (MDRD) Non-Af 47 L, BUN/Creatinine Ratio 50.7 H, Glucose 161 H, Calcium 8.2 L, Total Bilirubin 0.50, AST 34, ALT 22, Alkaline Phosphatase 102, Total Protein 6.2 L, Albumin 2.1 L, Globulin 4.1, Albumin/Globulin Ratio 0.5 L 04/30/20 07:30: Specimen Type ART, Sample Site R Radial, pH 7.38, Bicarbonate Actual 21.1 L, Total CO2 22, Base Excess -4 L, O2 Saturation 91 L, O2 % 100, ABG pCO2 35.4, ABG pO2 61 L, Bakari Test Positive, Respiration Rate 14, O2 Delivery Device Adult Vent, Vent Mode AC, Tidal Volume 450, POC PEEP 14 Current Medications Acetaminophen (Acetaminophen 650 Mg/20 Ml Udc) 650 mg GT Q6H PRN PRN PRN Reason: Pain Score 1-10/Temp > 100.7 F Al Hydroxide/Mg Hydroxide (Mag Hydrox/Al Hydrox/Simeth 30 Ml Udc) 30 ml GT Q6H PRN PRN PRN Reason: Gastric Burning Albuterol Sulfate (Albuterol Ih 8.5 Gm (Proair) Inhaler (200 Puffs)) 2 puff INHALATION Q4H PRN PRN PRN Reason: SOB &/OR WHEEZING Amiodarone HCl (Amiodarone 200 Mg Tablet) 200 mg GT BID [facility] Last Admin: 04/30/20 09:00 Dose: 200 mg Documented by: Aspirin (Aspirin 81 Mg Tab.Chew) 81 mg GT DAILY [facility] Last Admin: 04/30/20 08:57 Dose: 81 mg Documented by: Atorvastatin Calcium (Atorvastatin Calcium 40 Mg Tablet) 40 mg GT QHS [facility] Last Admin: 04/29/20 21:59 Dose: 40 mg Documented by: Bumetanide (Bumetanide 0.5 Mg Tablet) 1 mg PO DAILY [facility] Last Admin: 04/30/20 09:00 Dose: 1 mg Documented by: Chlorhexidine Gluconate (Chlorhexidine Gluc 2% Cloth 1 Each Towelette) 1 each TOPICAL DAILY [facility] Last Admin: 04/29/20 11:19 Dose: 1 each Documented by: Chlorhexidine Gluconate (Chlorhexidine 15 Ml) 15 ml PO BID [facility] Last Admin: 04/30/20 08:55 Dose: 15 ml Documented by: Clopidogrel Bisulfate (Clopidogrel Bisulfate 75 Mg Tablet) 75 mg GT DAILY [facility] Last Admin: 04/30/20 09:00 Dose: 75 mg Documented by: Dexamethasone Sodium Phosphate (Dexamethasone 10 Mg/Ml Vial) 6 mg IV DAILY [facility] Stop: 05/04/20 23:55 Last Admin: 04/30/20 09:00 Dose: 6 mg Documented by: Enoxaparin Sodium (Enoxaparin 80 Mg/0.8 Ml Syringe) 80 mg SC BID [facility] Last Admin: 04/30/20 08:56 Dose: 80 mg Documented by: Famotidine (Famotidine 20 Mg Tablet) 20 mg GT DAILY [facility] Last Admin: 04/30/20 09:00 Dose: 20 mg Documented by: Finasteride (Finasteride 5 Mg Tablet) 5 mg PO QHS [facility] Last Admin: 04/29/20 21:58 Dose: 5 mg Documented by: Haloperidol Lactate (Haloperidol Lactate 5 Mg/Ml Vial) 5 mg IV Q4H PRN PRN PRN Reason: AGITATION Last Admin: 04/26/20 06:55 Dose: 5 mg Documented by: Propofol (Diprivan) 1,000 mg in 100 mls @ 5.214 mls/hr CONT INF .Q12H [facility]; Protocol Last Titration: 04/30/20 07:00 Dose: 10 mcg/kg/min, 5.2 mls/hr Documented by: Fentanyl Citrate 1,000 mcg/ (Sodium Chloride) 100 mls @ 5 mls/hr CONT INF .Q20H [facility]; Protocol Last Titration: 04/30/20 07:00 Dose: 100 mcg/hr, 10 mls/hr Documented by: Remdesivir 100 mg/ Sodium (Chloride) 250 mls @ 125 mls/hr IV DAILY [facility]; Protocol Stop: 04/30/20 11:59 Last Admin: 04/30/20 08:56 Dose: 125 mls/hr Documented by: Enteral Nutritional Formula (Vital Af 1.2 Wil Liquid) 1,000 mls @ 60 mls/hr GT .[id number] [facility] Last Admin: 04/30/20 06:20 Dose: 60 mls/hr Documented by: Loratadine (Loratadine 10 Mg Tablet) 10 mg GT DAILY [facility] Last Admin: 04/30/20 08:58 Dose: 10 mg Documented by: Metoprolol Tartrate (Metoprolol Tartrate 25 Mg Tablet) 25 mg GT BID [facility] Last Admin: 04/30/20 08:59 Dose: 25 mg Documented by: Polyethylene Glycol (Polyethylene Glycol 3350 17 Gm Packet) 17 gm GT DAILY [facility] Last Admin: 04/30/20 08:56 Dose: 17 gm Documented by: Senna/Docusate Sodium (Senna/Docusate Sodium 1 Tablet) 2 tablet GT BID [facility] Last Admin: 04/30/20 08:57 Dose: 2 tablet Documented by: Sertraline HCl (Sertraline 50 Mg Tablet) 50 mg GT DAILY [facility] Last Admin: 04/30/20 08:59 Dose: 50 mg Documented by: Sodium Chloride (0.9% Saline Lock 10 Ml Syringe) 10 - 40 ml IV UD PRN PRN Reason: SALINE FLUSH Last Admin: 04/26/20 10:50 Dose: 30 ml Documented by: Medical Necessity - Tobacco Use Smoking Status: Never smoker Tobacco Use: Non-smoker Route of nutrition/ use of supplements: [] Nutritional Intake: [] IV Site: [] Bennett Catheter: [] - Assessment/Plan Antibiotics: [] Assessment/Plan: [] Active and Suspected Problems COVID-19 (Acute) Hypoxia (Acute) covid with hypoxia - on vent. On dex. On therapeutic lovenox. D-dimer 1.7. Cont remdesivir. Now with worsened fiO2 to 100% and fever of 100.5. Wbc is up. Will check sputum cx, bcx x2, PCT, and BNP. Start cefepime. No secretions from ETT per nursing. Will follow, d/w nursing
[2020-04-30 11:04] LABS: BNP,B-Type NATRIURETIC PEPTIDE 105.8 pg/mL (0-100)
[2020-04-30 11:13] LABS: Procalcitonin 0.29 ng/mL (0.00-0.09)
[2020-04-30] MEDS: CHLORHEXIDINE GLUC 2% CLOTH 1 EACH TOWELETTE TOPICAL (12:02)
--- NOTE | 2020-04-30 21:40 | NURSING ---
Spoke with patients son and update on patient's status and POC
[2020-04-30] MEDS: Finasteride 5 MG Tablet PO (22:25)
[2020-04-30] MEDS: Atorvastatin Calcium 40 MG Tablet GT (22:26)
[2020-04-30] MEDS: Enoxaparin 100 MG/ML Syringe 90 MG SC (22:27)
[2020-05-01] VITALS (36 sets, daily range): BP systolic 87–155; BP diastolic 47–111; PULSE 69–141; RESP 14–35; TEMP 37.3–37.7; O2SAT 72–100
[2020-05-01] MEDS: Propofol 10MG/Ml 1,000 MG/100 ML Bottle 5.2 MG CONT INF (01:41)
--- NOTE | 2020-05-01 02:14 | NURSING ---
0200: Called POA, Adams Sanchez, to inform him of patient's decline. Per POJuliet, he would like to speak to the family in the morning to decide code status. We informed POJuliet that the patient may not make it through the night but he verified that he would notify the family in the morning and that the patient is to remain a FULL CODE.
[2020-05-01] MEDS: dilTIAZem 25 MG/5 ML Vial IV BOLUS (03:14)
[2020-05-01] MEDS: 0.9% Saline Lock 10 ML Syringe IV ×3 (03:18→11:36)
[2020-05-01 04:34] LABS: Hematocrit 31.7 % (40-54); Hemoglobin 10.2 g/dL (13.0-16.5); Mean Corp Hgb Conc 32.2 g/dL (32-36); Mean Corpuscular Volume 90.1 fL (80-94); Mean Platelet Vol. 10.9 fl (6.2-12.0); Platelet Count 239 K/mm3 (150-450); RBC Distribution Width CV 14.9 % (11.6-14.6); RBC Distribution Width SD 48.6 fl (35.1-43.9); Red Blood Count 3.52 M/mm3 (4.6-6.2)
[2020-05-01 05:00] LABS: ALB/GLOB Ratio 0.4 RATIO (0.9-2.4); AST(SGOT) 35 U/L (15-37); Alanine Aminotransfer ALT/SGPT 20 U/L (16-61); Albumin, Serum 1.8 g/dL (3.2-5.0); Alkaline Phosphatase 96 U/L (45-117); Anion Gap 8 (5-15); BUN 81 mg/dL (7-18); BUN/Creat Ratio 50.3 RATIO (10-20); Calcium,Total 8.1 mg/dL (8.5-10.1); Chloride 114 mmol/L (98-107); Creatinine, Serum 1.61 mg/dL (0.70-1.30); EST Glomerular Filtration Rate 44 mL/min (>60); Est Glom Filt Rate - Afr Amer 53 mL/min (>60); Estimated Creatinine Clearance 34.64 ml/min; Globulin 4.1 g/dL (2.2-4.2); Glucose 216 mg/dL (74-106); Potassium 4.1 mmol/L (3.5-5.1); Protein, Total 5.9 g/dL (6.4-8.2); Sodium Level 146 mmol/L (136-145)
--- NOTE | 2020-05-01 06:34 | PN_ITS ---
Subjective: The patient was seen and examined at the bedside this morning. Events from the last 24 hours have been reviewed. The patient is currently afebrile, hemodynamically stable and maintaining appropriate oxygen saturations with an FiO2 requirement of 100% and PEEP of 15. Last evening, the patient did develop atrial fibrillation with RVR with subsequent decompensation in his respiratory status. The patient was transition from conventional assist control to ACVC+ mode of mechanical ventilation. The patient is currently documented to be overall net +3.2 L for the hospital admission. Creatinine is stable at 1.6 with normal liver function. The patient has completed his treatment course of remdesivir and remains on antimicrobials, Decadron and therapeutic Lovenox. The patient will open his eyes but will not follow commands. Objective: The patient's most recent lab work, culture data and imaging studies have all been personally reviewed. Blood cultures have shown no growth to date. General: - - Remains intubated and mechanically ventilated. HEENT: Atraumatic, Normocephalic Oral: No Gingival or Mucosal Lesions/ Ulcerations, - - Endotracheal and OG tubes remain in place Neck: Supple, No Nodes, Trachea Midline Lungs: No rhonchi, No wheeze, No rales, Diminished Cardiovascular: Irregular Rate, Murmur, Tachycardic Abdomen: Bowel Sounds Present, Soft, Non Tender Extremities: No clubbing, No cyanosis, No edema Skin: - - No significant change from previous Musculoskeletal: No Tenderness to Palpation of Joints or Extremities Lymphatic: No Cervical, Supraclavicular, or Inguinal Adenopathy Neurological: - - No focal neurological deficits. Will open eyes but would not follow any commands. Vital Signs Temp Pulse Resp BP Pulse Ox 99.7 F H 141 H 20 H 117/62 98 05/01/20 05:00 05/01/20 05:06 05/01/20 05:06 05/01/20 05:00 05/01/20 05:06 Oxygen Flow Rate (L/min) 92 Oxygen Delivery Method Mechanical Ventilator Weight: 196 lb 3.382 oz Body Mass Index (BMI) 27.1 Intake and Output for Last 24 Hours 04/29/20 04/30/20 05/01/20 23:59 23:59 23:59 Intake Total 3157.73 / 3170.43 1431.63 / 3624.38 2312.71 / 2312.71 Output Total 1615 / 1615 855 / 1305 750 / 750 Balance 1542.73 / 1555.43 576.63 / 2319.38 1562.71 / 1562.71 Labs (Last 48 Hours) 04/30/20 04/30/20 04/30/20 03:40 03:40 07:30 WBC 17.2 H RBC 3.85 L Hgb 11.3 L Hct 34.7 L MCV 90.1 MCH 29.4 MCHC 32.6 RDW Std Deviation 48.8 H RDW Coeff of Lou 14.7 H Plt Count 296 MPV 10.6 Specimen Type ART Sample Site R Radial pH 7.38 Bicarbonate Actual 21.1 L Total CO2 22 Base Excess -4 L O2 Saturation 91 L O2 % 100 ABG pCO2 35.4 ABG pO2 61 L Bakari Test Positive Respiration Rate 14 O2 Delivery Device Adult Vent Vent Mode AC Tidal Volume 450 POC PEEP 14 Sodium 144 Potassium 4.2 Chloride 113 H Carbon Dioxide 25.0 Anion Gap 6 BUN 76 H Creatinine 1.50 H Estim Creat Clear Calc 37.18 Est GFR (MDRD) Af Amer 57 L Est GFR (MDRD) Non-Af 47 L BUN/Creatinine Ratio 50.7 H Glucose 161 H Calcium 8.2 L Total Bilirubin 0.50 AST 34 ALT 22 Alkaline Phosphatase 102 B-Natriuretic Peptide Total Protein 6.2 L Albumin 2.1 L Globulin 4.1 Albumin/Globulin Ratio 0.5 L Procalcitonin 04/30/20 04/30/20 05/01/20 10:00 10:00 04:20 WBC 16.0 H RBC 3.52 L Hgb 10.2 L Hct 31.7 L MCV 90.1 MCH 29.0 MCHC 32.2 RDW Std Deviation 48.6 H RDW Coeff of Lou 14.9 H Plt Count 239 MPV 10.9 Specimen Type Sample Site pH Bicarbonate Actual Total CO2 Base Excess O2 Saturation O2 % ABG pCO2 ABG pO2 Bakari Test Respiration Rate O2 Delivery Device Vent Mode Tidal Volume POC PEEP Sodium Potassium Chloride Carbon Dioxide Anion Gap BUN Creatinine Estim Creat Clear Calc Est GFR (MDRD) Af Amer Est GFR (MDRD) Non-Af BUN/Creatinine Ratio Glucose Calcium Total Bilirubin AST ALT Alkaline Phosphatase B-Natriuretic Peptide 105.8 H Total Protein Albumin Globulin Albumin/Globulin Ratio Procalcitonin 0.29 H 05/01/20 04:20 WBC RBC Hgb Hct MCV MCH MCHC RDW Std Deviation RDW Coeff of Lou Plt Count MPV Specimen Type Sample Site pH Bicarbonate Actual Total CO2 Base Excess O2 Saturation O2 % ABG pCO2 ABG pO2 Bakari Test Respiration Rate O2 Delivery Device Vent Mode Tidal Volume POC PEEP Sodium 146 H Potassium 4.1 Chloride 114 H Carbon Dioxide 24.0 Anion Gap 8 BUN 81 H Creatinine 1.61 H Estim Creat Clear Calc 34.64 Est GFR (MDRD) Af Amer 53 L Est GFR (MDRD) Non-Af 44 L BUN/Creatinine Ratio 50.3 H Glucose 216 H Calcium 8.1 L Total Bilirubin 0.60 AST 35 ALT 20 Alkaline Phosphatase 96 B-Natriuretic Peptide Total Protein 5.9 L Albumin 1.8 L Globulin 4.1 Albumin/Globulin Ratio 0.4 L Procalcitonin Microbiology 04/25/20 12:35 Blood Culture (Wb) #2 - Anticubital Left Blood Culture - Final No growth in 5 days. 04/25/20 12:15 Blood Culture (Wb) - Anticubital Right Blood Culture - Final No growth in 5 days. 04/26/20 13:26 Sputum, Induced/Lukens Gram Stain - Final 04/26/20 13:26 Sputum, Induced/Lukens Respiratory Culture - Final Yeast, not Ritu albicans Clinical Impression(s) from Imaging Studies Chest X-Ray 04/25/20 13:10 IMPRESSION: Patchy infiltrate in the medial aspect of the right upper lobe as well as in the left lower lobe. Electronically Signed: Jamar Howard MD at 13:46 EST , Service support , Chest X-Ray 04/26/20 10:26 IMPRESSION: Progressive infiltration in both lungs worse in the left hemithorax. The tip of the endotracheal tube is at 3.9 cm proximal to the shyla. The tip of the orogastric tube is in the body of the stomach. Electronically Signed: Jamar Howard MD at 11:21 EST , Service support , Chest X-Ray 04/26/20 15:50 IMPRESSION: Grossly satisfactory positioning of right IJ line with no pneumothorax. Improved expansion and aeration of both lungs since exam of earlier today. Electronically Signed: Drew Cazares MD at 17:05 EST , Service support , Chest X-Ray 04/30/20 05:59 IMPRESSION: Findings suspicious for multifocal infiltrates. Lines as detailed above. Unchanged since prior study. Electronically Signed: Maranda Laboy MD at 7:07 EST Tel , Service support , Medical Necessity - Tobacco Use Smoking Status: Never smoker Tobacco Use: Non-smoker Assessment/Plan All Active Problems Femoral neck fracture (Acute) COVID-19 (Acute) Hypoxia (Acute) Acute respiratory failure with hypoxia (Resolved) Asthma exacerbation with COPD (chronic obstructive pulmonary disease) (Resolved) RECOMMENDATIONS: 1. Continue patient on assist control mode of mechanical ventilation and wean FiO2 and PEEP to maintain saturations at or above 90%. 2. Continue amiodarone as ordered. 3. Continue Decadron to complete 10-day treatment course. 4. Continue therapeutic Lovenox. 5. Continue tube feeds as tolerated. 6. Continue appropriate GI prophylaxis. 7. Ongoing goals of care discussion with the patient's legal guardian. IMPRESSIONS: 1. Acute hypoxemic respiratory failure secondary to COVID-19 pneumonia in the setting of suspected COPD/asthma Plan to continue current supportive measures including invasive mechanical ventilatory support with a goal to wean FiO2 and PEEP to maintain oxygen saturations at or above 90%. The patient has completed a treatment course of remdesivir and will remain on Decadron to complete a 10-day course. Bronchodilators will be continued. Systemic anticoagulation with Lovenox will be continued. Continue bronchodilator therapy. The patient's home Bumex regimen will be continued as well. 2. Acute on chronic kidney disease Likely prerenal in etiology. Creatinine appears back close to baseline. Continue to monitor urine output. No current indication for renal replacement therapy. 3. Metabolic encephalopathy Continue current sedation regimen with a goal to maintain a RASS of -1 to 1. 4. Paroxysmal atrial fibrillation Continue amiodarone and beta-alycia regimen as ordered. 5. Advanced age/coronary artery disease/hypertension/depression Complicates care, management, recovery and prognosis. Continue home medications as indicated. TIME: 34 minutes of critical care time, independent of procedures, was spent addressing the patient's acute hypoxemic respiratory failure secondary to COVID- 19 pneumonia, acute on chronic kidney disease, metabolic encephalopathy, paroxysmal atrial fibrillation, review of all data and collaboration with the care team. [phone]) [phone] [id number] Critical care first hour
--- NOTE | 2020-05-01 07:17 | PCM.PN.HOSP ---
Patient Problems: Active and Suspected Problems COVID-19 (Acute) Hypoxia (Acute) Reason for Visit: Acute hypoxic respiratory failure Covid-19 pneumonia Subjective: Went to A. fib with RVR. Hypotensive. Vent settings were made by neck skewer. Objective: GENERAL: Sedated on the vent HEENT: Atraumatic; EYES; Anicteric, Normal Conjunctiva NECK; supple, normal thyroid, RESPIRATORY: Diminished to auscultation CARDIOVASCULAR: Regular S1 S2, GI: soft, normoactive bowel sounds, : No Renal angle tenderness; EXTREMITIES: No edema, no clubbing, MUSCULOSKELETAL: no muscle waisting NEURO: Awake; no lateralizing signs. SKIN: No Rash PSYCH; Sedated on the vent Vitals/I&O's: Vital Signs Temp Pulse Resp BP Pulse Ox 99.7 F H 141 H 20 H 117/62 98 05/01/20 05:00 05/01/20 05:06 05/01/20 05:06 05/01/20 05:00 05/01/20 05:06 Oxygen Flow Rate (L/min) 92 Oxygen Delivery Method Mechanical Ventilator Weight: 89 kg Body Mass Index (BMI) 27.1 Intake and Output for Last 24 Hours 04/29/20 04/30/20 05/01/20 23:59 23:59 23:59 Intake Total 3157.73 / 3170.43 1431.63 / 3624.38 2809.71 / 2809.71 Output Total 1615 / 1615 855 / 1305 750 / 750 Balance 1542.73 / 1555.43 576.63 / 2319.38 2059.71 / 2059.71 Microbiology Past 72 Hours 04/25/20 12:35 Blood Culture (Wb) #2 - Anticubital Left Blood Culture - Final No growth in 5 days. 04/25/20 12:15 Blood Culture (Wb) - Anticubital Right Blood Culture - Final No growth in 5 days. 04/26/20 13:26 Sputum, Induced/Lukens Gram Stain - Final 04/26/20 13:26 Sputum, Induced/Lukens Respiratory Culture - Final Yeast, not Ritu albicans Laboratory Results 04/30/20 07:30: Specimen Type ART, Sample Site R Radial, pH 7.38, Bicarbonate Actual 21.1 L, Total CO2 22, Base Excess -4 L, O2 Saturation 91 L, O2 % 100, ABG pCO2 35.4, ABG pO2 61 L, Bakari Test Positive, Respiration Rate 14, O2 Delivery Device Adult Vent, Vent Mode AC, Tidal Volume 450, POC PEEP 14 04/30/20 10:00: B-Natriuretic Peptide 105.8 H 04/30/20 10:00: Procalcitonin 0.29 H 05/01/20 04:20: WBC 16.0 H, RBC 3.52 L, Hgb 10.2 L, Hct 31.7 L, MCV 90.1, MCH 29.0, MCHC 32.2, RDW Std Deviation 48.6 H, RDW Coeff of Lou 14.9 H, Plt Count 239, MPV 10.9 05/01/20 04:20: Sodium 146 H, Potassium 4.1, Chloride 114 H, Carbon Dioxide 24.0, Anion Gap 8, BUN 81 H, Creatinine 1.61 H, Estim Creat Clear Calc 34.64, Est GFR (MDRD) Af Amer 53 L, Est GFR (MDRD) Non-Af 44 L, BUN/Creatinine Ratio 50.3 H, Glucose 216 H, Calcium 8.1 L, Total Bilirubin 0.60, AST 35, ALT 20, Alkaline Phosphatase 96, Total Protein 5.9 L, Albumin 1.8 L, Globulin 4.1, Albumin/Globulin Ratio 0.4 L Current Medications Acetaminophen (Acetaminophen 650 Mg/20 Ml Udc) 650 mg GT Q6H PRN PRN PRN Reason: Pain Score 1-10/Temp > 100.7 F Al Hydroxide/Mg Hydroxide (Mag Hydrox/Al Hydrox/Simeth 30 Ml Udc) 30 ml GT Q6H PRN PRN PRN Reason: Gastric Burning Albuterol Sulfate (Albuterol Ih 8.5 Gm (Proair) Inhaler (200 Puffs)) 2 puff INHALATION Q4H PRN PRN PRN Reason: SOB &/OR WHEEZING Amiodarone HCl (Amiodarone 200 Mg Tablet) 200 mg GT BID REPLACED BY [facility] Last Admin: 04/30/20 22:27 Dose: 200 mg Documented by: Aspirin (Aspirin 81 Mg Tab.Chew) 81 mg GT DAILY REPLACED BY [facility] Last Admin: 04/30/20 08:57 Dose: 81 mg Documented by: Atorvastatin Calcium (Atorvastatin Calcium 40 Mg Tablet) 40 mg GT QHS REPLACED BY [facility] Last Admin: 04/30/20 22:26 Dose: 40 mg Documented by: Bumetanide (Bumetanide 0.5 Mg Tablet) 1 mg PO DAILY REPLACED BY [facility] Last Admin: 04/30/20 09:00 Dose: 1 mg Documented by: Chlorhexidine Gluconate (Chlorhexidine Gluc 2% Cloth 1 Each Towelette) 1 each TOPICAL DAILY REPLACED BY [facility] Last Admin: 04/30/20 12:02 Dose: 1 each Documented by: Chlorhexidine Gluconate (Chlorhexidine 15 Ml) 15 ml PO BID REPLACED BY [facility] Last Admin: 04/30/20 22:24 Dose: 15 ml Documented by: Clopidogrel Bisulfate (Clopidogrel Bisulfate 75 Mg Tablet) 75 mg GT DAILY REPLACED BY [facility] Last Admin: 04/30/20 09:00 Dose: 75 mg Documented by: Dexamethasone Sodium Phosphate (Dexamethasone 10 Mg/Ml Vial) 6 mg IV DAILY REPLACED BY [facility] Stop: 05/04/20 23:55 Last Admin: 04/30/20 09:00 Dose: 6 mg Documented by: Enoxaparin Sodium (Enoxaparin 100 Mg/Ml Syringe) 90 mg SC BID REPLACED BY [facility] Last Admin: 04/30/20 22:27 Dose: 90 mg Documented by: Famotidine (Famotidine 20 Mg Tablet) 20 mg GT DAILY REPLACED BY [facility] Last Admin: 04/30/20 09:00 Dose: 20 mg Documented by: Finasteride (Finasteride 5 Mg Tablet) 5 mg PO QHS REPLACED BY [facility] Last Admin: 04/30/20 22:25 Dose: 5 mg Documented by: Haloperidol Lactate (Haloperidol Lactate 5 Mg/Ml Vial) 5 mg IV Q4H PRN PRN PRN Reason: AGITATION Last Admin: 04/26/20 06:55 Dose: 5 mg Documented by: Propofol (Diprivan) 1,000 mg in 100 mls @ 5.346 mls/hr CONT INF .Q12H REPLACED BY [facility]; Protocol Last Titration: 05/01/20 06:00 Dose: 0 mcg/kg/min, 0 mls/hr Documented by: Fentanyl Citrate 1,000 mcg/ (Sodium Chloride) 100 mls @ 5 mls/hr CONT INF .Q20H REPLACED BY [facility]; Protocol Last Titration: 05/01/20 06:00 Dose: 0 mcg/hr, 0 mls/hr Documented by: Enteral Nutritional Formula (Vital Af 1.2 Wil Liquid) 1,000 mls @ 60 mls/hr GT .[id number] REPLACED BY [facility] Last Admin: 04/30/20 22:24 Dose: 60 mls/hr Documented by: Cefepime HCl 2 gm/ Sodium (Chloride) 100 mls @ 200 mls/hr IV Q12 REPLACED BY [facility] Last Infusion: 04/30/20 22:58 Dose: Infused Documented by: Norepinephrine Bitartrate 8 mg (/ Sodium Chloride) 250 mls @ 9.375 mls/hr CONT INF .[id number] REPLACED BY [facility]; Protocol Last Admin: 05/01/20 06:59 Dose: Not Given Documented by: Loratadine (Loratadine 10 Mg Tablet) 10 mg GT DAILY REPLACED BY [facility] Last Admin: 04/30/20 08:58 Dose: 10 mg Documented by: Metoprolol Tartrate (Metoprolol Tartrate 25 Mg Tablet) 25 mg GT BID REPLACED BY [facility] Last Admin: 04/30/20 22:26 Dose: 25 mg Documented by: Polyethylene Glycol (Polyethylene Glycol 3350 17 Gm Packet) 17 gm GT DAILY REPLACED BY [facility] Last Admin: 04/30/20 08:56 Dose: 17 gm Documented by: Senna/Docusate Sodium (Senna/Docusate Sodium 1 Tablet) 2 tablet GT BID REPLACED BY [facility] Last Admin: 04/30/20 22:25 Dose: 2 tablet Documented by: Sertraline HCl (Sertraline 50 Mg Tablet) 50 mg GT DAILY REPLACED BY [facility] Last Admin: 04/30/20 08:59 Dose: 50 mg Documented by: Sodium Chloride (0.9% Saline Lock 10 Ml Syringe) 10 - 40 ml IV UD PRN PRN Reason: SALINE FLUSH Last Admin: 05/01/20 03:18 Dose: 20 ml Documented by: STROKE Vital Signs/Narrative: Vital Signs Temp Pulse Resp BP Pulse Ox 05/01/20 05:06 141 H 20 H 98 05/01/20 05:00 99.7 F H 130 H 20 H 117/62 98 05/01/20 04:00 99.7 F H 132 H 18 113/66 99 Medical Necessity - Tobacco Use Smoking Status: Never smoker Tobacco Use: Non-smoker Assessment/Plan All Active Problems Femoral neck fracture (Acute) COVID-19 (Acute) Hypoxia (Acute) Acute respiratory failure with hypoxia (Resolved) Asthma exacerbation with COPD (chronic obstructive pulmonary disease) (Resolved) 84-year-old gentleman from a [facility] admitted with progressive shortness of breath. An assessment of acute hypoxic respiratory failure secondary to acute COVID-19 pneumonia made admitted to the intensive care unit. Patient condition deteriorated resulting in patient being intubated on 04/26/2020 1. Acute hypoxic respiratory failure ?Secondary to acute COVID-19 pneumonia. Patient was intubated as a result of worsening respiratory symptoms. Patient condition deteriorated resulting in patient being intubated on 04/26/2020 - 04/30/2020; patient oxygen requirement increasing currently 100% FiO2 and PEEP of 14 -05/01/2020; patient decompensated during the night resulting in patient going into A. fib with RVR as well as hypotension. Vent settings changes were made by neck skewer 2. Acute COVID-19 pneumonia ?Patient presented with hypoxia has been treated with dexamethasone and remdesivir with consultation placed to infectious disease and ID 3. Covid induced coagulopathy ?Patient had elevated D-dimer currently on therapeutic Lovenox plan is for CTA of the chest prior to patient being discharged 4. Chronic kidney disease stage III ?Baseline creatinine 1.3-1.7 creatinine on admission was 1.8 5. Asthma/COPD ?Aerosol treatment as needed 6. Hypertension - Blood pressure stable 7. Anemia - Secondary to chronic disorder monitoring H&H and transfuse if patient becomes symptomatic or hemoglobin falls below 7 8. DVT prophylaxis ?On therapeutic Lovenox 9. Paroxysmal A. fib with RVR ?Patient back within sinus rhythm Inpatient E&M: [id number] [facility] L3
[2020-05-01] MEDS: Bumetanide 0.5 MG Tablet 1 MG PO (08:21)
[2020-05-01] MEDS: Senna/Docusate Sodium 1 Tablet 2 TABLET GT ×2 (08:21→22:13)
[2020-05-01] MEDS: Polyethylene Glycol 3350 17 GM PACKET GT (08:21)
[2020-05-01] MEDS: Famotidine 20 MG Tablet GT (08:21)
[2020-05-01] MEDS: Clopidogrel Bisulfate 75 MG Tablet GT (08:22)
[2020-05-01] MEDS: Amiodarone 200 MG Tablet GT (08:22)
[2020-05-01] MEDS: dexAMETHasone 10 MG/ML Vial 6 MG IV (08:22)
[2020-05-01] MEDS: Enoxaparin 100 MG/ML Syringe 90 MG SC ×2 (08:22→22:14)
[2020-05-01] MEDS: Aspirin 81 MG TAB.CHEW GT (08:23)
[2020-05-01] MEDS: Sertraline 50 MG Tablet GT (08:23)
[2020-05-01] MEDS: Metoprolol Tartrate 25 MG Tablet GT ×2 (08:23→22:12)
[2020-05-01] MEDS: Loratadine 10 MG Tablet GT (08:23)
[2020-05-01] MEDS: CHLORHEXIDINE GLUC 2% CLOTH 1 EACH TOWELETTE TOPICAL (08:24)
[2020-05-01] MEDS: Chlorhexidine 15 ML PO ×2 (08:24→22:14)
--- NOTE | 2020-05-01 11:03 | CASEMGMT ---
FARIDA CM Note: participated in ICU interdisciplinary rounds. Pt remains on ventilator, 60% O2. Fentanyl and propofol are off. Remdesivir is completed, continues on Decadron. Continues on Cefepime and Vital Af1.2 @ 60 ml/hr. DC planning : TBD. Holly WALTERSN RN ACM
--- NOTE | 2020-05-01 11:08 | CASEMGMT ---
FARIDA CM Note: participated in ICU interdisciplinary rounds. Pt remains on ventilator, 100% O2. Fentanyl and propofol are off. Remdesivir is completed, continues on Decadron. Continues on Cefepime and Vital Af1.2 @ 60 ml/hr. DC planning : TBD. Holly WALTERSN RN ACM
[2020-05-01] MEDS: Insulin Lispro 100 UNIT/ML INSULN.PEN SC ×2 (11:34→16:39)
[2020-05-01 12:00] LABS: Bedside Glucose 241 mg/dL (70-110)
--- NOTE | 2020-05-01 15:33 | PCM.PN.ID ---
Patient Problems: Active and Suspected Problems COVID-19 (Acute) Hypoxia (Acute) Subjective: On vent, no further fever. - Physical Exam Vitals/I&O's: Vital Signs Temp Pulse Resp BP Pulse Ox 99.7 F H 123 H 21 H 153/111 H 96 05/01/20 12:00 05/01/20 15:00 05/01/20 15:00 05/01/20 15:00 05/01/20 15:00 Oxygen Flow Rate (L/min) 92 Oxygen Delivery Method Mechanical Ventilator Weight: 89 kg Body Mass Index (BMI) 27.1 Intake and Output for Last 24 Hours 04/29/20 04/30/20 05/01/20 23:59 23:59 23:59 Intake Total 3157.73 / 3170.43 1431.63 / 3624.38 3219.71 / 3219.71 Output Total 1615 / 1615 855 / 1305 1250 / 1250 Balance 1542.73 / 1555.43 576.63 / 2319.38 1969.71 / 1969.71 General: No apparent distress Lungs: Diminished Cardiovascular: Regular rate, Regular Rhythm Abdomen: Soft, Non Tender, Non-Distended Skin: No rashes Microbiology Past 72 Hours 04/25/20 12:35 Blood Culture (Wb) #2 - Anticubital Left Blood Culture - Final No growth in 5 days. 04/25/20 12:15 Blood Culture (Wb) - Anticubital Right Blood Culture - Final No growth in 5 days. 04/26/20 13:26 Sputum, Induced/Lukens Gram Stain - Final 04/26/20 13:26 Sputum, Induced/Lukens Respiratory Culture - Final Yeast, not Ritu albicans Laboratory Results 05/01/20 04:20: WBC 16.0 H, RBC 3.52 L, Hgb 10.2 L, Hct 31.7 L, MCV 90.1, MCH 29.0, MCHC 32.2, RDW Std Deviation 48.6 H, RDW Coeff of Lou 14.9 H, Plt Count 239, MPV 10.9 05/01/20 04:20: Sodium 146 H, Potassium 4.1, Chloride 114 H, Carbon Dioxide 24.0, Anion Gap 8, BUN 81 H, Creatinine 1.61 H, Estim Creat Clear Calc 34.64, Est GFR (MDRD) Af Amer 53 L, Est GFR (MDRD) Non-Af 44 L, BUN/Creatinine Ratio 50.3 H, Glucose 216 H, Calcium 8.1 L, Total Bilirubin 0.60, AST 35, ALT 20, Alkaline Phosphatase 96, Total Protein 5.9 L, Albumin 1.8 L, Globulin 4.1, Albumin/Globulin Ratio 0.4 L 05/01/20 11:33: POC Glucose 241 H Current Medications Acetaminophen (Acetaminophen 650 Mg/20 Ml Udc) 650 mg GT Q6H PRN PRN PRN Reason: Pain Score 1-10/Temp > 100.7 F Al Hydroxide/Mg Hydroxide (Mag Hydrox/Al Hydrox/Simeth 30 Ml Udc) 30 ml GT Q6H PRN PRN PRN Reason: Gastric Burning Albuterol Sulfate (Albuterol Ih 8.5 Gm (Proair) Inhaler (200 Puffs)) 2 puff INHALATION Q4H PRN PRN PRN Reason: SOB &/OR WHEEZING Amiodarone HCl (Amiodarone 200 Mg Tablet) 200 mg GT BID [facility] Last Admin: 05/01/20 15:29 Dose: Not Given Documented by: Aspirin (Aspirin 81 Mg Tab.Chew) 81 mg GT DAILY [facility] Last Admin: 05/01/20 08:23 Dose: 81 mg Documented by: Atorvastatin Calcium (Atorvastatin Calcium 40 Mg Tablet) 40 mg GT QHS [facility] Last Admin: 04/30/20 22:26 Dose: 40 mg Documented by: Bumetanide (Bumetanide 0.5 Mg Tablet) 1 mg PO DAILY [facility] Last Admin: 05/01/20 08:21 Dose: 1 mg Documented by: Chlorhexidine Gluconate (Chlorhexidine Gluc 2% Cloth 1 Each Towelette) 1 each TOPICAL DAILY [facility] Last Admin: 05/01/20 08:24 Dose: 1 each Documented by: Chlorhexidine Gluconate (Chlorhexidine 15 Ml) 15 ml PO BID [facility] Last Admin: 05/01/20 08:24 Dose: 15 ml Documented by: Clopidogrel Bisulfate (Clopidogrel Bisulfate 75 Mg Tablet) 75 mg GT DAILY [facility] Last Admin: 05/01/20 08:22 Dose: 75 mg Documented by: Dexamethasone Sodium Phosphate (Dexamethasone 10 Mg/Ml Vial) 6 mg IV DAILY [facility] Stop: 05/04/20 23:55 Last Admin: 05/01/20 08:22 Dose: 6 mg Documented by: Dextrose (Dextrose 50%-Water 25 Gm/50 Ml Disp.Syrin) 0 gm IV X1 PRN; Protocol PRN Reason: Hypoglycemia Enoxaparin Sodium (Enoxaparin 100 Mg/Ml Syringe) 90 mg SC BID [facility] Last Admin: 05/01/20 08:22 Dose: 90 mg Documented by: Famotidine (Famotidine 20 Mg Tablet) 20 mg GT DAILY [facility] Last Admin: 05/01/20 08:21 Dose: 20 mg Documented by: Finasteride (Finasteride 5 Mg Tablet) 5 mg PO QHS [facility] Last Admin: 04/30/20 22:25 Dose: 5 mg Documented by: Glucagon (Glucagon 1 Mg/Ml Syringe) 1 mg IM .X1 PRN PRN Reason: Hypoglycemia Haloperidol Lactate (Haloperidol Lactate 5 Mg/Ml Vial) 5 mg IV Q4H PRN PRN PRN Reason: AGITATION Last Admin: 04/26/20 06:55 Dose: 5 mg Documented by: Propofol (Diprivan) 1,000 mg in 100 mls @ 5.34 mls/hr CONT INF .Q12H [facility]; Protocol Last Admin: 05/01/20 10:56 Dose: Not Given Documented by: Fentanyl Citrate 1,000 mcg/ (Sodium Chloride) 100 mls @ 5 mls/hr CONT INF .Q20H [facility]; Protocol Last Admin: 05/01/20 14:15 Dose: Not Given Documented by: Enteral Nutritional Formula (Vital Af 1.2 Wil Liquid) 1,000 mls @ 60 mls/hr GT .[id number] [facility] Last Admin: 04/30/20 22:24 Dose: 60 mls/hr Documented by: Cefepime HCl 2 gm/ Sodium (Chloride) 100 mls @ 200 mls/hr IV Q12 [facility] Last Infusion: 05/01/20 10:38 Dose: Infused Documented by: Amiodarone HCl 360 mg/ (Dextrose) 200 mls @ 33.333 mls/hr CONT INF .Q6H [facility] Stop: 05/01/20 21:59 Amiodarone HCl 150 mg/ (Dextrose) 103 mls @ 600 mls/hr IV BOLUS X1 ONE Stop: 05/01/20 15:55 Amiodarone HCl 360 mg/ (Dextrose) 200 mls @ 16.667 mls/hr CONT INF .Q12H [facility] Stop: 05/02/20 15:59 Insulin Human Lispro (Insulin Lispro 100 Unit/Ml Insuln.Pen) 0 unit SC Q6 [facility]; Protocol Last Admin: 05/01/20 11:34 Dose: 3 u Documented by: Loratadine (Loratadine 10 Mg Tablet) 10 mg GT DAILY [facility] Last Admin: 05/01/20 08:23 Dose: 10 mg Documented by: Metoprolol Tartrate (Metoprolol Tartrate 25 Mg Tablet) 25 mg GT BID [facility] Last Admin: 05/01/20 08:23 Dose: 25 mg Documented by: Polyethylene Glycol (Polyethylene Glycol 3350 17 Gm Packet) 17 gm GT DAILY [facility] Last Admin: 05/01/20 08:21 Dose: 17 gm Documented by: Senna/Docusate Sodium (Senna/Docusate Sodium 1 Tablet) 2 tablet GT BID [facility] Last Admin: 05/01/20 08:21 Dose: 2 tablet Documented by: Sertraline HCl (Sertraline 50 Mg Tablet) 50 mg GT DAILY [facility] Last Admin: 05/01/20 08:23 Dose: 50 mg Documented by: Sodium Chloride (0.9% Saline Lock 10 Ml Syringe) 10 - 40 ml IV UD PRN PRN Reason: SALINE FLUSH Last Admin: 05/01/20 11:36 Dose: 10 ml Documented by: Medical Necessity - Tobacco Use Smoking Status: Never smoker Tobacco Use: Non-smoker Route of nutrition/ use of supplements: [] Nutritional Intake: [] IV Site: [] Bennett Catheter: [] - Assessment/Plan Antibiotics: [] Assessment/Plan: [] Active and Suspected Problems COVID-19 (Acute) Hypoxia (Acute) covid with hypoxia - on vent. On dex. On therapeutic lovenox. D-dimer 1.7. Completed remdesivir. Started cefepime 04/30, no further fever, O2 slightly improved. Will follow
[2020-05-01] MEDS: Vital AF 1.2 Cal Liquid 1,000 ML 60 ML GT (16:30)
[2020-05-01 16:35] LABS: Bedside Glucose 338 mg/dL (70-110)
[2020-05-01] MEDS: Amiodarone 360 MG in Dextrose 5% Viaflo Bag 192.8 ML 33.3 MG CONT INF (16:35)
[2020-05-01] MEDS: Amiodarone 360 MG in Dextrose 5% Viaflo Bag 192.8 ML 16.7 MG CONT INF (21:21)
[2020-05-01] MEDS: Atorvastatin Calcium 40 MG Tablet GT (22:13)
[2020-05-01] MEDS: Finasteride 5 MG Tablet PO (22:14)
[2020-05-02] VITALS (37 sets, daily range): BP systolic 137–177; BP diastolic 48–92; PULSE 78–107; RESP 20–31; TEMP 36.8–37.5; O2SAT 90–95
[2020-05-02] MEDS: Insulin Lispro 100 UNIT/ML INSULN.PEN SC ×4 (00:10→17:10)
[2020-05-02 00:31] LABS: Bedside Glucose 340 mg/dL (70-110)
[2020-05-02] MEDS: 0.9% Saline Lock 10 ML Syringe IV (05:30)
[2020-05-02 05:50] LABS: Bedside Glucose 282 mg/dL (70-110)
--- NOTE | 2020-05-02 06:10 | PN_ITS ---
Subjective: The patient was seen and examined at the bedside this morning. Events from the last 24 hours have been reviewed. The patient is currently afebrile, hemodynamically stable and maintaining appropriate oxygen saturations on assist control mode of mechanical ventilation with an FiO2 requirement of 70% and PEEP of 15. The patient remains off of all forms of sedation. However, the patient is essentially nonresponsive. The patient's white blood cell count is increased to 25,000 this morning. Creatinine is also increased to 1.94. The patient is c urrently documented to be overall net +5.1 L for the hospital admission. Objective: The patient's most recent lab work, culture data and imaging studies have all been personally reviewed. Blood cultures have shown no growth to date. General: Lethargic, - - Remains intubated and mechanically ventilated. No ventilator to synchrony noted. HEENT: Atraumatic, Normocephalic Oral: No Gingival or Mucosal Lesions/ Ulcerations, - - Stable endotracheal and OG tubes Neck: Supple, No Nodes, Trachea Midline Lungs: No rhonchi, No wheeze, No rales, Diminished Cardiovascular: Regular rate, Regular Rhythm, Murmur Abdomen: Bowel Sounds Present, Soft, Non Tender Extremities: No clubbing, No cyanosis, No edema Skin: - - No significant change from previous Musculoskeletal: No Tenderness to Palpation of Joints or Extremities Lymphatic: No Cervical, Supraclavicular, or Inguinal Adenopathy Neurological: - - The patient is currently nonresponsive to verbal and tactile stimulation. Will not open eyes or follow commands. Vital Signs Temp Pulse Resp BP Pulse Ox 99.1 F 90 29 H 148/52 H 92 05/02/20 04:00 05/02/20 04:20 05/02/20 04:20 05/02/20 04:00 05/02/20 04:20 Oxygen Flow Rate (L/min) 92 Oxygen Delivery Method Mechanical Ventilator Weight: 196 lb 6.91 oz Body Mass Index (BMI) 27.1 Intake and Output for Last 24 Hours 04/30/20 05/01/20 05/02/20 23:59 23:59 23:59 Intake Total 1431.63 / 3624.38 4341.01 / 5075.71 1319.8 / 1319.8 Output Total 855 / 1305 1625 / 2025 600 / 600 Balance 576.63 / 2319.38 2716.01 / 3050.71 719.8 / 719.8 Labs (Last 48 Hours) 04/30/20 04/30/20 04/30/20 07:30 10:00 10:00 WBC RBC Hgb Hct MCV MCH MCHC RDW Std Deviation RDW Coeff of Lou Plt Count MPV Specimen Type ART Sample Site R Radial pH 7.38 Bicarbonate Actual 21.1 L Total CO2 22 Base Excess -4 L O2 Saturation 91 L O2 % 100 ABG pCO2 35.4 ABG pO2 61 L Bakari Test Positive Respiration Rate 14 O2 Delivery Device Adult Vent Vent Mode AC Tidal Volume 450 POC PEEP 14 Sodium Potassium Chloride Carbon Dioxide Anion Gap BUN Creatinine Estim Creat Clear Calc Est GFR (MDRD) Af Amer Est GFR (MDRD) Non-Af BUN/Creatinine Ratio Glucose Calcium Total Bilirubin AST ALT Alkaline Phosphatase B-Natriuretic Peptide 105.8 H Total Protein Albumin Globulin Albumin/Globulin Ratio Procalcitonin 0.29 H POC Glucose 05/01/20 05/01/20 05/01/20 04:20 04:20 11:33 WBC 16.0 H RBC 3.52 L Hgb 10.2 L Hct 31.7 L MCV 90.1 MCH 29.0 MCHC 32.2 RDW Std Deviation 48.6 H RDW Coeff of Lou 14.9 H Plt Count 239 MPV 10.9 Specimen Type Sample Site pH Bicarbonate Actual Total CO2 Base Excess O2 Saturation O2 % ABG pCO2 ABG pO2 Bakari Test Respiration Rate O2 Delivery Device Vent Mode Tidal Volume POC PEEP Sodium 146 H Potassium 4.1 Chloride 114 H Carbon Dioxide 24.0 Anion Gap 8 BUN 81 H Creatinine 1.61 H Estim Creat Clear Calc 34.64 Est GFR (MDRD) Af Amer 53 L Est GFR (MDRD) Non-Af 44 L BUN/Creatinine Ratio 50.3 H Glucose 216 H Calcium 8.1 L Total Bilirubin 0.60 AST 35 ALT 20 Alkaline Phosphatase 96 B-Natriuretic Peptide Total Protein 5.9 L Albumin 1.8 L Globulin 4.1 Albumin/Globulin Ratio 0.4 L Procalcitonin POC Glucose 241 H 05/01/20 05/02/20 05/02/20 16:29 00:06 05:24 WBC RBC Hgb Hct MCV MCH MCHC RDW Std Deviation RDW Coeff of Lou Plt Count MPV Specimen Type Sample Site pH Bicarbonate Actual Total CO2 Base Excess O2 Saturation O2 % ABG pCO2 ABG pO2 Bakari Test Respiration Rate O2 Delivery Device Vent Mode Tidal Volume POC PEEP Sodium Potassium Chloride Carbon Dioxide Anion Gap BUN Creatinine Estim Creat Clear Calc Est GFR (MDRD) Af Amer Est GFR (MDRD) Non-Af BUN/Creatinine Ratio Glucose Calcium Total Bilirubin AST ALT Alkaline Phosphatase B-Natriuretic Peptide Total Protein Albumin Globulin Albumin/Globulin Ratio Procalcitonin POC Glucose 338 H 340 H 282 H Microbiology 05/01/20 16:30 Sputum, Induced/Lukens Gram Stain - Preliminary 04/25/20 12:35 Blood Culture (Wb) #2 - Anticubital Left Blood Culture - Final No growth in 5 days. 04/25/20 12:15 Blood Culture (Wb) - Anticubital Right Blood Culture - Final No growth in 5 days. Clinical Impression(s) from Imaging Studies Chest X-Ray 04/25/20 13:10 IMPRESSION: Patchy infiltrate in the medial aspect of the right upper lobe as well as in the left lower lobe. Electronically Signed: Jamar Howard MD at 13:46 EST , Service support , Chest X-Ray 04/26/20 10:26 IMPRESSION: Progressive infiltration in both lungs worse in the left hemithorax. The tip of the endotracheal tube is at 3.9 cm proximal to the shyla. The tip of the orogastric tube is in the body of the stomach. Electronically Signed: Jamar Howard MD at 11:21 EST , Service support , Chest X-Ray 04/26/20 15:50 IMPRESSION: Grossly satisfactory positioning of right IJ line with no pneumothorax. Improved expansion and aeration of both lungs since exam of earlier today. Electronically Signed: Drew Cazares MD at 17:05 EST , Service support , Chest X-Ray 04/30/20 05:59 IMPRESSION: Findings suspicious for multifocal infiltrates. Lines as detailed above. Unchanged since prior study. Electronically Signed: Maranda Laboy MD at 7:07 EST Tel , Service support , Medical Necessity - Tobacco Use Smoking Status: Never smoker Tobacco Use: Non-smoker Assessment/Plan All Active Problems Femoral neck fracture (Acute) COVID-19 (Acute) Hypoxia (Acute) Acute respiratory failure with hypoxia (Resolved) Asthma exacerbation with COPD (chronic obstructive pulmonary disease) (Resolved) RECOMMENDATIONS: 1. Continue patient on assist control mode of mechanical ventilation and wean FiO2 and PEEP to maintain saturations at or above 90%. 2. Resume p.o. amiodarone and discontinue infusion. 3. Continue Decadron to complete 10-day treatment course. 4. Continue therapeutic Lovenox. 5. Continue tube feeds as tolerated. 6. Continue appropriate GI prophylaxis. 7. Obtain repeat arterial blood gas. 8. Ongoing goals of care discussion with the patient's legal guardian. IMPRESSIONS: 1. Acute hypoxemic respiratory failure secondary to COVID-19 pneumonia in the setting of suspected COPD/asthma Plan to continue current supportive measures including invasive mechanical ventilatory support with a goal to wean FiO2 and PEEP to maintain oxygen saturations at or above 90%. The patient has completed a treatment course of remdesivir and will remain on Decadron to complete a 10-day course. Bron chodilators will be continued. Systemic anticoagulation with Lovenox will be continued. Continue bronchodilator therapy. 2. Acute on chronic kidney disease Likely prerenal in etiology. Creatinine appears back close to baseline. Continue to monitor urine output. No current indication for renal replacement therapy. 3. Metabolic encephalopathy Continue to hold all forms of sedation. Obtain repeat arterial blood gas. 4. Paroxysmal atrial fibrillation Continue amiodarone and beta-alycia regimen as ordered. 5. Advanced age/coronary artery disease/hypertension/depression Complicates care, management, recovery and prognosis. Continue home medications as indicated. TIME: 34 minutes of critical care time, independent of procedures, was spent addressing the patient's acute hypoxemic respiratory failure secondary to COVID- 19 pneumonia, acute on chronic kidney disease, metabolic encephalopathy, paroxysmal atrial fibrillation, review of all data and collaboration with the care team. [phone]) [id number] Critical care first hour
[2020-05-02 06:15] LABS: Absolute Lymphocyte Count 5.48 X10^3/uL (0.83-4.51); Absolute Neutrophil Count 18.9 X10^3/uL (2.0-7.7); Basophil# 0.05 X10^3/uL; Basophil% 0.2 % (0-1); Eosinophil# 0.01 X10^3/uL; Hemoglobin 10.5 g/dL (13.0-16.5); Lymphocyte # 5.48 X10^3/ul (4.0); Lymphocyte % 21.7 % (19-41); Mean Corp Hgb Conc 32.8 g/dL (32-36); Mean Corpuscular Hgb 29.2 pg (27.0-32.0); Mean Corpuscular Volume 88.9 fL (80-94); Mean Platelet Vol. 11.4 fl (6.2-12.0); Monocyte# 0.45 X10^3/uL; Monocyte% 1.8 % (0-10); NRBC Flagged by Analyzer 0.1 % (0-5); Neutrophil # 18.92 X10^3/uL (2.7-7.7); POSITIVE DIFFERENTIAL YES; POSITIVE MORPHOLOGY YES; Platelet Count 285 K/mm3 (150-450); RBC Distribution Width CV 15.2 % (11.6-14.6); RBC Distribution Width SD 49.6 fl (35.1-43.9); White Blood Count 25.3 K/mm3 (4.4-11.0)
[2020-05-02 06:16] LABS: Differential Indicated SCAN CRITERIA MET
[2020-05-02 06:26] LABS: Anion Gap 8 (5-15); BUN 98 mg/dL (7-18); BUN/Creat Ratio 50.5 RATIO (10-20); Calcium,Total 8.8 mg/dL (8.5-10.1); Chloride 114 mmol/L (98-107); Creatinine, Serum 1.94 mg/dL (0.70-1.30); EST Glomerular Filtration Rate 35 mL/min (>60); Est Glom Filt Rate - Afr Amer 42 mL/min (>60); Estimated Creatinine Clearance 28.74 ml/min; Glucose 293 mg/dL (74-106); Sodium Level 144 mmol/L (136-145)
--- NOTE | 2020-05-02 07:29 | PN_ITS ---
Patient Problems: Active and Suspected Problems COVID-19 (Acute) Hypoxia (Acute) Reason for Visit: Acute hypoxic respiratory failure Covid-19 pneumonia Subjective: Patient on the vent of all sedation and unresponsive his WBC count trending up in addition to his creatinine Objective: GENERAL: Unresponsive on the vent HEENT: Atraumatic; EYES; Anicteric, Normal Conjunctiva NECK; supple, normal thyroid, RESPIRATORY: Diminished to auscultation CARDIOVASCULAR: Regular S1 S2, GI: soft, normoactive bowel sounds, : No Renal angle tenderness; EXTREMITIES: No edema, no clubbing, MUSCULOSKELETAL: no muscle waisting NEURO: Unresponsive on the vent SKIN: No Rash Vitals/I&O's: Vital Signs Temp Pulse Resp BP Pulse Ox 99.2 F H 95 31 H 158/66 H 90 05/02/20 06:00 05/02/20 06:00 05/02/20 06:00 05/02/20 06:00 05/02/20 06:00 Oxygen Flow Rate (L/min) 92 Oxygen Delivery Method Mechanical Ventilator Weight: 89.1 kg Body Mass Index (BMI) 27.1 Intake and Output for Last 24 Hours 04/30/20 05/01/20 05/02/20 23:59 23:59 23:59 Intake Total 1431.63 / 3624.38 4341.01 / 5075.71 1369.9 / 1369.9 Output Total 855 / 1305 1625 / 2025 600 / 600 Balance 576.63 / 2319.38 2716.01 / 3050.71 769.9 / 769.9 Microbiology Past 72 Hours 05/01/20 16:30 Sputum, Induced/Lukens Gram Stain - Preliminary 04/25/20 12:35 Blood Culture (Wb) #2 - Anticubital Left Blood Culture - Final No growth in 5 days. 04/25/20 12:15 Blood Culture (Wb) - Anticubital Right Blood Culture - Final No growth in 5 days. 04/26/20 13:26 Sputum, Induced/Lukens Gram Stain - Final 04/26/20 13:26 Sputum, Induced/Lukens Respiratory Culture - Final Yeast, not Ritu albicans Laboratory Results 05/01/20 11:33: POC Glucose 241 H 05/01/20 16:29: POC Glucose 338 H 05/02/20 00:06: POC Glucose 340 H 05/02/20 03:50: WBC 25.3 H, RBC 3.60 L, Hgb 10.5 L, Hct 32.0 L, MCV 88.9, MCH 29.2, MCHC 32.8, RDW Std Deviation 49.6 H, RDW Coeff of Olu 15.2 H, Plt Count 285, MPV 11.4, Immature Gran % (Auto) 1.300 H, Neut % (Auto) 75.0 H, Lymph % (Auto) 21.7, [place] % (Auto) 1.8, Eos % (Auto) 0.0, Baso % (Auto) 0.2, Absolute Neuts (auto) 18.9 H, Absolute Lymphs (auto) 5.48 H, Nucleated RBC % 0.1 05/02/20 03:50: Sodium 144, Potassium 4.0, Chloride 114 H, Carbon Dioxide 22.0, Anion Gap 8, BUN 98 H, Creatinine 1.94 H, Estim Creat Clear Calc 28.74, Est GFR (MDRD) Af Amer 42 L, Est GFR (MDRD) Non-Af 35 L, BUN/Creatinine Ratio 50.5 H, Glucose 293 H, Calcium 8.8 05/02/20 05:24: POC Glucose 282 H Current Medications Acetaminophen (Acetaminophen 650 Mg/20 Ml Udc) 650 mg GT Q6H PRN PRN PRN Reason: Pain Score 1-10/Temp > 100.7 F Al Hydroxide/Mg Hydroxide (Mag Hydrox/Al Hydrox/Simeth 30 Ml Udc) 30 ml GT Q6H PRN PRN PRN Reason: Gastric Burning Albuterol Sulfate (Albuterol Ih 8.5 Gm (Proair) Inhaler (200 Puffs)) 2 puff INHALATION Q4H PRN PRN PRN Reason: SOB &/OR WHEEZING Amiodarone HCl (Amiodarone 200 Mg Tablet) 200 mg GT BID [facility] Last Admin: 05/01/20 15:29 Dose: Not Given Documented by: Aspirin (Aspirin 81 Mg Tab.Chew) 81 mg GT DAILY [facility] Last Admin: 05/01/20 08:23 Dose: 81 mg Documented by: Atorvastatin Calcium (Atorvastatin Calcium 40 Mg Tablet) 40 mg GT QHS [facility] Last Admin: 05/01/20 22:13 Dose: 40 mg Documented by: Bumetanide (Bumetanide 0.5 Mg Tablet) 1 mg PO DAILY [facility] Last Admin: 05/01/20 08:21 Dose: 1 mg Documented by: Chlorhexidine Gluconate (Chlorhexidine Gluc 2% Cloth 1 Each Towelette) 1 each TOPICAL DAILY [facility] Last Admin: 05/01/20 08:24 Dose: 1 each Documented by: Chlorhexidine Gluconate (Chlorhexidine 15 Ml) 15 ml PO BID [facility] Last Admin: 05/01/20 22:14 Dose: 15 ml Documented by: Clopidogrel Bisulfate (Clopidogrel Bisulfate 75 Mg Tablet) 75 mg GT DAILY [facility] Last Admin: 05/01/20 08:22 Dose: 75 mg Documented by: Dexamethasone Sodium Phosphate (Dexamethasone 10 Mg/Ml Vial) 6 mg IV DAILY [facility] Stop: 05/04/20 23:55 Last Admin: 05/01/20 08:22 Dose: 6 mg Documented by: Dextrose (Dextrose 50%-Water 25 Gm/50 Ml Disp.Syrin) 0 gm IV X1 PRN; Protocol PRN Reason: Hypoglycemia Enoxaparin Sodium (Enoxaparin 100 Mg/Ml Syringe) 90 mg SC BID [facility] Last Admin: 05/01/20 22:14 Dose: 90 mg Documented by: Famotidine (Famotidine 20 Mg Tablet) 20 mg GT DAILY [facility] Last Admin: 05/01/20 08:21 Dose: 20 mg Documented by: Finasteride (Finasteride 5 Mg Tablet) 5 mg PO QHS [facility] Last Admin: 05/01/20 22:14 Dose: 5 mg Documented by: Glucagon (Glucagon 1 Mg/Ml Syringe) 1 mg IM .X1 PRN PRN Reason: Hypoglycemia Haloperidol Lactate (Haloperidol Lactate 5 Mg/Ml Vial) 5 mg IV Q4H PRN PRN PRN Reason: AGITATION Last Admin: 04/26/20 06:55 Dose: 5 mg Documented by: Propofol (Diprivan) 1,000 mg in 100 mls @ 5.34 mls/hr CONT INF .Q12H [facility]; Protocol Last Admin: 05/01/20 22:48 Dose: Not Given Documented by: Fentanyl Citrate 1,000 mcg/ (Sodium Chloride) 100 mls @ 5 mls/hr CONT INF .Q20H [facility]; Protocol Last Titration: 05/01/20 17:00 Dose: 0 mcg/hr, 0 mls/hr Documented by: Enteral Nutritional Formula (Vital Af 1.2 Wil Liquid) 1,000 mls @ 60 mls/hr GT .[id number] [facility] Last Admin: 05/02/20 06:29 Dose: Not Given Documented by: Cefepime HCl 2 gm/ Sodium (Chloride) 100 mls @ 200 mls/hr IV Q12 [facility] Last Infusion: 05/01/20 22:45 Dose: Infused Documented by: Amiodarone HCl 360 mg/ (Dextrose) 200 mls @ 16.667 mls/hr CONT INF .Q12H [facility] Stop: 05/02/20 15:59 Last Infusion: 05/02/20 06:00 Dose: 0.5 mg/min, 16.7 mls/hr Documented by: Insulin Human Lispro (Insulin Lispro 100 Unit/Ml Insuln.Pen) 0 unit SC Q6 [facility]; Protocol Last Admin: 05/02/20 05:29 Dose: 4 u Documented by: Loratadine (Loratadine 10 Mg Tablet) 10 mg GT DAILY [facility] Last Admin: 05/01/20 08:23 Dose: 10 mg Documented by: Metoprolol Tartrate (Metoprolol Tartrate 25 Mg Tablet) 25 mg GT BID [facility] Last Admin: 05/01/20 22:12 Dose: 25 mg Documented by: Polyethylene Glycol (Polyethylene Glycol 3350 17 Gm Packet) 17 gm GT DAILY [facility] Last Admin: 05/01/20 08:21 Dose: 17 gm Documented by: Senna/Docusate Sodium (Senna/Docusate Sodium 1 Tablet) 2 tablet GT BID [facility] Last Admin: 05/01/20 22:13 Dose: 2 tablet Documented by: Sertraline HCl (Sertraline 50 Mg Tablet) 50 mg GT DAILY [facility] Last Admin: 05/01/20 08:23 Dose: 50 mg Documented by: Sodium Chloride (0.9% Saline Lock 10 Ml Syringe) 10 - 40 ml IV UD PRN PRN Reason: SALINE FLUSH Last Admin: 05/02/20 05:30 Dose: 20 ml Documented by: STROKE Vital Signs/Narrative: Vital Signs Temp Pulse Resp BP Pulse Ox 05/02/20 06:00 99.2 F H 95 31 H 158/66 H 90 05/02/20 05:00 99.2 F H 90 24 H 137/53 H 93 05/02/20 04:20 90 29 H 92 05/02/20 04:00 99.1 F 90 27 H 148/52 H 92 Medical Necessity - Tobacco Use Smoking Status: Never smoker Tobacco Use: Non-smoker Assessment/Plan All Active Problems Femoral neck fracture (Acute) COVID-19 (Acute) Hypoxia (Acute) Acute respiratory failure with hypoxia (Resolved) Asthma exacerbation with COPD (chronic obstructive pulmonary disease) (Resolved) 84-year-old gentleman from a [facility] admitted with progressive shortness of breath. An assessment of acute hypoxic respiratory failure secondary to acute COVID-19 pneumonia made admitted to the intensive care unit. Patient condition deteriorated resulting in patient being intubated on 04/26/2020 1. Acute hypoxic respiratory failure ?Secondary to acute COVID-19 pneumonia. Patient was intubated as a result of worsening respiratory symptoms. Patient condition deteriorated resulting in patient being intubated on 04/26/2020 - 04/30/2020; patient oxygen requirement increasing currently 100% FiO2 and PEEP of 14 -05/01/2020; patient decompensated during the night resulting in patient going into A. fib with RVR as well as hypotension. 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 Acute COVID-19 pneumonia ?Patient presented with hypoxia has been treated with dexamethasone and remdesivir with consultation placed to infectious disease and ID 3. Suspected superimposed bacterial pneumonia -Patient was started on cefepime. WBC count of continues to trend up 3. Covid induced coagulopathy ?Patient had elevated D-dimer currently on therapeutic Lovenox plan is for CTA of the chest prior to patient being discharged 4. Chronic kidney disease stage III ?Baseline creatinine 1.3-1.7 creatinine on admission was 1.8 5. Asthma/COPD ?Aerosol treatment as needed 6. Hypertension - Blood pressure stable 7. Anemia - Secondary to chronic disorder monitoring H&H and transfuse if patient becomes symptomatic or hemoglobin falls below 7 8. DVT prophylaxis ?On therapeutic Lovenox 9. Paroxysmal A. fib with RVR ?Patient back within sinus rhythm Inpatient E&M: [id number] [facility] L3
[2020-05-02] MEDS: dexAMETHasone 10 MG/ML Vial 6 MG IV (08:59)
[2020-05-02] MEDS: Polyethylene Glycol 3350 17 GM PACKET GT (08:59)
[2020-05-02] MEDS: Metoprolol Tartrate 25 MG Tablet GT ×2 (08:59→21:40)
[2020-05-02] MEDS: Sertraline 50 MG Tablet GT (08:59)
[2020-05-02] MEDS: Enoxaparin 100 MG/ML Syringe 90 MG SC (09:00)
[2020-05-02] MEDS: Aspirin 81 MG TAB.CHEW GT (09:00)
[2020-05-02] MEDS: Amiodarone 200 MG Tablet GT ×2 (09:00→21:40)
[2020-05-02] MEDS: Loratadine 10 MG Tablet GT (09:00)
[2020-05-02] MEDS: Clopidogrel Bisulfate 75 MG Tablet GT (09:00)
[2020-05-02] MEDS: Senna/Docusate Sodium 1 Tablet 2 TABLET GT ×2 (09:00→21:39)
[2020-05-02] MEDS: Famotidine 20 MG Tablet GT (09:00)
[2020-05-02] MEDS: Chlorhexidine 15 ML PO ×2 (09:01→19:59)
[2020-05-02] MEDS: CHLORHEXIDINE GLUC 2% CLOTH 1 EACH TOWELETTE TOPICAL (09:01)
[2020-05-02] MEDS: Bumetanide 0.5 MG Tablet 1 MG PO (09:01)
--- NOTE | 2020-05-02 10:33 | CASEMGMT ---
Social Work SW spoke with pt Guardian Adams Sanchez. Mr. Sanchez states he has been kept updated by physician and nursing on pt medical condition, and he has kept pt children informed of pt status. All but one child has responded to him and are expressing understanding of pt poor prognosis and are in agreement with Mr. Sanchez for comfort measures. Mr. Sanchez would like to give the last child one more day to respond to him prior to making final decision. According to Guardian, pt does have a Living Will and he plans on executing pt wishes in document. Mr. Sanchez expresses wishes to readdress situation with physician tomorrow and will make decision at that time. Nursing updated. SAIDA Field
[2020-05-02 10:45] LABS: Allen Test Positive; Base Excess -5 mmol/L (-2 to +2); Bicarbonate 20.1 mmol/L (22-26); Blood Gas Specimen Type ART; FI02 70; Mode AC; O2 Delivery Device Adult Vent; PEEP 15; PO2 61 mmHG (75-100); RR 14; SITE R Radial; SO2 91 % (95-99); Total Carbon Dioxide 21 mmol/L; Vt 450; pCO2 32.7 mmHg (35-45)
[2020-05-02 11:50] LABS: Bedside Glucose 287 mg/dL (70-110)
[2020-05-02 20:35] LABS: Bedside Glucose 405 mg/dL (70-110)
[2020-05-02] MEDS: Finasteride 5 MG Tablet PO (21:39)
[2020-05-02] MEDS: Atorvastatin Calcium 40 MG Tablet GT (21:41)
[2020-05-03] VITALS (42 sets, daily range): BP systolic 39–213; BP diastolic 12–175; PULSE 0–134; RESP 14–39; TEMP 37.1–37.9; O2SAT 88–98
[2020-05-03] MEDS: Insulin Lispro 100 UNIT/ML INSULN.PEN SC ×4 (00:16→18:02)
[2020-05-03 00:36] LABS: Bedside Glucose 379 mg/dL (70-110)
[2020-05-03] MEDS: hydrALAZINE 20 MG/ML Vial 10 MG IV (01:13)
[2020-05-03] MEDS: 0.9% Saline Lock 10 ML Syringe IV ×3 (01:20→20:27)
--- NOTE | 2020-05-03 02:39 | NURSING ---
Spoke with patients son, Mike, and updated him on POC. Directly after him spoke with patient's daughter Maria Esther. She was very angry and was asking why my father is not on hospice. This RN attempted to explain role of patient's legal POA and she demanded that she talk to the patient advocate. She agreed to the patient advocate calling her in the morning.
[2020-05-03] MEDS: Vital AF 1.2 Cal Liquid 1,000 ML 60 ML GT (03:59)
--- NOTE | 2020-05-03 06:21 | PCM.PN.INT ---
Subjective: The patient was seen and examined at the bedside this morning. Events from the last 24 hours have been reviewed. Overnight, the patient went back into atrial fibrillation with a rapid ventricular rate. He was intermittently agitated and was therefore restarted on fentanyl. The patient remains on assist control mode of mechanical ventilation with an FiO2 requirement of 70% and PEEP of 15. He is currently documented to be overall net +6.6 L for the hospital admission. Objective: The patient's most recent lab work, culture data and imaging studies have all been personally reviewed. Blood cultures have shown no growth to date. General: - - Remains intubated and mechanically ventilated. HEENT: Atraumatic, PERRLA, Normocephalic Oral: No Gingival or Mucosal Lesions/ Ulcerations, - - Endotracheal and OG tubes remain in place Neck: Supple, No Nodes, Trachea Midline Lungs: No rhonchi, No wheeze, No rales, Diminished, Tachypneic Cardiovascular: Normal S1, Normal S2, Irregular Rate, Murmur, Tachycardic Abdomen: Bowel Sounds Present, Soft, Non Tender Extremities: No clubbing, No cyanosis, No edema Skin: - - No significant change from previous Musculoskeletal: No Tenderness to Palpation of Joints or Extremities Lymphatic: No Cervical, Supraclavicular, or Inguinal Adenopathy Neurological: - - No focal neurological deficits. The patient is nonresponsive and will not follow any commands. Vital Signs Temp Pulse Resp BP Pulse Ox 98.9 F 97 29 H 143/52 H 90 05/03/20 05:00 05/03/20 05:28 05/03/20 05:28 05/03/20 05:00 05/03/20 05:28 Oxygen Flow Rate (L/min) 92 Oxygen Delivery Method Mechanical Ventilator Weight: 199 lb 11.821 oz Body Mass Index (BMI) 27.1 Intake and Output for Last 24 Hours 05/01/20 05/02/20 05/03/20 23:59 23:59 23:59 Intake Total 4341.01 / 5075.71 3070.44 / 3829.44 1221.25 / 1221.25 Output Total 1625 / 5 1850 / 1850 200 / 200 Balance 2716.01 / 3050.71 1220.44 / 1979.44 1021.25 / 1021.25 Labs (Last 48 Hours) 05/01/20 05/01/20 05/02/20 11:33 16:29 00:06 WBC RBC Hgb Hct MCV MCH MCHC RDW Std Deviation RDW Coeff of Lou Plt Count MPV Immature Gran % (Auto) Neut % (Auto) Lymph % (Auto) [place] % (Auto) Eos % (Auto) Baso % (Auto) Absolute Neuts (auto) Absolute Lymphs (auto) Nucleated RBC % Specimen Type Sample Site pH Bicarbonate Actual Total CO2 Base Excess O2 Saturation O2 % ABG pCO2 ABG pO2 Bakari Test Respiration Rate O2 Delivery Device Vent Mode Tidal Volume POC PEEP Sodium Potassium Chloride Carbon Dioxide Anion Gap BUN Creatinine Estim Creat Clear Calc Est GFR (MDRD) Af Amer Est GFR (MDRD) Non-Af BUN/Creatinine Ratio Glucose Calcium POC Glucose 241 H 338 H 340 H 05/02/20 05/02/20 05/02/20 03:50 03:50 05:24 WBC 25.3 H RBC 3.60 L Hgb 10.5 L Hct 32.0 L MCV 88.9 MCH 29.2 MCHC 32.8 RDW Std Deviation 49.6 H RDW Coeff of Lou 15.2 H Plt Count 285 MPV 11.4 Immature Gran % (Auto) 1.300 H Neut % (Auto) 75.0 H Lymph % (Auto) 21.7 [place] % (Auto) 1.8 Eos % (Auto) 0.0 Baso % (Auto) 0.2 Absolute Neuts (auto) 18.9 H Absolute Lymphs (auto) 5.48 H Nucleated RBC % 0.1 Specimen Type Sample Site pH Bicarbonate Actual Total CO2 Base Excess O2 Saturation O2 % ABG pCO2 ABG pO2 Bakari Test Respiration Rate O2 Delivery Device Vent Mode Tidal Volume POC PEEP Sodium 144 Potassium 4.0 Chloride 114 H Carbon Dioxide 22.0 Anion Gap 8 BUN 98 H Creatinine 1.94 H Estim Creat Clear Calc 28.74 Est GFR (MDRD) Af Amer 42 L Est GFR (MDRD) Non-Af 35 L BUN/Creatinine Ratio 50.5 H Glucose 293 H Calcium 8.8 POC Glucose 282 H 05/02/20 05/02/20 05/02/20 10:33 11:33 17:09 WBC RBC Hgb Hct MCV MCH MCHC RDW Std Deviation RDW Coeff of Lou Plt Count MPV Immature Gran % (Auto) Neut % (Auto) Lymph % (Auto) [place] % (Auto) Eos % (Auto) Baso % (Auto) Absolute Neuts (auto) Absolute Lymphs (auto) Nucleated RBC % Specimen Type ART Sample Site R Radial pH 7.40 Bicarbonate Actual 20.1 L Total CO2 21 Base Excess -5 L O2 Saturation 91 L O2 % 70 ABG pCO2 32.7 L ABG pO2 61 L Bakari Test Positive Respiration Rate 14 O2 Delivery Device Adult Vent Vent Mode AC Tidal Volume 450 POC PEEP 15 Sodium Potassium Chloride Carbon Dioxide Anion Gap BUN Creatinine Estim Creat Clear Calc Est GFR (MDRD) Af Amer Est GFR (MDRD) Non-Af BUN/Creatinine Ratio Glucose Calcium POC Glucose 287 H 405 H 05/03/20 00:14 WBC RBC Hgb Hct MCV MCH MCHC RDW Std Deviation RDW Coeff of Lou Plt Count MPV Immature Gran % (Auto) Neut % (Auto) Lymph % (Auto) [place] % (Auto) Eos % (Auto) Baso % (Auto) Absolute Neuts (auto) Absolute Lymphs (auto) Nucleated RBC % Specimen Type Sample Site pH Bicarbonate Actual Total CO2 Base Excess O2 Saturation O2 % ABG pCO2 ABG pO2 Bakari Test Respiration Rate O2 Delivery Device Vent Mode Tidal Volume POC PEEP Sodium Potassium Chloride Carbon Dioxide Anion Gap BUN Creatinine Estim Creat Clear Calc Est GFR (MDRD) Af Amer Est GFR (MDRD) Non-Af BUN/Creatinine Ratio Glucose Calcium POC Glucose 379 H Microbiology 05/01/20 16:30 Sputum, Induced/Lukens Gram Stain - Final 05/01/20 16:30 Sputum, Induced/Lukens Respiratory Culture - Preliminary Yeast Like Organism 04/30/20 10:00 Blood Culture (Wb) - [facility] Blood Culture - Preliminary No growth in 48 hours. Clinical Impression(s) from Imaging Studies Chest X-Ray 04/25/20 13:10 IMPRESSION: Patchy infiltrate in the medial aspect of the right upper lobe as well as in the left lower lobe. Electronically Signed: Jamar Howard MD at 13:46 EST , Service support , Chest X-Ray 04/26/20 10:26 IMPRESSION: Progressive infiltration in both lungs worse in the left hemithorax. The tip of the endotracheal tube is at 3.9 cm proximal to the shyla. The tip of the orogastric tube is in the body of the stomach. Electronically Signed: Jamar Howard MD at 11:21 EST , Service support , Chest X-Ray 04/26/20 15:50 IMPRESSION: Grossly satisfactory positioning of right IJ line with no pneumothorax. Improved expansion and aeration of both lungs since exam of earlier today. Electronically Signed: Drew Cazares MD at 17:05 EST , Service support , Chest X-Ray 04/30/20 05:59 IMPRESSION: Findings suspicious for multifocal infiltrates. Lines as detailed above. Unchanged since prior study. Electronically Signed: Maranda Laboy MD at 7:07 EST Tel , Service support , Medical Necessity - Tobacco Use Smoking Status: Never smoker Tobacco Use: Non-smoker Assessment/Plan All Active Problems Femoral neck fracture (Acute) COVID-19 (Acute) Hypoxia (Acute) Acute respiratory failure with hypoxia (Resolved) Asthma exacerbation with COPD (chronic obstructive pulmonary disease) (Resolved) RECOMMENDATIONS: 1. Continue patient on assist control mode of mechanical ventilation and wean FiO2 and PEEP to maintain saturations at or above 90%. 2. Continue Decadron to complete 10-day treatment course. 3. Continue amiodarone and beta-alycia as ordered. 4. Continue antimicrobials per ID recommendations. 5. Continue therapeutic Lovenox. 6. Continue tube feeds as tolerated. 7. Continue appropriate GI prophylaxis. 8. Ongoing goals of care discussion with the patient's legal guardian. IMPRESSIONS: 1. Acute hypoxemic respiratory failure secondary to COVID-19 pneumonia in the setting of suspected COPD/asthma Plan to continue current supportive measures including invasive mechanical ventilatory support with a goal to wean FiO2 and PEEP to maintain oxygen saturations at or above 90%. The patient has completed a treatment course of remdesivir and will remain on Decadron to complete a 10-day course. Bronchodilators will be continued. Systemic anticoagulation with Lovenox will be continued. Continue bronchodilator therapy. 2. Acute on chronic kidney disease Likely prerenal in etiology. Creatinine appears back close to baseline. Continue to monitor urine output. No current indication for renal replacement therapy. 3. Metabolic encephalopathy Continue to hold all forms of sedation. 4. Paroxysmal atrial fibrillation Continue amiodarone and beta-alycia regimen as ordered. 5. Advanced age/coronary artery disease/hypertension/depression Complicates care, management, recovery and prognosis. Continue home medications as indicated. TIME: 35 minutes of critical care time, independent of procedures, was spent addressing the patient's acute hypoxemic respiratory failure secondary to COVID-19 pneumonia, acute on chronic kidney disease, metabolic encephalopathy, paroxysmal atrial fibrillation, review of all data and collaboration with the care team. [id number]) [phone] [id number] Critical care first hour
--- NOTE | 2020-05-03 07:17 | PN_ITS ---
Patient Problems: Active and Suspected Problems COVID-19 (Acute) Hypoxia (Acute) Reason for Visit: Hypoxic respiratory failure COVID-19 pneumonia Subjective: Patient seen remains on the vent with no significant change in his overall condition CODE STATUS has been changed from full code to DNR CCA no intubation the day prior after discussions with family Objective: GENERAL: Unresponsive on the vent HEENT: Atraumatic; EYES; Anicteric, Normal Conjunctiva NECK; supple, normal thyroid, RESPIRATORY: Diminished to auscultation CARDIOVASCULAR: Regular S1 S2, GI: soft, normoactive bowel sounds, : No Renal angle tenderness; EXTREMITIES: No edema, no clubbing, MUSCULOSKELETAL: no muscle waisting NEURO: Unresponsive on the vent SKIN: No Rash Vitals/I&O's: Vital Signs Temp Pulse Resp BP Pulse Ox 98.9 F 134 H 31 H 142/69 H 89 05/03/20 06:00 05/03/20 06:00 05/03/20 06:00 05/03/20 06:00 05/03/20 06:00 Oxygen Flow Rate (L/min) 92 Oxygen Delivery Method Mechanical Ventilator Weight: 90.6 kg Body Mass Index (BMI) 27.1 Intake and Output for Last 24 Hours 05/01/20 05/02/20 05/03/20 23:59 23:59 23:59 Intake Total 4341.01 / 5075.71 3070.44 / 3829.44 1228.75 / 1228.75 Output Total 1625 / 2025 1850 / 1850 200 / 200 Balance 2716.01 / 3050.71 1220.44 / 1979.44 1028.75 / 1028.75 Microbiology Past 72 Hours 05/01/20 16:30 Sputum, Induced/Lukens Gram Stain - Final 05/01/20 16:30 Sputum, Induced/Lukens Respiratory Culture - Preliminary Yeast Like Organism 04/30/20 10:00 Blood Culture (Wb) - Pic Blood Culture - Preliminary No growth in 48 hours. 04/25/20 12:35 Blood Culture (Wb) #2 - Anticubital Left Blood Culture - Final No growth in 5 days. 04/25/20 12:15 Blood Culture (Wb) - Anticubital Right Blood Culture - Final No growth in 5 days. Laboratory Results 05/02/20 10:33: Specimen Type ART, Sample Site R Radial, pH 7.40, Bicarbonate Actual 20.1 L, Total CO2 21, Base Excess -5 L, O2 Saturation 91 L, O2 % 70, ABG pCO2 32.7 L, ABG pO2 61 L, Bakari Test Positive, Respiration Rate 14, O2 Delivery Device Adult Vent, Vent Mode AC, Tidal Volume 450, POC PEEP 15 05/02/20 11:33: POC Glucose 287 H 05/02/20 17:09: POC Glucose 405 H 05/03/20 00:14: POC Glucose 379 H Current Medications Acetaminophen (Acetaminophen 650 Mg/20 Ml Udc) 650 mg GT Q6H PRN PRN PRN Reason: Pain Score 1-10/Temp > 100.7 F Al Hydroxide/Mg Hydroxide (Mag Hydrox/Al Hydrox/Simeth 30 Ml Udc) 30 ml GT Q6H PRN PRN PRN Reason: Gastric Burning Albuterol Sulfate (Albuterol Ih 8.5 Gm (Proair) Inhaler (200 Puffs)) 2 puff INHALATION Q4H PRN PRN PRN Reason: SOB &/OR WHEEZING Amiodarone HCl (Amiodarone 200 Mg Tablet) 200 mg GT BID [facility] Last Admin: 05/02/20 21:40 Dose: 200 mg Documented by: Aspirin (Aspirin 81 Mg Tab.Chew) 81 mg GT DAILY [facility] Last Admin: 05/02/20 09:00 Dose: 81 mg Documented by: Atorvastatin Calcium (Atorvastatin Calcium 40 Mg Tablet) 40 mg GT QHS [facility] Last Admin: 05/02/20 21:41 Dose: 40 mg Documented by: Chlorhexidine Gluconate (Chlorhexidine Gluc 2% Cloth 1 Each Towelette) 1 each TOPICAL DAILY [facility] Last Admin: 05/02/20 09:01 Dose: 1 each Documented by: Chlorhexidine Gluconate (Chlorhexidine 15 Ml) 15 ml PO BID [facility] Last Admin: 05/02/20 19:59 Dose: 15 ml Documented by: Clopidogrel Bisulfate (Clopidogrel Bisulfate 75 Mg Tablet) 75 mg GT DAILY [facility] Last Admin: 05/02/20 09:00 Dose: 75 mg Documented by: Dexamethasone Sodium Phosphate (Dexamethasone 10 Mg/Ml Vial) 6 mg IV DAILY [facility] Stop: 05/04/20 23:55 Last Admin: 05/02/20 08:59 Dose: 6 mg Documented by: Dextrose (Dextrose 50%-Water 25 Gm/50 Ml Disp.Syrin) 0 gm IV X1 PRN; Protocol PRN Reason: Hypoglycemia Enoxaparin Sodium (Enoxaparin 100 Mg/Ml Syringe) 90 mg SC DAILY [facility] Famotidine (Famotidine 20 Mg Tablet) 20 mg GT DAILY [facility] Last Admin: 05/02/20 09:00 Dose: 20 mg Documented by: Finasteride (Finasteride 5 Mg Tablet) 5 mg PO QHS [facility] Last Admin: 05/02/20 21:39 Dose: 5 mg Documented by: Glucagon (Glucagon 1 Mg/Ml Syringe) 1 mg IM .X1 PRN PRN Reason: Hypoglycemia Haloperidol Lactate (Haloperidol Lactate 5 Mg/Ml Vial) 5 mg IV Q4H PRN PRN PRN Reason: AGITATION Last Admin: 04/26/20 06:55 Dose: 5 mg Documented by: Propofol (Diprivan) 1,000 mg in 100 mls @ 5.34 mls/hr CONT INF .Q12H [facility]; Protocol Last Admin: 05/02/20 23:28 Dose: Not Given Documented by: Fentanyl Citrate 1,000 mcg/ (Sodium Chloride) 100 mls @ 5 mls/hr CONT INF .Q20H [facility]; Protocol Last Titration: 05/03/20 07:00 Dose: 50 mcg/hr, 5 mls/hr Documented by: Enteral Nutritional Formula (Vital Af 1.2 Wil Liquid) 1,000 mls @ 60 mls/hr GT .[id number] [facility] Last Admin: 05/03/20 03:59 Dose: 60 mls/hr Documented by: Cefepime HCl 2 gm/ Sodium (Chloride) 100 mls @ 200 mls/hr IV DAILY [facility] Insulin Glargine (Insulin Glargine 100 Units/Ml Pen) 10 units SC DAILY [facility] Last Admin: 05/02/20 11:33 Dose: 10 u Documented by: Insulin Human Lispro (Insulin Lispro 100 Unit/Ml Insuln.Pen) 0 unit SC Q6 [facility]; Protocol Last Admin: 05/03/20 05:46 Dose: 5 u Documented by: Loratadine (Loratadine 10 Mg Tablet) 10 mg GT DAILY [facility] Last Admin: 05/02/20 09:00 Dose: 10 mg Documented by: Metoprolol Tartrate (Metoprolol Tartrate 25 Mg Tablet) 25 mg GT BID [facility] Last Admin: 05/02/20 21:40 Dose: 25 mg Documented by: Polyethylene Glycol (Polyethylene Glycol 3350 17 Gm Packet) 17 gm GT DAILY [facility] Last Admin: 05/02/20 08:59 Dose: 17 gm Documented by: Senna/Docusate Sodium (Senna/Docusate Sodium 1 Tablet) 2 tablet GT BID [facility] Last Admin: 05/02/20 21:39 Dose: 2 tablet Documented by: Sertraline HCl (Sertraline 50 Mg Tablet) 50 mg GT DAILY [facility] Last Admin: 05/02/20 08:59 Dose: 50 mg Documented by: Sodium Chloride (0.9% Saline Lock 10 Ml Syringe) 10 - 40 ml IV UD PRN PRN Reason: SALINE FLUSH Last Admin: 05/03/20 03:59 Dose: 20 ml Documented by: STROKE Vital Signs/Narrative: Vital Signs Temp Pulse Resp BP Pulse Ox 05/03/20 06:00 98.9 F 134 H 31 H 142/69 H 89 05/03/20 05:28 97 29 H 90 05/03/20 05:00 98.9 F 96 26 H 143/52 H 91 05/03/20 04:00 99.2 F H 94 27 H 160/74 H 90 Medical Necessity - Tobacco Use Smoking Status: Never smoker Tobacco Use: Non-smoker Assessment/Plan All Active Problems Femoral neck fracture (Acute) COVID-19 (Acute) Hypoxia (Acute) Acute respiratory failure with hypoxia (Resolved) Asthma exacerbation with COPD (chronic obstructive pulmonary disease) (Resolved) 84-year-old gentleman from a half-way admitted with progressive shortness of breath. An assessment of acute hypoxic respiratory failure secondary to acute COVID-19 pneumonia made admitted to the intensive care unit. Patient condition deteriorated resulting in patient being intubated on 04/26/2020 1. Acute hypoxic respiratory failure ?Secondary to acute COVID-19 pneumonia. Patient was intubated as a result of worsening respiratory symptoms. Patient condition deteriorated resulting in patient being intubated on 04/26/2020 - 04/30/2020; patient oxygen requirement increasing currently 100% FiO2 and PEEP of 14 -05/01/2020; patient decompensated during the night resulting in patient going into A. fib with RVR as well as hypotension. Vent settings changes were made by school speech language pathologist - 05/02/2020;Patient on the vent of all sedation and unresponsive his WBC count trending up in addition to his creatinine -05/03/2020; Patient seen remains on the vent with no significant change in his overall condition CODE STATUS has been changed from full code to DNR CCA no intubation the day prior after discussions with family 2. Acute COVID-19 pneumonia ?Patient presented with hypoxia has been treated with dexamethasone and remdesivir with consultation placed to infectious disease and ID 3. Suspected superimposed bacterial pneumonia -Patient was started on cefepime. WBC count of continues to trend up 3. Covid induced coagulopathy ?Patient had elevated D-dimer currently on therapeutic Lovenox plan is for CTA of the chest prior to patient being discharged 4. Chronic kidney disease stage III ?Baseline creatinine 1.3-1.7 creatinine on admission was 1.8 5. Asthma/COPD ?Aerosol treatment as needed 6. Hypertension - Blood pressure stable 7. Anemia - Secondary to chronic disorder monitoring H&H and transfuse if patient becomes symptomatic or hemoglobin falls below 7 8. DVT prophylaxis ?On therapeutic Lovenox 9. Paroxysmal A. fib with RVR ?Patient back within sinus rhythm Inpatient E&M: [id number] Subs Hosp L2
[2020-05-03 08:11] LABS: Bedside Glucose 323 mg/dL (70-110)
[2020-05-03] MEDS: Famotidine 20 MG Tablet GT (11:00)
[2020-05-03] MEDS: dexAMETHasone 10 MG/ML Vial 6 MG IV (11:00)
[2020-05-03] MEDS: Clopidogrel Bisulfate 75 MG Tablet GT (11:00)
[2020-05-03] MEDS: Senna/Docusate Sodium 1 Tablet 2 TABLET GT ×2 (11:00→20:10)
[2020-05-03] MEDS: Metoprolol Tartrate 25 MG Tablet GT ×2 (11:00→20:10)
[2020-05-03] MEDS: Enoxaparin 100 MG/ML Syringe 90 MG SC (11:00)
[2020-05-03] MEDS: Polyethylene Glycol 3350 17 GM PACKET GT (11:00)
[2020-05-03] MEDS: Sertraline 50 MG Tablet GT (11:00)
[2020-05-03] MEDS: CHLORHEXIDINE GLUC 2% CLOTH 1 EACH TOWELETTE TOPICAL (11:01)
[2020-05-03] MEDS: Chlorhexidine 15 ML PO ×2 (11:01→20:09)
[2020-05-03] MEDS: Loratadine 10 MG Tablet GT (11:01)
[2020-05-03] MEDS: Aspirin 81 MG TAB.CHEW GT (11:01)
[2020-05-03] MEDS: Amiodarone 200 MG Tablet GT ×2 (11:01→20:10)
[2020-05-03 12:20] LABS: Bedside Glucose 329 mg/dL (70-110)
--- NOTE | 2020-05-03 13:50 | PCM.PN.ID ---
Patient Problems: Active and Suspected Problems COVID-19 (Acute) Hypoxia (Acute) Subjective: On vent, no fever - Physical Exam Vitals/I&O's: Vital Signs Temp Pulse Resp BP Pulse Ox 99.1 F 97 21 H 135/46 H 90 05/03/20 13:00 05/03/20 13:00 05/03/20 13:00 05/03/20 13:00 05/03/20 13:00 Oxygen Flow Rate (L/min) 92 Oxygen Delivery Method Mechanical Ventilator Weight: 90.6 kg Body Mass Index (BMI) 27.1 Intake and Output for Last 24 Hours 05/01/20 05/02/20 05/03/20 23:59 23:59 23:59 Intake Total 4341.01 / 5075.71 3070.44 / 3829.44 1933.67 / 1933.67 Output Total 1624 / 2024 1850 / 1850 325 / 325 Balance 2716.01 / 3050.71 1220.44 / 1979.44 1608.67 / 1608.67 General: Non-Cooperative Lungs: Diminished Cardiovascular: Regular rate, Regular Rhythm Abdomen: Soft, Non Tender, Non-Distended Skin: No rashes Microbiology Past 72 Hours 05/01/20 16:30 Sputum, Induced/Lukens Gram Stain - Final 05/01/20 16:30 Sputum, Induced/Lukens Respiratory Culture - Preliminary Yeast Like Organism 04/30/20 10:00 Blood Culture (Wb) - Pic Blood Culture - Preliminary No growth in 48 hours. 04/25/20 12:35 Blood Culture (Wb) #2 - Anticubital Left Blood Culture - Final No growth in 5 days. 04/25/20 12:15 Blood Culture (Wb) - Anticubital Right Blood Culture - Final No growth in 5 days. Laboratory Results 05/02/20 17:09: POC Glucose 405 H 05/03/20 00:14: POC Glucose 379 H 05/03/20 05:42: POC Glucose 323 H 05/03/20 10:53: POC Glucose 329 H Current Medications Acetaminophen (Acetaminophen 650 Mg/20 Ml Udc) 650 mg GT Q6H PRN PRN PRN Reason: Pain Score 1-10/Temp > 100.7 F Al Hydroxide/Mg Hydroxide (Mag Hydrox/Al Hydrox/Simeth 30 Ml Udc) 30 ml GT Q6H PRN PRN PRN Reason: Gastric Burning Albuterol Sulfate (Albuterol Ih 8.5 Gm (Proair) Inhaler (200 Puffs)) 2 puff INHALATION Q4H PRN PRN PRN Reason: SOB &/OR WHEEZING Amiodarone HCl (Amiodarone 200 Mg Tablet) 200 mg GT BID [facility] Last Admin: 05/03/20 11:01 Dose: 200 mg Documented by: Aspirin (Aspirin 81 Mg Tab.Chew) 81 mg GT DAILY [facility] Last Admin: 05/03/20 11:01 Dose: 81 mg Documented by: Atorvastatin Calcium (Atorvastatin Calcium 40 Mg Tablet) 40 mg GT QHS [facility] Last Admin: 05/02/20 21:41 Dose: 40 mg Documented by: Chlorhexidine Gluconate (Chlorhexidine Gluc 2% Cloth 1 Each Towelette) 1 each TOPICAL DAILY [facility] Last Admin: 05/03/20 11:01 Dose: 1 each Documented by: Chlorhexidine Gluconate (Chlorhexidine 15 Ml) 15 ml PO BID [facility] Last Admin: 05/03/20 11:01 Dose: 15 ml Documented by: Clopidogrel Bisulfate (Clopidogrel Bisulfate 75 Mg Tablet) 75 mg GT DAILY [facility] Last Admin: 05/03/20 11:00 Dose: 75 mg Documented by: Dexamethasone Sodium Phosphate (Dexamethasone 10 Mg/Ml Vial) 6 mg IV DAILY [facility] Stop: 05/04/20 23:55 Last Admin: 05/03/20 11:00 Dose: 6 mg Documented by: Dextrose (Dextrose 50%-Water 25 Gm/50 Ml Disp.Syrin) 0 gm IV X1 PRN; Protocol PRN Reason: Hypoglycemia Enoxaparin Sodium (Enoxaparin 100 Mg/Ml Syringe) 90 mg SC DAILY [facility] Last Admin: 05/03/20 11:00 Dose: 90 mg Documented by: Famotidine (Famotidine 20 Mg Tablet) 20 mg GT DAILY [facility] Last Admin: 05/03/20 11:00 Dose: 20 mg Documented by: Finasteride (Finasteride 5 Mg Tablet) 5 mg PO QHS [facility] Last Admin: 05/02/20 21:39 Dose: 5 mg Documented by: Glucagon (Glucagon 1 Mg/Ml Syringe) 1 mg IM .X1 PRN PRN Reason: Hypoglycemia Haloperidol Lactate (Haloperidol Lactate 5 Mg/Ml Vial) 5 mg IV Q4H PRN PRN PRN Reason: AGITATION Last Admin: 04/26/20 06:55 Dose: 5 mg Documented by: Propofol (Diprivan) 1,000 mg in 100 mls @ 5.34 mls/hr CONT INF .Q12H [facility]; Protocol Last Admin: 05/03/20 11:00 Dose: Not Given Documented by: Fentanyl Citrate 1,000 mcg/ (Sodium Chloride) 100 mls @ 5 mls/hr CONT INF .Q20H [facility]; Protocol Last Titration: 05/03/20 12:59 Dose: 50 mcg/hr, 5 mls/hr Documented by: Enteral Nutritional Formula (Vital Af 1.2 Wil Liquid) 1,000 mls @ 60 mls/hr GT .[id number] [facility] Last Admin: 05/03/20 03:59 Dose: 60 mls/hr Documented by: Cefepime HCl 2 gm/ Sodium (Chloride) 100 mls @ 200 mls/hr IV DAILY [facility] Last Infusion: 05/03/20 12:06 Dose: Infused Documented by: Insulin Glargine (Insulin Glargine 100 Units/Ml Pen) 10 units SC BID [facility] Last Admin: 05/03/20 10:59 Dose: 10 u Documented by: Insulin Human Lispro (Insulin Lispro 100 Unit/Ml Insuln.Pen) 0 unit SC Q6 [facility]; Protocol Last Admin: 05/03/20 10:59 Dose: 5 u Documented by: Loratadine (Loratadine 10 Mg Tablet) 10 mg GT DAILY [facility] Last Admin: 05/03/20 11:01 Dose: 10 mg Documented by: Metoprolol Tartrate (Metoprolol Tartrate 25 Mg Tablet) 25 mg GT BID [facility] Last Admin: 05/03/20 11:00 Dose: 25 mg Documented by: Polyethylene Glycol (Polyethylene Glycol 3350 17 Gm Packet) 17 gm GT DAILY [facility] Last Admin: 05/03/20 11:00 Dose: 17 gm Documented by: Senna/Docusate Sodium (Senna/Docusate Sodium 1 Tablet) 2 tablet GT BID [facility] Last Admin: 05/03/20 11:00 Dose: 2 tablet Documented by: Sertraline HCl (Sertraline 50 Mg Tablet) 50 mg GT DAILY [facility] Last Admin: 05/03/20 11:00 Dose: 50 mg Documented by: Sodium Chloride (0.9% Saline Lock 10 Ml Syringe) 10 - 40 ml IV UD PRN PRN Reason: SALINE FLUSH Last Admin: 05/03/20 03:59 Dose: 20 ml Documented by: Medical Necessity - Tobacco Use Smoking Status: Never smoker Tobacco Use: Non-smoker Route of nutrition/ use of supplements: [] Nutritional Intake: [] IV Site: [] Bennett Catheter: [] - Assessment/Plan Antibiotics: [] Assessment/Plan: [] Active and Suspected Problems COVID-19 (Acute) Hypoxia (Acute) covid with hypoxia - on vent. On dex. On therapeutic lovenox. D-dimer 1.7. Completed remdesivir. Started cefepime 04/30, no further fever. O2 and wbc worse. overall poor prognosis. D/w Dr. Jerome. Will follow
[2020-05-03 18:11] LABS: Bedside Glucose 313 mg/dL (70-110)
[2020-05-03] MEDS: Finasteride 5 MG Tablet PO (20:10)
[2020-05-03] MEDS: Atorvastatin Calcium 40 MG Tablet GT (20:10)
--- NOTE | 2020-05-03 23:35 | NURSING ---
After second attempt of calling legal guardian, Amber, daughter was called to notify of patient worsening condition and suggesting her to come in. Amber will be on her way.
--- NOTE | 2020-05-03 23:55 | NURSING ---
Dr Pires notified of patient at 23:55.
--- NOTE | 2020-05-04 00:30 | NURSING ---
Pt had elevated BP and physician was made aware. Order for Hydralazine was received. Before medication could be administered, BP dropped significantly to 40's/30's, palpable pulse in left fem. Physician made aware of sudden change in status, and levophed was ordered. Pt had timi red blood from salomon catheter and back of throat during mouth care. Physician aware of this and order for labs was given. Pt at 23:45 with no palpable pulse, no audible heartbeat with 1 minute of auscultation with stethescope, and asystole on monitor. Ventilator was still operational at that time. Ventilator was turned off and ETT was removed from pt at 05/04/2020 @0007. Lines removed and dressings applied. Family belongings have been documented and family has retrieved same.
--- NOTE | 2020-05-04 00:43 | NURSING ---
approximately 2330 on 05/03/20 this RN attempted to call Adams Sanchez, legal guardian, to notify of patient worsening condition. Three phones calls were made, straight to voicemail all three times. A voicemail was left after the third attempt communicated that Amber, daughter was her way and to call [phone] as soon as he got this message, with still no call back as of 05/04/20 at 3185
--- NOTE | 2020-05-04 01:12 | CPS ---
Pt extubated per verbal physician order
--- NOTE | 2020-05-04 07:19 | EXP.PCM_ITS ---
Preliminary Cause of COVID 19 pneumonia Date of Admission: 04/25/20 Date of : 05/03/20 - Principle Diagnosis Problem List: Active and Suspected Problems COVID-19 (Acute) Hypoxia (Acute) Hospital Course 84-year-old gentleman from a intermediate admitted with progressive shortness of breath. An assessment of acute hypoxic respiratory failure secondary to acute COVID-19 pneumonia made admitted to the intensive care unit. Patient condition deteriorated resulting in patient being intubated on 04/26/2020. Patient hospital stay complicated by development of suspected superimposed bacterial pneumonia. Patient remained unresponsive on the vent. After extensive discussion with family patient CODE STATUS was changed to DNR CCA. Patient was found without spontaneous breathing without presence of heart tones. Patient was pronounced at 2345 on 05/03/2020 Inpatient E&M: [id number] [facility]
== END 2020-05-03 23:45 | DRG 207 ==
LOC: ED 13:43 → ICU 14:17
PROVIDERS: Internal Medicine Critical Care Medicine; Internal Medicine Infectious Disease; Admitting Provider Internal Medicine; Emergency Provider Emergency Medicine; PCP Family Medicine; Visit Provider Internal Medicine
DX: U07.1 COVID-19 (principal); J12.82 Pneumonia due to coronavirus disease 2019; J96.01 Acute respiratory failure with hypoxia; G93.41 Metabolic encephalopathy; J15.9 Unspecified bacterial pneumonia; J44.0 Chronic obstructive pulmonary disease with (acute) lower respiratory infection; E87.2 Acidosis; N17.9 Acute kidney failure, unspecified; D68.8 Other specified coagulation defects; Z87.891 Personal history of nicotine dependence; I25.10 Atherosclerotic heart disease of native coronary artery without angina pectoris; N18.32 Chronic kidney disease, stage 3b; Z98.61 Coronary angioplasty status; Z79.02 Long term (current) use of antithrombotics/antiplatelets; Z79.899 Other long term (current) drug therapy; F32.9 Major depressive disorder, single episode, unspecified; I12.9 Hypertensive chronic kidney disease with stage 1 through stage 4 chronic kidney disease, or unspecified chronic kidney disease; B94.8 Sequelae of other specified infectious and parasitic diseases; D63.1 Anemia in chronic kidney disease; I48.0 Paroxysmal atrial fibrillation; Z66 Do not resuscitate
CPT/HCPCS: 31500; 31720; 36600; 71045; 80048; 80053; 80076; 82550; 82803; 82962; 83735; 83880; 84100; 84145; 84478; 84484; 85025; 85027; 85379; 87040; 87070; 87205; 92507; 93005; 94002; 94003; 94640; 94660; 97802; 99251; 99285; J7050; A4216; C1751; G0463; J0330; J3010